=== PATIENT | female | born 1945 | race Caucasian/White ===

== ENCOUNTER → 2016-12-29 | Outpatient (CLI) | payer MEDICARE ==
[~2016-12-29] MED LIST: ATOR-22 PO; ATOR10TA82 PO; CEPH-571 PO; CLB200 PO; CMD4 PO; CNT PO; COEN1CAP PO; CRAN1CAP15; FISHOIL PO; GLC500 PO; GLIM2TAB2 PO; GLUCTAB18 PO; LEVO100T84 PO; LEVO75TA PO; LISI-789 PO; LSN25 PO; LYSI1TAB2 PO; METF-384 PO; METO100T44 PO; MULT-1092 PO; NITR-5 PO; OMEP10CA2 PO; PRLSR20 PO; SENN-65 PO; TRAM-10 PO; ULT/50 PO; WARF2TAB8 PO; WARF4TAB PO
[2016-12-29 18:08] LABS: URINE APPEARANCE CLOUDY (CLEAR); URINE BILIRUBIN NEG (NEG); URINE COLOR DK YELLOW; URINE EPITHELIAL CELL AUTO >30 /lpf (0-5); URINE NITRITE POS (NEG); URINE SPECIFIC GRAVITY 1.036 (1.000-1.030); UROBILINOGEN NEG (NEG); ZZUR CULT IF INDIC CLEAN CATCH YES
[2016-12-29 18:11] LABS: BASO % 0.2 %; BASO ABS # 0.01 K/uL (0-0.2); COMPLETE YES; EOS % 3.6 %; HEMATOCRIT 39.2 % (37-47); IG% 0.2 %; LYMPH % 25.7 %; LYMPH ABS # 1.49 K/uL (1.2-3.4); MEAN CELL VOLUME 89.9 fL (80-100); MEAN CORPUSCULAR HEMOGLOBIN 30.7 pg (25-34); MEAN CORPUSCULAR HGB CONC 34.2 g/dl (32-36); MEAN PLATELET VOLUME 10.4 fL (7.4-10.4); MONO % 6.6 %; NEUT % 63.7 %; PLATELET COUNT 205 K/uL (130-400); RED BLOOD COUNT 4.36 M/uL (4.2-5.4); WHITE BLOOD COUNT 5.79 K/uL (4.8-10.8)
[2016-12-29 18:12] LABS: MANUAL MICROSCOPIC REQUIRED? NO; REVIEW REQ? YES
[2016-12-29 18:31] LABS: BLOOD UREA NITROGEN 15 mg/dl (7-18); BUN/CREATININE RATIO 16.3 (10-20); CALCIUM 9.6 mg/dl (8.5-10.1); CARBON DIOXIDE 25 mmol/L (21-32); CHLORIDE 105 mmol/L (98-107); CREATININE 0.94 mg/dl (0.60-1.20); GLUCOSE 294 mg/dl (70-99); POTASSIUM 4.3 mmol/L (3.5-5.1); SODIUM 140 mmol/L (136-145)
== END | disposition home or self-care (01) ==
LOC: C.LABBFT 14:17
PROVIDERS: ATTEND Nurse Practitioner
DX: Z11.59 Encounter for screening for other viral diseases (principal); R31.0 Gross hematuria

== ENCOUNTER 2017-06-06 10:20 | Inpatient (IN) | payer MEDICARE, OTHER ==
[~2017-06-06] VITALS: Ht 167.6 cm; Wt 128.9 kg
[~2017-06-06 10:20] MED LIST changes: -ATOR-22 PO; -ATOR10TA82 PO; +ATOR10TA88 PO; -CEPH-571 PO; -GLIM2TAB2 PO; -LEVO75TA PO; -LISI-789 PO; -LYSI1TAB2 PO; -METF-384 PO; -METO100T44 PO; +METO1TAB69 PO; -MULT-1092 PO; -PRLSR20 PO; -TRAM-10 PO; -WARF4TAB PO
--- NOTE | 2017-06-06 11:31 | DIAGNOSTIC IMAGING REPORT ---
CHEST ONE VIEW PORTABLE HISTORY: 72 years-old Female FALL, ILLNESS acute fall. COMPARISON: CT abdomen and pelvis 10/14/2014 TECHNIQUE: Semiupright AP view of the chest. FINDINGS: Cardiac silhouette is within normal limits. There is mild pulmonary vascular congestion without pneumothorax, pleural effusion or focal airspace consolidation. No overt pulmonary edema. The bones are grossly intact. IMPRESSION: No acute cardiopulmonary process. The above report was generated using voice recognition software. It may contain grammatical, syntax or spelling errors. Electronically signed by: Tevin Nicolas M.D. 06/06/2017 11:29 AM Dictated Date/Time: 06/06/2017 11:28 AM
[2017-06-06] MEDS ORDERED: SENN-65 PO (11:34)
[2017-06-06] MEDS ORDERED: METO1TAB69 PO (11:34)
[2017-06-06] MEDS ORDERED: WARF4TAB PO (11:34)
[2017-06-06] MEDS ORDERED: GLIM2TAB2 PO (11:34)
[2017-06-06] MEDS ORDERED: LYSI1TAB2 PO (11:34)
[2017-06-06] MEDS ORDERED: LISI-789 PO (11:34)
[2017-06-06] MEDS ORDERED: TRAM-10 PO (11:34)
[2017-06-06] MEDS ORDERED: MULT-1092 PO (11:34)
[2017-06-06] MEDS ORDERED: PRLSR20 PO (11:34)
[2017-06-06] MEDS ORDERED: METF-384 PO (11:34)
[2017-06-06] MEDS ORDERED: ATOR-22 PO (11:34)
[2017-06-06] MEDS ORDERED: LEVO75TA PO (11:34)
[2017-06-06 11:39] LABS: HEMATOCRIT 38.5 % (37-47); MEAN CELL VOLUME 89.5 fL (80-100); MEAN CORPUSCULAR HEMOGLOBIN 29.3 pg (25-34); MEAN CORPUSCULAR HGB CONC 32.7 g/dl (32-36); MEAN PLATELET VOLUME 10.5 fL (7.4-10.4); PLATELET COUNT 161 K/uL (130-400); WHITE BLOOD COUNT 13.88 K/uL (4.8-10.8)
[2017-06-06] MEDS ORDERED: SODIUM CHLORIDE 0.9% 500ML 500 ML IV STA ×2 (11:45→12:34)
[2017-06-06 11:55] LABS: POTASSIUM 3.7 mmol/L (3.5-5.1)
[2017-06-06 11:58] LABS: ALB/GLOB RATIO 0.7 (0.9-2)
[2017-06-06 12:01] LABS: INR 3.5 (0.9-1.1); PARTIAL THROMBOPLASTIN RATIO 1.6; PROTHROMBIN TIME (PATIENT) 39.6 SECONDS (9.0-12.0)
[2017-06-06 12:08] LABS: COMPLETE YES; EOS % 0.1 %; IG% 1.1 %; LYMPH % 3.8 %; LYMPH ABS # 0.53 K/uL (1.2-3.4); VACUOLIZATION OCCASIONAL
--- NOTE | 2017-06-06 12:24 | DIAGNOSTIC IMAGING REPORT ---
HEAD WITHOUT CONTRAST (CT) CLINICAL HISTORY: 72 years-old Female presenting with eval for bleed, fall. TECHNIQUE: Multidetector CT imaging of the head was performed without the use of intravenous contrast. IV contrast: None. A dose lowering technique was used consistent with the principles of ALARA (as low as reasonably achievable). COMPARISON: None. CT DOSE (mGy.cm): The estimated cumulative dose is 3090.[address] lumbar spine. FINDINGS: Jockey Valet topogram: Unremarkable. Ventricles and sulci normal in size. Brain parenchyma normal in appearance with preserved odom-white differentiation. No mass effect or midline shift. No hemorrhage or acute territorial infarct. No extra-axial fluid collection. Paranasal sinuses and mastoid air cells clear. Calvarium intact. IMPRESSION: 1. No acute intracranial pathology. Electronically signed by: Dominguez Senior M.D. 06/06/2017 12:23 PM Dictated Date/Time: 06/06/2017 12:22 PM
--- NOTE | 2017-06-06 12:32 | DIAGNOSTIC IMAGING REPORT ---
LUMBAR SPINE WITHOUT HISTORY: 72 years-old Female eval for fx acute low back pain status post fall. Concern for possible fracture COMPARISON: CT abdomen and pelvis 10/14/2014 TECHNIQUE: Multiple axial CT images of the lumbar spine were obtained without IV contrast. A dose lowering technique was used consistent with the principals of ALARA. FINDINGS: There is convex left curvature of the lumbar spine of 10 degrees. Transitional lumbosacral anatomy is present with 6 lumbar segments. There is partial sacralization of L6 with Gated partially fused left transverse process as seen on the coronal images. Bones are mildly demineralized. No acute compression deformity or retropulsion identified. No malalignment. Multilevel Schmorl's nodes are seen, notably at L1-L2 with there is moderate intervertebral disc space narrowing. Severe intervertebral disc space narrowing is seen at L5-L6. Multilevel severe facet arthropathy is seen, moderate and severe. 1.3 x 0.6 cm calculus of the interpolar right kidney is noted without definite hydronephrosis. There is moderate plaquing of the abdominal aorta. L1-L2: Circumferential annular disc bulge with moderate facet arthropathy. Moderate right foraminal narrowing. Left foramen and central canal are generally patent. L2-L3: Circumferential annular disc bulge with moderate facet arthropathy. Mild central canal and mild bilateral foraminal narrowing. L3-L4: Mild to moderate intervertebral disc space narrowing with circumferential annular disc bulge, posterior spondylitic spurring and moderate facet arthropathy. There is mild to moderate central canal, moderate left and no significant right foraminal stenosis. L4-L5: Moderate posterior vertebral disc space narrowing with posterior disc osteophyte complex and severe facet arthropathy causes moderate central canal, mild to moderate left and mild right foraminal narrowing. L5-L6: Severe intervertebral disc space narrowing with broad-based posterior disc osteophyte complex and severe facet arthropathy. There is partial effacement of the ventral thecal sac without significant central canal narrowing. There is at least moderate left and mild to moderate right foraminal narrowing. L6-S1: Right base posterior disc osteophyte complex with severe facet arthropathy. No central canal narrowing. There is mild right foraminal narrowing. Left foramen is patent. IMPRESSION: 1. No acute fracture or subluxation of the lumbar spine. 2. Transitional lumbosacral anatomy as detailed above. 3. Multilevel discogenic degenerative changes and facet arthropathy as above with mild convex left lumbar spine curvature. 4. 1.3 x 0.6 cm calculus of the interpolar right kidney is noted without hydronephrosis. The above report was generated using voice recognition software. It may contain grammatical, syntax or spelling errors. Electronically signed by: Tevin Nicolas M.D. 06/06/2017 12:31 PM Dictated Date/Time: 06/06/2017 12:22 PM
[2017-06-06 12:36] LABS: CKMB/CK RATIO 0.9 (0-3.0); MAGNESIUM 1.5 mg/dl (1.8-2.4)
[2017-06-06 12:46] LABS: URINE APPEARANCE CLOUDY (CLEAR); URINE COLOR DK YELLOW; URINE EPITHELIAL CELL AUTO 0-5 /lpf (0-5); URINE NITRITE NEG (NEG); UROBILINOGEN NEG (NEG); ZZURINE CULT IF INDIC CATH YES
[2017-06-06 12:48] LABS: MANUAL MICROSCOPIC REQUIRED? NO; REVIEW REQ? NO; URINE BILIRUBIN NEG (NEG)
[2017-06-06 13:40] VITALS: O2SAT 99; BMI 45.4
[2017-06-06] MEDS ORDERED: MoRPHine SULFATE 2 MG/ML CARP IV PRN (14:00)
[2017-06-06] MEDS ORDERED: WARFARIN SOD 4 MG TAB PO SCH (14:00)
[2017-06-06] MEDS ORDERED: ONDANSETRON INJ 2 MG/ML 2 ML VIAL IV PRN (14:00)
[2017-06-06] MEDS ORDERED: MAGNESIUM HYDROXIDE SUSP 30 ML UDC PO PRN (14:00)
[2017-06-06] MEDS ORDERED: POLYETHYLENE (MIRALAX) 17 GM PACK PO PRN (14:00)
[2017-06-06] MEDS ORDERED: ACETAMINOPHEN 325 MG TAB PO PRN (14:00)
[2017-06-06] MEDS ORDERED: ALUMINUM/MAGNESIUM/SIMETH (MAALOX MAX) 30 ML UDC PO PRN (14:00)
[2017-06-06] MEDS ORDERED: IV FLUIDS COMPLETED PRN (14:30)
--- NOTE | 2017-06-06 14:32 | History and Physical ---
History & Physical Date & Time of Service: Jun 06, 2017 at 14:13 Chief Complaint: Back Pain Primary Care Physician: Michael Anderson M.D. History of Present Illness Source: patient 72 y/o F Hx DM, HTN, HPL, hypothyroid, chronic back pain, chronic AF, morbidly obese. Pt states she was having hot and cold flashes with a few episodes of nausea and vomiting the prior evening. She sat in her recliner this AM and apparently reclined into an awkward position where she was unable to get up for 6-7 hours. She was finally found by her son who was unable to help her up due to her weight. EMS were called and arrived at the house to help her out of the chair. She was exhibiting lower extremity weakness however, and was not able to maintain her balance independently once out of her chair. She was transported to the hospital therefore. She complains of "pain all over" in addition to lower back pain. She denies CP, SOB. Her nausea and vomiting have resolved. She was afebrile on admission. Initial labs were notable for ARF and an elevated CK and troponin which may be related to her elevated creatinine. A UA is +. Past Medical/Surgical History Medical Problems: 1) Morbid obesity 2) Ovarian CA 3) DM II 4) HTN 5) HPL 6) Hypothyroidism 7) Chronic AF 8) Chronic lower back pain Family History Noncontributory to present case Social History Smoking Status: Never Smoker Immunizations History of Influenza Vaccine: No History of Tetanus Vaccine?: No History of Pneumococcal: No History of Hepatitis B Vaccine: No Multi-Drug Resistant Organisms History of MDRO: No Allergies Coded Allergies: Erythromycin (Unverified Allergy, Unknown, ?, 06/06/17) Dairy (Unverified Adverse Reaction, Unknown, _, 06/06/17) Levothyroxine (Unverified Adverse Reaction, Unknown, increased hair growth in past, 06/06/17) Simvastatin (Unverified Adverse Reaction, Unknown, myalgias in past, Vytorin [place], 06/06/17) Home Medications Scheduled Atorvastatin (Lipitor), 20 MG PO HS Glimepiride (Glimepiride), 2 MG PO BID Levothyroxine Sodium (Synthroid), 75 MCG PO DAILY Lisinopril (Zestril), 2.5 MG PO QPM Lysine (L-Lysine), 1,000 MG PO DAILY Metformin Hcl (Glucophage), 1,000 MG PO BIDM Metoprolol Succ (Toprol Xl) (Toprol-Xl ), 100 MG PO BID Multiple Vitamins W/ Minerals (Centrum Silver 50+Women), 1 TAB PO DAILY Omeprazole (Prilosec), 20 MG PO DAILY Senna/Docusate Sod (Senokot S), 1 TAB PO BID Warfarin Sodium (Coumadin), 1 DOSE PO UD Scheduled PRN Tramadol (Ultram), 50-100 MG PO Q6H PRN for Pain Review of Systems Constitutional: + chills, + sweats, No fever Eyes: No worsening of vision ENT: No hearing loss, No nasal symptoms Respiratory: No cough, No sputum, No wheezing Cardiovascular: No chest pain, No orthopnea Abdomen: + nausea, + vomiting, No pain Musculoskeletal: + joint pain (chronic back pain) Genitourinary - Female: No dysuria, No urinary frequency, No urinary urgency Neurologic: + weakness, No memory loss, No paralysis Psychiatric: No depression symptoms Endocrine: + fatigue Hematologic / Lymphatic: No abnormal bleeding/bruising Integumentary: No rash Allergic / Immunologic: No environmental allergies Physical Exam Vital Signs Date Time Temp Pulse Resp B/P (MAP) Pulse Ox O2 Delivery O2 Flow Rate FiO2 06/06/17 13:40 99 Room Air 06/06/17 12:38 91 18 103/51 06/06/17 11:41 100 98/55 99 Room Air 06/06/17 10:50 37.2 111 100/86 95 Room Air 06/06/17 10:50 103 General Appearance: WD/WN, no apparent distress, + obese Head: normocephalic, atraumatic Neck: supple, no adenopathy, no JVD Respiratory/Chest: chest non-tender, lungs clear Cardiovascular: regular rate, rhythm, no edema, no gallop, no JVD, no murmur, normal peripheral pulses Abdomen/GI: normal bowel sounds, non tender, soft Back: normal inspection, no CVA tenderness, no muscle spasm, normal range of motion Extremities/Musculoskelatal: no calf tenderness, normal capillary refill, normal range of motion, + pedal edema 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, no motor/sensory deficits, alert, normal mood/affect, normal reflexes, oriented x 3 Skin: normal color, warm/dry, no rash Diagnostics Laboratory Results Results Past 24 Hours Test 06/06/17 11:15 06/06/17 11:32 06/06/17 12:35 06/06/17 13:53 Range/Units White Blood Count 13.88 4.8-10.8 K/uL Red Blood Count 4.30 4.2-5.4 M/uL Hemoglobin 12.6 12.0-16.0 g/dL Hematocrit 38.5 37-47 % Mean Corpuscular Volume 89.5 80-100 fL Mean Corpuscular Hemoglobin 29.3 25-34 pg Mean Corpuscular Hemoglobin Concent 32.7 32-36 g/dl Platelet Count 161 130-400 K/uL Mean Platelet Volume 10.5 7.4-10.4 fL Neutrophils (%) (Auto) 90.0 % Lymphocytes (%) (Auto) 3.8 % Monocytes (%) (Auto) 5.0 % Eosinophils (%) (Auto) 0.1 % Basophils (%) (Auto) 0.0 % Neutrophils # (Auto) 12.50 1.4-6.5 K/uL Lymphocytes # (Auto) 0.53 1.2-3.4 K/uL Monocytes # (Auto) 0.69 0.11-0.59 K/uL Eosinophils # (Auto) 0.01 0-0.5 K/uL Basophils # (Auto) 0.00 0-0.2 K/uL RDW Standard Deviation 45.6 36.4-46.3 fL RDW Coefficient of Variation 13.9 11.5-14.5 % Immature Granulocyte % (Auto) 1.1 % Immature Granulocyte # (Auto) 0.15 0.00-0.02 K/uL Toxic Vacuolation OCCASIONAL Prothrombin Time 39.6 9.0-12.0 SECONDS Prothromb Time International Ratio 3.5 0.9-1.1 Activated Partial Thromboplast Time 41.2 21.0-31.0 SECONDS Partial Thromboplastin Ratio 1.6 Sodium Level 139 136-145 mmol/L Potassium Level 3.7 3.5-5.1 mmol/L Chloride Level 104 98-107 mmol/L Carbon Dioxide Level 21 21-32 mmol/L Anion Gap 14.0 3-11 mmol/L Blood Urea Nitrogen 22 7-18 mg/dl Creatinine 2.00 0.60-1.20 mg/dl Est Creatinine Clear Calc Drug Dose 35.8 ml/min Estimated GFR () 28.6 Estimated GFR (Non- 24.7 BUN/Creatinine Ratio 11.0 10-20 Random Glucose 269 70-99 mg/dl Calcium Level 10.0 8.5-10.1 mg/dl Magnesium Level 1.5 1.8-2.4 mg/dl Total Bilirubin 0.9 0.2-1 mg/dl Aspartate Amino Transf (AST/SGOT) 60 15-37 U/L Alanine Aminotransferase (ALT/SGPT) 40 12-78 U/L Alkaline Phosphatase 180 45-117 U/L Total Creatine Kinase 434 26-192 U/L Creatine Kinase MB 3.9 0.5-3.6 ng/ml Creatine Kinase MB Ratio 0.9 0-3.0 Troponin I 0.800 0-0.045 ng/ml Total Protein 7.4 6.4-8.2 gm/dl Albumin 3.0 3.4-5.0 gm/dl Globulin 4.4 2.5-4.0 gm/dl Albumin/Globulin Ratio 0.7 0.9-2 Urine Color DK YELLOW Urine Appearance CLOUDY CLEAR Urine pH 5.0 4.5-7.5 Urine Specific [place] 1.020 1.000-1.030 Urine Protein 1+ NEG Urine Glucose (UA) TRACE NEG Urine Ketones TRACE NEG Urine Occult Blood 3+ NEG Urine Nitrite NEG NEG Urine Bilirubin NEG NEG Urine Urobilinogen NEG NEG Urine Leukocyte Esterase MODERATE NEG Urine WBC (Auto) >30 0-5 /hpf Urine RBC (Auto) 5-10 0-4 /hpf Urine Hyaline Casts (Auto) 10-30 0-5 /lpf Urine Epithelial Cells (Auto) 0-5 0-5 /lpf Urine Bacteria (Auto) 3+ NEG Microbiology Results 06/06/17 Urine Culture, Received Pending Impression Assessment and Plan 72 y/o F Hx DM, HTN, HPL, hypothyroid, chronic back pain, chronic AF, morbidly obese. Pt states she was having hot and cold flashes with a few episodes of nausea and vomiting the prior evening. She sat in her recliner this AM and apparently reclined into an awkward position where she was unable to get up for 6-7 hours. She was finally found by her son who was unable to help her up due to her weight. EMS were called and arrived at the house to help her out of the chair. She was exhibiting lower extremity weakness however, and was not able to maintain her balance independently once out of her chair. She was transported to the hospital therefore. She complains of "pain all over" in addition to lower back pain. She denies CP, SOB. Her nausea and vomiting have resolved. She was afebrile on admission. Initial labs were notable for ARF and an elevated CK and troponin which may be related to her elevated creatinine. A UA is +. 1) ARF - likely prerenal considering nausea and vomiting followed by several hours of immobility. Pt will be aggressively hydrated - MADYSON held - BMP will be trended. 2) Elevated troponin and CK - likely related to ARF and mild rhabdo - will trend - pt assigned to telemetry - receiving IVF as above and we will trend her CK/trop. 3) UTI - placed on Ceftriaxone pending culture results 4) Immobility - no distinct deficits on exam - likely related to infection, rhabdo, obesity - will consult PT, OT - may need placement in rehab if there is no short-term improvement as she lives alone. 5) AF - will remain on Coumadin and B sebastian - INR is therapeutic 6) HTN - cont B sebastian, MADYSON held due to ARF - will sub if needed 7) Morbidly obese - would likely benefit from nutritional and lifestyle counseling prior to DC. 8) DM - placed on SS Full code - Coumadin prophylaxis Total time for this admit including review pf labs, meds, records, EKG - discussion with pt and ER attending - 37 min Advanced Directives Existing Living Will: Yes Existing Power of Boning Room Worker: Yes (FRED SON ) VTE Prophylaxis VTE Risk Assessment Done? Y/N: Yes Risk Level: Moderate Given or contraindicated: Warfarin (Coumadin)
[2017-06-06] MEDS ORDERED: INFLUENZA ADMINISTRATION CHARGE ONE (15:15)
[2017-06-06] MEDS ORDERED: INFLUENZA VACCINE HIGH DOSE 65+ 0.5 ML SYR IM. ONE (15:15)
[2017-06-06] MEDS: CEFTRIAXONE SOD INJ 1 GM in DEXTROSE 5% ADD-VANTAGE 50ML 50 ML IV SCH (15:42)
[2017-06-06] MEDS: SODIUM CHLORIDE 0.9% 1000ML 1,000 ML IV SCH ×2 (15:42→23:47)
[2017-06-06 16:00] VITALS: O2SAT 99
[2017-06-06] MEDS ORDERED: WARFARIN SOD 2 MG TAB PO SCH (16:45)
[2017-06-06] MEDS: INSULIN ASPART 100 UNITS/ML 3 ML PEN SC SCH ×2 (17:43→21:17)
--- NOTE | 2017-06-06 18:37 | EMERGENCY ROOM VISIT NOTE ---
History Report prepared by Jocelyn: Luh Richardson Under the Supervision of: Dr. Adi Asencio M.D. First contact with patient: 11:31 Chief Complaint: FALL Stated Complaint: BACK PAIN History of Present Illness The patient is a 72 year old female who presents to the Emergency Room with complaints of an episode of a fall occurring around 2am today. The patient has been feeling very weak lately. She reports feeling generally weak all over and denies any localized weakness. Last night she slid down in her leather recliner and was unable to get up. She tried calling her son for help but he did not answer until around 8am today. When EMS arrived they were unable to get the patient up and had to place her on a stretcher. She was brought to the ED for further evaluation. The patient has been feeling nauseated for the past two days. Last night she had two episodes of vomiting. She is currently complaining of a headache. She rates her pain as a 10/10 in severity. The patient has been having diarrhea for months and estimates that she has two episodes daily. She denies any hematochezia and melena. She does report some hematuria. She has been incontinent for years. The patient denies fevers and chest pain. She did state she had chest pain along time ago on the right side but does not remember when. She takes a blood thinner for atrial fibrillation. Source of History: patient Onset: today Position: other (global) Symptom Intensity: 10/10 Timing: other (episode) Modifying Factors (Worsening): other (weakness) Associated Symptoms: + headache, + nausea, + vomiting, + diarrhea, + urinary symptoms (hematuria), + weakness, No fevers, No chest pain, No melena, No hematochezia Review of Systems See HPI for pertinent positives & negatives. A total of 10 systems reviewed and were otherwise negative. Past Medical & Surgical Medical Problems: (1) ARF (acute renal failure) (2) Arthritis (3) CVA (4) Diabetes mellitus (5) Gait abnormality (6) Ovarian Carcinoma (7) Tonsillectomy Family History Non-pertinent due to advanced age. Social History Smoking Status: Never Smoker Housing Status: lives alone Occupation Status: unemployed Current/Historical Medications Scheduled Atorvastatin (Lipitor), 20 MG PO HS Glimepiride (Glimepiride), 2 MG PO BID Levothyroxine Sodium (Synthroid), 75 MCG PO DAILY Lisinopril (Zestril), 2.5 MG PO QPM Lysine (L-Lysine), 1,000 MG PO DAILY Metformin Hcl (Glucophage), 1,000 MG PO BIDM Metoprolol Succ (Toprol Xl) (Toprol-Xl ), 100 MG PO BID Multiple Vitamins W/ Minerals (Centrum Silver 50+Women), 1 TAB PO DAILY Omeprazole (Prilosec), 20 MG PO DAILY Senna/Docusate Sod (Senokot S), 1 TAB PO BID Warfarin Sodium (Coumadin), 1 DOSE PO UD Scheduled PRN Tramadol (Ultram), 50-100 MG PO Q6H PRN for Pain Allergies Coded Allergies: Erythromycin (Unverified Allergy, Unknown, ?, 06/06/17) Dairy (Unverified Adverse Reaction, Unknown, _, 06/06/17) Levothyroxine (Unverified Adverse Reaction, Unknown, increased hair growth in past, 06/06/17) Simvastatin (Unverified Adverse Reaction, Unknown, myalgias in past, Vytorin OK, 06/06/17) Physical Exam Vital Signs Date Time Temp Pulse Resp B/P (MAP) Pulse Ox O2 Delivery O2 Flow Rate FiO2 06/06/17 13:40 99 Room Air 06/06/17 12:38 91 18 103/51 06/06/17 11:41 100 98/55 99 Room Air 06/06/17 10:50 37.2 111 100/86 95 Room Air 06/06/17 10:50 103 Physical Exam Constitutional: Vital signs reviewed. Eyes: Pupils are equal round reactive to light. Conjunctiva are noninjected. ENT: Pharynx is clear without erythema or exudate. Mucous membranes are dry. Neck supple without meningeal signs. Respiratory: Clear to auscultation bilaterally. Breath sounds are equal bilaterally. Cardiovascular: Regular rate and irregularly irregular rhythm. No rubs or gallops. GI: Soft, nondistended and nontender. Bowel sounds are present. Musculoskeletal: No peripheral edema. No lower extremity tenderness. Integumentary: No cyanosis. Neurological: The patient is awake and alert. Cranial nerves II-XII are intact. Motor is 5 out of 5 in the upper extremities. Strength in lower extremities is 3/5 proximally and 5/5 distally. Sensation is intact to light touch all extremities. Normal speech. No pronator drift. Psychiatric: Normal affect. Medical Decision & Procedures ER Provider Diagnostic Interpretation: Radiology results as stated below per my review and the radiologist's interpretation: CHEST ONE VIEW PORTABLE HISTORY: 72 years-old Female FALL, ILLNESS acute fall. COMPARISON: CT abdomen and pelvis 10/14/2014 TECHNIQUE: Semiupright AP view of the chest. FINDINGS: Cardiac silhouette is within normal limits. There is mild pulmonary vascular congestion without pneumothorax, pleural effusion or focal airspace consolidation. No overt pulmonary edema. The bones are grossly intact. IMPRESSION: No acute cardiopulmonary process. The above report was generated using voice recognition software. It may contain grammatical, syntax or spelling errors. Electronically signed by: Tevin Nicolas M.D. 06/06/2017 11:29 AM Dictated Date/Time: 06/06/2017 11:28 AM LUMBAR SPINE WITHOUT HISTORY: 72 years-old Female eval for fx acute low back pain status post fall. Concern for possible fracture COMPARISON: CT abdomen and pelvis 10/14/2014 TECHNIQUE: Multiple axial CT images of the lumbar spine were obtained without IV contrast. A dose lowering technique was used consistent with the principals of ALARA. FINDINGS: There is convex left curvature of the lumbar spine of 10 degrees. Transitional lumbosacral anatomy is present with 6 lumbar segments. There is partial sacralization of L6 with Gated partially fused left transverse process as seen on the coronal images. Bones are mildly demineralized. No acute compression deformity or retropulsion identified. No malalignment. Multilevel Schmorl's nodes are seen, notably at L1-L2 with there is moderate intervertebral disc space narrowing. Severe intervertebral disc space narrowing is seen at L5-L6. Multilevel severe facet arthropathy is seen, moderate and severe. 1.3 x 0.6 cm calculus of the interpolar right kidney is noted without definite hydronephrosis. There is moderate plaquing of the abdominal aorta. L1-L2: Circumferential annular disc bulge with moderate facet arthropathy. Moderate right foraminal narrowing. Left foramen and central canal are generally patent. L2-L3: Circumferential annular disc bulge with moderate facet arthropathy. Mild central canal and mild bilateral foraminal narrowing. L3-L4: Mild to moderate intervertebral disc space narrowing with circumferential annular disc bulge, posterior spondylitic spurring and moderate facet arthropathy. There is mild to moderate central canal, moderate left and no significant right foraminal stenosis. L4-L5: Moderate posterior vertebral disc space narrowing with posterior disc osteophyte complex and severe facet arthropathy causes moderate central canal, mild to moderate left and mild right foraminal narrowing. L5-L6: Severe intervertebral disc space narrowing with broad-based posterior disc osteophyte complex and severe facet arthropathy. There is partial effacement of the ventral thecal sac without significant central canal narrowing. There is at least moderate left and mild to moderate right foraminal narrowing. L6-S1: Right base posterior disc osteophyte complex with severe facet arthropathy. No central canal narrowing. There is mild right foraminal narrowing. Left foramen is patent. IMPRESSION: 1. No acute fracture or subluxation of the lumbar spine. 2. Transitional lumbosacral anatomy as detailed above. 3. Multilevel discogenic degenerative changes and facet arthropathy as above with mild convex left lumbar spine curvature. 4. 1.3 x 0.6 cm calculus of the interpolar right kidney is noted without hydronephrosis. The above report was generated using voice recognition software. It may contain grammatical, syntax or spelling errors. Electronically signed by: Tevin Nicolas M.D. 06/06/2017 12:31 PM Dictated Date/Time: 06/06/2017 12:22 PM HEAD WITHOUT CONTRAST (CT) CLINICAL HISTORY: 72 years-old Female presenting with eval for bleed, fall. TECHNIQUE: Multidetector CT imaging of the head was performed without the use of intravenous contrast. IV contrast: None. A dose lowering technique was used consistent with the principles of ALARA (as low as reasonably achievable). COMPARISON: None. CT DOSE (mGy.cm): The estimated cumulative dose is 3090.[address] lumbar spine. FINDINGS: Disability Coordinator topogram: Unremarkable. Ventricles and sulci normal in size. Brain parenchyma normal in appearance with preserved odom-white differentiation. No mass effect or midline shift. No hemorrhage or acute territorial infarct. No extra-axial fluid collection. Paranasal sinuses and mastoid air cells clear. Calvarium intact. IMPRESSION: 1. No acute intracranial pathology. Electronically signed by: Dominguez Senior M.D. 06/06/2017 12:23 PM Dictated Date/Time: 06/06/2017 12:22 PM Laboratory Results 06/06/17 11:15 Red Blood Count 4.30, Mean Corpuscular Volume 89.5, Mean Corpuscular Hemoglobin 29.3, Mean Corpuscular Hemoglobin Concent 32.7, Mean Platelet Volume 10.5, Neutrophils (%) (Auto) 90.0, Lymphocytes (%) (Auto) 3.8, Monocytes (%) (Auto) 5.0, Eosinophils (%) (Auto) 0.1, Basophils (%) (Auto) 0.0, Neutrophils # (Auto) 12.50, Lymphocytes # (Auto) 0.53, Monocytes # (Auto) 0.69, Eosinophils # (Auto) 0.01, Basophils # (Auto) 0.00 06/06/17 11:15 Test 06/06/17 11:15 06/06/17 11:32 06/06/17 12:35 White Blood Count 13.88 K/uL (4.8-10.8) Red Blood Count 4.30 M/uL (4.2-5.4) Hemoglobin 12.6 g/dL (12.0-16.0) Hematocrit 38.5 % (37-47) Mean Corpuscular Volume 89.5 fL (80-100) Mean Corpuscular Hemoglobin 29.3 pg (25-34) Mean Corpuscular Hemoglobin Concent 32.7 g/dl (32-36) Platelet Count 161 K/uL (130-400) Mean Platelet Volume 10.5 fL (7.4-10.4) Neutrophils (%) (Auto) 90.0 % Lymphocytes (%) (Auto) 3.8 % Monocytes (%) (Auto) 5.0 % Eosinophils (%) (Auto) 0.1 % Basophils (%) (Auto) 0.0 % Neutrophils # (Auto) 12.50 K/uL (1.4-6.5) Lymphocytes # (Auto) 0.53 K/uL (1.2-3.4) Monocytes # (Auto) 0.69 K/uL (0.11-0.59) Eosinophils # (Auto) 0.01 K/uL (0-0.5) Basophils # (Auto) 0.00 K/uL (0-0.2) RDW Standard Deviation 45.6 fL (36.4-46.3) RDW Coefficient of Variation 13.9 % (11.5-14.5) Immature Granulocyte % (Auto) 1.1 % Immature Granulocyte # (Auto) 0.15 K/uL (0.00-0.02) Toxic Vacuolation OCCASIONAL Prothrombin Time 39.6 SECONDS (9.0-12.0) Prothromb Time International Ratio 3.5 (0.9-1.1) Activated Partial Thromboplast Time 41.2 SECONDS (21.0-31.0) Partial Thromboplastin Ratio 1.6 Anion Gap 14.0 mmol/L (3-11) Est Creatinine Clear Calc Drug Dose 35.8 ml/min Estimated GFR () 28.6 Estimated GFR (Non- 24.7 BUN/Creatinine Ratio 11.0 (10-20) Calcium Level 10.0 mg/dl (8.5-10.1) Magnesium Level 1.5 mg/dl (1.8-2.4) Total Bilirubin 0.9 mg/dl (0.2-1) Aspartate Amino Transf (AST/SGOT) 60 U/L (15-37) Alanine Aminotransferase (ALT/SGPT) 40 U/L (12-78) Alkaline Phosphatase 180 U/L (45-117) Creatine Kinase MB 3.9 ng/ml (0.5-3.6) Total Protein 7.4 gm/dl (6.4-8.2) Albumin 3.0 gm/dl (3.4-5.0) Globulin 4.4 gm/dl (2.5-4.0) Albumin/Globulin Ratio 0.7 (0.9-2) Hepatitis C Antibody Screen NEG (NEG) Creatine Kinase MB Ratio (0-3.0) Urine Color DK YELLOW Urine Appearance CLOUDY (CLEAR) Urine pH 5.0 (4.5-7.5) Urine Specific [place] 1.020 (1.000-1.030) Urine Protein 1+ (NEG) Urine Glucose (UA) TRACE (NEG) Urine Ketones TRACE (NEG) Urine Occult Blood 3+ (NEG) Urine Nitrite NEG (NEG) Urine Bilirubin NEG (NEG) Urine Urobilinogen NEG (NEG) Urine Leukocyte Esterase MODERATE (NEG) Urine WBC (Auto) >30 /hpf (0-5) Urine RBC (Auto) 5-10 /hpf (0-4) Urine Hyaline Casts (Auto) 10-30 /lpf (0-5) Urine Epithelial Cells (Auto) 0-5 /lpf (0-5) Urine Bacteria (Auto) 3+ (NEG) Laboratory results as reviewed by me. Medications Administered Medications (Trade) Dose Ordered Sig/Tequila Route Start Time Stop Time Status Last Admin Dose Admin Sodium Chloride 500 ml @ 999 mls/hr Q31M STAT IV 06/06/17 11:45 06/06/17 12:15 DC 06/06/17 11:45 999 MLS/HR Sodium Chloride 500 ml @ 200 mls/hr Q2H30M STAT IV 06/06/17 12:34 06/06/17 15:01 DC 06/06/17 12:34 200 MLS/HR ECG Indication: weakness Rate (beats per minute): 95 Rhythm: atrial fibrillation Findings: no acute ischemic change, other (QRS is 86 MS) ED Course 1131: The patient was evaluated in room B2. A complete history and physical exam was performed. 1145: NSS 500 ml @ 999 mls/hr IV 1234: NSS 500 ml @ 200 mls/hr IV 1236: I reassessed the patient at this time. A Ramos catheter was placed and very little urine was drained. There was no blood. I discussed the results and treatment plan with patient. I answered all pertaining questions that she had. She expressed understanding and verbalized agreement. 1239: I spoke with Dr. Titus. We discussed the patient's case. The patient will be evaluated by the [facility] for further management. Medical Decision this is a 72-year-old female presents with generalized weakness. Differential diagnosis includes dehydration, acute kidney injury, infection, cardiac, neurologic, rhabdomyolysis. I did perform a limited focused review of portions of the patient's old chart on the electronic medical record. The patient has had no recent pertinent visits to this hospital. I did evaluate the patient as noted above. The patient is presenting with generalized weakness. She states she slid off her recliner and was unable to get off the floor for an approximate 7 hours. IV access was established. The patient was placed on a continuous night monitor. I did treat the patient with normal saline IV. I did order and personally review the patient's 12-lead EKG and chest x-ray as described above. She has no acute ischemic changes on her twelve-lead EKG. I did order and review the patient's blood work as noted in the electronic medical record. The patient has a creatinine of 2. Her troponin is slightly elevated but she states she has not had chest pain in a long time. This may be a elevated secondary to her kidney disease. She does have some hyperglycemia as well. Her white count is slightly elevated. Her INR is 3.5. I did order a CT of the head and lumbosacral spine. I did review the images myself as well as the radiology report as described above. There is no acute process. The patient states she's been urinating blood. A Ramos catheter is placed. She had very little urine in it but there was no blood noted. UA showed signs of a UTI. I did discuss the test results with the patient. I did recommend hospitalization for further care and evaluation. I did discuss case with the hospitalist and case management manager. Medication Reconcilliation Current Medication List: was personally reviewed by me Blood Pressure Screening Patient's blood pressure: Normal blood pressure Consults Time Called: 1238 Consulting Physician: Dr. Titus Returned Call: [address] Titus. We discussed the patient's case. The patient will be evaluated by the [facility] for further management. Impression Primary Impression: BONIFACIO (acute kidney injury) Additional Impressions: Dehydration Chronic diarrhea Supratherapeutic INR Generalized weakness Elevated troponin UTI (urinary tract infection) Scribe Attestation The scribe's documentation has been prepared under my direct and personally reviewed by me in its entirety. I confirm that the note above accurately reflects all work, treatment, procedures, and medical decision making performed by me. Departure Information Dispostion Being Evaluated By Hospitalist Referrals Michael Anderson M.D. (PCP) Patient Instructions My [facility] Problem Qualifiers Additional Impressions: UTI (urinary tract infection) Urinary tract infection type: site unspecified Hematuria presence: with hematuria Qualified Codes: N39.0 - Urinary tract infection, site not specified ; R31.9 - Hematuria, unspecified
[2017-06-06 19:50] VITALS: BP 92/55; PULSE 88; TEMP 36.9; O2SAT 96
[2017-06-06 20:00] VITALS: O2SAT 99
[2017-06-06] MEDS: DOCUSATE SODIUM/SENNA 50/8.6MG TAB PO SCH (21:05)
[2017-06-06] MEDS: METOPROLOL SUCC 50MG EXT REL TAB PO SCH (21:05)
[2017-06-06] MEDS: ATORVASTATIN 20 MG TAB PO SCH (21:05)
[2017-06-06 23:15] VITALS: BP 102/65; PULSE 92; TEMP 37; O2SAT 96
[2017-06-06 23:59] VITALS: O2SAT 96
[2017-06-07] VITALS (9 sets, daily range): BP systolic 116–139; BP diastolic 68–75; PULSE 84–95; TEMP 36.6–37.2; O2SAT 93–98; BMI 45.6
[2017-06-07] MEDS: LEVOTHYROXINE 75 MCG TAB PO SCH (07:04)
[2017-06-07 07:46] LABS: PROTHROMBIN TIME (PATIENT) 50.2 SECONDS (9.0-12.0)
[2017-06-07 07:47] LABS: BUN/CREATININE RATIO 20.2 (10-20); CALCIUM 8.7 mg/dl (8.5-10.1); CREATININE 1.5 mg/dl (0.60-1.20); MAGNESIUM 1.6 mg/dl (1.8-2.4); POTASSIUM 3.7 mmol/L (3.5-5.1)
[2017-06-07 07:48] LABS: INR 4.4 (0.9-1.1)
[2017-06-07 07:53] LABS: HEMATOCRIT 34.3 % (37-47); MEAN CELL VOLUME 88.6 fL (80-100); MEAN CORPUSCULAR HEMOGLOBIN 29.5 pg (25-34); MEAN CORPUSCULAR HGB CONC 33.2 g/dl (32-36); MEAN PLATELET VOLUME 10.7 fL (7.4-10.4); PLATELET COUNT 137 K/uL (130-400); RED BLOOD COUNT 3.87 M/uL (4.2-5.4); WHITE BLOOD COUNT 18.93 K/uL (4.8-10.8)
[2017-06-07] MEDS: INSULIN ASPART 100 UNITS/ML 3 ML PEN SC SCH ×4 (07:59→22:08)
[2017-06-07] MEDS: METOPROLOL SUCC 50MG EXT REL TAB PO SCH ×2 (08:02→22:05)
[2017-06-07] MEDS: DOCUSATE SODIUM/SENNA 50/8.6MG TAB PO SCH ×2 (08:03→22:05)
[2017-06-07] MEDS: PANTOprazole SOD 40 MG TAB PO SCH (08:03)
[2017-06-07] MEDS ORDERED: NURSING DECISION MEDICATION ORDER SCH ×2 (08:45→18:00)
[2017-06-07] MEDS: MICONAZOLE NITRATE POWDER 43 GM EXT SCH ×2 (09:58→22:02)
--- NOTE | 2017-06-07 14:07 | Progress Note ---
Subjective Date of Service: Jun 07, 2017. Subjective Pt evaluation today including: conversation w/ patient, conversation w/ family , physical exam, lab review, review of studies, review of inpatient medication list Pt seen and examined Resting comfortably in bed States incontinence and difficulty ambulation No fevers or chills Problem List Medical Problems: (1) BONIFACIO (acute kidney injury) Status: Acute (2) Chronic diarrhea Status: Acute (3) Dehydration Status: Acute (4) Elevated troponin Status: Acute (5) Generalized weakness Status: Acute (6) Supratherapeutic INR Status: Acute (7) UTI (urinary tract infection) Status: Acute Review of Systems Constitutional: + weakness, + fatigue, No fever, No chills, No sweats, No weight loss ENT: No hearing loss, No unusual epistaxis, No nasal symptoms, No sore throat, No tinnitus Respiratory: No cough, No sputum, No wheezing, No shortness of breath, No dyspnea on exertion Cardiac: No chest pain, No orthopnea, No PND, No edema, No claudication Abdomen: No pain, No nausea, No vomiting, No diarrhea, No constipation Musculoskeletal: No joint pain, No muscle pain, No swelling, No calf pain Female : No dysuria, No urinary frequency, No hematuria, No incontinence Neurologic: No memory loss, No paralysis, No weakness, No numbness/tingling Psychiatric: No depression symptoms, No anhedonism, No anxiety, No insomnia Endo: No fatigue, No excessive thirst Skin: No rash, No itch Objective Vital Signs Date Time Temp Pulse Resp B/P (MAP) Pulse Ox O2 Delivery O2 Flow Rate FiO2 06/07/17 12:29 36.8 86 20 133/74 (93) 98 Room Air 06/07/17 12:11 36.9 90 20 96 06/07/17 12:00 Room Air 06/07/17 09:33 90 96 06/07/17 08:00 Room Air 06/07/17 07:46 36.9 89 20 133/75 (94) 98 Room Air 06/07/17 04:00 96 Room Air 06/07/17 03:07 37.2 85 19 124/68 (86) 94 Room Air 06/06/17 23:59 96 Room Air 06/06/17 23:15 37.0 92 20 102/65 (77) 96 Room Air 06/06/17 20:00 99 Room Air 06/06/17 19:50 36.9 88 18 92/55 (67) 96 Room Air 06/06/17 16:00 99 Room Air 06/06/17 14:04 87 16 90/62 Physical Exam General Appearance: WD/WN, no apparent distress Eyes: normal inspection, PERRL, EOMI, sclerae normal Neck: supple, no adenopathy, thyroid normal, no JVD Respiratory/Chest: chest non-tender, lungs clear, normal breath sounds, no respiratory distress Cardiovascular: regular rate, rhythm, no edema, no gallop, no JVD Abdomen: normal bowel sounds, non tender, soft, no organomegaly Neurologic/Psychiatric: no motor/sensory deficits, alert, normal mood/affect, oriented x 3 Laboratory Results Last 24 Hours Test 06/06/17 15:20 06/06/17 16:28 06/06/17 20:09 06/06/17 21:40 Total Creatine Kinase 874 U/L 1621 U/L Troponin I 0.672 ng/ml 0.449 ng/ml Bedside Glucose 283 mg/dl 242 mg/dl Test 06/07/17 06:12 06/07/17 07:11 06/07/17 11:33 Bedside Glucose 133 mg/dl 219 mg/dl White Blood Count 18.93 K/uL Red Blood Count 3.87 M/uL Hemoglobin 11.4 g/dL Hematocrit 34.3 % Mean Corpuscular Volume 88.6 fL Mean Corpuscular Hemoglobin 29.5 pg Mean Corpuscular Hemoglobin Concent 33.2 g/dl RDW Standard Deviation 46.8 fL RDW Coefficient of Variation 14.4 % Platelet Count 137 K/uL Mean Platelet Volume 10.7 fL Prothrombin Time 50.2 SECONDS Prothromb Time International Ratio 4.4 Sodium Level 139 mmol/L Potassium Level 3.7 mmol/L Chloride Level 107 mmol/L Carbon Dioxide Level 23 mmol/L Anion Gap 9.0 mmol/L Blood Urea Nitrogen 30 mg/dl Creatinine 1.50 mg/dl Est Creatinine Clear Calc Drug Dose 47.8 ml/min Estimated GFR () 40.5 Estimated GFR (Non- 34.9 BUN/Creatinine Ratio 20.2 Random Glucose 147 mg/dl Estimated Average Glucose 197 mg/dl Hemoglobin A1c 8.5 % Calcium Level 8.7 mg/dl Magnesium Level 1.6 mg/dl Assessment and Plan 72 y/o F Hx DM, HTN, HPL, hypothyroid, chronic back pain, chronic AF, morbidly obese. Pt states she was having hot and cold flashes with a few episodes of nausea and vomiting the prior evening. She sat in her recliner this AM and apparently reclined into an awkward position where she was unable to get up for 6-7 hours. She was finally found by her son who was unable to help her up due to her weight. EMS were called and arrived at the house to help her out of the chair. She was exhibiting lower extremity weakness however, and was not able to maintain her balance independently once out of her chair. She was transported to the hospital therefore. She complains of "pain all over" in addition to lower back pain. She denies CP, SOB. Her nausea and vomiting have resolved. She was afebrile on admission. Initial labs were notable for ARF and an elevated CK and troponin which may be related to her elevated creatinine. A UA is +. ARF - likely prerenal considering nausea and vomiting followed by several hours of immobility. ACEI held, BONIFACIO improving at this time, Cr 2-->1.5 Elevated troponin and CK - likely related to ARF and mild rhabdo - likely due to BONIFACIO, trending down at this time UTI - Cont on ceftriaxone pending culture results Immobility - no distinct deficits on exam - likely related to infection, rhabdo , obesity - will consult PT, OT - may need placement in rehab if there is no short-term improvement as she lives alone. AF - will remain on Coumadin and B sebastian - INR is therapeutic HTN - cont B sebastian, MADYSON held due to ARF - will sub if needed Morbidly obese - would likely benefit from nutritional and lifestyle counseling prior to DC. DM - placed on SS Full code - Coumadin prophylaxis
[2017-06-07] MEDS: CEFTRIAXONE SOD INJ 1 GM in DEXTROSE 5% ADD-VANTAGE 50ML 50 ML IV SCH (14:17)
[2017-06-07] MEDS ORDERED: WARFARIN SOD 4 MG TAB PO SCH (16:00)
[2017-06-07] MEDS ORDERED: COUGH DROP (SUGAR FREE) LOZ 24 LOZ/1 BOX PO PRN (18:15)
[2017-06-07] MEDS: MAGNESIUM OXIDE 400 MG TAB PO SCH (22:04)
[2017-06-07] MEDS: ATORVASTATIN 20 MG TAB PO SCH (22:04)
[2017-06-08] MEDS: TRAMADOL HCL 50 MG TAB PO PRN (00:52)
[2017-06-08] MEDS: LEVOTHYROXINE 75 MCG TAB PO SCH (06:14)
[2017-06-08 07:04] VITALS: BP 138/73; PULSE 64; TEMP 36.7; O2SAT 92
[2017-06-08] MEDS: PANTOprazole SOD 40 MG TAB PO SCH (08:02)
[2017-06-08] MEDS: METOPROLOL SUCC 50MG EXT REL TAB PO SCH ×2 (08:02→20:58)
[2017-06-08] MEDS: DOCUSATE SODIUM/SENNA 50/8.6MG TAB PO SCH ×2 (08:02→20:58)
[2017-06-08 08:03] LABS: INR 2.9 (0.9-1.1); PROTHROMBIN TIME (PATIENT) 32.9 SECONDS (9.0-12.0)
[2017-06-08] MEDS: MICONAZOLE NITRATE POWDER 43 GM EXT SCH ×2 (08:03→20:58)
[2017-06-08] MEDS: MAGNESIUM OXIDE 400 MG TAB PO SCH ×2 (08:03→20:58)
[2017-06-08] MEDS: INSULIN ASPART 100 UNITS/ML 3 ML PEN SC SCH ×4 (08:09→21:03)
[2017-06-08 08:36] LABS: BASO % 0.2 %; BASO ABS # 0.03 K/uL (0-0.2); COMPLETE YES; EOS % 2.5 %; HEMATOCRIT 33.7 % (37-47); IG% 0.4 %; MEAN CELL VOLUME 89.2 fL (80-100); MEAN CORPUSCULAR HEMOGLOBIN 29.1 pg (25-34); MEAN CORPUSCULAR HGB CONC 32.6 g/dl (32-36); NEUT % 76.9 %; PLATELET COUNT 173 K/uL (130-400); RED BLOOD COUNT 3.78 M/uL (4.2-5.4); WHITE BLOOD COUNT 15.38 K/uL (4.8-10.8)
[2017-06-08 09:01] LABS: POTASSIUM 3.8 mmol/L (3.5-5.1)
[2017-06-08 14:03] VITALS: Ht 167.6 cm; Wt 128.9 kg
--- NOTE | 2017-06-08 14:17 | Progress Note ---
Subjective Date of Service: Jun 08, 2017. Subjective Pt evaluation today including: conversation w/ patient, physical exam, chart review, lab review, review of studies, review of inpatient medication list Pt reports continued weakness No urinary symptoms No further concerns noted Problem List Medical Problems: (1) BONIFACIO (acute kidney injury) Status: Acute (2) Chronic diarrhea Status: Acute (3) Dehydration Status: Acute (4) Elevated troponin Status: Acute (5) Generalized weakness Status: Acute (6) Supratherapeutic INR Status: Acute (7) UTI (urinary tract infection) Status: Acute Review of Systems Constitutional: No fever, No chills, No sweats, No weight loss, No weakness Eyes: No worsening of vision, No eye pain, No redness, No discharge Respiratory: No cough, No sputum, No wheezing, No shortness of breath, No dyspnea on exertion Cardiac: No chest pain, No orthopnea, No PND, No edema Abdomen: No pain, No nausea, No vomiting, No diarrhea Musculoskeletal: No joint pain, No muscle pain, No swelling, No calf pain Female : No dysuria, No urinary frequency, No hematuria, No incontinence Neurologic: No memory loss, No paralysis, No weakness, No numbness/tingling Psychiatric: No depression symptoms, No anhedonism, No anxiety, No insomnia Endo: No fatigue, No excessive thirst Skin: No rash, No itch Objective Vital Signs Date Time Temp Pulse Resp B/P (MAP) Pulse Ox O2 Delivery O2 Flow Rate FiO2 06/08/17 08:00 Room Air 06/08/17 07:04 36.7 64 18 138/73 (94) 92 06/08/17 00:00 Room Air 06/07/17 22:57 36.8 95 20 139/73 (95) 93 Room Air 06/07/17 16:00 97 Room Air 06/07/17 15:14 36.6 84 20 127/74 (91) 97 Room Air Physical Exam General Appearance: WD/WN, no apparent distress Eyes: normal inspection, PERRL, EOMI, sclerae normal Neck: supple, no adenopathy, thyroid normal, no JVD Respiratory/Chest: chest non-tender, lungs clear, normal breath sounds, no respiratory distress Cardiovascular: regular rate, rhythm, no edema, no gallop, no JVD Abdomen: normal bowel sounds, non tender, soft, no organomegaly Extremities: normal range of motion, non-tender, normal inspection, no pedal edema Neurologic/Psychiatric: no motor/sensory deficits, alert, normal mood/affect, oriented x 3 Laboratory Results Last 24 Hours Test 06/07/17 16:31 06/07/17 20:25 06/08/17 07:06 06/08/17 07:27 Bedside Glucose 220 mg/dl 265 mg/dl 199 mg/dl White Blood Count 15.38 K/uL Red Blood Count 3.78 M/uL Hemoglobin 11.0 g/dL Hematocrit 33.7 % Mean Corpuscular Volume 89.2 fL Mean Corpuscular Hemoglobin 29.1 pg Mean Corpuscular Hemoglobin Concent 32.6 g/dl Platelet Count 173 K/uL Mean Platelet Volume 11.0 fL Neutrophils (%) (Auto) 76.9 % Lymphocytes (%) (Auto) 13.0 % Monocytes (%) (Auto) 7.0 % Eosinophils (%) (Auto) 2.5 % Basophils (%) (Auto) 0.2 % Neutrophils # (Auto) 11.84 K/uL Lymphocytes # (Auto) 2.00 K/uL Monocytes # (Auto) 1.07 K/uL Eosinophils # (Auto) 0.38 K/uL Basophils # (Auto) 0.03 K/uL RDW Standard Deviation 46.5 fL RDW Coefficient of Variation 14.2 % Immature Granulocyte % (Auto) 0.4 % Immature Granulocyte # (Auto) 0.06 K/uL Prothrombin Time 32.9 SECONDS Prothromb Time International Ratio 2.9 Sodium Level 136 mmol/L Potassium Level 3.8 mmol/L Chloride Level 104 mmol/L Carbon Dioxide Level 26 mmol/L Anion Gap 6.0 mmol/L Blood Urea Nitrogen 24 mg/dl Creatinine 1.00 mg/dl Est Creatinine Clear Calc Drug Dose 71.7 ml/min Estimated GFR () 66.1 Estimated GFR (Non- 57.0 BUN/Creatinine Ratio 24.0 Random Glucose 210 mg/dl Calcium Level 9.0 mg/dl Test 06/08/17 11:33 Bedside Glucose 290 mg/dl Assessment and Plan 72 y/o F Hx DM, HTN, HPL, hypothyroid, chronic back pain, chronic AF, morbidly obese. Pt states she was having hot and cold flashes with a few episodes of nausea and vomiting the prior evening. She sat in her recliner this AM and apparently reclined into an awkward position where she was unable to get up for 6-7 hours. She was finally found by her son who was unable to help her up due to her weight. EMS were called and arrived at the house to help her out of the chair. She was exhibiting lower extremity weakness however, and was not able to maintain her balance independently once out of her chair. She was transported to the hospital therefore. She complains of "pain all over" in addition to lower back pain. She denies CP, SOB. Her nausea and vomiting have resolved. She was afebrile on admission. Initial labs were notable for ARF and an elevated CK and troponin which may be related to her elevated creatinine. A UA is +. ARF - RESOLVED, likely prerenal considering nausea and vomiting followed by several hours of immobility. ACEI held, BONIFACIO improving at this time, Cr 2-->1.5- ->1.0 Elevated troponin and CK - likely related to ARF and mild rhabdo - likely due to BONIFACIO, trending down at this time UTI - Cont on ceftriaxone, urine cx pos for ecoli Immobility - no distinct deficits on exam - likely related to infection, rhabdo , obesity - will consult PT, OT - may need placement in rehab if there is no short-term improvement as she lives alone. AF - will remain on Coumadin and B sebastian - INR is therapeutic HTN - cont B sebastian, restart ACEI Morbidly obese - would likely benefit from nutritional and lifestyle counseling prior to DC. DM - placed on SS Full code - Coumadin prophylaxis
[2017-06-08 14:40] VITALS: BP 107/83; PULSE 65; TEMP 36.8; O2SAT 94
[2017-06-08] MEDS: CEFTRIAXONE SOD INJ 1 GM in DEXTROSE 5% ADD-VANTAGE 50ML 50 ML IV SCH (14:40)
[2017-06-08] MEDS: WARFARIN SOD 2 MG TAB PO SCH (15:52)
[2017-06-08 20:54] VITALS: BP 122/84; PULSE 83
[2017-06-08] MEDS: ATORVASTATIN 20 MG TAB PO SCH (20:58)
[2017-06-08] MEDS ORDERED: LISINOPRIL 2.5 MG TAB PO SCH (21:00)
[2017-06-09] VITALS: BP 143/74; PULSE 67; TEMP 36.8; O2SAT 98
[2017-06-09] MEDS: LEVOTHYROXINE 75 MCG TAB PO SCH (05:30)
[2017-06-09] MEDS: TRAMADOL HCL 50 MG TAB PO PRN (05:31)
[2017-06-09 06:13] LABS: INR 2.4 (0.9-1.1); PROTHROMBIN TIME (PATIENT) 27.2 SECONDS (9.0-12.0)
[2017-06-09 07:36] VITALS: BP 118/80; PULSE 78; TEMP 36.8; O2SAT 91
[2017-06-09] MEDS: MAGNESIUM OXIDE 400 MG TAB PO SCH (07:55)
[2017-06-09] MEDS: MICONAZOLE NITRATE POWDER 43 GM EXT SCH (07:55)
[2017-06-09] MEDS: DOCUSATE SODIUM/SENNA 50/8.6MG TAB PO SCH (07:55)
[2017-06-09] MEDS: PANTOprazole SOD 40 MG TAB PO SCH (07:55)
[2017-06-09] MEDS: METOPROLOL SUCC 50MG EXT REL TAB PO SCH (07:56)
[2017-06-09] MEDS: INSULIN ASPART 100 UNITS/ML 3 ML PEN SC SCH ×3 (07:57→17:46)
[2017-06-09 08:44] LABS: BASO % 0.3 %; BASO ABS # 0.03 K/uL (0-0.2); COMPLETE YES; EOS % 4.1 %; HEMATOCRIT 34.6 % (37-47); IG% 0.4 %; LYMPH % 20.3 %; LYMPH ABS # 1.95 K/uL (1.2-3.4); MEAN CELL VOLUME 88.3 fL (80-100); MEAN CORPUSCULAR HEMOGLOBIN 30.1 pg (25-34); MEAN CORPUSCULAR HGB CONC 34.1 g/dl (32-36); MEAN PLATELET VOLUME 10.7 fL (7.4-10.4); MONO % 5.7 %; NEUT % 69.2 %; PLATELET COUNT 171 K/uL (130-400); RED BLOOD COUNT 3.92 M/uL (4.2-5.4)
[2017-06-09 09:11] LABS: CALCIUM 9.2 mg/dl (8.5-10.1); CREATININE 0.99 mg/dl (0.60-1.20); POTASSIUM 4.1 mmol/L (3.5-5.1)
[2017-06-09 09:17] VITALS: O2SAT 91
[2017-06-09] MEDS: CEFTRIAXONE SOD INJ 1 GM in DEXTROSE 5% ADD-VANTAGE 50ML 50 ML IV SCH (14:07)
[2017-06-09] MEDS: WARFARIN SOD 2 MG TAB PO SCH (15:11)
[2017-06-09 15:12] VITALS: BP 131/73; PULSE 82; TEMP 36.4; O2SAT 100
[2017-06-09] MEDS ORDERED: GLIM2TAB2 PO (16:10)
[2017-06-09] MEDS ORDERED: CEPH-571 PO (16:10)
--- NOTE | 2017-06-09 16:12 | Discharge Instructions ---
Discharge Instructions Date of Service Jun 09, 2017. Admission Reason for Admission: Arf, Gait Abnormality Discharge Discharge Diagnosis / Problem: Acute renal failure, UTI Discharge Goals Goal(s): Decrease discomfort, Improve function, Increase independence, Improve disease control, Learn about illness, Diagnostic testing, Therapeutic intervention, Prevent Disease Progression Activity Recommendations Activity Limitations: resume your previous activity Exercise/Sports Limitations: as tolerated . Instructions / Follow-Up Instructions / Follow-Up Patient to be discharged home Prescriptions sent to pharmacy electronically for antibiotic keflex 500 mg by mouth three times a day for 5 more days and amaryl to take as directed for the diabetes Please follow up with Dr Flores in 1-2 weeks If worsening pain, fevers, urinary symptoms, chest pain, or shortness of breath please report to ER Current Hospital Diet Patient's current hospital diet: AHA Diet (Heart Healthy), Diabetes Type 2 Diet Discharge Diet Recommended Diet: Diabetes Type 2 Diet Pending Studies Studies pending at discharge: no Laboratory Results Hemoglobin A1c Test 06/07/17 07:11 Range/Units Estimated Average Glucose 197 mg/dl Hemoglobin A1c 8.5 H 4.5-5.6 % Medical Emergencies . Who to Call and When: Medical Emergencies: If at any time you feel your situation is an emergency, please call 911 immediately. . Non-Emergent Contact Non-Emergency issues call your: Primary Care Provider Call Non-Emergent contact if: you have a fever, your pain is worsening, you have any medication questions . . "Provider Documentation" section prepared by Pepe Dong. . VTE Core Measure Inpt VTE Proph given/why not?: Warfarin (Coumadin)
--- NOTE | 2017-06-09 16:14 | Discharge Summary ---
Discharge Summary Date of Service Jun 09, 2017. Discharge Summary Admission Date: Jun 08, 2017 at 10:49 Discharge Date: Jun 09, 2017 Discharge Disposition: Home Principal Diagnosis: UTI, acute kidney injury Immunizations: Have You Had Influenza Vaccine: No History of Tetanus Vaccine?: No History of Pneumococcal: No History of Hepatitis B Vaccine: No Medication Reconciliation New Medications: Cephalexin (Keflex) 500 Mg Cap 1 CAP PO TID for 5 Days, #15 CAP Continued Medications: Atorvastatin (Lipitor) 20 Mg Tab 20 MG PO HS, TAB Glimepiride (Glimepiride) 2 Mg Tab 2 MG PO BID, #60 TABS 3 Refills (This prescription has been renewed) Levothyroxine Sodium (Synthroid) 75 Mcg Tab 75 MCG PO DAILY, TAB Lisinopril (Zestril) 2.5 Mg Tab 2.5 MG PO QPM Lysine (L-Lysine) 1,000 Mg Tab 1000 MG PO DAILY Metformin Hcl (Glucophage) 1,000 Mg Tab 1000 MG PO BIDM, TAB Metoprolol Succ (Toprol Xl) (Toprol-Xl ) 100 Mg Tabcr 100 MG PO BID, TAB Multiple Vitamins W/ Minerals (Centrum Silver 50+Women) 1 Tab Tab 1 TAB PO DAILY Omeprazole (Prilosec) 20 Mg Capcr 20 MG PO DAILY, CAP Senna/Docusate Sod (Senokot S) 1 Tab Tab 1 TAB PO BID, TAB Tramadol (Ultram) 50 Mg Tab 50-100 MG PO Q6H PRN for Pain, TAB Warfarin Sodium (Coumadin) 4 Mg Tab 1 DOSE PO UD ROTATES FROM 2MG TO 4MGEVERY OTHER DAY. DOES NOT TAKE CERTAIN DOSAGES ON CERTAIN DAYS OF THE WEEK. TODAYS DOSE (10-3) WILL BE THE 2MG DOSE THEN TOMORROW 4MG...ETC Discharge Exam Review of Systems: Constitutional: No fever, No chills Eyes: No worsening of vision, No eye pain, No redness, No discharge Respiratory: No cough, No sputum, No wheezing, No shortness of breath, No dyspnea on exertion Cardiovascular: No chest pain, No orthopnea, No PND, No edema, No claudication Abdomen: No pain, No nausea, No vomiting, No diarrhea Musculoskeletal: No joint pain, No muscle pain, No swelling, No calf pain Genitourinary - Female: No dysuria, No urinary frequency, No urinary urgency , No urinary incontinence Neurologic: No memory loss, No paralysis, No numbness/tingling Psychiatric: No depression symptoms, No anhedonism, No anxiety, No insomnia Endocrine: No fatigue, No excessive thirst, No excessive urination Integumentary: No rash, No itch Physical Exam: General Appearance: WD/WN, no apparent distress, + obese Eyes: normal inspection, PERRL, EOMI, sclerae normal Neck: supple, no adenopathy, thyroid normal, no JVD Respiratory/Chest: chest non-tender, lungs clear, normal breath sounds, no respiratory distress Cardiovascular: regular rate, rhythm, no edema, no gallop, no JVD Abdomen / GI: normal bowel sounds, non tender, soft, no organomegaly Extremities: normal inspection, no calf tenderness, normal capillary refill , no pedal edema Neurologic/Psychiatric: no motor/sensory deficits, alert, normal mood/affect , normal reflexes, oriented x 3 Skin: normal color, warm/dry, no rash Lymphatic: no adenopathy Hospital Course 72 y/o F Hx DM, HTN, HPL, hypothyroid, chronic back pain, chronic AF, morbidly obese. Pt states she was having hot and cold flashes with a few episodes of nausea and vomiting the prior evening. She sat in her recliner this AM and apparently reclined into an awkward position where she was unable to get up for 6-7 hours. She was finally found by her son who was unable to help her up due to her weight. EMS were called and arrived at the house to help her out of the chair. She was exhibiting lower extremity weakness however, and was not able to maintain her balance independently once out of her chair. She was transported to the hospital therefore. She complains of "pain all over" in addition to lower back pain. She denies CP, SOB. Her nausea and vomiting have resolved. She was afebrile on admission. Initial labs were notable for ARF and an elevated CK and troponin which may be related to her elevated creatinine. A UA is +. ARF - RESOLVED, likely prerenal considering nausea and vomiting followed by several hours of immobility. ACEI held, BONIFACIO improving at this time, Cr 2-->1.5- ->1.0 Elevated troponin and CK - likely related to ARF and mild rhabdo - likely due to BONIFACIO, trending down at this time UTI - Day 2 of ceftriaxone, urine cx pos for ecoli, discharge on keflex 500 mg PO TID x 5 more days Immobility - no distinct deficits on exam - likely related to infection, rhabdo , obesity - PT/OT consulted, completely independant, recommend discharge home AF - will remain on Coumadin and B sebastian - INR is therapeutic HTN - cont B sebastian, restart ACEI Morbidly obese - would likely benefit from nutritional and lifestyle counseling prior to DC. DM - placed on SS Full code - Coumadin prophylaxis Total Time Spent: Greater than 30 minutes This includes examination of the patient, discharge planning, medication reconciliation, and communication with other providers. Discharge Instructions Please refer to the electronic Patient Visit Report (Discharge Instructions) for additional information. Additional Copies To Michael Anderson M.D.
[2017-06-09 16:42] VITALS: BP 131/73; PULSE 82; TEMP 36.4; O2SAT 100
== END 2017-06-09 20:13 | disposition home or self-care (01) | DRG 683 ==
LOC: EDBD 10:20 → C.EDB 10:22 → C.2T 13:55 → ENRESERV 14:16 → C.MS2W 06-07 13:04 → OBSVTOIN 06-08 10:49
PROVIDERS: ADMIT Internal Medicine; ATTEND Internal Medicine
DX: N17.9 Acute kidney failure, unspecified (principal); N39.0 Urinary tract infection, site not specified; Z68.42 Body mass index [BMI] 45.0-49.9, adult; M62.82 Rhabdomyolysis; E11.9 Type 2 diabetes mellitus without complications; D64.9 Anemia, unspecified; E86.0 Dehydration; E66.01 Morbid (severe) obesity due to excess calories; I10 Essential (primary) hypertension; A49.8 Other bacterial infections of unspecified site; Z86.73 Personal history of transient ischemic attack (TIA), and cerebral infarction without residual deficits

== ENCOUNTER → 2017-08-18 | Outpatient (CLI) | payer MEDICARE, OTHER ==
[~2017-08-18] MED LIST changes: +ATOR-22 PO; -ATOR10TA88 PO; -CLB200 PO; -CMD4 PO; -CNT PO; -COEN1CAP PO; -CRAN1CAP15; -FISHOIL PO; -GLC500 PO; +GLIM2TAB2 PO; -GLUCTAB18 PO; -LEVO100T84 PO; +LEVO75TA PO; +LISI-789 PO; -LSN25 PO; +LYSI1TAB2 PO; +METF-384 PO; +METO100T44 PO; -METO1TAB69 PO; +MULT-1092 PO; -NITR-5 PO; -OMEP10CA2 PO; +PRLSR20 PO; +TRAM-10 PO; -ULT/50 PO; -WARF2TAB8 PO; +WARF4TAB PO
[2017-08-18 16:58] LABS: URINE APPEARANCE TURBID (CLEAR); URINE COLOR DK YELLOW; URINE EPITHELIAL CELL AUTO >30 /lpf (0-5); URINE NITRITE POS (NEG); URINE SPECIFIC GRAVITY 1.028 (1.000-1.030); UROBILINOGEN NEG (NEG); ZZUR CULT IF INDIC CLEAN CATCH YES
[2017-08-18 17:10] LABS: ALT/SGPT 21 U/L (12-78); AST/SGOT 12 U/L (15-37); BLOOD UREA NITROGEN 16 mg/dl (7-18); CALCIUM 9.9 mg/dl (8.5-10.1); CARBON DIOXIDE 28 mmol/L (21-32); CHLORIDE 104 mmol/L (98-107); CHOLESTEROL 165 mg/dl (0-200); CREATININE 0.96 mg/dl (0.60-1.20); GLUCOSE 123 mg/dl (70-99); POTASSIUM 4.1 mmol/L (3.5-5.1); SODIUM 139 mmol/L (136-145)
[2017-08-18 17:14] LABS: BASO % 0.5 %; BASO ABS # 0.04 K/uL (0-0.2); COMPLETE YES; EOS % 8.4 %; HEMATOCRIT 40.3 % (37-47); IG% 0.2 %; LYMPH % 18.7 %; LYMPH ABS # 1.66 K/uL (1.2-3.4); MANUAL MICROSCOPIC REQUIRED? NO; MEAN CELL VOLUME 89.8 fL (80-100); MEAN CORPUSCULAR HEMOGLOBIN 29.6 pg (25-34); MEAN PLATELET VOLUME 10.4 fL (7.4-10.4); NEUT % 66.2 %; PLATELET COUNT 231 K/uL (130-400); RED BLOOD COUNT 4.49 M/uL (4.2-5.4); REVIEW REQ? YES; URINE BILIRUBIN NEG (NEG); WHITE BLOOD COUNT 8.88 K/uL (4.8-10.8)
[2017-08-18 17:19] LABS: ALB/GLOB RATIO 0.8 (0.9-2); ALKALINE PHOSPHATASE 182 U/L (45-117); CHOLESTEROL/HDL RATIO 2.5; HDL CHOLESTEROL 65 mg/dl; LDL CHOLESTEROL CALCULATED 58 mg/dl; TRIGLYCERIDES 211 mg/dl (0-150); VERY LOW DENSITY LIPOPROT CALC 42 mg/dl
[2017-08-19 06:54] LABS: ESTIMATED AVERAGE GLUCOSE 189 mg/dl; HA1C FLAG Normal (Normal)
[2017-08-19 10:51] LABS: RATIO 226.6 mcg/mg (0-30.0)
== END | disposition home or self-care (01) ==
LOC: C.LABBFT 14:43
PROVIDERS: ATTEND Physician Assistant Medical
DX: E11.65 Type 2 diabetes mellitus with hyperglycemia (principal); E03.9 Hypothyroidism, unspecified; R39.9 Unspecified symptoms and signs involving the genitourinary system; R32 Unspecified urinary incontinence

== ENCOUNTER → 2017-09-25 | Outpatient (CLI) | payer MEDICARE | END | disposition home or self-care (01) | LOC: C.LAB 16:05 | PROVIDERS: ATTEND Physician Assistant Medical | DX: E11.65 Type 2 diabetes mellitus with hyperglycemia (principal); R80.9 Proteinuria, unspecified ==

== ENCOUNTER 2018-09-20 15:49 | Inpatient (IN) ==
[2018-09-20] MEDS ORDERED: SODIUM CHLORIDE 0.9% 1000ML 1,000 ML IV SCH (16:30)
[2018-09-20 16:32] LABS: Basophils # (auto) 0.01 K/uL (0-0.2); Basophils % (auto) 0.2 %; Eosinophils # (auto) 0.01 K/uL (0-0.5); Eosinophils % (auto) 0.2 %; Hematocrit (blood only) 37.9 % (37-47); Hemoglobin 12.9 g/dL (12.0-16.0); Immature Granulocytes # (auto) 0.08 K/uL (0.00-0.02); Immature Granulocytes % (auto) 1.5 %; Lymphocytes # (auto) 0.17 K/uL (1.2-3.4); Lymphocytes % (auto) 3.2 %; Mean Corpuscular Volume 87.5 fL (80-100); Mean Platelet Volume 10.5 fL (7.4-10.4); Monocytes # (auto) 0.05 K/uL (0.11-0.59); Monocytes % (auto) 0.9 %; Platelet Count 144 K/uL (130-400); RDW Coefficient of Variation 15.2 % (11.5-14.5); RDW Standard Deviation 49.1 fL (36.4-46.3); Red Blood Count 4.33 M/uL (4.2-5.4); White Blood Count 5.32 K/uL (4.8-10.8)
[2018-09-20 16:48] LABS: Alanine Aminotransferase 32 U/L (12-78); Albumin Level 2.5 gm/dl (3.4-5.0); Alkaline Phosphatase 257 U/L (45-117); Aspartate Aminotransferase 37 U/L (15-37); BUN Creatinine Ratio 11.1 (10-20); Bilirubin,Total 1.9 mg/dl (0.2-1); Blood Urea Nitrogen 17 mg/dl (7-18); Calcium 8.9 mg/dl (8.5-10.1); Carbon Dioxide 24 mmol/L (21-32); Chloride 100 mmol/L (98-107); Creatine Kinase 61 U/L (26-192); Creatinine Clr Calc Pharmacy 45.6 ml/min; Est GFR (African American) 39.6; Est GFR (Non-African American) 34.1; Glucose 234 mg/dl (70-99); Magnesium 1.7 mg/dl (1.8-2.4); Potassium 3.6 mmol/L (3.5-5.1); Sodium 131 mmol/L (136-145); Total Protein 7.8 gm/dl (6.4-8.2); Troponin I < 0.015 ng/ml (0-0.045)
[2018-09-20 17:19] LABS: INR 3.4 (0.9-1.1); Partial Thromboplastin Ratio 1.7; Partial Thromboplastin Time 44.8 Seconds (21.0-31.0); Prothrombin Time 32.3 Seconds (9.0-12.0)
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
--- NOTE | 2018-09-20 17:47 | Ultrasound Report ---
US gallbladder CLINICAL HISTORY: Abdominal pain. COMPARISON STUDY: CT of the abdomen and pelvis October 14, 2014. FINDINGS: Liver is sonographically normal. The pancreas is obscured by overlying bowel gas. The gallb ladder is normal. There are no gallstones. Caliber of the common bile duct is at the upper limits of normal. Note is made of mild to moderate right hydronephrosis of uncertain etiology. IMPRESSION: 1. No gallstones or biliary ductal dilatation. 2. Mild to moderate right hydronephrosis of uncertain etiology. 3. Obscured pancreas due to overlying bowel gas. Electronically signed by: Moisés Mejía M.D. 09/20/2018 5:45 PM
[2018-09-20 17:53] LABS: Influenza A virus by PCR Neg for Influ A (Neg); Influenza B virus by PCR Neg for Influ B (Neg)
[2018-09-20] MEDS ORDERED: OPTIRAY 320 125ml IV PRN (18:14)
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
--- NOTE | 2018-09-20 18:38 | CT Scan Report ---
ABDOMEN AND PELVIS CT WITH IV CONTRAST CT DOSE: 1614.56 mGy.cm HISTORY: Generalized abdominal pain. TECHNIQUE: Multiaxial CT images of the abdomen and pelvis were performed following the use of intrave nous contrast. A dose lowering technique was utilized adhering to the principles of ALARA. COMPARISON STUDY: Abdomen and pelvis CT 10/14/2014. FINDINGS: The lung bases are clear. No pneumoperitoneum. No pneumatosis. No fractures within the visu alized osseous structures. Tiny fat-containing umbilical hernia. There is a 4 mm hypodense lesion wit hin the left hepatic lobe. This is too small to characterize. The gallbladder, pancreas, spleen, and adrenal glands are unremarkable. Bilateral perinephric edema, right greater than left. No left-sided hydronephrosis. A 3 mm right renal angiomyolipoma remains stable. There is a 1.9 cm cyst within the r ight kidney. Moderate right hydronephrosis secondary to an obstructing 1.9 x 0.8 cm stone at the righ t ureteropelvic junction. This results in the delayed right nephrogram. A few subcentimeter retroperi toneal lymph nodes do not meet CT criteria for pathologic involvement. The bladder is unremarkable. P rior hysterectomy. No bowel wall thickening or obstruction. Normal appendix. There is also a punctate nonobstructing stone within the lower pole of the right kidney. IMPRESSION: 1. A 1.9 x 0.8 cm obstructing stone within the right ureteropelvic junction resulting in moderate rig ht hydronephrosis. 2. There is also a punctate nonobstructing stone within the lower pole of the right kidney. 3. No bowel wall thickening or obstruction. 4. Normal appendix. Electronically signed by: Raymon Sin M.D. 09/20/2018 6:36 PM
[2018-09-20 20:01] LABS: Appearance Urine Cloudy (Clear); Bacteria Urine Automated 4+ (Negative); Bilirubin Urine Negative (Negative); Color Urine Dark Yellow; Glucose Urine UA Trace (Negative); Ketones Urine 1+ (Negative); Leukocyte Esterase Urine 2+ (Negative); Nitrite Urine Positive (Negative); Protein Urine 2+ (Negative); Specific Gravity Urine 1.035 (1.000-1.030); Urobilinogen Urine Negative (Negative); WBC Urine Automated >30 /hpf (0-5)
[2018-09-20] MEDS ORDERED: cefTRIAXone SODIUM 1,000 MG/50 ML BAG IV STA (20:42)
[2018-09-20] MEDS ORDERED: KETOROLAC TROMETHAMINE 15 MG/ML VIAL IV STA (21:03)
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
[2018-09-21] MEDS ORDERED: HYDROmorphone INJ 1 MG/ML SYRINGE ONE (00:10)
[2018-09-21] MEDS ORDERED: ONDANSETRON INJ 2 MG/ML 2 ML VIAL IV PRN ×2 (01:41→08:15)
[2018-09-21] MEDS ORDERED: ALUMINUM/MAGNESIUM SUSP 30 ML UDC PO PRN (01:41)
[2018-09-21] MEDS ORDERED: POLYETHYLENE (MIRALAX) 17 GM PACK PO PRN (01:41)
[2018-09-21] MEDS ORDERED: PIPERACILL/TAZOBAC CONSULT ACTIVE PRN (01:41)
[2018-09-21] MEDS ORDERED: MAGNESIUM HYDROXIDE SUSP 30 ML UDC PO PRN (01:41)
[2018-09-21] MEDS: MAGNESIUM SULFATE / D5W 1 GM/100 ML BAG IV SCH ×2 (02:26→03:26)
[2018-09-21] MEDS ORDERED: PIPERACILLIN/TAZOBACTAM 4.5 GM/120 ML BAG IV ONE (02:30)
[2018-09-21] MEDS: ACETAMINOPHEN 325 MG TAB PO PRN (03:09)
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
[2018-09-21] MEDS: POTASSIUM CHLORIDE 10 MEQ in SODIUM CHLORIDE 0.9% 1000ML 1,000 ML IV SCH ×2 (04:01→12:39)
[2018-09-21 06:05] LABS: Hematocrit (blood only) 34.5 % (37-47); Hemoglobin 11.6 g/dL (12.0-16.0); Mean Corpuscular Hgb Conc 33.6 g/dL (32-36); Mean Corpuscular Volume 86.9 fL (80-100); Mean Platelet Volume 10.5 fL (7.4-10.4); Platelet Count 122 K/uL (130-400); RDW Coefficient of Variation 15.5 % (11.5-14.5); RDW Standard Deviation 49.9 fL (36.4-46.3); Red Blood Count 3.97 M/uL (4.2-5.4)
[2018-09-21] MEDS: INSULIN ASPART 100 UNITS/ML 3 ML PEN SC SCH ×4 (06:07→21:25)
[2018-09-21] MEDS: LEVOTHYROXINE SODIUM 75 MCG TABLET PO SCH (06:09)
[2018-09-21 06:19] LABS: Prothrombin Time 38.9 Seconds (9.0-12.0)
[2018-09-21 06:26] LABS: INR 4.2 (0.9-1.1)
[2018-09-21 06:28] LABS: Basophils # (auto) 0.01 K/uL (0-0.2); Basophils % (auto) 0.1 %; Immature Granulocytes # (auto) 0.76 K/uL (0.00-0.02); Immature Granulocytes % (auto) 5.5 %; Lymphocytes # (auto) 0.41 K/uL (1.2-3.4); Lymphocytes % (auto) 2.9 %; Monocytes # (auto) 0.62 K/uL (0.11-0.59); Monocytes % (auto) 4.5 %; Toxic Vacuolation 1+
[2018-09-21 06:35] LABS: BUN Creatinine Ratio 11.3 (10-20); Calcium 8.4 mg/dl (8.5-10.1); Est GFR (African American) 30.4; Est GFR (Non-African American) 26.2; Potassium 3.5 mmol/L (3.5-5.1)
[2018-09-21 06:36] LABS: Phosphorus 2.7 mg/dl (2.5-4.9)
[2018-09-21 06:50] LABS: Estimated Average Glucose 223 mg/dl
[2018-09-21] MEDS ORDERED: IOTHALAMATE MEGLUMINE II 17.2% 250 ML VIAL ONE (07:39)
[2018-09-21] MEDS ORDERED: PROPOFOL IV EMULSION 10 MG/ML 20 ML VIAL IV ONE ×2 (07:50→08:46)
--- NOTE | 2018-09-21 07:55 | Anesthesiology Consultation ---
Date of Service September 21, 2018 Assessment & Plan (1) Encounter for pre-operative examination: Chart Review Chart Review: Acceptable Risk for Surgery (Emergent case, patient is septic from the obstructing stones) and Patient NOT seen in Pre Admission Testing ASA [id number] Proposed Anesthesia Anesthesia Type: MAC Risk / Benefits Reviewed With: PT / POA / Parent / Guardian, Accepts Plan and Informed Consent Obtained NPO Date Last Intake of Fluids: 09/20/18 Time Last Intake of Fluids: 21:00 Date Last Intake of Solids: 09/20/18 Time Last Intake of Solids: 21:00 History Surgery Operation Date: 09/21/18 07:15 Proposed Procedures p Cystoscopy, Right Stent - Adan Davidson II, DO Height/Weight Height: 1.68 m Weight: 125.8 kg Allergies Allergy/AdvReac Type Severity Reaction Status Date / Time erythromycin base Allergy Unknown ? Unverified 09/20/18 23:22 levothyroxine AdvReac Unknown increased Unverified 09/20/18 23:22 hair growth in past milk AdvReac Unknown _ Unverified 09/20/18 23:22 simvastatin AdvReac Unknown myalgias Unverified 09/20/18 23:22 in past, Vytorin [place] Medications Home Medications Medication Instructions Recorded Confirmed Last Taken atorvastatin 20 mg PO HS 09/20/18 09/20/18 Unknown celecoxib 200 mg PO DAILY 09/20/18 09/20/18 Unknown glimepiride 2 mg PO QPM 09/20/18 09/20/18 Unknown glimepiride 4 mg PO QAM 09/20/18 09/20/18 Unknown levothyroxine 75 mcg PO DAILY 09/20/18 09/21/18 Unknown lisinopril 2.5 mg PO DAILY 09/20/18 09/20/18 Unknown metformin 1,000 mg PO BIDM 09/20/18 09/20/18 Unknown metoprolol succinate [Toprol XL] 100 mg PO BID 09/20/18 09/20/18 Unknown sissymow-wbx-XJ-lycopen-lutein 1 tab PO DAILY 09/20/18 09/20/18 Unknown [Centrum Silver] omeprazole 20 mg PO DAILY 09/20/18 09/20/18 Unknown warfarin 2 - 4 mg PO UD 09/20/18 09/20/18 Unknown Active Medications Generic Name Dose Route Start Last Admin Trade Name Freq PRN Reason Stop Dose Admin Acetaminophen 650 mg 09/21/18 01:41 09/21/18 03:09 Tylenol PO 10/21/18 01:40 650 mg Q4H PRN Administration pain/fever Potassium Chloride 10 meq/ 1,005 mls @ 125 mls/hr 09/21/18 04:00 09/21/18 04: 01 Sodium Chloride IV 10/21/18 03:59 125 mls/hr .Q8H3M KEVIN Administration Insulin Aspart 0 units 09/21/18 06:00 09/21/18 06:07 Novolog Flexpen SC 10/21/18 05:59 5 units Q6 KEVIN Administration Levothyroxine Sodium 75 mcg 09/21/18 06:30 09/21/18 06:09 Synthroid PO 10/21/18 06:29 75 mcg DAILYBB KEVIN Administration Beta Sanket Beta Sanket Taken Within 24 Hours: No Past Medical History Medical History A-fib Diabetes mellitus Kidney stones (Acute) ARF (acute renal failure) Gait abnormality Atrial fibrillation Ovarian cancer Sepsis Stroke 12 years ago; no deficits, just affected her memory per patient Past Family History Family History Other No significant family history Past Surgical History Surgical History S/P D&C (status post dilation and curettage) S/P T&A (status post tonsillectomy and adenoidectomy) S/P colonoscopy S/P hysterectomy with oophorectomy Past Anesthesia History No Hx of Anesthesia Complications and No Family Hx of Anesthesia Complications History of PONV Yes Motion Sickness Screening History of Motion Sickness: No Social History Smoking Status: Former smoker Do You Dip or Chew Tobacco: No Hx Alcohol Use: Yes Alcohol type: wine alcohol intake frequency: holidays/special occasions only Hx Substance Use: No Exercise / Class Metabolic Activity III < 4 Walking/Shop/Light housework Physical Exam Vital Signs Last Vital Signs Temp 36.5 C 09/21/18 07:29 Pulse 86 09/21/18 07:29 Resp 16 09/21/18 07:29 BP 123/64 09/21/18 07:29 Pulse Ox 97 09/21/18 07:29 Constitutional + morbidly obese ENMT Mouth: no TMJ abnormality and no TMJ clicking Thyromental Distance: < 3.5 Finger Breadths Mallampati Class: III Neck neck extension not limited Respiratory Auscultation: lungs clear to auscultation bilaterally Cardiovascular Rate/Rhythm: + abnormal rate and + abnormal rhythm (Irregularly irregular) Testing Electrocardiogram Date: 09/20/18 Findings: + AFIB @ (111 with RVR) Chest X-Ray Date: 09/20/18 Findings: + NAD and + cardiomegaly (Stable) Laboratory Results 09/21/18 05:24 09/21/18 05:24 PT 38.9 Seconds (9.0-12.0) H 09/21/18 05:24 INR 4.2 (0.9-1.1) H 09/21/18 05:24 APTT 44.8 Seconds (21.0-31.0) H 09/20/18 16:54 Hemoglobin A1c 9.4 % (4.5-5.6) H 09/21/18 05:24 Urine Color Dark Yellow 09/20/18 19:30 Urine Appearance Cloudy (Clear) H 09/20/18 19:30 Urine pH 5.0 (4.5-7.5) 09/20/18 19:30 Ur Specific [place] 1.035 (1.000-1.030) H 09/20/18 19:30 Urine Protein 2+ (Negative) H 09/20/18 19:30 Urine Glucose (UA) Trace (Negative) H 09/20/18 19:30 Urine Ketones 1+ (Negative) H 09/20/18 19:30 Urine Nitrite Positive (Negative) H 09/20/18 19:30 Ur Leukocyte Esterase 2+ (Negative) H 09/20/18 19:30 Urine WBC (Auto) >30 /hpf (0-5) H 09/20/18 19:30 Urine RBC (Auto) 0-4 /hpf (0-4) 09/20/18 19:30 U Hyaline Cast (Auto) 5-10 /lpf (0-5) H 09/20/18 19:30 U Epithel Cells (Auto) 5-10 /lpf (0-5) H 09/20/18 19:30 Urine Bacteria (Auto) 4+ (Negative) H 09/20/18 19:30 09/21/18 06:00 POC Glucose 284 H
--- NOTE | 2018-09-21 08:04 | History & Physical Bridge Note ---
Date of Service September 21, 2018 History & Physical Bridge Note I have examined the patient, reviewed the History & Physical and in the interval since the performance of the History & Physical I have noted the following changes of clinical significance: 2 cm Right UPJ stone with UTI and sepsis. Risks and benefits discussed at length for urgent cystoscopy with right retrograde pylegram and stent placement.
[2018-09-21] MEDS ORDERED: fentaNYL citrate 100 MCG/2 ML VIAL IV PRN (08:15)
[2018-09-21] MEDS ORDERED: ATROPINE SULFATE 0.1 MG/ML 10ML SYR IV PRN (08:15)
[2018-09-21] MEDS ORDERED: PHENYLEPHRINE 100MCG/ML 5ML SYR IV PRN (08:15)
[2018-09-21] MEDS ORDERED: ePHEDrine sulfate 50 MG/ML AMP IV PRN (08:15)
--- NOTE | 2018-09-21 08:59 | Operative Report ---
Post Operative Report Pre & Post Diagnosis Obst stone on right with sepsis same Operation Date: 09/21/18 07:15 <No data on this case meets the specified criteria> Procedure Cystoscopy with right ureteroscopy, retrograde pyelogram, and stent. Operation Date: 09/21/18 07:15 <No data on this case meets the specified criteria> Surgeon Adan Davidson, II, DO Vessel Builder None Estimated Blood Loss 2 Findings Consistent with Post-Op Diagnosis Patient with 2 cm severely obstructing stone with sepsis. Ureteroscopy was necessary to pass wire. Specimens Urine for culture. Drains 6 Fr Multilength on right 18 Fr Rmaos Anesthesia Type MAC Complications none Disposition Disposition: Recovery Room Indications Sepsis with large right obstructing stone. Risks and benefits discussed at length. Description of Procedure Patient was consented and brought back to the operating room. Patient was placed under anesthesia in the supine position and moved to the dorsal lithotomy position. Patient was prepped and draped in the regular sterile fashion. A time out was completed. A 30degree Cystoscope was placed into the bladder and the entire bladder was examined. The UO's were identified. The right was cannulized with a catheter and a retrograde pyelogram was completed. A wire was then attempted to be placed. The wire would not move past the stone. After multiple manipulations, a short semirigid scope was selected. This was taken to the right UO with the wire partially up the ureter. The scope was advanced to the stone and a second wire was manipulated past the stone. Immediately after wire placement, a large amount of purulent debris drained. The first wire was removed and the scope slowly removed. Due to severe torturosity of the ureter, the stone was never fully visualized. With the wire in place, a 6 Fr Double J stent was placed. It was confirmed with fluoroscopy. With the stent in place, the scope was removed and an 18 Fr Ramos was placed. The patient was cleaned, aroused from anesthesia, and transferred to the pacu in stable condition having tolerated the procedure well with no complications. I was present and participated in all aspects of the procedure. The patient will be monitored in the PACU until transferred. I attest to the content of the Intraoperative Record and any orders documented therein. Any exceptions are noted below.
[2018-09-21] MEDS ORDERED: LISINOPRIL 2.5 MG TAB PO SCH (09:00)
[2018-09-21] MEDS ORDERED: LIDOCAINE HCL 2% 2 ML VIAL/AMP(20MG/ML) INFIL ONE (09:11)
--- NOTE | 2018-09-21 09:36 | Anesthesiology Progress Note ---
Date of Service September 21, 2018 Anesthesia Post Procedure Vital Signs Vital Signs: Temp Pulse Pulse Pulse Resp BP BP 09/21/18 09:25 36.2 C L 80 21 09/21/18 09:15 74 22 09/21/18 09:06 36.0 C L 88 19 09/21/18 07:46 36.6 C 84 20 142/67 H 09/21/18 07:29 36.5 C 86 16 123/64 09/21/18 06:12 36.8 C 09/21/18 03:56 38.4 C H 09/21/18 03:30 39.5 C H 109 H 23 154/80 H 09/21/18 01:58 108 H 09/21/18 01:41 37.2 C 102 H 26 H 115/78 09/21/18 01:06 104 H 18 138/58 L 09/21/18 00:01 105 H 20 124/55 L 09/20/18 23:01 100 H 34 H 09/20/18 23:00 102 H 25 H 141/69 H 09/20/18 22:01 115 H 34 H 140/107 H 09/20/18 22:00 116 H 21 09/20/18 21:01 93 H 30 H 09/20/18 21:00 93 H 85 32 H 125/75 125/75 09/20/18 20:00 101 H 21 09/20/18 19:30 99 H 18 125/66 09/20/18 19:01 102 H 30 H 09/20/18 19:00 111 H 33 H 125/66 09/20/18 18:36 106 H 16 137/62 09/20/18 18:33 99 H 32 H 09/20/18 18:26 100 H 18 09/20/18 18:25 105 H 25 H 181/122 H 09/20/18 18:24 106 H 16 137/62 09/20/18 17:10 102 H 21 122/70 09/20/18 17:00 102 H 26 H 09/20/18 16:07 36.9 C 109 H 20 186/80 H 09/20/18 16:03 114 H 26 H 09/20/18 15:57 110 H 28 H 186/80 H BP Pulse Ox 09/21/18 09:25 130/60 97 09/21/18 09:15 130/65 96 09/21/18 09:06 118/65 99 09/21/18 07:46 97 09/21/18 07:29 97 09/21/18 06:12 09/21/18 03:56 09/21/18 03:30 97 09/21/18 01:58 09/21/18 01:41 94 09/21/18 01:06 96 09/21/18 00:01 97 09/20/18 23:01 98 09/20/18 23:00 98 09/20/18 22:01 88 L 09/20/18 22:00 93 09/20/18 21:01 96 09/20/18 21:00 97 09/20/18 20:00 95 09/20/18 19:30 95 09/20/18 19:01 92 09/20/18 19:00 92 09/20/18 18:36 97 09/20/18 18:33 96 09/20/18 18:26 09/20/18 18:25 09/20/18 18:24 09/20/18 17:10 09/20/18 17:00 98 09/20/18 16:07 93 09/20/18 16:03 92 09/20/18 15:57 93 Pain Intensity Generalized: Pain Intensity: 10 Notes Mental Status: alert / awake / arousable Patient Amnestic to Procedure: Yes Nausea / Vomiting: adequately controlled Pain: adequately controlled Airway Patency, RR, SpO2: stable & adequate BP & HR: stable & adequate Hydration State: stable & adequate Anesthetic Complications: no major complications apparent
[2018-09-21] MEDS: HYDROmorphone INJ 1 MG/ML SYRINGE IV PRN ×3 (10:17→19:23)
[2018-09-21] MEDS: PIPERACILLIN/TAZOBACTAM 4.5 GM in DEXTROSE 5% 100 ML IV SCH ×2 (10:48→15:44)
[2018-09-21] MEDS: TAMSULOSIN HCL 0.4 MG CAP PO SCH (12:32)
[2018-09-21] MEDS: METOPROLOL SUCC 50MG EXT REL TAB PO SCH ×2 (12:32→21:23)
[2018-09-21] MEDS: PANTOprazole 40 MG TAB PO SCH (13:44)
--- NOTE | 2018-09-21 14:29 | Fluoroscopy Report ---
FL retrograde includes kub HISTORY: RT CYSTO/STENT FLUOROSCOPY TIME: 3 minutes and 9 seconds. FINDINGS: 6 fluoroscopic spot images were submitted for review. Retrograde opacification of the right ureter followed by placement of a right ureteral stent. The ureteral stent appears in good position. IMPRESSION: Fluoroscopy provided for right ureteral stent placement.. Electronically signed by: Raymon Sin M.D. 09/21/2018 2:28 PM
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
[2018-09-21] MEDS ORDERED: INSULIN GLARGINE SOLOSTAR 100 UNITS/ML 3 ML PEN SC SCH (21:00)
[2018-09-21] MEDS: ATORVASTATIN 20 MG TAB PO SCH (21:23)
[2018-09-22] MEDS: POTASSIUM CHLORIDE 10 MEQ in SODIUM CHLORIDE 0.9% 1000ML 1,000 ML IV SCH ×3 (00:11→18:49)
[2018-09-22] MEDS: HYDROmorphone INJ 1 MG/ML SYRINGE IV PRN (00:14)
[2018-09-22] MEDS: PIPERACILLIN/TAZOBACTAM 4.5 GM in DEXTROSE 5% 100 ML IV SCH ×2 (00:17→10:27)
[2018-09-22] MEDS: LEVOTHYROXINE SODIUM 75 MCG TABLET PO SCH (05:23)
[2018-09-22 05:51] LABS: Basophils # (auto) 0.02 K/uL (0-0.2); Basophils % (auto) 0.1 %; Eosinophils # (auto) 0.18 K/uL (0-0.5); Eosinophils % (auto) 1.3 %; Hematocrit (blood only) 33.9 % (37-47); Hemoglobin 11.3 g/dL (12.0-16.0); Immature Granulocytes # (auto) 0.45 K/uL (0.00-0.02); Immature Granulocytes % (auto) 3.3 %; Lymphocytes # (auto) 1.06 K/uL (1.2-3.4); Lymphocytes % (auto) 7.7 %; Mean Corpuscular Hgb Conc 33.3 g/dL (32-36); Mean Corpuscular Volume 86.7 fL (80-100); Mean Platelet Volume 11.3 fL (7.4-10.4); Monocytes # (auto) 1.09 K/uL (0.11-0.59); Monocytes % (auto) 7.9 %; Neutrophils # (auto) 10.99 K/uL (1.4-6.5); Neutrophils % (auto) 79.7 %; Platelet Count 117 K/uL (130-400); RDW Coefficient of Variation 16.1 % (11.5-14.5); RDW Standard Deviation 51.6 fL (36.4-46.3); Red Blood Count 3.91 M/uL (4.2-5.4); White Blood Count 13.79 K/uL (4.8-10.8)
[2018-09-22 06:21] LABS: BUN Creatinine Ratio 14.4 (10-20); Calcium 8.4 mg/dl (8.5-10.1); Creatinine Clr Calc Pharmacy 31.1 ml/min; Est GFR (African American) 24.6; Est GFR (Non-African American) 21.2; Magnesium 2.4 mg/dl (1.8-2.4); Potassium 3.4 mmol/L (3.5-5.1)
[2018-09-22] MEDS: KETOROLAC TROMETHAMINE 15 MG/ML VIAL IV PRN ×2 (08:17→17:52)
[2018-09-22] MEDS: METOPROLOL SUCC 50MG EXT REL TAB PO SCH ×2 (08:31→20:47)
[2018-09-22] MEDS: TAMSULOSIN HCL 0.4 MG CAP PO SCH (08:32)
[2018-09-22] MEDS: PANTOprazole 40 MG TAB PO SCH (08:32)
[2018-09-22] MEDS: INSULIN ASPART 100 UNITS/ML 3 ML PEN SC SCH ×4 (08:37→20:42)
[2018-09-22 08:38] LABS: INR 2.8 (0.9-1.1)
[2018-09-22] MEDS: INSULIN GLARGINE SOLOSTAR 100 UNITS/ML 3 ML PEN SC SCH ×2 (08:38→20:41)
[2018-09-22] MEDS: cefTRIAXone SODIUM 1,000 MG in DEXTROSE 5% 50 ML IV SCH (08:44)
--- NOTE | 2018-09-22 09:21 | Urology Progress Note ---
Date of Service September 22, 2018 Assessment & Plan (1) Obstructive uropathy: A/P 73 yo female POD#1 s/p R acute stent placement, urosepsis and ARF. Findings reviewed with patient. Her worsening renal function is somewhat concerning. As noted by nephrology there may be an element of ATN due to contrast and hemodynamic instability. Obstructive component should be improving with stent in place. Continue to monitor, supportive care per hospitalist / nephrology services. Continue culture appropriate antibiotic course x 1-2 weeks. Will plan on outpatient definitive stone management. Consider renal US / noncontrast CT scan if renal function continues to worsen tomorrow. Will follow. Subjective 73 yo female POD#1 s/p acute R stent placement for stone, ARF and sepsis. Intraop events noted. Patient conversant, feels somewhat improved this AM. Nephrology and hospitalist notes reviewed. She is now afebrile but WBC remain elevated, Hb stable. Unfortunately her Cr this AM is worse than prior. She denies significant flank pain at this time, + fatigue and weakness. Constitutional: + fatigue Ear, Nose, Mouth, Throat: no ear pain Respiratory: no hemoptysis Cardiovascular: no chest pain Gastrointestinal: no vomiting Integumentary: no acne and no boil Neurologic: no paralysis Physical Exam 2 Vital Signs (Past 24 Hours): Last Vital Signs Temp 36.8 C 09/22/18 03:55 Pulse 93 H 09/22/18 07:17 Resp 18 09/22/18 07:17 BP 118/73 09/22/18 07:17 Pulse Ox 96 09/22/18 07:17 Constitutional: + morbidly obese Neck: trachea midline; no anterior neck swelling Respiratory: no respiratory distress and does not use accessory muscles Cardiovascular: Vessels: radial pulses present Gastrointestinal (Abdomen): Percussion/Palpation: abdomen soft Skin: normal turgor Neurologic: CN's II-XI intact bilaterally Psychiatric: Orientation: oriented x 3 Results & Data Laboratory Results Laboratory Results - last 48 hr 09/20/18 09/20/18 09/20/18 15:15 15:15 15:15 WBC 5.32 RBC 4.33 Hgb 12.9 Hct 37.9 MCV 87.5 MCH 29.8 MCHC 34.0 RDW Std Deviation 49.1 H RDW Coeff of Maria C 15.2 H Plt Count 144 MPV 10.5 H Immature Gran % (Auto) 1.5 Neut % (Auto) 94.0 Lymph % (Auto) 3.2 Teller % (Auto) 0.9 Eos % (Auto) 0.2 Baso % (Auto) 0.2 Immature Gran # (Auto) 0.08 H Neut # (Auto) 5.00 Lymph # (Auto) 0.17 L Teller # (Auto) 0.05 L Eos # (Auto) 0.01 Baso # (Auto) 0.01 Toxic Vacuolation PT Cancelled INR Cancelled APTT Cancelled PTT Ratio Cancelled Sodium 131 L Potassium 3.6 Chloride 100 Carbon Dioxide 24 Anion Gap 7.0 BUN 17 Creatinine 1.52 H Est Cr Clr Drug Dosing 45.6 Est GFR ( Amer) 39.6 Est GFR (Non-Af Amer) 34.1 BUN/Creatinine Ratio 11.1 Glucose 234 H POC Glucose Estimat Average Glucose Hemoglobin A1c Lactate Calcium 8.9 Phosphorus Magnesium 1.7 L Total Bilirubin 1.9 H Direct Bilirubin AST 37 ALT 32 Alkaline Phosphatase 257 H Total Creatine Kinase 61 Troponin I < 0.015 Total Protein 7.8 Albumin 2.5 L Lipase 187 Specimen Hemolysis Urine Color Urine Appearance Urine pH Ur Specific [place] Urine Protein Urine Glucose (UA) Urine Ketones Urine Blood Urine Nitrite Urine Bilirubin Urine Urobilinogen Ur Leukocyte Esterase Urine WBC (Auto) Urine RBC (Auto) U Hyaline Cast (Auto) U Epithel Cells (Auto) Urine Bacteria (Auto) Granular Casts Urine Yeast Influenza Type A (PCR) Influenza Type B (PCR) 09/20/18 09/20/18 09/20/18 16:54 17:02 17:05 WBC RBC Hgb Hct MCV MCH MCHC RDW Std Deviation RDW Coeff of Maria C Plt Count MPV Immature Gran % (Auto) Neut % (Auto) Lymph % (Auto) Teller % (Auto) Eos % (Auto) Baso % (Auto) Immature Gran # (Auto) Neut # (Auto) Lymph # (Auto) Teller # (Auto) Eos # (Auto) Baso # (Auto) Toxic Vacuolation PT 32.3 H INR 3.4 H APTT 44.8 H PTT Ratio 1.7 Sodium Potassium Chloride Carbon Dioxide Anion Gap BUN Creatinine Est Cr Clr Drug Dosing Est GFR ( Amer) Est GFR (Non-Af Amer) BUN/Creatinine Ratio Glucose POC Glucose Estimat Average Glucose Hemoglobin A1c Lactate 2.8 H* Calcium Phosphorus Magnesium Total Bilirubin Direct Bilirubin AST ALT Alkaline Phosphatase Total Creatine Kinase Troponin I Total Protein Albumin Lipase Specimen Hemolysis Urine Color Urine Appearance Urine pH Ur Specific [place] Urine Protein Urine Glucose (UA) Urine Ketones Urine Blood Urine Nitrite Urine Bilirubin Urine Urobilinogen Ur Leukocyte Esterase Urine WBC (Auto) Urine RBC (Auto) U Hyaline Cast (Auto) U Epithel Cells (Auto) Urine Bacteria (Auto) Granular Casts Urine Yeast Influenza Type A (PCR) Neg for Influ A Influenza Type B (PCR) Neg for Influ B 09/20/18 09/21/18 09/21/18 19:30 05:24 05:24 WBC 13.90 H RBC 3.97 L Hgb 11.6 L Hct 34.5 L MCV 86.9 MCH 29.2 MCHC 33.6 RDW Std Deviation 49.9 H RDW Coeff of Maria C 15.5 H Plt Count 122 L MPV 10.5 H Immature Gran % (Auto) 5.5 Neut % (Auto) 87.0 Lymph % (Auto) 2.9 Teller % (Auto) 4.5 Eos % (Auto) 0.0 Baso % (Auto) 0.1 Immature Gran # (Auto) 0.76 H Neut # (Auto) 12.10 H Lymph # (Auto) 0.41 L Teller # (Auto) 0.62 H Eos # (Auto) 0.00 Baso # (Auto) 0.01 Toxic Vacuolation 1+ PT 38.9 H INR 4.2 H APTT PTT Ratio Sodium Potassium Chloride Carbon Dioxide Anion Gap BUN Creatinine Est Cr Clr Drug Dosing Est GFR ( Amer) Est GFR (Non-Af Amer) BUN/Creatinine Ratio Glucose POC Glucose Estimat Average Glucose Hemoglobin A1c Lactate Calcium Phosphorus Magnesium Total Bilirubin Direct Bilirubin AST ALT Alkaline Phosphatase Total Creatine Kinase Troponin I Total Protein Albumin Lipase Specimen Hemolysis Urine Color Dark Yellow Urine Appearance Cloudy H Urine pH 5.0 Ur Specific [place] 1.035 H Urine Protein 2+ H Urine Glucose (UA) Trace H Urine Ketones 1+ H Urine Blood 2+ H Urine Nitrite Positive H Urine Bilirubin Negative Urine Urobilinogen Negative Ur Leukocyte Esterase 2+ H Urine WBC (Auto) >30 H Urine RBC (Auto) 0-4 U Hyaline Cast (Auto) 5-10 H U Epithel Cells (Auto) 5-10 H Urine Bacteria (Auto) 4+ H Granular Casts 5-10 H Urine Yeast Not Reportable Influenza Type A (PCR) Influenza Type B (PCR) 09/21/18 09/21/18 09/21/18 05:24 05:24 06:00 WBC RBC Hgb Hct MCV MCH MCHC RDW Std Deviation RDW Coeff of Maria C Plt Count MPV Immature Gran % (Auto) Neut % (Auto) Lymph % (Auto) Teller % (Auto) Eos % (Auto) Baso % (Auto) Immature Gran # (Auto) Neut # (Auto) Lymph # (Auto) Teller # (Auto) Eos # (Auto) Baso # (Auto) Toxic Vacuolation PT INR APTT PTT Ratio Sodium 131 L Potassium 3.5 Chloride 101 Carbon Dioxide 21 Anion Gap 9.0 BUN 21 H Creatinine 1.89 H D Est Cr Clr Drug Dosing 37.0 Est GFR ( Amer) 30.4 Est GFR (Non-Af Amer) 26.2 BUN/Creatinine Ratio 11.3 Glucose 296 H POC Glucose 284 H Estimat Average Glucose 223 Hemoglobin A1c 9.4 H Lactate Calcium 8.4 L Phosphorus 2.7 Magnesium Total Bilirubin Direct Bilirubin AST ALT Alkaline Phosphatase Total Creatine Kinase Troponin I Total Protein Albumin Lipase Specimen Hemolysis Urine Color Urine Appearance Urine pH Ur Specific [place] Urine Protein Urine Glucose (UA) Urine Ketones Urine Blood Urine Nitrite Urine Bilirubin Urine Urobilinogen Ur Leukocyte Esterase Urine WBC (Auto) Urine RBC (Auto) U Hyaline Cast (Auto) U Epithel Cells (Auto) Urine Bacteria (Auto) Granular Casts Urine Yeast Influenza Type A (PCR) Influenza Type B (PCR) 09/21/18 09/21/18 09/21/18 07:51 09:28 11:39 WBC RBC Hgb Hct MCV MCH MCHC RDW Std Deviation RDW Coeff of Maria C Plt Count MPV Immature Gran % (Auto) Neut % (Auto) Lymph % (Auto) Teller % (Auto) Eos % (Auto) Baso % (Auto) Immature Gran # (Auto) Neut # (Auto) Lymph # (Auto) Teller # (Auto) Eos # (Auto) Baso # (Auto) Toxic Vacuolation PT INR APTT PTT Ratio Sodium Potassium Chloride Carbon Dioxide Anion Gap BUN Creatinine Est Cr Clr Drug Dosing Est GFR ( Amer) Est GFR (Non-Af Amer) BUN/Creatinine Ratio Glucose POC Glucose 298 H 251 H 202 H Estimat Average Glucose Hemoglobin A1c Lactate Calcium Phosphorus Magnesium Total Bilirubin Direct Bilirubin AST ALT Alkaline Phosphatase Total Creatine Kinase Troponin I Total Protein Albumin Lipase Specimen Hemolysis Urine Color Urine Appearance Urine pH Ur Specific [place] Urine Protein Urine Glucose (UA) Urine Ketones Urine Blood Urine Nitrite Urine Bilirubin Urine Urobilinogen Ur Leukocyte Esterase Urine WBC (Auto) Urine RBC (Auto) U Hyaline Cast (Auto) U Epithel Cells (Auto) Urine Bacteria (Auto) Granular Casts Urine Yeast Influenza Type A (PCR) Influenza Type B (PCR) 09/21/18 09/21/18 09/21/18 12:04 16:23 21:14 WBC RBC Hgb Hct MCV MCH MCHC RDW Std Deviation RDW Coeff of Maria C Plt Count MPV Immature Gran % (Auto) Neut % (Auto) Lymph % (Auto) Teller % (Auto) Eos % (Auto) Baso % (Auto) Immature Gran # (Auto) Neut # (Auto) Lymph # (Auto) Teller # (Auto) Eos # (Auto) Baso # (Auto) Toxic Vacuolation PT INR APTT PTT Ratio Sodium Potassium Chloride Carbon Dioxide Anion Gap BUN Creatinine Est Cr Clr Drug Dosing Est GFR ( Amer) Est GFR (Non-Af Amer) BUN/Creatinine Ratio Glucose POC Glucose 200 H 221 H Estimat Average Glucose Hemoglobin A1c Lactate Calcium Phosphorus Magnesium 2.4 Total Bilirubin Direct Bilirubin AST ALT Alkaline Phosphatase Total Creatine Kinase Troponin I Total Protein Albumin Lipase Specimen Hemolysis Urine Color Urine Appearance Urine pH Ur Specific [place] Urine Protein Urine Glucose (UA) Urine Ketones Urine Blood Urine Nitrite Urine Bilirubin Urine Urobilinogen Ur Leukocyte Esterase Urine WBC (Auto) Urine RBC (Auto) U Hyaline Cast (Auto) U Epithel Cells (Auto) Urine Bacteria (Auto) Granular Casts Urine Yeast Influenza Type A (PCR) Influenza Type B (PCR) 09/22/18 09/22/18 09/22/18 05:19 05:19 07:34 WBC 13.79 H RBC 3.91 L Hgb 11.3 L Hct 33.9 L MCV 86.7 MCH 28.9 MCHC 33.3 RDW Std Deviation 51.6 H RDW Coeff of Maria C 16.1 H Plt Count 117 L MPV 11.3 H Immature Gran % (Auto) 3.3 Neut % (Auto) 79.7 Lymph % (Auto) 7.7 Teller % (Auto) 7.9 Eos % (Auto) 1.3 Baso % (Auto) 0.1 Immature Gran # (Auto) 0.45 H Neut # (Auto) 10.99 H Lymph # (Auto) 1.06 L Teller # (Auto) 1.09 H Eos # (Auto) 0.18 Baso # (Auto) 0.02 Toxic Vacuolation PT INR APTT PTT Ratio Sodium 129 L Potassium 3.4 L Chloride 99 Carbon Dioxide 23 Anion Gap 7.0 BUN 32 H D Creatinine 2.25 H D Est Cr Clr Drug Dosing 31.1 Est GFR ( Amer) 24.6 Est GFR (Non-Af Amer) 21.2 BUN/Creatinine Ratio 14.4 Glucose 215 H POC Glucose 244 H Estimat Average Glucose Hemoglobin A1c Lactate Calcium 8.4 L Phosphorus Magnesium 2.4 Total Bilirubin Direct Bilirubin AST ALT Alkaline Phosphatase Total Creatine Kinase Troponin I Total Protein Albumin Lipase Specimen Hemolysis Urine Color Urine Appearance Urine pH Ur Specific [place] Urine Protein Urine Glucose (UA) Urine Ketones Urine Blood Urine Nitrite Urine Bilirubin Urine Urobilinogen Ur Leukocyte Esterase Urine WBC (Auto) Urine RBC (Auto) U Hyaline Cast (Auto) U Epithel Cells (Auto) Urine Bacteria (Auto) Granular Casts Urine Yeast Influenza Type A (PCR) Influenza Type B (PCR) 09/22/18 08:15 WBC RBC Hgb Hct MCV MCH MCHC RDW Std Deviation RDW Coeff of Maria C Plt Count MPV Immature Gran % (Auto) Neut % (Auto) Lymph % (Auto) Teller % (Auto) Eos % (Auto) Baso % (Auto) Immature Gran # (Auto) Neut # (Auto) Lymph # (Auto) Teller # (Auto) Eos # (Auto) Baso # (Auto) Toxic Vacuolation PT 27.0 H INR 2.8 H APTT PTT Ratio Sodium Potassium Chloride Carbon Dioxide Anion Gap BUN Creatinine Est Cr Clr Drug Dosing Est GFR ( Amer) Est GFR (Non-Af Amer) BUN/Creatinine Ratio Glucose POC Glucose Estimat Average Glucose Hemoglobin A1c Lactate Calcium Phosphorus Magnesium Total Bilirubin Direct Bilirubin AST ALT Alkaline Phosphatase Total Creatine Kinase Troponin I Total Protein Albumin Lipase Specimen Hemolysis Urine Color Urine Appearance Urine pH Ur Specific [place] Urine Protein Urine Glucose (UA) Urine Ketones Urine Blood Urine Nitrite Urine Bilirubin Urine Urobilinogen Ur Leukocyte Esterase Urine WBC (Auto) Urine RBC (Auto) U Hyaline Cast (Auto) U Epithel Cells (Auto) Urine Bacteria (Auto) Granular Casts Urine Yeast Influenza Type A (PCR) Influenza Type B (PCR)
--- NOTE | 2018-09-22 10:37 | Nephrology Progress Note ---
Date of Service September 22, 2018 Assessment & Plan (1) ARF (acute renal failure): Mrs. Hernandez was admitted to the hospital with obstructive uropathy and acute kidney injury. Baseline creatinine around 1.0. On admission creatinine worsened to 1.9. She was found to have right-sided hydronephrosis with 2 cm UPJ stone, had cystoscopy and stent placement this morning. Patient as UTI with E coli, on ceftriaxone. Blood pressure has been relatively stable. Lisinopril, metformin has been on hold. Acute kidney injury secondary to obstructive uropathy as well as hemodynamic effect with IV contrast exposure and sepsis. -- Creatinine continues to trend up but patient is nonoliguric and electrolyte balance is acceptable -- Continue to hold Metformin and Lisinopril -- Encourage oral hydration -- Will recheck PRP in am. If renal function continues to decline will order renal US (2) Obstructive uropathy: (3) UTI (urinary tract infection): (4) Diabetes mellitus: Subjective Mrs. Hernandez was seen & examined in her hospital room this morning. She currently denies fever, flank pain or uremic symptoms. Ramos catheter remains in place draining blood tinged urine. Constitutional: no fever Respiratory: no dyspnea Cardiovascular: no chest pain Gastrointestinal: no abdominal pain Physical Exam 2 Vital Signs (Past 24 Hours): Last Vital Signs Temp 36.8 C 09/22/18 03:55 Pulse 93 H 09/22/18 07:17 Resp 18 09/22/18 07:17 BP 118/73 09/22/18 07:17 Pulse Ox 96 09/22/18 07:17 Constitutional: + obese Eyes: PERRL, conjunctivae normal, anicteric sclerae Neck: trachea midline, no thyromegaly Respiratory: normal respiratory effort, lungs clear to auscultation Cardiovascular: RRR, no murmur, no edema Gastrointestinal (Abdomen): normal bowel sounds, soft, nontender, no hepatosplenomegaly Results & Data Laboratory Results Laboratory Tests 09/22/18 09/22/18 05:19 05:19 WBC 13.79 H Hgb 11.3 L Hct 33.9 L Plt Count 117 L Sodium 129 L Potassium 3.4 L Chloride 99 Carbon Dioxide 23 BUN 32 H D Creatinine 2.25 H D Glucose 215 H _ (1) UTI (urinary tract infection) Encounter type: Hematuria presence: with hematuria Indwelling urinary catheter type: Urinary tract infection type: site unspecified Qualified Code( s): N39.0 - Urinary tract infection, site not specified; R31.9 - Hematuria, unspecified
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
[2018-09-22] MEDS ORDERED: WARFARIN SOD 4 MG TAB PO SCH (18:35)
[2018-09-22] MEDS: DICLOFENAC SOD 1% GEL 100 GM TUBE EXT SCH ×2 (19:59→20:45)
[2018-09-22] MEDS: ATORVASTATIN 20 MG TAB PO SCH (20:44)
[2018-09-22] MEDS ORDERED: COUGH DROP (SUGAR FREE) LOZ 24 LOZ/1 BOX BUCCAL PRN (21:55)
[2018-09-23] MEDS: POTASSIUM CHLORIDE 10 MEQ in SODIUM CHLORIDE 0.9% 1000ML 1,000 ML IV SCH ×3 (02:54→19:58)
[2018-09-23] MEDS: LEVOTHYROXINE SODIUM 75 MCG TABLET PO SCH (05:58)
[2018-09-23 06:20] LABS: Hematocrit (blood only) 31.7 % (37-47); Hemoglobin 10.9 g/dL (12.0-16.0); Mean Corpuscular Hgb Conc 34.4 g/dL (32-36); Mean Corpuscular Volume 85.7 fL (80-100); Mean Platelet Volume 11.2 fL (7.4-10.4); Platelet Count 136 K/uL (130-400); RDW Standard Deviation 50.4 fL (36.4-46.3)
[2018-09-23 06:51] LABS: BUN Creatinine Ratio 15.1 (10-20); Calcium 8.3 mg/dl (8.5-10.1); Creatinine Clr Calc Pharmacy 31.6 ml/min; Est GFR (African American) 24.9; Est GFR (Non-African American) 21.5; Potassium 3.3 mmol/L (3.5-5.1)
[2018-09-23] MEDS: cefTRIAXone SODIUM 1,000 MG in DEXTROSE 5% 50 ML IV SCH (08:56)
[2018-09-23] MEDS: METOPROLOL SUCC 50MG EXT REL TAB PO SCH ×2 (08:57→21:38)
[2018-09-23] MEDS: TAMSULOSIN HCL 0.4 MG CAP PO SCH (08:57)
[2018-09-23] MEDS: PANTOprazole 40 MG TAB PO SCH (08:57)
[2018-09-23] MEDS: INSULIN ASPART 100 UNITS/ML 3 ML PEN SC SCH ×4 (08:58→21:40)
[2018-09-23] MEDS: INSULIN GLARGINE SOLOSTAR 100 UNITS/ML 3 ML PEN SC SCH ×2 (08:59→21:40)
[2018-09-23] MEDS: DICLOFENAC SOD 1% GEL 100 GM TUBE EXT SCH ×4 (09:00→21:39)
[2018-09-23 09:02] LABS: INR 2.1 (0.9-1.1); Prothrombin Time 20.7 Seconds (9.0-12.0)
--- NOTE | 2018-09-23 09:14 | Family Medicine Progress Note ---
Date of Service September 23, 2018 Assessment & Plan (1) Obstructive uropathy: Violeta is a 73yo F with a PMHx of Afib, HTN, T2DM, GERD who presented to the ED with severe back pain x2 days. She is being treated for sepsis secondary to an infected kidney stone, ARF and a UTI. Sepsis -Secondary to obstructed renal stone causing UTI -Urine Culture positive for gram negative bacteria E. coli -Zosyn switched back to Rocephin based on sensitivities. Consider switch to po Cefdinir for discharge once renal function improving. -Blood cultures ordered-pending but no growth to date. Renal Stone -CT-A: 1.9x0.8cm obstructing stone within the right uretereopelvic junction with right hydronephrosis - s/p retrograde urethrogram with placement of du catheter. - on Tamsulosin, Toradol, Dilaudid (for severe pain) - PRN Ketorolac 15mg IV Q6H and hydromorphone 1mg IV Q2H PRN for pain - Zofran for nausea Acute Renal Failure - Cr seems to have stabilised. Dilation of afferents as a result of septic picture likely contributory. UA and urine Na and creatinine ordered for further renal picture. - Continue IVFM NSS+10KCl 125cc/hr - Renal panel qAM - Hold metformin, lisinopril. - Avoid NSAIDS. A-fib - Metoprolol Succinate 100mg BID -resume coumadin, INR therapeutic. -Pt states she alternates between 2 and 4 mg every other day. Diabetes Mellitus - Hold [employer]PER[employer] metformin, glimepiride - A1C 9.4 - SSI - Glucose checks AC/HS HTN -Continue Lisinopril and monitor pressure GERD - Pantoprazole 40mg PO qAM HLD -Continue atorvastatin 20mg pO HS Hypothyroid -Continue levothyroxine 75mcg daily Hypomagnesmia--RESOLVED -Mg normal Hyponatremia - Na of 129 - Dilutional effect of fluids contributory - BMP qAM Electrolytes: monitor and replace Nutrition: NPO GI PPX: Protonix DVT PPX: Warfarin restart as above. Code: Full Supervising Physician Co-Signing Physician Notes I personally examined the patient and verified all [place]kee[place] points of history and exam, discussed case, and agree with decision making with Dr Amaro. Stent pain, no fevers chills or sweats. Otherwise feels about the same. She is still constipated feeling. She notes that she was feeling a bit short of breath, her oxygen numbers were fine, but she requested oxygen be put back on Vitals noted, in general she is awake alert oriented x3 pleasant fatigued appearing but no acute distress. HEENT normal cephalic atraumatic mucous membranes are moist. Skin shows no rashes, no pallor, no icterus. Lungs are clear, difficult exam but no rales rhonchi or wheezes and no accessory muscles Complicated urinary tract infection/pyelonephritis related to obstructing ureteral stoneshe is now post stenting, continue ceftriaxone as her culture shows sensitivity to this. Await blood cultures, but if they continue to be negative, we can likely discharge with 2 weeks of total antibiotic treatment finishing it out with Ceftin ear Acute renal failurethis probably either severely prerenal or mild ATN related to her septic physiology and dehydration. It appears to have plateaued, anticipate improvement in the next day or 2. Otherwise as above, in discussion with the patient the discharge plan would be home as her kidney function starts to improve. She relates that she does okay at home taking care of herself other than needing to take steps to generally take care of herself better. Subjective Sleeping and resting comfortably. Physical Exam 2 Vital Signs (Past 24 Hours): Last Vital Signs Temp 36.4 C L 09/23/18 07:42 Pulse 78 09/23/18 07:42 Resp 20 09/23/18 07:42 BP 150/73 H 09/23/18 07:42 Pulse Ox 96 09/23/18 07:42 General: Alert, oriented. HEENT: NC/AT, PERRLA, EOMI, oropharynx moist. CV: RRR, Normal s1, s2. No murmurs appreciated Resp: Breath sounds clear bilaterally, some increased effort of breathing while sleeping. Abdomen: Firm, distended, tender in RUQ. Extremities: No edema. Results & Data Laboratory Results Laboratory Results - last 24 hr 09/22/18 09/22/18 09/23/18 16:52 20:02 05:47 WBC 12.70 H RBC 3.70 L Hgb 10.9 L Hct 31.7 L MCV 85.7 MCH 29.5 MCHC 34.4 RDW Std Deviation 50.4 H RDW Coeff of Maria C 16.0 H Plt Count 136 MPV 11.2 H PT INR Sodium Potassium Chloride Carbon Dioxide Anion Gap BUN Creatinine Est Cr Clr Drug Dosing Est GFR ( Amer) Est GFR (Non-Af Amer) BUN/Creatinine Ratio Glucose POC Glucose 203 H 211 H Calcium 09/23/18 09/23/18 09/23/18 05:47 07:56 08:40 WBC RBC Hgb Hct MCV MCH MCHC RDW Std Deviation RDW Coeff of Maria C Plt Count MPV PT 20.7 H INR 2.1 H Sodium 132 L Potassium 3.3 L Chloride 104 Carbon Dioxide 21 Anion Gap 7.0 BUN 34 H Creatinine 2.23 H Est Cr Clr Drug Dosing 31.6 Est GFR ( Amer) 24.9 Est GFR (Non-Af Amer) 21.5 BUN/Creatinine Ratio 15.1 Glucose 178 H POC Glucose 183 H Calcium 8.3 L 09/23/18 11:30 WBC RBC Hgb Hct MCV MCH MCHC RDW Std Deviation RDW Coeff of Maria C Plt Count MPV PT INR Sodium Potassium Chloride Carbon Dioxide Anion Gap BUN Creatinine Est Cr Clr Drug Dosing Est GFR ( Amer) Est GFR (Non-Af Amer) BUN/Creatinine Ratio Glucose POC Glucose 224 H Calcium Medications Administered Home Medications atorvastatin 20 mg PO HS 09/20/18 [History Confirmed 09/20/18] celecoxib 200 mg PO DAILY 09/20/18 [History Confirmed 09/20/18] glimepiride 2 mg PO QPM 09/20/18 [History Confirmed 09/20/18] glimepiride 4 mg PO QAM 09/20/18 [History Confirmed 09/20/18] levothyroxine 75 mcg PO DAILY 09/20/18 [History Confirmed 09/21/18] lisinopril 2.5 mg PO DAILY 09/20/18 [History Confirmed 09/20/18] metformin 1,000 mg PO BIDM 09/20/18 [History Confirmed 09/20/18] metoprolol succinate [Toprol XL] 100 mg PO BID 09/20/18 [History Confirmed 09/20] [id number]-[id number]-lutein [Centrum Silver] 1 tab PO DAILY 09/20/18 [ History Confirmed 09/20/18] omeprazole 20 mg PO DAILY 09/20/18 [History Confirmed 09/20/18] warfarin 2 - 4 mg PO UD 09/20/18 [History Confirmed 09/20/18] Active Medications Acetaminophen (Tylenol) 650 mg PO Q4H PRN PRN Reason: pain/fever Stop: 10/21/18 01:40 Last Admin: 09/21/18 03:09 Dose: 650 mg Al Hydrox/Mg Hydrox/Simethicone (Maalox) 30 ml PO Q6H PRN PRN Reason: Dyspepsia Stop: 10/21/18 01:40 Atorvastatin Calcium (Lipitor) 20 mg PO HS [facility] Stop: 10/21/18 20:59 Last Admin: 09/22/18 20:44 Dose: 20 mg Diclofenac Sodium (Voltaren 1% Top) 1 appln EXT QID [facility] Stop: 10/22/18 17:59 Last Admin: 09/23/18 09:00 Dose: 1 appln Hydromorphone HCl (Dilaudid) 1 mg IV Q2H PRN PRN Reason: Severe Pain Stop: 10/05/18 01:40 Last Admin: 09/22/18 00:14 Dose: 1 mg Potassium Chloride 10 meq/ (Sodium Chloride) 1,005 mls @ 125 mls/hr IV .Q8H3M [facility] Stop: 10/21/18 03:59 Last Admin: 09/23/18 11:39 Dose: 125 mls/hr Ceftriaxone Sodium 1,000 mg/ (Dextrose) 50 mls @ 100 mls/hr IV Q24H [facility]; Protocol Stop: 10/02/18 08:59 Last Infusion: 09/23/18 09:41 Dose: Infused Insulin Aspart (Novolog Flexpen) 0 units SC ACHS [facility] Stop: 10/21/18 16:29 Last Admin: 09/23/18 08:58 Dose: 4 units Insulin Glargine (Lantus Solostar Pen) 10 units SC BID [facility] Stop: 10/23/18 08:59 Last Admin: 09/23/18 08:59 Dose: 10 units Ketorolac Tromethamine (Toradol) 15 mg IV Q6H PRN PRN Reason: Pain Stop: 09/26/18 01:40 Last Admin: 09/22/18 17:52 Dose: 15 mg Levothyroxine Sodium (Synthroid) 75 mcg PO DAILYBB [facility] Stop: 10/21/18 06:29 Last Admin: 09/23/18 05:58 Dose: 75 mcg Lisinopril (Zestril) 2.5 mg PO DAILY [facility] Stop: 10/21/18 08:59 Last Admin: 09/21/18 12:33 Dose: 2.5 mg Magnesium Hydroxide (Milk Of Magnesia) 30 ml PO Q6H PRN PRN Reason: Constipation Stop: 10/21/18 01:40 Menthol (Nice) 1 adilia BUCCAL PRN PRN PRN Reason: Sore Throat Stop: 10/22/18 21:54 Metoprolol Succinate (Toprol Xl) 100 mg PO BID [facility] Stop: 10/21/18 08:59 Last Admin: 09/23/18 08:57 Dose: 100 mg Ondansetron HCl (Zofran) 4 mg IV Q6H PRN PRN Reason: Nausea Stop: 10/21/18 01:40 Pantoprazole Sodium (Protonix) 40 mg PO QAM [facility] Stop: 10/21/18 08:59 Last Admin: 09/23/18 08:57 Dose: 40 mg Polyethylene Glycol (Miralax Powder Packet) 17 gm PO DAILY PRN PRN Reason: Constipation Stop: 10/21/18 01:40 Tamsulosin HCl (Flomax) 0.4 mg PO QAM [facility] Stop: 10/21/18 08:59 Last Admin: 09/23/18 08:57 Dose: 0.4 mg Warfarin Sodium (Coumadin) 4 mg PO TuThSa@1600 [facility] Stop: 10/22/18 15:59 Last Admin: 09/22/18 19:42 Dose: 4 mg Warfarin Sodium (Coumadin) 2 mg PO SuMoWeFr@1600 [facility] Stop: 10/23/18 15:59 Resident Activity Tracking Resident Involvement: Resident Care Provided Care Provided: Adult Hospital Medicine
--- NOTE | 2018-09-23 10:10 | Nephrology Progress Note ---
Date of Service September 23, 2018 Assessment & Plan (1) ARF (acute renal failure): Mrs. Hernandez was admitted to the hospital with obstructive uropathy and acute kidney injury. Baseline creatinine around 1.0. On admission creatinine worsened to 2.2. She was found to have right-sided hydronephrosis with 2 cm UPJ stone, had cystoscopy and stent placement this morning. Patient as UTI with E coli, on ceftriaxone. Blood pressure has been relatively stable. Lisinopril, metformin has been on hold. Acute kidney injury secondary to obstructive uropathy as well as hemodynamic effect with IV contrast exposure and sepsis. -- Creatinine is stable at 2.2. Patient is nonoliguric and electrolyte balance is acceptable -- Continue to hold Metformin and Lisinopril -- Encourage oral hydration -- 09/21/18 retrograde pyelogram demonstrated that ureteral stent was in proper position. Will recheck PRP in am. If renal function worsens will consider renal US (2) Obstructive uropathy: (3) UTI (urinary tract infection): (4) Diabetes mellitus: Subjective Mrs. Hernandez was seen & examined in her hospital room this morning. She currently denies fever, flank pain or uremic symptoms. Ramos catheter remains in place draining clear yellow urine. Physical Exam 2 Vital Signs (Past 24 Hours): Last Vital Signs Temp 36.4 C L 09/23/18 07:42 Pulse 78 09/23/18 07:42 Resp 20 09/23/18 07:42 BP 150/73 H 09/23/18 07:42 Pulse Ox 96 09/23/18 07:42 Constitutional: + obese Eyes: PERRL, conjunctivae normal, anicteric sclerae Neck: trachea midline, no thyromegaly Respiratory: normal respiratory effort, lungs clear to auscultation Cardiovascular: RRR, no murmur, no edema Gastrointestinal (Abdomen): normal bowel sounds, soft, nontender, no hepatosplenomegaly Results & Data Laboratory Results Laboratory Tests 09/23/18 09/23/18 05:47 05:47 WBC 12.70 H Hgb 10.9 L Hct 31.7 L Plt Count 136 Sodium 132 L Potassium 3.3 L Chloride 104 Carbon Dioxide 21 BUN 34 H Creatinine 2.23 H Glucose 178 H _ (1) UTI (urinary tract infection) Encounter type: Hematuria presence: with hematuria Indwelling urinary catheter type: Urinary tract infection type: site unspecified Qualified Code( s): N39.0 - Urinary tract infection, site not specified; R31.9 - Hematuria, unspecified
[2018-09-23 12:32] LABS: Appearance Urine Cloudy (Clear); Bilirubin Urine Negative (Negative); Color Urine Orange; Glucose Urine UA Negative (Negative); Ketones Urine Negative (Negative); Leukocyte Esterase Urine 2+ (Negative); Nitrite Urine Negative (Negative); Protein Urine 1+ (Negative); Specific Gravity Urine 1.009 (1.000-1.030); Urobilinogen Urine Negative (Negative); pH Urine 5.5 (4.5-7.5)
--- NOTE | 2018-09-23 12:46 | Urology Progress Note ---
Date of Service September 23, 2018 Assessment & Plan (1) Obstructive uropathy: A/P 73 yo female POD#2 s/p R acute stent placement, urosepsis and ARF. Stabilizing Cr and symptoms. Afebrile x >2 days. Cultures so far show pansensitive E. Coli - should be able to narrow antibiotic therapy, Rx x 1-2 weeks. Will plan on outpatient f/u for definitive stone management once patient has improved further. Further care per medical services. Will follow. Subjective 73 yo female POD#2 s/p acute R stent placement for stone, ARF and sepsis. Notes since seen yesterday reviewed. Patient's Cr has stabilized. She notes improving hematuria, + bowel frequency with multiple BMs. Mild stent irritation, no other c/o. Constitutional: + fatigue Physical Exam 2 Vital Signs (Past 24 Hours): Last Vital Signs Temp 36.3 C L 09/23/18 11:50 Pulse 82 09/23/18 11:50 Resp 18 09/23/18 11:50 BP 120/76 09/23/18 11:50 Pulse Ox 97 09/23/18 11:50 Constitutional: + morbidly obese Neck: trachea midline; no anterior neck swelling Respiratory: no respiratory distress and does not use accessory muscles Cardiovascular: Vessels: radial pulses present Gastrointestinal (Abdomen): Percussion/Palpation: abdomen soft Skin: normal turgor Neurologic: CN's II-XI intact bilaterally Psychiatric: Orientation: oriented x 3 Results & Data Laboratory Results Laboratory Results - last 48 hr 09/21/18 09/21/18 09/22/18 16:23 21:14 05:19 WBC RBC Hgb Hct MCV MCH MCHC RDW Std Deviation RDW Coeff of Maria C Plt Count MPV Immature Gran % (Auto) Neut % (Auto) Lymph % (Auto) [place] % (Auto) Eos % (Auto) Baso % (Auto) Immature Gran # (Auto) Neut # (Auto) Lymph # (Auto) [place] # (Auto) Eos # (Auto) Baso # (Auto) PT INR Sodium 129 L Potassium 3.4 L Chloride 99 Carbon Dioxide 23 Anion Gap 7.0 BUN 32 H D Creatinine 2.25 H D Est Cr Clr Drug Dosing 31.1 Est GFR ( Amer) 24.6 Est GFR (Non-Af Amer) 21.2 BUN/Creatinine Ratio 14.4 Glucose 215 H POC Glucose 200 H 221 H Calcium 8.4 L Magnesium 2.4 09/22/18 09/22/18 09/22/18 05:19 07:34 08:15 WBC 13.79 H RBC 3.91 L Hgb 11.3 L Hct 33.9 L MCV 86.7 MCH 28.9 MCHC 33.3 RDW Std Deviation 51.6 H RDW Coeff of Maria C 16.1 H Plt Count 117 L MPV 11.3 H Immature Gran % (Auto) 3.3 Neut % (Auto) 79.7 Lymph % (Auto) 7.7 [place] % (Auto) 7.9 Eos % (Auto) 1.3 Baso % (Auto) 0.1 Immature Gran # (Auto) 0.45 H Neut # (Auto) 10.99 H Lymph # (Auto) 1.06 L [place] # (Auto) 1.09 H Eos # (Auto) 0.18 Baso # (Auto) 0.02 PT 27.0 H INR 2.8 H Sodium Potassium Chloride Carbon Dioxide Anion Gap BUN Creatinine Est Cr Clr Drug Dosing Est GFR ( Amer) Est GFR (Non-Af Amer) BUN/Creatinine Ratio Glucose POC Glucose 244 H Calcium Magnesium 09/22/18 09/22/18 09/22/18 11:28 16:52 20:02 WBC RBC Hgb Hct MCV MCH MCHC RDW Std Deviation RDW Coeff of Maria C Plt Count MPV Immature Gran % (Auto) Neut % (Auto) Lymph % (Auto) [place] % (Auto) Eos % (Auto) Baso % (Auto) Immature Gran # (Auto) Neut # (Auto) Lymph # (Auto) [place] # (Auto) Eos # (Auto) Baso # (Auto) PT INR Sodium Potassium Chloride Carbon Dioxide Anion Gap BUN Creatinine Est Cr Clr Drug Dosing Est GFR ( Amer) Est GFR (Non-Af Amer) BUN/Creatinine Ratio Glucose POC Glucose 191 H 203 H 211 H Calcium Magnesium 09/23/18 09/23/18 09/23/18 05:47 05:47 07:56 WBC 12.70 H RBC 3.70 L Hgb 10.9 L Hct 31.7 L MCV 85.7 MCH 29.5 MCHC 34.4 RDW Std Deviation 50.4 H RDW Coeff of Maria C 16.0 H Plt Count 136 MPV 11.2 H Immature Gran % (Auto) Neut % (Auto) Lymph % (Auto) [place] % (Auto) Eos % (Auto) Baso % (Auto) Immature Gran # (Auto) Neut # (Auto) Lymph # (Auto) [place] # (Auto) Eos # (Auto) Baso # (Auto) PT INR Sodium 132 L Potassium 3.3 L Chloride 104 Carbon Dioxide 21 Anion Gap 7.0 BUN 34 H Creatinine 2.23 H Est Cr Clr Drug Dosing 31.6 Est GFR ( Amer) 24.9 Est GFR (Non-Af Amer) 21.5 BUN/Creatinine Ratio 15.1 Glucose 178 H POC Glucose 183 H Calcium 8.3 L Magnesium 09/23/18 09/23/18 08:40 11:30 WBC RBC Hgb Hct MCV MCH MCHC RDW Std Deviation RDW Coeff of Maria C Plt Count MPV Immature Gran % (Auto) Neut % (Auto) Lymph % (Auto) [place] % (Auto) Eos % (Auto) Baso % (Auto) Immature Gran # (Auto) Neut # (Auto) Lymph # (Auto) [place] # (Auto) Eos # (Auto) Baso # (Auto) PT 20.7 H INR 2.1 H Sodium Potassium Chloride Carbon Dioxide Anion Gap BUN Creatinine Est Cr Clr Drug Dosing Est GFR ( Amer) Est GFR (Non-Af Amer) BUN/Creatinine Ratio Glucose POC Glucose 224 H Calcium Magnesium
[2018-09-23 13:02] LABS: RBC Urine >30 /hpf (0-4)
[2018-09-23 13:11] LABS: Bacteria Urine 1+ (Negative)
[2018-09-23 13:37] LABS: Creatinine Urine Random 34.5 mg/dl
[2018-09-23] MEDS: WARFARIN SOD 2 MG TAB PO SCH (15:42)
[2018-09-23] MEDS: KETOROLAC TROMETHAMINE 15 MG/ML VIAL IV PRN (15:43)
[2018-09-23] MEDS: ACETAMINOPHEN 325 MG TAB PO PRN (17:50)
[2018-09-23] MEDS ORDERED: MICONAZOLE NITRATE POWDER 43 GM EXT PRN (18:36)
[2018-09-23] MEDS: ATORVASTATIN 20 MG TAB PO SCH (21:38)
[2018-09-24] MEDS: POTASSIUM CHLORIDE 10 MEQ in SODIUM CHLORIDE 0.9% 1000ML 1,000 ML IV SCH ×2 (03:55→12:15)
[2018-09-24] MEDS: LEVOTHYROXINE SODIUM 75 MCG TABLET PO SCH (06:07)
[2018-09-24 07:25] LABS: BUN Creatinine Ratio 15.6 (10-20); Calcium 8.3 mg/dl (8.5-10.1); Creatinine Clr Calc Pharmacy 46.3 ml/min; Est GFR (African American) 38.6; Est GFR (Non-African American) 33.3; Potassium 3.6 mmol/L (3.5-5.1)
[2018-09-24 07:43] LABS: Hematocrit (blood only) 31.6 % (37-47); Hemoglobin 10.4 g/dL (12.0-16.0); Mean Corpuscular Hgb Conc 32.9 g/dL (32-36); Mean Corpuscular Volume 87.1 fL (80-100); Mean Platelet Volume 10.5 fL (7.4-10.4); Platelet Count 182 K/uL (130-400); RDW Coefficient of Variation 16.6 % (11.5-14.5); RDW Standard Deviation 53.2 fL (36.4-46.3); Red Blood Count 3.63 M/uL (4.2-5.4); White Blood Count 8.34 K/uL (4.8-10.8)
--- NOTE | 2018-09-24 08:22 | Urology Progress Note ---
Date of Service September 24, 2018 Assessment & Plan (1) UTI (urinary tract infection): (2) Kidney stones: (3) ARF (acute renal failure): Afebrile x >3 days. UC&S from 09/21: pansensitive E. Coli - should be able to narrow antibiotic therapy, Recommend Rx x 1-2 weeks. Denies stent irritation today, urine not visualized. Cr improving today (Cr 1.55 today, improved from 2.23 yesterday) Appreciate nephrology's input. Will arrange outpatient f/u to discuss stent and definitive stone management. No further intervention required at this time. Thank you for allowing us to participate in the care of this patient. Please contact us with any additional concerns, questions or changes in patient status. Subjective 73 yo female POD#3 s/p R acute stent placement, urosepsis and ARF. Pt resting in bed, easily aroused when entered room. +Fatigue. VS stable. Cr improved today. Tolerating PO diet. Denies R flank pain or suprapubic pain. Denies n/v/f/c. Review of Systems All systems reviewed & are unremarkable except as noted in HPI & below Physical Exam 2 Vital Signs (Past 24 Hours): Last Vital Signs Temp 36.6 C 09/24/18 07:29 Pulse 72 09/24/18 07:29 Resp 18 09/24/18 07:29 BP 146/80 H 09/24/18 07:29 Pulse Ox 98 09/24/18 07:29 Physical Exam: A&Ox3 Fatigued RRR Abd soft, nontender psych: in good spirits _ (1) UTI (urinary tract infection) Encounter type: Hematuria presence: with hematuria Indwelling urinary catheter type: Urinary tract infection type: site unspecified Qualified Code( s): N39.0 - Urinary tract infection, site not specified; R31.9 - Hematuria, unspecified
--- NOTE | 2018-09-24 08:26 | Anesthesiology Progress Note ---
Date of Service September 24, 2018 Anesthesia Post Procedure Vital Signs Vital Signs: Temp Pulse Pulse Resp BP BP Pulse Ox 09/24/18 07:29 36.6 C 72 18 146/80 H 98 09/24/18 04:00 36.3 C L 66 20 145/79 H 99 09/23/18 23:42 36.8 C 83 18 118/61 93 09/23/18 23:12 74 09/23/18 21:37 74 144/74 H 96 09/23/18 20:00 36.4 C L 81 23 126/66 98 09/23/18 15:39 36.9 C 87 20 151/72 H 93 09/23/18 11:50 36.3 C L 82 18 120/76 97 Notes Mental Status: alert / awake / arousable and participated in evaluation Patient Amnestic to Procedure: Yes Nausea / Vomiting: adequately controlled Pain: adequately controlled Airway Patency, RR, SpO2: stable & adequate BP & HR: stable & adequate Hydration State: stable & adequate Anesthetic Complications: no major complications apparent and Pt Satisfied with anesthetic care
[2018-09-24] MEDS ORDERED: OXYCODONE HCL IR 5 MG TAB (IMMEDIATE RELEASE) PO PRN (08:33)
[2018-09-24] MEDS ORDERED: CEFDINIR 300 MG CAP PO SCH (09:00)
[2018-09-24] MEDS: METOPROLOL SUCC 50MG EXT REL TAB PO SCH (09:06)
[2018-09-24] MEDS: TAMSULOSIN HCL 0.4 MG CAP PO SCH (09:09)
[2018-09-24] MEDS: PANTOprazole 40 MG TAB PO SCH (09:10)
[2018-09-24] MEDS: DICLOFENAC SOD 1% GEL 100 GM TUBE EXT SCH ×3 (09:10→18:00)
[2018-09-24] MEDS: INSULIN ASPART 100 UNITS/ML 3 ML PEN SC SCH ×3 (09:11→18:05)
[2018-09-24] MEDS: INSULIN GLARGINE SOLOSTAR 100 UNITS/ML 3 ML PEN SC SCH (09:12)
--- NOTE | 2018-09-24 09:37 | Nephrology Progress Note ---
Date of Service September 24, 2018 Assessment & Plan (1) ARF (acute renal failure): Mrs. Hernandez was admitted to the hospital with obstructive uropathy and acute kidney injury. Baseline creatinine around 1.0. On admission creatinine worsened to 2.2. She was found to have right-sided hydronephrosis with 2 cm UPJ stone, had cystoscopy and stent placement this morning. Patient as UTI with E coli, on ceftriaxone. Blood pressure has been relatively stable. Lisinopril, metformin has been on hold. Acute kidney injury secondary to obstructive uropathy as well as hemodynamic effect with IV contrast exposure and sepsis. -- Creatinine has improved to 1.5 mg/dL . Patient is nonoliguric and electrolyte balance is acceptable -- Continue to hold Lisinopril -- Metformin may be restarted at the time of discharge -- Encourage oral hydration -- 09/21/18 retrograde pyelogram demonstrated that ureteral stent was in proper position. Will recheck PRP in am. -- Outpatient follow up to be arranged with Dr. Mckenna within 2 weeks of hospital discharge (2) Obstructive uropathy: -- Urology follow up reviewed today -- Close outpatient follow up will be necessary; patient is aware (3) UTI (urinary tract infection): -- Pansensitive E coli -- Clinically improving (4) Diabetes mellitus: Subjective Mrs. Hernandez was seen & examined in her hospital room this morning. She denies fever, flank pain or uremic symptoms. Appetite is good. She hopes to be discharged home. Review of Systems All systems reviewed & are unremarkable except as noted in HPI & below Physical Exam 2 Vital Signs (Past 24 Hours): Last Vital Signs Temp 36.6 C 09/24/18 07:29 Pulse 72 09/24/18 07:29 Resp 18 09/24/18 07:29 BP 146/80 H 09/24/18 07:29 Pulse Ox 97 09/24/18 09:16 Constitutional: well developed and + obese; no acute distress Eyes: PERRL, conjunctivae normal, anicteric sclerae ENMT: external ear and nose normal, oropharynx normal Neck: neck nontender Thyroid: + abnormal thyroid Respiratory: normal respiratory effort, lungs clear to auscultation Cardiovascular: Heart Sounds: normal S1 and normal S2; no gallop and no cardiac rub Extremities: no edema Gastrointestinal (Abdomen): Percussion/Palpation: abdomen soft; abdomen nontender and no guarding Musculoskeletal: Extremities: no cyanosis and no clubbing Skin: no rashes, warm and dry Neurologic: Motor/Sensory: no tremor and no asterixis Psychiatric: A+Ox3, euthymic affect Results & Data Laboratory Results Laboratory Results - last 24 hr 09/23/18 09/23/18 09/23/18 11:30 16:21 20:34 WBC RBC Hgb Hct MCV MCH MCHC RDW Std Deviation RDW Coeff of Maria C Plt Count MPV Sodium Potassium Chloride Carbon Dioxide Anion Gap BUN Creatinine Est Cr Clr Drug Dosing Est GFR ( Amer) Est GFR (Non-Af Amer) BUN/Creatinine Ratio Glucose POC Glucose 224 H 190 H 168 H Calcium Urine Color Urine Appearance Urine pH Ur Specific [place] Urine Protein Urine Glucose (UA) Urine Ketones Urine Blood Urine Nitrite Urine Bilirubin Urine Urobilinogen Ur Leukocyte Esterase Urine RBC Urine WBC Ur Epithelial Cells Urine Bacteria Ur Random Creatinine Ur Random Sodium 09/23/18 09/23/18 09/24/18 Unknown Unknown 06:36 WBC RBC Hgb Hct MCV MCH MCHC RDW Std Deviation RDW Coeff of Maria C Plt Count MPV Sodium 138 Potassium 3.6 Chloride 111 H Carbon Dioxide 20 L Anion Gap 7.0 BUN 24 H Creatinine 1.55 H D Est Cr Clr Drug Dosing 46.3 Est GFR ( Amer) 38.6 Est GFR (Non-Af Amer) 33.3 BUN/Creatinine Ratio 15.6 Glucose 148 H POC Glucose Calcium 8.3 L Urine Color [place] Urine Appearance Cloudy H Urine pH 5.5 Ur Specific [place] 1.009 Urine Protein 1+ H Urine Glucose (UA) Negative Urine Ketones Negative Urine Blood 3+ H Urine Nitrite Negative Urine Bilirubin Negative Urine Urobilinogen Negative Ur Leukocyte Esterase 2+ H Urine RBC >30 H Urine WBC 10-30 H Ur Epithelial Cells 0-5 Urine Bacteria 1+ H Ur Random Creatinine 34.5 Ur Random Sodium 13 09/24/18 09/24/18 06:37 07:44 WBC 8.34 RBC 3.63 L Hgb 10.4 L Hct 31.6 L MCV 87.1 MCH 28.7 MCHC 32.9 RDW Std Deviation 53.2 H RDW Coeff of Maria C 16.6 H Plt Count 182 MPV 10.5 H Sodium Potassium Chloride Carbon Dioxide Anion Gap BUN Creatinine Est Cr Clr Drug Dosing Est GFR ( Amer) Est GFR (Non-Af Amer) BUN/Creatinine Ratio Glucose POC Glucose 144 H Calcium Urine Color Urine Appearance Urine pH Ur Specific [place] Urine Protein Urine Glucose (UA) Urine Ketones Urine Blood Urine Nitrite Urine Bilirubin Urine Urobilinogen Ur Leukocyte Esterase Urine RBC Urine WBC Ur Epithelial Cells Urine Bacteria Ur Random Creatinine Ur Random Sodium _ (1) UTI (urinary tract infection) Encounter type: Hematuria presence: with hematuria Indwelling urinary catheter type: Urinary tract infection type: site unspecified Qualified Code( s): N39.0 - Urinary tract infection, site not specified; R31.9 - Hematuria, unspecified
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
[2018-09-24] MEDS: WARFARIN SOD 2 MG TAB PO SCH (18:02)
--- NOTE | 2018-09-24 18:18 | Family Medicine Progress Note ---
Date of Service September 24, 2018 Assessment & Plan (1) Obstructive uropathy: Violeta is a 73yo F with a PMHx of Afib, HTN, T2DM, GERD who presented to the ED with severe back pain x2 days. She is being treated for sepsis secondary to an infected kidney stone, ARF and a UTI. Sepsis -Secondary to obstructed renal stone causing UTI -Urine Culture positive for gram negative bacteria E. coli - PO Cefdinir 300mg BID x11 days - BC ng Renal Stone -CT-A: 1.9x0.8cm obstructing stone within the right uretereopelvic junction with right hydronephrosis - s/p retrograde urethrogram with placement of du catheter. - pain well controlled, no PRN pain medications needed x24 hours - Zofran for nausea Acute Renal Failure - Cr seems to have stabilized. - IVFM d/c, tolerating good PO intake - Renal panel qAM - Hold metformin, lisinopril. - Avoid NSAIDS. Deconditioning - PT/OT saw and recommended [facility], likely for 3-5 day duration. Requires a 1 assist to stand. - Has 10+ stairs in her home, - Prolonged discussion today regarding the risks of returning home, acknowledges weakness and risks of returning home but declines [facility] - Family meeting this evening to discuss dispo. A-fib - Metoprolol Succinate 100mg BID -resume coumadin, INR therapeutic. -Pt states she alternates between 2 and 4 mg every other day. Diabetes Mellitus - Hold [employer] metformin, glimepiride - A1C 9.4 - SSI - Glucose checks AC/HS HTN -Continue Lisinopril and monitor pressure GERD - Pantoprazole 40mg PO qAM HLD -Continue atorvastatin 20mg pO HS Hypothyroid -Continue levothyroxine 75mcg daily Hypomagnesmia--RESOLVED -Mg normal Hyponatremia - Na of 138 - Dilutional effect of fluids contributory - BMP qAM Electrolytes: monitor and replace Nutrition: NPO GI PPX: Protonix DVT PPX: Warfarin as above. Code: Full (2) Sepsis: (3) ARF (acute renal failure): (4) A-fib: (5) Diabetes mellitus: (6) HTN (hypertension): (7) GERD (gastroesophageal reflux disease): (8) HLD (hyperlipidemia): (9) Hypothyroid: (10) DVT prophylaxis: Subjective Violeta reports she feels well today. She is peeing well since her du was taken out, although she notes it is hard to make it to the bathroom in time due to a sense of urgency and weakness ambulating. Denies chest pain, chest pressure , shortness of breath, fever, chills, lightheadedness, dizziness, rash, difficulty breathing, abdominal pain, nausea/vomiting/diarrhea/constipation today. Discussed strength and potential [facility] discharge at [facility], see assessment and plan. Review of Systems See HPI Physical Exam 2 Vital Signs (Past 24 Hours): Last Vital Signs Temp 36.6 C 09/24/18 15:41 Pulse 69 09/24/18 15:41 Resp 18 09/24/18 15:41 BP 114/78 09/24/18 15:41 Pulse Ox 98 09/24/18 15:41 Physical Exam: General: A&Ox3. NAD. Cooperative. HEENT: Atraumatic, normocephalic. Pulm: CTAB A&P. -wheezes, -rales, -rhonchi. Symmetrical chest rise. No increase work of breathing. No respiratory distress. Cardiac: RRR, -mrg. Radial pulses intact and symmetrical. Abdominal: Nontender, nondistended, soft. BS present. Extremity: Trace pretibial edema present bilaterally
== END 2018-09-24 20:33 | disposition home or self-care (01) | DRG 854 ==
LOC: ED 15:49 → 2N 09-21 00:45 → SUATTDRO 09-21 00:45 → 2N 09-21 01:06

== ENCOUNTER 2020-01-10 20:33 | Inpatient (IN) ==
[2020-01-10] MEDS ORDERED: SODIUM CHLORIDE 0.9% 500 ML IV ONE (20:47)
--- NOTE | 2020-01-10 20:52 | Emergency Department Note ---
History of Present Illness General Chief complaint: Weakness Stated complaint: weakness Time Seen by Provider: 01/10/20 20:38 Source: patient, EMS and RN notes reviewed Mode of arrival: ambulatory Limitations: no limitations History of Present Illness This patient is brought in by EMS after being weak for several weeks. She tells me she had an allergic reaction but she does about 2 weeks ago where she got red and took a Benadryl. She is had no symptoms like that since then. She said at one point she may have been coughing up some blood. She has had no definite fever. No fall or trauma. She describes her weakness is diffuse. The son told EMS she has a left home EMS thought she was a little confused. No definite COVID risk factors. Denies abdominal pain. She has some chronic lower extremity pain but no acute swelling. No chest pain. Denies dysuria. Home Medications Home Medications Medication Instructions Recorded Confirmed Type Centrum Silver 1 tab PO QAM 09/20/18 01/10/20 History lysine 500 mg tablet 500 mg PO QAM PRN 04/03/19 01/10/20 History clobetasol 0.05 % topical cream 1 appln TOPICAL BID PRN #1 gm 04/05/19 01/10/20 History nystatin 100,000 unit/gram topical 1 appln TOPICAL Q8H PRN #1 gm 04/05/19 01/10/20 History powder metformin 1,000 mg tablet 1,000 mg PO BID #180 tab 05/08/19 01/10/20 Rx aspirin 81 mg PO QAM 07/02/19 01/10/20 History lutein-zeaxanthin 1 cap PO QAM 07/02/19 01/10/20 History cholecalciferol (vitamin D3) 1,000 units PO QAM 07/09/19 01/10/20 History sennosides 8.6 mg-docusate sodium 1 tab PO BID #60 tab 08/22/19 01/10/20 Rx 50 mg tablet atorvastatin 20 mg tablet 20 mg PO HS #90 tab 09/20/19 01/10/20 Rx tramadol 50 mg tablet 50 mg PO QAM #90 tab 10/03/19 01/10/20 Rx glimepiride 2 mg tablet See Rx Instructions PO BID #270 tab 10/09/19 01/10/20 Rx celecoxib 200 mg capsule 200 mg PO QAM #30 cap 10/22/19 01/10/20 Rx lisinopril 2.5 mg tablet 2.5 mg PO HS #30 tab 10/22/19 01/10/20 Rx metoprolol succinate 100 mg 100 mg PO BID #180 tab 10/22/19 01/10/20 Rx tablet,extended release 24 hr levothyroxine 75 mcg tablet 75 mcg PO QAM #30 tab 01/09/20 01/10/20 Rx omeprazole 20 mg PO QPM 01/10/20 01/10/20 History warfarin 2 mg PO 2XWK 01/10/20 01/10/20 History warfarin 4 mg PO 5XWK 01/10/20 01/10/20 History Allergies Allergy/AdvReac Type Severity Reaction Status Date / Time milk AdvReac Mild Diarrhea Verified 01/10/20 22:20 Past Med/Surg History Medical History Anxiety with depression (Acute) ARF (acute renal failure) 2/2 obstructing stone. Cr as high as 2.25 in 09/2018. Since ESWL x 2 and cysto/stent insertion, Cr has normalized to 0.89 (11/21/18) Asthma (Acute) Atrial fibrillation 12 YEARS AGO - ON WARFARIN - FOLLOWS W/ [place] CARDIO Cerebral artery occlusion (Acute) Cyst of kidney, acquired (Acute) Depression Diabetes mellitus type 2, uncontrolled (Acute) Dizziness (Acute) Gait abnormality Hearing deficit History of gastric ulcer History of ovarian cancer s/p TIFFANIE BSO, omentectomy + chemo History of sepsis Admitted [facility] 09/2018 with sepsis 2/2 obstructive uropathy/UTI Hypercholesterolemia (Acute) Hyperlipidemia Hypertension Hypothyroidism IBS (irritable bowel syndrome) Kidney stones (Acute) Migraine Morbid obesity Nausea and vomiting after administration of anesthetic agent On anticoagulant therapy PAST 12+ YRS FOR AFIB Osteoarthritis Ovarian cancer (Acute) Proteinuria (Acute) Renal neoplasm (Acute) Seasonal asthma DOES NOT USE INH Stroke X2. Most recent 12 years ago (dx new onset a-fib at time of stroke) - memory issues, word finding issues, urinary incontinence -age 47 - cause? no residual deficits Stroke-like symptoms Upon performing PAT assessment (07/02/19): pt informed nurse that she was having symptoms of a DVT in her left leg a "few months ago" and just "doubled upon on my warfarin for a couple days" without consulting or calling PCP....p t then stated she noticed a "drooping to the right side of her face a few days ago"---?? stroke symptoms Temporomandibular joint disorder Never locked open, just clicked UPJ (ureteropelvic junction) obstruction Urinary incontinence (Acute) Visual disturbances (Acute) Vitamin D deficiency (Acute) Surgical History History of colonoscopy History of esophagogastroduodenoscopy (EGD) History of surgery omentectomy r/t ovarian cancer History of total abdominal hysterectomy and bilateral salpingo-oophorectomy S/P cystoscopy with ureteral stent placement S/P D&C (status post dilation and curettage) S/P T&A (status post tonsillectomy and adenoidectomy) Family History Grandmother (Paternal) Family history of diabetes mellitus Social History Preferred Language: Serbian Communication Ability: Effective Visual Impairment: No Limitations Vice Chairman Required: No Beliefs That Will Affect Care: None marital status: Current Living Situation: Alone Feels Safe at Home: Yes Smoking Status: Never smoker Second Hand Exposure: No ; Hx Alcohol Use: No Hx Substance Use: No Review of Systems A total of 10 systems reviewed and were otherwise negative Physical Exam Vital Signs Vital Signs - 24 hr 01/10/20 21:01 01/10/20 22:00 Temperature 36.9 C Temperature Source Oral Pulse Rate 79 77 Pulse Rhythm Regular Pulse Strength Normal Respiratory Rate 17 20 Respiratory Effort / Characteristics Non-Labored Spontaneous Respiratory Depth Normal Respiratory Pattern Regular Blood Pressure 148/68 H 153/71 H Blood Pressure Mean 94 99 Blood Pressure Position Lying Pulse Oximetry 95 96 Oxygen Delivery Method Room Air Room Air Sepsis Recent Fever Within 48 Hours No Sepsis Action Taken by Nursing No Action Required General: Well developed well nourished older female who appears in no acute dist ress, breathing comfortably on room air. Normal speech. She answers most questions appropriately but somewhat vaguely HEENT: Normal cephalic atraumatic. Pupils are equal round and reactive to light. Extraocular movements are intact. Oropharynx is pink with moist mucous membranes. No swelling of the mouth lips or tongue. Neck: Supple with a midline trachea. No meningeal signs or stiffness, no JVD or bruits. No Stridor. Chest: Clear to auscultation bilaterally. No wheezes or rhonchi. No increased work of breathing. Heart: Regular rate and rhythm without murmurs or gallops. Abdomen: Soft nontender, nondistended without rebound guarding or rigidity. Extremities: Does have bilateral 1+ lower extremity edema.. No calf tenderness or assymetry Spine/Back. Non tender to palpation. No CVA tenderness Skin: Good turgor without rashes. No redness. Neurologic exam: Cranial nerves two through 12 are intact. Motor and sensation are intact and symmetrical throughout. Course Administered Medications Discontinued Medications Sodium Chloride (Nss) 500 mls @ 999 mls/hr IV .Q31M ONE Stop: 01/10/20 21:17 Last Infusion: 01/10/20 22:02 Dose: 0 mls/hr Documented by: [id number] Admin: 01/10/20 21:31 Dose: 999 mls/hr Documented by: [id number] Sodium Chloride (Nss 1000ml) 1,000 mls @ 999 mls/hr IV .Q1H1M ONE Stop: 01/10/20 23:02 Last Admin: 01/10/20 22:31 Dose: 999 mls/hr Documented by: [id number] Cefepime HCl (Maxipime) 2,000 mg in 20 mls @ 5 mls/min IV NOW STA; Protocol Stop: 01/10/20 22:28 Last Admin: 01/10/20 22:31 Dose: 5 mls/min Documented by: [id number] Critical Care Time Critical Care Time: Yes Total Critical Care Time: 30 I have personally spent greater than 30 minutes of critical care time in the direct management of this patient. This includes bedside care, interpretation of diagnostic studies, and testing, discussion with consultants, patient, and fa romulo members, and other required patient management activities. This 30 minutes is in excess of all separately billable procedures. Medical Decision Making Differential Diagnosis Differential diagnosis includes: Sepsis, dehydration, electrolyte or metabolic abnormality, cardiac disease, anemia, neurologic disease, COVID. Medical Records Attestation: I reviewed the patient's medical records. Home Medications Current Medication List: was personally reviewed by me Laboratory Data Attestation: I reviewed the patient's lab results. Result diagrams: 01/10/20 21:22 01/10/20 21:22 Lab Results 01/10/20 01/10/20 01/10/20 Range/Units 20:55 21:22 21:22 WBC 4.87 (4.8-10.8) K/uL RBC 5.13 (4.2-5.4) M/uL Hgb 13.8 (12.0-16.0) g/dL Hct 42.2 (37-47) % MCV 82.3 (80-100) fL MCH 26.9 (25-34) pg MCHC 32.7 (32-36) g/dL RDW Std Deviation 46.2 (36.4-46.3) fL RDW Coeff of Maria C 15.3 H (11.5-14.5) % Plt Count 198 (130-400) K/uL MPV 10.1 (7.4-10.4) fL Immature Gran % (Auto) 0.2 % Neut % (Auto) 71.0 % Lymph % (Auto) 18.1 % [place] % (Auto) 9.9 % Eos % (Auto) 0.0 % Baso % (Auto) 0.8 % Immature Gran # (Auto) 0.01 (0.00-0.02) K/uL Neut # (Auto) 3.46 (1.4-6.5) K/uL Lymph # (Auto) 0.88 L (1.2-3.4) K/uL [place] # (Auto) 0.48 (0.11-0.59) K/uL Eos # (Auto) 0.00 (0-0.5) K/uL Baso # (Auto) 0.04 (0-0.2) K/uL PT 46.1 H (9.0-12.0) Seconds INR 4.8 H (0.9-1.1) APTT 67.2 H* (21.0-31.0) Seconds PTT Ratio 2.4 Sodium (136-145) mmol/L Potassium (3.5-5.1) mmol/L Chloride (98-107) mmol/L Carbon Dioxide (21-32) mmol/L Anion Gap (3-11) BUN (7-18) mg/dl Creatinine (0.6-1.2) mg/dl Est Cr Clr Drug Dosing ml/min Est GFR ( Amer) Est GFR (Non-Af Amer) BUN/Creatinine Ratio (10-20) Glucose (70-99) mg/dl Lactate (0.4-2.0) mmol/L Calcium (8.5-10.1) mg/dl Magnesium (1.8-2.4) mg/dl Total Bilirubin (0.2-1) mg/dl AST (15-37) U/L ALT (12-78) U/L Alkaline Phosphatase (45-117) U/L Total Creatine Kinase (26-192) U/L CK-MB (CK-2) (0.5-3.6) ng/ml CK/CKMB % Calc (0-3.0) Troponin I (0-0.045) ng/ml Total Protein (6.4-8.2) gm/dl Albumin (3.4-5.0) gm/dl Globulin (2.5-4.0) gm/dl Albumin/Globulin Ratio (0.9-2) Procalcitonin (0-0.5) ng/ml TSH (0.300-4.500) uIu/ml Urine Color Dark Yellow Urine Appearance Cloudy A (Clear) Urine pH 5.0 (4.5-7.5) Ur Specific [place] 1.021 (1.000-1.030) Urine Protein 1+ H (Negative) Urine Glucose (UA) Trace H (Negative) Urine Ketones Trace H (Negative) Urine Blood Trace H (Negative) Urine Nitrite Negative (Negative) Urine Bilirubin Negative (Negative) Urine Urobilinogen Negative (Negative) Ur Leukocyte Esterase Trace H (Negative) Urine WBC (Auto) 1-5 (0-5) /hpf Urine RBC (Auto) 0-4 (0-4) /hpf U Hyaline Cast (Auto) 5-10 H (0-5) /lpf U Epithel Cells (Auto) 20-30 H (0-5) /lpf Urine Bacteria (Auto) 4+ H (Negative) 01/10/20 01/10/20 01/10/20 Range/Units 21:22 21:22 21:22 WBC (4.8-10.8) K/uL RBC (4.2-5.4) M/uL Hgb (12.0-16.0) g/dL Hct (37-47) % MCV (80-100) fL MCH (25-34) pg MCHC (32-36) g/dL RDW Std Deviation (36.4-46.3) fL RDW Coeff of Maria C (11.5-14.5) % Plt Count (130-400) K/uL MPV (7.4-10.4) fL Immature Gran % (Auto) % Neut % (Auto) % Lymph % (Auto) % [place] % (Auto) % Eos % (Auto) % Baso % (Auto) % Immature Gran # (Auto) (0.00-0.02) K/uL Neut # (Auto) (1.4-6.5) K/uL Lymph # (Auto) (1.2-3.4) K/uL [place] # (Auto) (0.11-0.59) K/uL Eos # (Auto) (0-0.5) K/uL Baso # (Auto) (0-0.2) K/uL PT (9.0-12.0) Seconds INR (0.9-1.1) APTT (21.0-31.0) Seconds PTT Ratio Sodium 132 L (136-145) mmol/L Potassium 3.7 (3.5-5.1) mmol/L Chloride 100 (98-107) mmol/L Carbon Dioxide 21 (21-32) mmol/L Anion Gap 11.0 (3-11) BUN 20 H (7-18) mg/dl Creatinine 1.77 H (0.6-1.2) mg/dl Est Cr Clr Drug Dosing 37.6 ml/min Est GFR ( Amer) 32.7 Est GFR (Non-Af Amer) 28.2 BUN/Creatinine Ratio 11.5 (10-20) Glucose 239 H (70-99) mg/dl Lactate 5.1 H* (0.4-2.0) mmol/L Calcium 8.8 (8.5-10.1) mg/dl Magnesium 1.9 (1.8-2.4) mg/dl Total Bilirubin 1.0 (0.2-1) mg/dl AST 35 (15-37) U/L ALT 27 (12-78) U/L Alkaline Phosphatase 111 (45-117) U/L Total Creatine Kinase 89 (26-192) U/L CK-MB (CK-2) 1.1 (0.5-3.6) ng/ml CK/CKMB % Calc 1.2 (0-3.0) Troponin I 0.021 (0-0.045) ng/ml Total Protein 8.1 (6.4-8.2) gm/dl Albumin 3.1 L (3.4-5.0) gm/dl Globulin 5.0 H (2.5-4.0) gm/dl Albumin/Globulin Ratio 0.6 L (0.9-2) Procalcitonin 0.06 (0-0.5) ng/ml TSH 2.880 (0.300-4.500) uIu/ml Urine Color Urine Appearance (Clear) Urine pH (4.5-7.5) Ur Specific [place] (1.000-1.030) Urine Protein (Negative) Urine Glucose (UA) (Negative) Urine Ketones (Negative) Urine Blood (Negative) Urine Nitrite (Negative) Urine Bilirubin (Negative) Urine Urobilinogen (Negative) Ur Leukocyte Esterase (Negative) Urine WBC (Auto) (0-5) /hpf Urine RBC (Auto) (0-4) /hpf U Hyaline Cast (Auto) (0-5) /lpf U Epithel Cells (Auto) (0-5) /lpf Urine Bacteria (Auto) (Negative) ECG Data Attestation: I personally reviewed and interpreted this ECG as follows: Indication: + weakness Rate (beats per minute): 76 Rhythm: + atrial fibrillation and + other (Poor baseline which makes interpretation somewhat difficult) ECG Intervals/blocks: + Normal QRS ECG Pitcher: + Normal ECG ST segments: + Nonspecific ST abnormalities ECG Findings: no PACs and no PVCs Comparison ECG Date: from (07/09/19) Change: the following changes noted (Poor baseline and nonspecific ST abnormalities seen) Blood Pressure Blood Pressure Findings: Normal blood pressure Blood Pressure Disposition: did not require urgent referral MDM Narrative This patient comes in as described above. She is been having weakness and multiple other symptoms. IV asked established a full sepsis type work-up including cardiac biomarkers as well as EKG. She was placed on a manager cardiac. I also ordered a urinalysis and culture and a IV fluid bolus. She was reassessed frequently. She was normotensive she had a normal white count how ever lactic acid was elevated at 5. Her BUN and creatinine are also elevated clinically I think she is dry. Her urinalysis does suggest a UTI. I talked her at length and she has no known antibiotic allergies she was given cefepime 2 g IV she is given additional fluid bolus given her elevated lactate. I do think she needs to be admitted/observed and have consulted Dr. Florez to see her in the ER for these measures. Continuous cardiac monitoring: An order was placed for a continuous cardiac mo nitor due to the patient's weakness and she needed to be monitored. She was noted to be in a normal sinus rhythm with a rate of 70 initially. Impression & Plan Sepsis, A-fib, Weakness, Acidosis, lactic Discharge Plan Visit Data Chief Complaint: Weakness Stated Complaint: weakness ED Provider: Lane Christianson Discharge Problem: Sepsis, A-fib, Weakness, Acidosis, lactic Forms Stand Alone Forms: My [facility] Prescriptions Prescriptions: No Action metformin 1,000 mg tablet 1,000 mg PO BID Qty: 180 RF: 3 sennosides-docusate sodium 8.6-50 mg tablet 1 tab PO BID Qty: 60 RF: 5 atorvastatin 20 mg tablet 20 mg PO HS Qty: 90 RF: 1 tramadol 50 mg tablet 50 mg PO QAM Qty: 90 RF: 1 glimepiride 2 mg tablet See Rx Instructions PO BID Qty: 270 RF: 3 celecoxib [Celebrex] 200 mg capsule 200 mg PO QAM Qty: 30 RF: 5 lisinopril 2.5 mg tablet 2.5 mg PO HS Qty: 30 RF: 5 metoprolol succinate 100 mg tablet extended release 24 hr 100 mg PO BID Qty: 180 RF: 3 levothyroxine 75 mcg tablet 75 mcg PO QAM Qty: 30 RF: 5 lysine 500 mg tablet 500 mg PO QAM PRN (Reason: Cold Sore(s)) RF: 0 nystatin 100,000 unit/gram powder 1 appln topical Q8H PRN (Reason: Skin Irritation) Qty: 1 RF: 0 clobetasol 0.05 % cream 1 appln topical BID PRN (Reason: Rash) Qty: 1 RF: 0 Centrum Silver 0.4-300-250 mg-mcg-mcg Tablet 1 tab PO QAM RF: 0 aspirin 81 mg Tablet,Delayed Release (Dr/Ec) 81 mg PO QAM RF: 0 lutein-zeaxanthin 20 mg- 1,000 mcg Capsule 1 cap PO QAM RF: 0 cholecalciferol (vitamin D3) 1,000 unit capsule 1,000 units PO QAM RF: 0 warfarin 4 mg tablet 4 mg PO 5XWK RF: 0 warfarin 2 mg tablet 2 mg PO 2XWK RF: 0 omeprazole 20 mg capsule,delayed release(DR/EC) 20 mg PO QPM RF: 0 Discharge Problem: Sepsis Qualifiers: Sepsis type: sepsis due to unspecified organism Sepsis acute organ dysfunction status: with acute organ dysfunction Severe sepsis acute organ dysfunction type: acute renal failure Acute renal failure type: unspecified Severe sepsis shock status: unspecified Qualified Code(s): A41.9 - Sepsis, unspecified organism A-fib Qualifiers: Atrial fibrillation type: paroxysmal Qualified Code(s): I48.0 - Paroxysmal atr ial fibrillation
--- NOTE | 2020-01-10 21:08 | XRay Report ---
XR chest 1V portable CLINICAL HISTORY: SEPSIS dyspnea COMPARISON STUDY: 07/09/2019 FINDINGS: The bones soft tissues and hemidiaphragms are normal. The cardiomediastinal silhouette is n ormal. The lungs are clear. The pulmonary vasculature is normal. IMPRESSION: No acute process. Mild stable cardiomegaly. ACT 112: Negative or not required by law. The above report was generated using voice recognition software. It may contain grammatical, syntax or spelling errors. Electronically signed by: Ja Jay M.D. 01/10/2020 9:07 PM
[2020-01-10 21:31] LABS: Appearance Urine Cloudy (Clear); Bacteria Urine Automated 4+ (Negative); Blood Urine Trace (Negative); Color Urine Dark Yellow; Epithelial Cell Urine Auto 20-30 /lpf (0-5); Glucose Urine UA Trace (Negative); Ketones Urine Trace (Negative); Leukocyte Esterase Urine Trace (Negative); Nitrite Urine Negative (Negative); Protein Urine 1+ (Negative); RBC Urine Automated 0-4 /hpf (0-4); Specific Gravity Urine 1.021 (1.000-1.030); Urobilinogen Urine Negative (Negative)
[2020-01-10 21:35] LABS: Basophils # (auto) 0.04 K/uL (0-0.2); Basophils % (auto) 0.8 %; Hematocrit (blood only) 42.2 % (37-47); Hemoglobin 13.8 g/dL (12.0-16.0); Immature Granulocytes # (auto) 0.01 K/uL (0.00-0.02); Immature Granulocytes % (auto) 0.2 %; Lymphocytes # (auto) 0.88 K/uL (1.2-3.4); Lymphocytes % (auto) 18.1 %; Mean Corpuscular Hemoglobin 26.9 pg (25-34); Mean Corpuscular Hgb Conc 32.7 g/dL (32-36); Mean Corpuscular Volume 82.3 fL (80-100); Mean Platelet Volume 10.1 fL (7.4-10.4); Monocytes # (auto) 0.48 K/uL (0.11-0.59); Monocytes % (auto) 9.9 %; Neutrophils # (auto) 3.46 K/uL (1.4-6.5); Platelet Count 198 K/uL (130-400); RDW Coefficient of Variation 15.3 % (11.5-14.5); RDW Standard Deviation 46.2 fL (36.4-46.3); Red Blood Count 5.13 M/uL (4.2-5.4); White Blood Count 4.87 K/uL (4.8-10.8)
[2020-01-10 21:39] LABS: Bilirubin Urine Negative (Negative); Ictotest Urine Negative (Negative)
[2020-01-10 21:52] LABS: Albumin Level 3.1 gm/dl (3.4-5.0); BUN Creatinine Ratio 11.5 (10-20); Calcium 8.8 mg/dl (8.5-10.1); Creatinine Clr Calc Pharmacy 37.6 ml/min; Est GFR (African American) 32.7; Est GFR (Non-African American) 28.2; Magnesium 1.9 mg/dl (1.8-2.4); Potassium 3.7 mmol/L (3.5-5.1)
[2020-01-10 21:57] LABS: INR 4.8 (0.9-1.1); Partial Thromboplastin Ratio 2.4; Prothrombin Time 46.1 Seconds (9.0-12.0)
[2020-01-10] MEDS ORDERED: SODIUM CHLORIDE 0.9% 1000ML 1,000 ML IV ONE (22:02)
[2020-01-10] MEDS ORDERED: CEFEPIME 2,000 MG in SYRINGE 7.5 ML IV STA (22:02)
[2020-01-10 22:03] LABS: Albumin Globulin Ratio 0.6 (0.9-2); Creatine Kinase MB 1.1 ng/ml (0.5-3.6); Thyroid Stimulating Hormone 2.88 uIu/ml (0.300-4.500); Total Protein 8.1 gm/dl (6.4-8.2); Troponin I 0.021 ng/ml (0-0.045)
[2020-01-10 22:18] LABS: Partial Thromboplastin Time 67.2 Seconds (21.0-31.0)
[2020-01-10] MEDS ORDERED: CEFEPIME 2,000 MG/20 ML VIAL IV STA (22:25)
--- NOTE | 2020-01-10 23:13 | History & Physical Report ---
Date of Service January 10, 2020 Assessment & Plan (1) UTI (urinary tract infection): UA poor quality but suggestive of UTI. She has had dumont-sensitive Klebsiella and E. coli on prior UAs, also history of renal stones. She is afebrile, hemodynamically stable and non-toxic in appearance at present -Follow cultures -Ceftriaxone 1gm IV daily -Check CT abdomen without contrast - patient with history of renal stones, renal cancer, has elevated lactate Present on Admission?: Yes (2) Weakness: Patient reports diffuse weakness. No objective weakness noted on exam. Mild hyponatremia, BONIFACIO, UTI and physical deconditioning possibly all contributing. CK normal -Treatment of UTI as above -Check PO4 -Treatment of BONIFACIO as below -PT/OT evaluation Present on Admission?: Yes (3) Acidosis, lactic: Elevated lactic acid of 5.1. Patient afebrile, HD stable, non-toxic in appearance, abdomen is soft, NT/ND. Source uncertain. Patient administered 1.5L IVF in the ER -Repeat lactate on arrival to floor -IVF - NSS at 125mL/hr Present on Admission?: Yes (4) BONIFACIO (acute kidney injury): Elevated BUN and Cr in setting of diffuse weakness, poor po intake, MADYSON/NSAID use. CK within normal range -IVF -Repeat chemistry in AM -Avoid nephrotoxic agents - will hold Lisinopril and Celebrex for now -Renal dosing where needed Present on Admission?: Yes (5) Hypercholesterolemia: Chronic -Continue Atorvastatin Present on Admission?: Yes (6) Diabetes mellitus type 2, uncontrolled: DM on oral agents. DyaY0m=0.2 in June 2019 -Lantus 7u BID -ISS -Hold oral agents -Continue to monitor Present on Admission?: Yes (7) Hypothyroid: Chronic. TSH within normal range -Continue Synthroid Present on Admission?: Yes (8) GERD (gastroesophageal reflux disease): Chronic. Stable -Continue Omeprazole Present on Admission?: Yes (9) HTN (hypertension): Blood pressure 153/77. -Hold Lisinopril -Continue Metoprolol -Continue to monitor Present on Admission?: Yes (10) A-fib: Rate controlled, anticoagulated with Coumadin, INR supratherapeutic. No evidence of bleeding, H/H stable -Continue Metoprolol -Hold Coumadin -Monitor INR daily F/E/N - NSS, monitor electrolytes, CC diet Ppx - Supratherapeutic INR, holding Coumadin and continue to monitor Code - FUll Dispo - Obs to Med/Tele Attempted to contact son to discuss patients recent travel to [place]. ?AMS in patient as she does not seem to be in any condition to drive to and from [place] four times. She also reports that she has been too weak to get out of bed? Left message. Present on Admission?: Yes History of Present Illness Chief Complaint: weakness Primary Care Provider: Michael Anderson MD Violeta Hernnadez is a 74yo C female presenting with 2-3 weeks of feeling ill. She states that for the last 2-3 weeks she has been extremely weak and nearly bed ridden. She has had poor appetite with decreased PO intake, occasional nausea, dizziness and blurry vision with positional changes. She reports occasional chills but no true fever. She had a cough productive for yellow phlegm, possibly some blood which has since resolved. She denies chest pain, shortness of breath. No cough at present. No fever. No sick contacts or contact with known covid-19 + persons. She reports staying mostly at home, however, states that she has been driving to [place] recently to try to bring clothes to her daughter who is in rehab. She reports driving to [place] on 4 separate occasions and the rehab not willing to take her clothes. She became quite frustrated during this experience and ultimately told them that she was going to drive her car through the lobby and dump the clothes out. I was unable to speak directly to the son to corroborate this story (Gilberto Hernandez at [phone], left message on 01/10/20) however, ER staff spoke with him and he stated that the patient has not travelled anywhere. No concern for SARS-CoV-2 at this time. ER Course: Cefepime x 2gm, NSS x 1500mL Allergies Allergy/AdvReac Type Severity Reaction Status Date / Time milk AdvReac Mild Diarrhea Verified 01/10/20 22:20 Home Medications Home Medications Medication Instructions Recorded Confirmed Type Centrum Silver 1 tab PO QAM 09/20/18 01/10/20 History lysine 500 mg tablet 500 mg PO QAM PRN 04/03/19 01/10/20 History clobetasol 0.05 % topical cream 1 appln TOPICAL BID PRN #1 gm 04/05/19 01/10/20 History nystatin 100,000 unit/gram topical 1 appln TOPICAL Q8H PRN #1 gm 04/05/19 01/10/20 History powder metformin 1,000 mg tablet 1,000 mg PO BID #180 tab 05/08/19 01/10/20 Rx aspirin 81 mg PO QAM 07/02/19 01/10/20 History lutein-zeaxanthin 1 cap PO QAM 07/02/19 01/10/20 History cholecalciferol (vitamin D3) 1,000 units PO QAM 07/09/19 01/10/20 History sennosides 8.6 mg-docusate sodium 1 tab PO BID #60 tab 08/22/19 01/10/20 Rx 50 mg tablet atorvastatin 20 mg tablet 20 mg PO HS #90 tab 09/20/19 01/10/20 Rx tramadol 50 mg tablet 50 mg PO QAM #90 tab 10/03/19 01/10/20 Rx glimepiride 2 mg tablet See Rx Instructions PO BID #270 tab 10/09/19 01/10/20 Rx celecoxib 200 mg capsule 200 mg PO QAM #30 cap 10/22/19 01/10/20 Rx lisinopril 2.5 mg tablet 2.5 mg PO HS #30 tab 10/22/19 01/10/20 Rx metoprolol succinate 100 mg 100 mg PO BID #180 tab 10/22/19 01/10/20 Rx tablet,extended release 24 hr levothyroxine 75 mcg tablet 75 mcg PO QAM #30 tab 01/09/20 01/10/20 Rx omeprazole 20 mg PO QPM 01/10/20 01/10/20 History warfarin 2 mg PO 2XWK 01/10/20 01/10/20 History warfarin 4 mg PO 5XWK 01/10/20 01/10/20 History Past Med/Surg History Medical History Anxiety with depression (Acute) ARF (acute renal failure) 2/2 obstructing stone. Cr as high as 2.25 in 09/2018. Since ESWL x 2 and cysto/stent insertion, Cr has normalized to 0.89 (11/21/18) Asthma (Acute) Atrial fibrillation 12 YEARS AGO - ON WARFARIN - FOLLOWS W/ [place] CARDIO Cerebral artery occlusion (Acute) Cyst of kidney, acquired (Acute) Depression Diabetes mellitus type 2, uncontrolled (Acute) Dizziness (Acute) Gait abnormality Hearing deficit History of gastric ulcer History of ovarian cancer s/p TIFFANIE BSO, omentectomy + chemo History of sepsis Admitted [facility] 09/2018 with sepsis 2/2 obstructive uropathy/UTI Hypercholesterolemia (Acute) Hyperlipidemia Hypertension Hypothyroidism IBS (irritable bowel syndrome) Kidney stones (Acute) Migraine Morbid obesity Nausea and vomiting after administration of anesthetic agent On anticoagulant therapy PAST 12+ YRS FOR AFIB Osteoarthritis Ovarian cancer (Acute) Proteinuria (Acute) Renal neoplasm (Acute) Seasonal asthma DOES NOT USE INH Stroke X2. Most recent 12 years ago (dx new onset a-fib at time of stroke) - memory issues, word finding issues, urinary incontinence -age 47 - cause? no residual deficits Stroke-like symptoms Upon performing PAT assessment (07/02/19): pt informed nurse that she was having symptoms of a DVT in her left leg a "few months ago" and just "doubled upon on my warfarin for a couple days" without consulting or calling PCP....pt then stated she noticed a "drooping to the right side of her face a few days ago"---?? stroke symptoms Temporomandibular joint disorder Never locked open, just clicked UPJ (ureteropelvic junction) obstruction Urinary incontinence (Acute) Visual disturbances (Acute) Vitamin D deficiency (Acute) Surgical History History of colonoscopy History of esophagogastroduodenoscopy (EGD) History of surgery omentectomy r/t ovarian cancer History of total abdominal hysterectomy and bilateral salpingo-oophorectomy S/P cystoscopy with ureteral stent placement S/P D&C (status post dilation and curettage) S/P T&A (status post tonsillectomy and adenoidectomy) Family History Grandmother (Paternal) Family history of diabetes mellitus Social History Preferred Language: Persian Communication Ability: Effective Visual Impairment: No Limitations Director Orange Required: No Beliefs That Will Affect Care: None marital status: Current Living Situation: Alone Feels Safe at Home: Yes Smoking Status: Never smoker Second Hand Exposure: No ; Hx Alcohol Use: No Hx Substance Use: No Review of Systems Review of Systems: All systems reviewed & are unremarkable except as noted in HPI & below Physical Exam Physical Exam: General: obese, elderly patient resting comfortably, NAD, non- toxic in appearance, AA&O x 4, talkative Skin: warm, dry, intact, no rashes or lesions HEENT: NC/AT, PERRL, EOMI, anicteric sclera, conjunctiva without injection, external ear normal to inspection and nontender, nares patent, dry mucus membranes, dentition intact, no oropharyngeal lesions, neck supple, trachea midline, no LAD, no thyromegaly, no JVD Heart: +S1/S2, irregularly irregular, no m/r/g Lungs: equal air entry bilaterally, no rales/rhonchi/wheezes Abd: +BS, soft, NT/ND, no masses/organomegaly/ascites Ext: warm, 2+ pulses in UE/LE bilaterally, no clubbing/cyanosis or edema Neuro: nonfocal, patient AA&O x 4, speech intact, no facial droop, moving all extremities on command with equal strength 5/5 Results & Data Results & Data ([facility]) Vital Signs (Past 12 Hours) Vital Signs Temp Pulse Resp BP Pulse Ox 01/10/20 22:00 77 20 153/71 H 96 01/10/20 21:01 36.9 C 79 17 148/68 H 95 Laboratory Results Lab Results 01/10/20 01/10/20 01/10/20 Range/Units 20:55 21:22 21:22 WBC 4.87 (4.8-10.8) K/uL RBC 5.13 (4.2-5.4) M/uL Hgb 13.8 (12.0-16.0) g/dL Hct 42.2 (37-47) % MCV 82.3 (80-100) fL MCH 26.9 (25-34) pg MCHC 32.7 (32-36) g/dL RDW Std Deviation 46.2 (36.4-46.3) fL RDW Coeff of Maria C 15.3 H (11.5-14.5) % Plt Count 198 (130-400) K/uL MPV 10.1 (7.4-10.4) fL Immature Gran % (Auto) 0.2 % Neut % (Auto) 71.0 % Lymph % (Auto) 18.1 % [place] % (Auto) 9.9 % Eos % (Auto) 0.0 % Baso % (Auto) 0.8 % Immature Gran # (Auto) 0.01 (0.00-0.02) K/uL Neut # (Auto) 3.46 (1.4-6.5) K/uL Lymph # (Auto) 0.88 L (1.2-3.4) K/uL [place] # (Auto) 0.48 (0.11-0.59) K/uL Eos # (Auto) 0.00 (0-0.5) K/uL Baso # (Auto) 0.04 (0-0.2) K/uL PT 46.1 H (9.0-12.0) Seconds INR 4.8 H (0.9-1.1) APTT 67.2 H* (21.0-31.0) Seconds PTT Ratio 2.4 Sodium (136-145) mmol/L Potassium (3.5-5.1) mmol/L Chloride (98-107) mmol/L Carbon Dioxide (21-32) mmol/L Anion Gap (3-11) BUN (7-18) mg/dl Creatinine (0.6-1.2) mg/dl Est Cr Clr Drug Dosing ml/min Est GFR ( Amer) Est GFR (Non-Af Amer) BUN/Creatinine Ratio (10-20) Glucose (70-99) mg/dl Lactate (0.4-2.0) mmol/L Calcium (8.5-10.1) mg/dl Magnesium (1.8-2.4) mg/dl Total Bilirubin (0.2-1) mg/dl AST (15-37) U/L ALT (12-78) U/L Alkaline Phosphatase (45-117) U/L Total Creatine Kinase (26-192) U/L CK-MB (CK-2) (0.5-3.6) ng/ml CK/CKMB % Calc (0-3.0) Troponin I (0-0.045) ng/ml Total Protein (6.4-8.2) gm/dl Albumin (3.4-5.0) gm/dl Globulin (2.5-4.0) gm/dl Albumin/Globulin Ratio (0.9-2) Procalcitonin (0-0.5) ng/ml TSH (0.300-4.500) uIu/ml Urine Color Dark Yellow Urine Appearance Cloudy A (Clear) Urine pH 5.0 (4.5-7.5) Ur Specific [place] 1.021 (1.000-1.030) Urine Protein 1+ H (Negative) Urine Glucose (UA) Trace H (Negative) Urine Ketones Trace H (Negative) Urine Blood Trace H (Negative) Urine Nitrite Negative (Negative) Urine Bilirubin Negative (Negative) Urine Urobilinogen Negative (Negative) Ur Leukocyte Esterase Trace H (Negative) Urine WBC (Auto) 1-5 (0-5) /hpf Urine RBC (Auto) 0-4 (0-4) /hpf U Hyaline Cast (Auto) 5-10 H (0-5) /lpf U Epithel Cells (Auto) 20-30 H (0-5) /lpf Urine Bacteria (Auto) 4+ H (Negative) 01/10/20 01/10/20 01/10/20 Range/Units 21:22 21:22 21:22 WBC (4.8-10.8) K/uL RBC (4.2-5.4) M/uL Hgb (12.0-16.0) g/dL Hct (37-47) % MCV (80-100) fL MCH (25-34) pg MCHC (32-36) g/dL RDW Std Deviation (36.4-46.3) fL RDW Coeff of Maria C (11.5-14.5) % Plt Count (130-400) K/uL MPV (7.4-10.4) fL Immature Gran % (Auto) % Neut % (Auto) % Lymph % (Auto) % [place] % (Auto) % Eos % (Auto) % Baso % (Auto) % Immature Gran # (Auto) (0.00-0.02) K/uL Neut # (Auto) (1.4-6.5) K/uL Lymph # (Auto) (1.2-3.4) K/uL [place] # (Auto) (0.11-0.59) K/uL Eos # (Auto) (0-0.5) K/uL Baso # (Auto) (0-0.2) K/uL PT (9.0-12.0) Seconds INR (0.9-1.1) APTT (21.0-31.0) Seconds PTT Ratio Sodium 132 L (136-145) mmol/L Potassium 3.7 (3.5-5.1) mmol/L Chloride 100 (98-107) mmol/L Carbon Dioxide 21 (21-32) mmol/L Anion Gap 11.0 (3-11) BUN 20 H (7-18) mg/dl Creatinine 1.77 H (0.6-1.2) mg/dl Est Cr Clr Drug Dosing 37.6 ml/min Est GFR ( Amer) 32.7 Est GFR (Non-Af Amer) 28.2 BUN/Creatinine Ratio 11.5 (10-20) Glucose 239 H (70-99) mg/dl Lactate 5.1 H* (0.4-2.0) mmol/L Calcium 8.8 (8.5-10.1) mg/dl Magnesium 1.9 (1.8-2.4) mg/dl Total Bilirubin 1.0 (0.2-1) mg/dl AST 35 (15-37) U/L ALT 27 (12-78) U/L Alkaline Phosphatase 111 (45-117) U/L Total Creatine Kinase 89 (26-192) U/L CK-MB (CK-2) 1.1 (0.5-3.6) ng/ml CK/CKMB % Calc 1.2 (0-3.0) Troponin I 0.021 (0-0.045) ng/ml Total Protein 8.1 (6.4-8.2) gm/dl Albumin 3.1 L (3.4-5.0) gm/dl Globulin 5.0 H (2.5-4.0) gm/dl Albumin/Globulin Ratio 0.6 L (0.9-2) Procalcitonin 0.06 (0-0.5) ng/ml TSH 2.880 (0.300-4.500) uIu/ml Urine Color Urine Appearance (Clear) Urine pH (4.5-7.5) Ur Specific [place] (1.000-1.030) Urine Protein (Negative) Urine Glucose (UA) (Negative) Urine Ketones (Negative) Urine Blood (Negative) Urine Nitrite (Negative) Urine Bilirubin (Negative) Urine Urobilinogen (Negative) Ur Leukocyte Esterase (Negative) Urine WBC (Auto) (0-5) /hpf Urine RBC (Auto) (0-4) /hpf U Hyaline Cast (Auto) (0-5) /lpf U Epithel Cells (Auto) (0-5) /lpf Urine Bacteria (Auto) (Negative) Diagnostic Findings XR chest 1V portable CLINICAL HISTORY: SEPSIS dyspnea COMPARISON STUDY: 07/09/2019 FINDINGS: The bones soft tissues and hemidiaphragms are normal. The cardiomediastinal silhouette is normal. The lungs are clear. The pulmonary vasculature is normal. IMPRESSION: No acute process. Mild stable cardiomegaly. ACT 112: Negative or not required by law. The above report was generated using voice recognition software. It may contain grammatical, syntax or spelling errors. Electronically signed by: Ja Jay M.D. 01/10/2020 9:07 PM ECG Additional Comments: EKG shows rate controlled AF at 76bpm, QRS=72, ZTt=901, poor quality - no significant changes from study in Jul 2019 Code Status & VTE Plan Code Status FULL VTE Prophylaxis Plan VTE Prophylaxis will be ordered: No PG Care Time/CCT Total # of Minutes Spent Total Time Spent with Patient: Total time spent is greater than 50% in coordination of care (as documented) at patient's floor/unit and/or counseling patient: Coding Level of Care Code 87874 OBS Care - Level 3 Diagnoses UTI (urinary tract infection) N39.0; R31.9 Hematuria presence: with hematuria Urinary tract infection type: site unspecified Weakness R53.1 Acidosis, lactic E87.2 BONIFACIO (acute kidney injury) N17.9 Hypercholesterolemia E78.00 Diabetes mellitus type 2, uncontrolled E11.65 Glycemic state: with hyperglycemia Hypothyroid E03.9 Hypothyroidism type: unspecified GERD (gastroesophageal reflux disease) K21.9 Esophagitis presence: esophagitis presence not specified HTN (hypertension) I10 Hypertension type: essential hypertension A-fib I48.91 Atrial fibrillation type: unspecified (1) UTI (urinary tract infection) Hematuria presence: with hematuria Urinary tract infection type: site unspecified Qualified Code(s): N39.0 - Urinary tract infection, site not specified; R31.9 - Hematuria, unspecified (2) Diabetes mellitus type 2, uncontrolled Glycemic state: with hyperglycemia Qualified Code(s): E11.65 - Type 2 diabetes mellitus with hyperglycemia (3) Hypothyroid Hypothyroidism type: unspecified Qualified Code(s): E03.9 - Hypothyroidism, unspecified (4) GERD (gastroesophageal reflux disease) Esophagitis presence: esophagitis presence not specified Qualified Code(s): K21.9 - Gastro-esophageal reflux disease without esophagitis (5) HTN (hypertension) Hypertension type: essential hypertension Qualified Code(s): I10 - Essential (primary) hypertension (6) A-fib Atrial fibrillation type: unspecified Qualified Code(s): I48.91 - Unspecified atrial fibrillation
[2020-01-10] MEDS ORDERED: GLUCAGON FOR INJ 1 MG VIAL SQ PRN (23:47)
[2020-01-10] MEDS ORDERED: DEXTROSE 50% 50 ML SYRINGE IV PRN (23:47)
[2020-01-10] MEDS ORDERED: CARBOHYDRATES FOR HYPOGLYCEMIA PO PRN (23:47)
[2020-01-10] MEDS ORDERED: GLUCOSE 40% GEL 15 GM TUBE PO PRN (23:47)
[2020-01-10] MEDS ORDERED: GLUCOSE 10 TABS/TUBE PO PRN (23:47)
[2020-01-10] MEDS ORDERED: DOCUSATE SODIUM/SENNA 50/8.6MG TAB PO PRN (23:47)
[2020-01-10] MEDS ORDERED: ONDANSETRON INJ 2 MG/ML 2 ML VIAL IV PRN (23:47)
[2020-01-11 00:41] LABS: Phosphorus 2.3 mg/dl (2.5-4.9)
[2020-01-11] MEDS: SODIUM CHLORIDE 0.9% 1000ML 1,000 ML IV SCH ×2 (00:50→10:10)
[2020-01-11] MEDS: cefTRIAXone SODIUM 2,000 MG in DEXTROSE 5% 50 ML IV SCH ×2 (00:50→23:29)
[2020-01-11] MEDS: INSULIN ASPART 100 UNITS/ML 3 ML PEN SC SCH ×5 (00:55→20:15)
[2020-01-11] MEDS: INSULIN GLARGINE SOLOSTAR 100 UNITS/ML 3 ML PEN SC SCH ×3 (00:55→20:15)
[2020-01-11] MEDS: LEVOTHYROXINE SODIUM 75 MCG TABLET PO SCH (06:24)
[2020-01-11 06:27] LABS: Basophils # (auto) 0.02 K/uL (0-0.2); Basophils % (auto) 0.6 %; Eosinophils # (auto) 0.01 K/uL (0-0.5); Eosinophils % (auto) 0.3 %; Hematocrit (blood only) 36.4 % (37-47); Hemoglobin 11.9 g/dL (12.0-16.0); Immature Granulocytes # (auto) 0.01 K/uL (0.00-0.02); Immature Granulocytes % (auto) 0.3 %; Lymphocytes # (auto) 1.25 K/uL (1.2-3.4); Lymphocytes % (auto) 35.9 %; Mean Corpuscular Hemoglobin 26.9 pg (25-34); Mean Corpuscular Hgb Conc 32.7 g/dL (32-36); Mean Corpuscular Volume 82.2 fL (80-100); Mean Platelet Volume 10.3 fL (7.4-10.4); Monocytes # (auto) 0.41 K/uL (0.11-0.59); Monocytes % (auto) 11.8 %; Neutrophils # (auto) 1.78 K/uL (1.4-6.5); Neutrophils % (auto) 51.1 %; Platelet Count 185 K/uL (130-400); RDW Coefficient of Variation 15.6 % (11.5-14.5); RDW Standard Deviation 46.7 fL (36.4-46.3); Red Blood Count 4.43 M/uL (4.2-5.4); White Blood Count 3.48 K/uL (4.8-10.8)
[2020-01-11 06:45] LABS: INR 5.3 (0.9-1.1); Prothrombin Time 51.3 Seconds (9.0-12.0)
[2020-01-11 06:53] LABS: Calcium 8.3 mg/dl (8.5-10.1); Creatinine Clr Calc Pharmacy 54.9 ml/min; Est GFR (African American) 51.8; Est GFR (Non-African American) 44.7; Potassium 3.4 mmol/L (3.5-5.1)
[2020-01-11 06:57] LABS: Troponin I 0.015 ng/ml (0-0.045)
--- NOTE | 2020-01-11 07:09 | CT Scan Report ---
CT abd pelvis wo con CLINICAL HISTORY: 74 years-old Female presenting with UTI, h/o renal stones, back pain. TECHNIQUE: Multidetector CT of the abdomen and pelvis was performed without the use of intravenous co ntrast. IV contrast: None. One or more dose lowering techniques were used consistent with the princip les of ALARA (as low as reasonably achievable), including automatic exposure control, mA or kV adjust ment to individual patient size, and/or use of iterative reconstruction. COMPARISON: 07/09/2019. CT DOSE (mGy.cm): The estimated cumulative dose is 1779.32 mGy.cm. FINDINGS: Image Assembler topogram: Unremarkable. Lung bases: Normal heart size. Trace mitral annular calcification. No pericardial or pleural effusion . Extensive patchy central and peripheral groundglass infiltrates with minimal scattered consolidatio n. Mild bronchial wall thickening may be present. Liver: Normal morphology. Density consistent with hepatic steatosis. Biliary: No gross biliary ductal dilatation allowing for noncontrast technique. Normal gallbladder. Pancreas: Mild parenchymal atrophy. Spleen: Normal noncontrast appearance. Adrenal glands: Normal noncontrast appearance. Kidneys and ureters: Normal noncontrast appearance. No nephrolithiasis. No hydronephrosis. Normal ure ters. Bladder: Incompletely evaluated secondary to underdistention. No bladder calculi. Pelvic organs: Uterus surgically absent. Bowel: Normal appendix. No bowel obstruction. Peritoneal cavity: No free fluid or intraperitoneal gas. Lymph nodes: No gross lymphadenopathy allowing for noncontrast technique. Vasculature: Atherosclerosis of the normal caliber abdominal aorta. Abdominal wall: Small fat-containing umbilical hernia. Musculoskeletal: Degenerative changes of the spine. IMPRESSION: 1. Extensive patchy central and peripheral groundglass infiltrates with scattered solid consolidatio n at the lung bases. This would be an atypical appearance for pulmonary edema and is most suspicious for multifocal pneumonia from an atypical infectious etiology or, less likely, an inflammatory etiolo gy. 2. No nephrolithiasis or hydronephrosis. Allowing for noncontrast technique, no convincing evidence of acute intra-abdominal pathology. The report will be called/faxed according to standard departmental protocol. ACT 112: Negative or not required by law. Electronically signed by: Dominguez Senior M.D. 01/11/2020 7:08 AM
[2020-01-11] MEDS ORDERED: INFLUENZA ADMINISTRATION CHARGE ONE (08:00)
[2020-01-11] MEDS ORDERED: INFLUENZA VACCINE HIGH DOSE 65+ 0.5 ML SYR IM ONE (08:00)
[2020-01-11] MEDS ORDERED: TRAMADOL HCL 50 MG TABLET PO SCH (09:00)
[2020-01-11] MEDS ORDERED: ASPIRIN 81 MG ECTAB PO SCH (09:00)
[2020-01-11] MEDS ORDERED: METOPROLOL SUCC 50MG EXT REL TAB PO SCH (09:00)
[2020-01-11] MEDS: DOXYCYCLINE HYCLATE 100 MG in DEXTROSE 5% 100 ML IV SCH ×2 (10:09→19:46)
--- NOTE | 2020-01-11 11:25 | Hospitalist Progress Note ---
Date of Service January 11, 2020 Assessment & Plan (1) COVID-19: * COVID-19 PCR POSITIVE --> likely that patient is ~2 weeks into process * Supplemental O2 as needed. Currently 95% on RA (2) Pneumonia: * Imaging with extensive patchy central and peripheral ground-glass infiltrates with scattered solid consolidation at the bases. Multifocal pneumonia * Already on Rocephin IV ---> added Doxy IV for atypical coverage * COVID-19 ordered, positive * Supplemental O2 to maintain sat >92% (3) UTI (urinary tract infection): * UA poor quality but suggestive of UTI. She has had dumont-sensitive Klebsiella and E. coli on prior UAs, also history of renal stones. She is afebrile, hemodynamically stable and non-toxic in appearance at present * UA with >100,000 gram neg bacilli --> await c/s * Ceftriaxone 1gm IV daily --> continued for coverage of atypical pneumonia * Check CT abdomen without contrast - patient with history of renal stones, renal cancer, has elevated lactate (4) Weakness: * Patient reports diffuse weakness. No objective weakness noted on exam. * Mild hyponatremia, BONIFACIO, UTI and physical deconditioning due to COVID-19 * PT/OT (5) Acidosis, lactic: * Elevated lactic acid of 5.1. Patient afebrile, HD stable, non-toxic in appearance, abdomen is soft, NT/ND. * Patient administered 1.5L IVF in the ER * Repeat lactate 2.7 * IVF - NSS at 125mL/hr (6) BONIFACIO (acute kidney injury): * Elevated BUN and Cr in setting of diffuse weakness, poor po intake, MADYSON/NSAID use. CK within normal range * IVF -- NS @ 125ml/hr * Repeat chemistry in AM * Avoid nephrotoxic agents - will hold Lisinopril and Celebrex for now * Renal dosing where needed (7) Hypercholesterolemia: * Chronic. Stable * Continue Atorvastatin (8) Diabetes mellitus type 2, uncontrolled: * DM on oral agents. DtdQ1f=8.2 in June 2019 * Lantus 7u BID * ISS * Hold oral agents * Continue to monitor (9) Hypothyroid: * Chronic. TSH within normal range, 2.8 * Continue Synthroid 75mcg daily (10) GERD (gastroesophageal reflux disease): * Chronic. Stable. On omeprazole as outpatient --> continue protonix while inpatient (11) HTN (hypertension): * CHronic. Stable, BP 134/93 * Continue to hold lisinopril * Continue Toprol XL 100mg BID * Continue to monitor (12) A-fib: * Rate controlled, anticoagulated with Coumadin, INR supratherapeutic at 5.3 (4.8 on admission, coumadin held --> expect decrease in AM. If any evidence of bleeding or INR does not normalize, could give Vit K ant) * No evidence of bleeding on exam * H/H stable * INR in AM * Hold Coumadin --> on 2mg twice a week, 5mg 5x/week Dispo: moved to second floor COVID unit. Continue to monitor. WIll likely need PT/OT and possible rehab for deconditioning Admission and Anticipated Discharge Date Admission Date: January 10, 2020 Supervising Physician Co-Signing Physician Notes Attending Attestation Note: Chart reviewed in detail, care plan d/w TIMOTHY Bullock. I agree w/ the [place]keefe components of her documentation. Patient with 2+ weeks of extreme fatigue, cough, dizziness, anorexia, and chills. CT abd/pelvis yesterday with b/l ground glass peripheral opacities of lungs. WBC with leukopenia. COVID-19 PCR test sent and returned positive. Will place in COVID unit on . Supportive care for COVID. Suspect she is in late phase or recovery phase of illness. Reasonable to Rx with IV abx for bacterial pneumonia and UTI. Needs PT, OT evals. Change from observation to full admission. Jeferson Chen MD Subjective Patient evaluated at bedside this morning and assisted to toilet. Patient deconditioned and states she has to transfer slowly without getting winded. She states she has been feeling quite ill for approximately 2-3 weeks with asasociated anorexia, nausea, dizziness and chills but no reported fever. She denies a current cough, and did not cough during our encounter, but states she has had darkened sputum described as "chocolate" at times and "bloody" on other occassion. She states she hasn't had this for a couple days but did have them for the past week and a half off and on. She denies any fever or sore throat, abdominal pain, chest pain or dysuria at this time. The patient states she lives alone and had been able to make it out to get all of her neccessities which have been primarily through drive thrus. She had also been on several trips to [place] to drop off things to a daughter in rehab. Symptoms of a urinary tract infection are difficult to obtain because she states she is frequently incontinent and has been battling that for some time and utilizes pads which she on occassion saturates and then changes. Denies any known contacts positive for COVID-19. All questions/concerns addressed. Patient agreeable to COVID-19 testing after imaging was reviewed and her course of symptoms. Review of Systems Review of Systems: All systems reviewed & are unremarkable except as noted in HPI & below Physical Exam Constitutional: well developed, well nourished and + obese; no acute distress Eyes: + anicteric sclerae and PERRL Neck: trachea midline, no thyromegaly Respiratory: normal respiratory effort, lungs clear to auscultation Auscultation: + diminished lung sounds Cardiovascular: Rate/Rhythm: + irregularly irregular Extremities: + edema (trace b/l) Gastrointestinal (Abdomen): normal bowel sounds, soft, nontender, no hepatosplenomegaly Inspection/Auscultation: + significant pannus Musculoskeletal: no cyanosis or clubbing, extremities motor strength 5/5 Skin: no rashes, warm and dry Neurologic: PERRL, EOMI, accommodation nl, no face palsy, no dysarthria Psychiatric: A+Ox3, euthymic affect Lymphatic: no cervical or axillary lymphadenopathy Results & Data Results & Data ([facility]) Vital Signs (Past 12 Hours) Vital Signs Temp Pulse Pulse Pulse Resp BP BP 01/11/20 07:35 37.1 C 66 16 116/74 01/10/20 23:45 36.3 C L 67 12 01/10/20 23:30 68 21 164/79 H BP Pulse Ox 01/11/20 07:35 95 01/10/20 23:45 146/113 H 95 01/10/20 23:30 95 Laboratory Results 01/11/20 01/11/20 01/11/20 Range/Units 11:12 10:20 10:20 WBC (4.8-10.8) K/uL RBC (4.2-5.4) M/uL Hgb (12.0-16.0) g/dL Hct (37-47) % MCV (80-100) fL MCH (25-34) pg MCHC (32-36) g/dL RDW Std Deviation (36.4-46.3) fL RDW Coeff of Maria C (11.5-14.5) % Plt Count (130-400) K/uL MPV (7.4-10.4) fL Immature Gran % (Auto) % Neut % (Auto) % Lymph % (Auto) % [place] % (Auto) % Eos % (Auto) % Baso % (Auto) % Immature Gran # (Auto) (0.00-0.02) K/uL Neut # (Auto) (1.4-6.5) K/uL Lymph # (Auto) (1.2-3.4) K/uL [place] # (Auto) (0.11-0.59) K/uL Eos # (Auto) (0-0.5) K/uL Baso # (Auto) (0-0.2) K/uL PT (9.0-12.0) Seconds INR (0.9-1.1) APTT (21.0-31.0) Seconds PTT Ratio Sodium (136-145) mmol/L Potassium (3.5-5.1) mmol/L Chloride (98-107) mmol/L Carbon Dioxide (21-32) mmol/L Anion Gap (3-11) BUN (7-18) mg/dl Creatinine (0.6-1.2) mg/dl Est Cr Clr Drug Dosing ml/min Est GFR ( Amer) Est GFR (Non-Af Amer) BUN/Creatinine Ratio (10-20) Glucose (70-99) mg/dl POC Glucose 174 H (70-99) mg/dl Lactate (0.4-2.0) mmol/L Calcium (8.5-10.1) mg/dl Phosphorus (2.5-4.9) mg/dl Magnesium (1.8-2.4) mg/dl Total Bilirubin (0.2-1) mg/dl AST (15-37) U/L ALT (12-78) U/L Alkaline Phosphatase (45-117) U/L Total Creatine Kinase (26-192) U/L CK-MB (CK-2) (0.5-3.6) ng/ml CK/CKMB % Calc (0-3.0) Troponin I (0-0.045) ng/ml Total Protein (6.4-8.2) gm/dl Albumin (3.4-5.0) gm/dl Globulin (2.5-4.0) gm/dl Albumin/Globulin Ratio (0.9-2) Procalcitonin (0-0.5) ng/ml TSH (0.300-4.500) uIu/ml Urine Color Urine Appearance (Clear) Urine pH (4.5-7.5) Ur Specific [place] (1.000-1.030) Urine Protein (Negative) Urine Glucose (UA) (Negative) Urine Ketones (Negative) Urine Blood (Negative) Urine Nitrite (Negative) Urine Bilirubin (Negative) Urine Urobilinogen (Negative) Ur Leukocyte Esterase (Negative) Urine WBC (Auto) (0-5) /hpf Urine RBC (Auto) (0-4) /hpf U Hyaline Cast (Auto) (0-5) /lpf U Epithel Cells (Auto) (0-5) /lpf Urine Bacteria (Auto) (Negative) Adenovirus (PCR) Not Detected (NotDetected) B. pertussis DNA (PCR) Not Detected (NotDetected) B.parapertussis DNA PCR Not Detected (NotDetected) C. pneumoniae DNA (PCR) Not Detected (NotDetected) Coronavirus OC43 (PCR) Not Detected (NotDetected) Coronavirus HKU1 (PCR) Not Detected (NotDetected) Coronavirus 229E (PCR) Not Detected (NotDetected) COVID-19 PCR POSITIVE A* (Negative) Coronavirus NL63 (PCR) Not Detected (NotDetected) Hepatitis C Ab Screen (Neg) Human Metapneumovir PCR Not Detected (NotDetected) Influenza Type A (PCR) Not Detected (NotDetected) Influenza Type B (PCR) Not Detected (NotDetected) M. pneumoniae (PCR) Not Detected (NotDetected) Parainfluenza 1 (PCR) Not Detected (NotDetected) Parainfluenza 2 (PCR) Not Detected (NotDetected) Parainfluenza 3 (PCR) Not Detected (NotDetected) Parainfluenza 4 (PCR) Not Detected (NotDetected) RSV (PCR) Not Detected (NotDetected) Entero/Rhino (PCR) Not Detected (NotDetected) SARS-CoV-2 RNA (RT-PCR) 01/11/20 01/11/20 01/11/20 Range/Units 10:20 08:03 05:53 WBC (4.8-10.8) K/uL RBC (4.2-5.4) M/uL Hgb (12.0-16.0) g/dL Hct (37-47) % MCV (80-100) fL MCH (25-34) pg MCHC (32-36) g/dL RDW Std Deviation (36.4-46.3) fL RDW Coeff of Maria C (11.5-14.5) % Plt Count (130-400) K/uL MPV (7.4-10.4) fL Immature Gran % (Auto) % Neut % (Auto) % Lymph % (Auto) % [place] % (Auto) % Eos % (Auto) % Baso % (Auto) % Immature Gran # (Auto) (0.00-0.02) K/uL Neut # (Auto) (1.4-6.5) K/uL Lymph # (Auto) (1.2-3.4) K/uL [place] # (Auto) (0.11-0.59) K/uL Eos # (Auto) (0-0.5) K/uL Baso # (Auto) (0-0.2) K/uL PT (9.0-12.0) Seconds INR (0.9-1.1) APTT (21.0-31.0) Seconds PTT Ratio Sodium (136-145) mmol/L Potassium (3.5-5.1) mmol/L Chloride (98-107) mmol/L Carbon Dioxide (21-32) mmol/L Anion Gap (3-11) BUN (7-18) mg/dl Creatinine (0.6-1.2) mg/dl Est Cr Clr Drug Dosing ml/min Est GFR ( Amer) Est GFR (Non-Af Amer) BUN/Creatinine Ratio (10-20) Glucose (70-99) mg/dl POC Glucose 114 H (70-99) mg/dl Lactate (0.4-2.0) mmol/L Calcium (8.5-10.1) mg/dl Phosphorus (2.5-4.9) mg/dl Magnesium (1.8-2.4) mg/dl Total Bilirubin (0.2-1) mg/dl AST (15-37) U/L ALT (12-78) U/L Alkaline Phosphatase (45-117) U/L Total Creatine Kinase (26-192) U/L CK-MB (CK-2) (0.5-3.6) ng/ml CK/CKMB % Calc (0-3.0) Troponin I (0-0.045) ng/ml Total Protein (6.4-8.2) gm/dl Albumin (3.4-5.0) gm/dl Globulin (2.5-4.0) gm/dl Albumin/Globulin Ratio (0.9-2) Procalcitonin (0-0.5) ng/ml TSH (0.300-4.500) uIu/ml Urine Color Urine Appearance (Clear) Urine pH (4.5-7.5) Ur Specific [place] (1.000-1.030) Urine Protein (Negative) Urine Glucose (UA) (Negative) Urine Ketones (Negative) Urine Blood (Negative) Urine Nitrite (Negative) Urine Bilirubin (Negative) Urine Urobilinogen (Negative) Ur Leukocyte Esterase (Negative) Urine WBC (Auto) (0-5) /hpf Urine RBC (Auto) (0-4) /hpf U Hyaline Cast (Auto) (0-5) /lpf U Epithel Cells (Auto) (0-5) /lpf Urine Bacteria (Auto) (Negative) Adenovirus (PCR) (NotDetected) B. pertussis DNA (PCR) (NotDetected) B.parapertussis DNA PCR (NotDetected) C. pneumoniae DNA (PCR) (NotDetected) Coronavirus OC43 (PCR) (NotDetected) Coronavirus HKU1 (PCR) (NotDetected) Coronavirus 229E (PCR) (NotDetected) COVID-19 PCR (Negative) Coronavirus NL63 (PCR) (NotDetected) Hepatitis C Ab Screen Neg (Neg) Human Metapneumovir PCR (NotDetected) Influenza Type A (PCR) (NotDetected) Influenza Type B (PCR) (NotDetected) M. pneumoniae (PCR) (NotDetected) Parainfluenza 1 (PCR) (NotDetected) Parainfluenza 2 (PCR) (NotDetected) Parainfluenza 3 (PCR) (NotDetected) Parainfluenza 4 (PCR) (NotDetected) RSV (PCR) (NotDetected) Entero/Rhino (PCR) (NotDetected) SARS-CoV-2 RNA (RT-PCR) Cancelled 01/11/20 01/11/20 01/11/20 Range/Units 05:53 05:53 05:53 WBC 3.48 L (4.8-10.8) K/uL RBC 4.43 (4.2-5.4) M/uL Hgb 11.9 L (12.0-16.0) g/dL Hct 36.4 L (37-47) % MCV 82.2 (80-100) fL MCH 26.9 (25-34) pg MCHC 32.7 (32-36) g/dL RDW Std Deviation 46.7 H (36.4-46.3) fL RDW Coeff of Maria C 15.6 H (11.5-14.5) % Plt Count 185 (130-400) K/uL MPV 10.3 (7.4-10.4) fL Immature Gran % (Auto) 0.3 % Neut % (Auto) 51.1 % Lymph % (Auto) 35.9 % [place] % (Auto) 11.8 % Eos % (Auto) 0.3 % Baso % (Auto) 0.6 % Immature Gran # (Auto) 0.01 (0.00-0.02) K/uL Neut # (Auto) 1.78 (1.4-6.5) K/uL Lymph # (Auto) 1.25 (1.2-3.4) K/uL [place] # (Auto) 0.41 (0.11-0.59) K/uL Eos # (Auto) 0.01 (0-0.5) K/uL Baso # (Auto) 0.02 (0-0.2) K/uL PT 51.3 H (9.0-12.0) Seconds INR 5.3 H (0.9-1.1) APTT (21.0-31.0) Seconds PTT Ratio Sodium 138 (136-145) mmol/L Potassium 3.4 L (3.5-5.1) mmol/L Chloride 107 (98-107) mmol/L Carbon Dioxide 25 (21-32) mmol/L Anion Gap 6.0 (3-11) BUN 22 H (7-18) mg/dl Creatinine 1.21 H D (0.6-1.2) mg/dl Est Cr Clr Drug Dosing 54.9 ml/min Est GFR ( Amer) 51.8 Est GFR (Non-Af Amer) 44.7 BUN/Creatinine Ratio 18.0 (10-20) Glucose 118 H (70-99) mg/dl POC Glucose (70-99) mg/dl Lactate (0.4-2.0) mmol/L Calcium 8.3 L (8.5-10.1) mg/dl Phosphorus (2.5-4.9) mg/dl Magnesium (1.8-2.4) mg/dl Total Bilirubin (0.2-1) mg/dl AST (15-37) U/L ALT (12-78) U/L Alkaline Phosphatase (45-117) U/L Total Creatine Kinase (26-192) U/L CK-MB (CK-2) (0.5-3.6) ng/ml CK/CKMB % Calc (0-3.0) Troponin I 0.015 (0-0.045) ng/ml Total Protein (6.4-8.2) gm/dl Albumin (3.4-5.0) gm/dl Globulin (2.5-4.0) gm/dl Albumin/Globulin Ratio (0.9-2) Procalcitonin (0-0.5) ng/ml TSH (0.300-4.500) uIu/ml Urine Color Urine Appearance (Clear) Urine pH (4.5-7.5) Ur Specific [place] (1.000-1.030) Urine Protein (Negative) Urine Glucose (UA) (Negative) Urine Ketones (Negative) Urine Blood (Negative) Urine Nitrite (Negative) Urine Bilirubin (Negative) Urine Urobilinogen (Negative) Ur Leukocyte Esterase (Negative) Urine WBC (Auto) (0-5) /hpf Urine RBC (Auto) (0-4) /hpf U Hyaline Cast (Auto) (0-5) /lpf U Epithel Cells (Auto) (0-5) /lpf Urine Bacteria (Auto) (Negative) Adenovirus (PCR) (NotDetected) B. pertussis DNA (PCR) (NotDetected) B.parapertussis DNA PCR (NotDetected) C. pneumoniae DNA (PCR) (NotDetected) Coronavirus OC43 (PCR) (NotDetected) Coronavirus HKU1 (PCR) (NotDetected) Coronavirus 229E (PCR) (NotDetected) COVID-19 PCR (Negative) Coronavirus NL63 (PCR) (NotDetected) Hepatitis C Ab Screen (Neg) Human Metapneumovir PCR (NotDetected) Influenza Type A (PCR) (NotDetected) Influenza Type B (PCR) (NotDetected) M. pneumoniae (PCR) (NotDetected) Parainfluenza 1 (PCR) (NotDetected) Parainfluenza 2 (PCR) (NotDetected) Parainfluenza 3 (PCR) (NotDetected) Parainfluenza 4 (PCR) (NotDetected) RSV (PCR) (NotDetected) Entero/Rhino (PCR) (NotDetected) SARS-CoV-2 RNA (RT-PCR) 01/11/20 01/11/20 01/10/20 Range/Units 00:59 00:22 21:22 WBC (4.8-10.8) K/uL RBC (4.2-5.4) M/uL Hgb (12.0-16.0) g/dL Hct (37-47) % MCV (80-100) fL MCH (25-34) pg MCHC (32-36) g/dL RDW Std Deviation (36.4-46.3) fL RDW Coeff of Maria C (11.5-14.5) % Plt Count (130-400) K/uL MPV (7.4-10.4) fL Immature Gran % (Auto) % Neut % (Auto) % Lymph % (Auto) % [place] % (Auto) % Eos % (Auto) % Baso % (Auto) % Immature Gran # (Auto) (0.00-0.02) K/uL Neut # (Auto) (1.4-6.5) K/uL Lymph # (Auto) (1.2-3.4) K/uL [place] # (Auto) (0.11-0.59) K/uL Eos # (Auto) (0-0.5) K/uL Baso # (Auto) (0-0.2) K/uL PT (9.0-12.0) Seconds INR (0.9-1.1) APTT (21.0-31.0) Seconds PTT Ratio Sodium (136-145) mmol/L Potassium (3.5-5.1) mmol/L Chloride (98-107) mmol/L Carbon Dioxide (21-32) mmol/L Anion Gap (3-11) BUN (7-18) mg/dl Creatinine (0.6-1.2) mg/dl Est Cr Clr Drug Dosing ml/min Est GFR ( Amer) Est GFR (Non-Af Amer) BUN/Creatinine Ratio (10-20) Glucose (70-99) mg/dl POC Glucose 226 H (70-99) mg/dl Lactate 2.7 H* (0.4-2.0) mmol/L Calcium (8.5-10.1) mg/dl Phosphorus (2.5-4.9) mg/dl Magnesium (1.8-2.4) mg/dl Total Bilirubin (0.2-1) mg/dl AST (15-37) U/L ALT (12-78) U/L Alkaline Phosphatase (45-117) U/L Total Creatine Kinase (26-192) U/L CK-MB (CK-2) (0.5-3.6) ng/ml CK/CKMB % Calc (0-3.0) Troponin I (0-0.045) ng/ml Total Protein (6.4-8.2) gm/dl Albumin (3.4-5.0) gm/dl Globulin (2.5-4.0) gm/dl Albumin/Globulin Ratio (0.9-2) Procalcitonin 0.06 (0-0.5) ng/ml TSH (0.300-4.500) uIu/ml Urine Color Urine Appearance (Clear) Urine pH (4.5-7.5) Ur Specific [place] (1.000-1.030) Urine Protein (Negative) Urine Glucose (UA) (Negative) Urine Ketones (Negative) Urine Blood (Negative) Urine Nitrite (Negative) Urine Bilirubin (Negative) Urine Urobilinogen (Negative) Ur Leukocyte Esterase (Negative) Urine WBC (Auto) (0-5) /hpf Urine RBC (Auto) (0-4) /hpf U Hyaline Cast (Auto) (0-5) /lpf U Epithel Cells (Auto) (0-5) /lpf Urine Bacteria (Auto) (Negative) Adenovirus (PCR) (NotDetected) B. pertussis DNA (PCR) (NotDetected) B.parapertussis DNA PCR (NotDetected) C. pneumoniae DNA (PCR) (NotDetected) Coronavirus OC43 (PCR) (NotDetected) Coronavirus HKU1 (PCR) (NotDetected) Coronavirus 229E (PCR) (NotDetected) COVID-19 PCR (Negative) Coronavirus NL63 (PCR) (NotDetected) Hepatitis C Ab Screen (Neg) Human Metapneumovir PCR (NotDetected) Influenza Type A (PCR) (NotDetected) Influenza Type B (PCR) (NotDetected) M. pneumoniae (PCR) (NotDetected) Parainfluenza 1 (PCR) (NotDetected) Parainfluenza 2 (PCR) (NotDetected) Parainfluenza 3 (PCR) (NotDetected) Parainfluenza 4 (PCR) (NotDetected) RSV (PCR) (NotDetected) Entero/Rhino (PCR) (NotDetected) SARS-CoV-2 RNA (RT-PCR) 01/10/20 01/10/20 01/10/20 Range/Units 21:22 21:22 21:22 WBC (4.8-10.8) K/uL RBC (4.2-5.4) M/uL Hgb (12.0-16.0) g/dL Hct (37-47) % MCV (80-100) fL MCH (25-34) pg MCHC (32-36) g/dL RDW Std Deviation (36.4-46.3) fL RDW Coeff of Maria C (11.5-14.5) % Plt Count (130-400) K/uL MPV (7.4-10.4) fL Immature Gran % (Auto) % Neut % (Auto) % Lymph % (Auto) % [place] % (Auto) % Eos % (Auto) % Baso % (Auto) % Immature Gran # (Auto) (0.00-0.02) K/uL Neut # (Auto) (1.4-6.5) K/uL Lymph # (Auto) (1.2-3.4) K/uL [place] # (Auto) (0.11-0.59) K/uL Eos # (Auto) (0-0.5) K/uL Baso # (Auto) (0-0.2) K/uL PT 46.1 H (9.0-12.0) Seconds INR 4.8 H (0.9-1.1) APTT 67.2 H* (21.0-31.0) Seconds PTT Ratio 2.4 Sodium 132 L (136-145) mmol/L Potassium 3.7 (3.5-5.1) mmol/L Chloride 100 (98-107) mmol/L Carbon Dioxide 21 (21-32) mmol/L Anion Gap 11.0 (3-11) BUN 20 H (7-18) mg/dl Creatinine 1.77 H (0.6-1.2) mg/dl Est Cr Clr Drug Dosing 37.6 ml/min Est GFR ( Amer) 32.7 Est GFR (Non-Af Amer) 28.2 BUN/Creatinine Ratio 11.5 (10-20) Glucose 239 H (70-99) mg/dl POC Glucose (70-99) mg/dl Lactate 5.1 H* (0.4-2.0) mmol/L Calcium 8.8 (8.5-10.1) mg/dl Phosphorus 2.3 L (2.5-4.9) mg/dl Magnesium 1.9 (1.8-2.4) mg/dl Total Bilirubin 1.0 (0.2-1) mg/dl AST 35 (15-37) U/L ALT 27 (12-78) U/L Alkaline Phosphatase 111 (45-117) U/L Total Creatine Kinase 89 (26-192) U/L CK-MB (CK-2) 1.1 (0.5-3.6) ng/ml CK/CKMB % Calc 1.2 (0-3.0) Troponin I 0.021 (0-0.045) ng/ml Total Protein 8.1 (6.4-8.2) gm/dl Albumin 3.1 L (3.4-5.0) gm/dl Globulin 5.0 H (2.5-4.0) gm/dl Albumin/Globulin Ratio 0.6 L (0.9-2) Procalcitonin (0-0.5) ng/ml TSH 2.880 (0.300-4.500) uIu/ml Urine Color Urine Appearance (Clear) Urine pH (4.5-7.5) Ur Specific [place] (1.000-1.030) Urine Protein (Negative) Urine Glucose (UA) (Negative) Urine Ketones (Negative) Urine Blood (Negative) Urine Nitrite (Negative) Urine Bilirubin (Negative) Urine Urobilinogen (Negative) Ur Leukocyte Esterase (Negative) Urine WBC (Auto) (0-5) /hpf Urine RBC (Auto) (0-4) /hpf U Hyaline Cast (Auto) (0-5) /lpf U Epithel Cells (Auto) (0-5) /lpf Urine Bacteria (Auto) (Negative) Adenovirus (PCR) (NotDetected) B. pertussis DNA (PCR) (NotDetected) B.parapertussis DNA PCR (NotDetected) C. pneumoniae DNA (PCR) (NotDetected) Coronavirus OC43 (PCR) (NotDetected) Coronavirus HKU1 (PCR) (NotDetected) Coronavirus 229E (PCR) (NotDetected) COVID-19 PCR (Negative) Coronavirus NL63 (PCR) (NotDetected) Hepatitis C Ab Screen (Neg) Human Metapneumovir PCR (NotDetected) Influenza Type A (PCR) (NotDetected) Influenza Type B (PCR) (NotDetected) M. pneumoniae (PCR) (NotDetected) Parainfluenza 1 (PCR) (NotDetected) Parainfluenza 2 (PCR) (NotDetected) Parainfluenza 3 (PCR) (NotDetected) Parainfluenza 4 (PCR) (NotDetected) RSV (PCR) (NotDetected) Entero/Rhino (PCR) (NotDetected) SARS-CoV-2 RNA (RT-PCR) 01/10/20 01/10/20 Range/Units 21:22 20:55 WBC 4.87 (4.8-10.8) K/uL RBC 5.13 (4.2-5.4) M/uL Hgb 13.8 (12.0-16.0) g/dL Hct 42.2 (37-47) % MCV 82.3 (80-100) fL MCH 26.9 (25-34) pg MCHC 32.7 (32-36) g/dL RDW Std Deviation 46.2 (36.4-46.3) fL RDW Coeff of Maria C 15.3 H (11.5-14.5) % Plt Count 198 (130-400) K/uL MPV 10.1 (7.4-10.4) fL Immature Gran % (Auto) 0.2 % Neut % (Auto) 71.0 % Lymph % (Auto) 18.1 % [place] % (Auto) 9.9 % Eos % (Auto) 0.0 % Baso % (Auto) 0.8 % Immature Gran # (Auto) 0.01 (0.00-0.02) K/uL Neut # (Auto) 3.46 (1.4-6.5) K/uL Lymph # (Auto) 0.88 L (1.2-3.4) K/uL [place] # (Auto) 0.48 (0.11-0.59) K/uL Eos # (Auto) 0.00 (0-0.5) K/uL Baso # (Auto) 0.04 (0-0.2) K/uL PT (9.0-12.0) Seconds INR (0.9-1.1) APTT (21.0-31.0) Seconds PTT Ratio Sodium (136-145) mmol/L Potassium (3.5-5.1) mmol/L Chloride (98-107) mmol/L Carbon Dioxide (21-32) mmol/L Anion Gap (3-11) BUN (7-18) mg/dl Creatinine (0.6-1.2) mg/dl Est Cr Clr Drug Dosing ml/min Est GFR ( Amer) Est GFR (Non-Af Amer) BUN/Creatinine Ratio (10-20) Glucose (70-99) mg/dl POC Glucose (70-99) mg/dl Lactate (0.4-2.0) mmol/L Calcium (8.5-10.1) mg/dl Phosphorus (2.5-4.9) mg/dl Magnesium (1.8-2.4) mg/dl Total Bilirubin (0.2-1) mg/dl AST (15-37) U/L ALT (12-78) U/L Alkaline Phosphatase (45-117) U/L Total Creatine Kinase (26-192) U/L CK-MB (CK-2) (0.5-3.6) ng/ml CK/CKMB % Calc (0-3.0) Troponin I (0-0.045) ng/ml Total Protein (6.4-8.2) gm/dl Albumin (3.4-5.0) gm/dl Globulin (2.5-4.0) gm/dl Albumin/Globulin Ratio (0.9-2) Procalcitonin (0-0.5) ng/ml TSH (0.300-4.500) uIu/ml Urine Color Dark Yellow Urine Appearance Cloudy A (Clear) Urine pH 5.0 (4.5-7.5) Ur Specific [place] 1.021 (1.000-1.030) Urine Protein 1+ H (Negative) Urine Glucose (UA) Trace H (Negative) Urine Ketones Trace H (Negative) Urine Blood Trace H (Negative) Urine Nitrite Negative (Negative) Urine Bilirubin Negative (Negative) Urine Urobilinogen Negative (Negative) Ur Leukocyte Esterase Trace H (Negative) Urine WBC (Auto) 1-5 (0-5) /hpf Urine RBC (Auto) 0-4 (0-4) /hpf U Hyaline Cast (Auto) 5-10 H (0-5) /lpf U Epithel Cells (Auto) 20-30 H (0-5) /lpf Urine Bacteria (Auto) 4+ H (Negative) Adenovirus (PCR) (NotDetected) B. pertussis DNA (PCR) (NotDetected) B.parapertussis DNA PCR (NotDetected) C. pneumoniae DNA (PCR) (NotDetected) Coronavirus OC43 (PCR) (NotDetected) Coronavirus HKU1 (PCR) (NotDetected) Coronavirus 229E (PCR) (NotDetected) COVID-19 PCR (Negative) Coronavirus NL63 (PCR) (NotDetected) Hepatitis C Ab Screen (Neg) Human Metapneumovir PCR (NotDetected) Influenza Type A (PCR) (NotDetected) Influenza Type B (PCR) (NotDetected) M. pneumoniae (PCR) (NotDetected) Parainfluenza 1 (PCR) (NotDetected) Parainfluenza 2 (PCR) (NotDetected) Parainfluenza 3 (PCR) (NotDetected) Parainfluenza 4 (PCR) (NotDetected) RSV (PCR) (NotDetected) Entero/Rhino (PCR) (NotDetected) SARS-CoV-2 RNA (RT-PCR) PG Care Time/CCT Total # of Minutes Spent Total Time Spent with Patient: Total time spent is greater than 50% in coordination of care (as documented) at patient's floor/unit and/or counseling patient: Coding Level of Care Code 94701 Subseq Hosp Care Lvl 3 Diagnoses COVID-19 U07.1 Pneumonia J18.9 UTI (urinary tract infection) N39.0; R31.9 Hematuria presence: with hematuria Urinary tract infection type: site unspecified Weakness R53.1 Acidosis, lactic E87.2 BON[place]IO (acute kidney injury) N17.9 Hypercholesterolemia E78.00 Diabetes mellitus type 2, uncontrolled E11.65 Glycemic state: with hyperglycemia Hypothyroid E03.9 Hypothyroidism type: unspecified GERD (gastroesophageal reflux disease) K21.9 Esophagitis presence: esophagitis presence not specified HTN (hypertension) I10 Hypertension type: essential hypertension A-fib I48.91 Atrial fibrillation type: unspecified (1) UTI (urinary tract infection) Hematuria presence: with hematuria Urinary tract infection type: site unspecified Qualified Code(s): N39.0 - Urinary tract infection, site not specified; R31.9 - Hematuria, unspecified (2) A-fib Atrial fibrillation type: unspecified Qualified Code(s): I48.91 - Unspecified atrial fibrillation (3) Hypothyroid Hypothyroidism type: unspecified Qualified Code(s): E03.9 - Hypothyroidism, unspecified (4) Diabetes mellitus type 2, uncontrolled Glycemic state: with hyperglycemia Qualified Code(s): E11.65 - Type 2 diabetes mellitus with hyperglycemia (5) GERD (gastroesophageal reflux disease) Esophagitis presence: esophagitis presence not specified Qualified Code(s): K21.9 - Gastro-esophageal reflux disease without esophagitis (6) HTN (hypertension) Hypertension type: essential hypertension Qualified Code(s): I10 - Essential (primary) hypertension
[2020-01-11 11:49] LABS: Adenovirus PCR Not Detected (NotDetected); Bordetella parapertussis PCR Not Detected (NotDetected); Bordetella pertussis PCR Not Detected (NotDetected); Chlamydia pneumoniae PCR Not Detected (NotDetected); Coronavirus 229E PCR Not Detected (NotDetected); Coronavirus HKU1 PCR Not Detected (NotDetected); Coronavirus NL63 PCR Not Detected (NotDetected); Coronavirus OC43PCR Not Detected (NotDetected); Human Metapneumovirus PCR Not Detected (NotDetected); Influenza A PCR Not Detected (NotDetected); Influenza B PCR Not Detected (NotDetected); Mycoplasma pneumoniae PCR Not Detected (NotDetected); Parainfluenza Virus 1 PCR Not Detected (NotDetected); Parainfluenza Virus 2 PCR Not Detected (NotDetected); Parainfluenza Virus 3 PCR Not Detected (NotDetected); Parainfluenza Virus 4 PCR Not Detected (NotDetected); Respiratory Syncytial VirusPCR Not Detected (NotDetected); Rhinovirus/Enterovirus PCR Not Detected (NotDetected)
[2020-01-11] MEDS ORDERED: COUGH DROP (SUGAR FREE) LOZ 24 LOZ/1 BOX BUCCAL ONE (15:03)
[2020-01-11] MEDS ORDERED: POTASSIUM CHLORIDE 20 MEQ TABCR PO SCH (15:34)
[2020-01-11] MEDS: ATORVASTATIN 20 MG TAB PO SCH (19:46)
[2020-01-11] MEDS: PANTOprazole 40 MG TAB PO SCH (19:46)
[2020-01-11] MEDS: METOPROLOL SUCC 50MG EXT REL TAB PO SCH (19:46)
[2020-01-11] MEDS ORDERED: ATORVASTATIN 20 MG TAB PO SCH (21:00)
[2020-01-11] MEDS ORDERED: PANTOprazole 40 MG TAB PO SCH (21:00)
--- NOTE | 2020-01-11 21:55 | Electrocardiogram Report ---
Test Reason : Blood Pressure : / mmHG Vent. Rate : 076 BPM Atrial Rate : 141 BPM P-R Int : 000 ms QRS Dur : 072 ms QT Int : 336 ms P-R-T Axes : 000 -28 270 degrees QTc Int : 378 ms Poor data quality, interpretation may be adversely affected Atrial fibrillation Abnormal ECG When compared with ECG of 09-JUL-2019 14:43, T wave inversion now evident in Anterolateral leads QT has shortened Confirmed by Alfonzo Weiss ([id number]) on 01/11/2020 9:54:54 PM Referred By: REFERRED SELF Confirmed By:Alfonzo Weiss
[2020-01-11] MEDS: ACETAMINOPHEN 325 MG TAB PO PRN (23:41)
[2020-01-12 05:20] LABS: Basophils # (auto) 0.02 K/uL (0-0.2); Basophils % (auto) 0.6 %; Eosinophils # (auto) 0.02 K/uL (0-0.5); Eosinophils % (auto) 0.6 %; Hematocrit (blood only) 34.7 % (37-47); Hemoglobin 12.1 g/dL (12.0-16.0); Lymphocytes % (auto) 29.2 %; Mean Corpuscular Hemoglobin 28.8 pg (25-34); Mean Corpuscular Hgb Conc 34.9 g/dL (32-36); Mean Corpuscular Volume 82.6 fL (80-100); Mean Platelet Volume 9.8 fL (7.4-10.4); Monocytes # (auto) 0.32 K/uL (0.11-0.59); Monocytes % (auto) 9.4 %; Neutrophils # (auto) 2.06 K/uL (1.4-6.5); Neutrophils % (auto) 60.2 %; Platelet Count 189 K/uL (130-400); RDW Coefficient of Variation 15.8 % (11.5-14.5); RDW Standard Deviation 47.9 fL (36.4-46.3); White Blood Count 3.42 K/uL (4.8-10.8)
[2020-01-12 05:37] LABS: INR 4.1 (0.9-1.1); Prothrombin Time 40.3 Seconds (9.0-12.0)
[2020-01-12 05:39] LABS: BUN Creatinine Ratio 13.6 (10-20); Calcium 8.2 mg/dl (8.5-10.1); Creatinine Clr Calc Pharmacy 60.9 ml/min; Est GFR (African American) 58.7; Est GFR (Non-African American) 50.7; Potassium 3.8 mmol/L (3.5-5.1)
[2020-01-12] MEDS: LEVOTHYROXINE SODIUM 75 MCG TABLET PO SCH (06:25)
[2020-01-12] MEDS: TRAMADOL HCL 50 MG TABLET PO SCH (07:43)
[2020-01-12] MEDS: ACETAMINOPHEN 325 MG TAB PO PRN ×2 (07:43→20:44)
[2020-01-12] MEDS: METOPROLOL SUCC 50MG EXT REL TAB PO SCH ×2 (07:43→20:47)
[2020-01-12] MEDS: ASPIRIN 81 MG ECTAB PO SCH (07:45)
[2020-01-12] MEDS: DOXYCYCLINE HYCLATE 100 MG in DEXTROSE 5% 100 ML IV SCH ×2 (07:48→20:50)
[2020-01-12] MEDS: INSULIN ASPART 100 UNITS/ML 3 ML PEN SC SCH ×4 (08:05→21:21)
[2020-01-12] MEDS: INSULIN GLARGINE SOLOSTAR 100 UNITS/ML 3 ML PEN SC SCH ×2 (08:06→21:21)
--- NOTE | 2020-01-12 12:14 | Hospitalist Progress Note ---
Date of Service January 12, 2020 Assessment & Plan (1) COVID-19: Likely in latter half or third of illness (according to patient & son she has been ill at least 2 weeks, perhaps longer). Ongoing fever could be COVID-19 itself, bacterial superinfection (bacterial pneumonia process), or the UTI - or combination of factors. Either way she is hemodynamically stable with acceptable labs and normal O2 sats in RA. Suspect that patient may have gotten this from her daughter who just exited rehab. Daughter also had been in correction prior to the rehab stay. Needs PT/OT due to severe deconditioning. May need inpatient rehab. Son updated by phone. He is in isolation at home with his daughter as the son was exposed multiple times to his mother. (2) Pneumonia: Extensive patchy central and peripheral ground-glass infiltrates with scattered solid consolidation at the bases as seen on CT. May all be 2nd to COVID-19. Cannot exclude bacterial superinfection. Reasonable to cont rocephin/doxy for now. Send sputum cx. Add mucinex 1200mg BID for cough. Incentive spirometry. Add ventolin HFA - 2 puffs qid. (3) UTI (urinary tract infection): 2nd klebsiella. Rocephin will cover. Blood cx's remain negative. (4) Weakness: 2nd to COVID-19 +/- UTI. PT/OT. Supportive care. May need rehab. CPK noted to be normal this admission. (5) Acidosis, lactic: resolved (6) BONIFACIO (acute kidney injury): 2nd to COVID-19 infection and dehydration - resolved. BMP today acceptable. Can resume MADYSON. (7) Hypercholesterolemia: Continue Atorvastatin CPK and AST/ALT noted to be normal (8) Diabetes mellitus type 2, uncontrolled: uncontrolled - increase lantus to 10 units BID and tighten novolog correction. in midst of COVID-19 tight control is needed to optimize her recovery and outcome. (9) Hypothyroid: TSH 2.8 this admission Continue Synthroid 75mcg daily (10) GERD (gastroesophageal reflux disease): continue protonix (11) HTN (hypertension): cont BB resume MADYSON (12) A-fib: INR still >4 hold coumadin again today repeat INR am a.fib rates controlled with beta sebastian (13) Morbid obesity: BMI ~40 (14) DVT prophylaxis: coumadin (INR supratherapeutic today) son extensively updated by phone 01/12/2020; questions answered needs PT, OT progressing Admission and Anticipated Discharge Date Admission Date: January 11, 2020 Subjective Patient and her son report that 2-3 weeks ago she picked her daughter up from a Rehab facility in [place]. They rode in the car together and Ms Hernandez dropped her daughter off at her apartment. Daughter had been in rehab for 23 days and just got out of rehab that day. Patient not only met the daughter that day but also the daughter's landlord. Patient was masked during that visit, but daughter did not use a mask the entire time. Landlord had his mask off as well. Apparently she shared a drink with her daughter that day by accident as well. Daughter may have been ill during her rehab stay. Prior to that she had attempted to drop clothes to her daughter in rehab at least 3 times. Daughter was in rehab in [place] ([facility]). Several days after seeing her daughter the patient became ill with severe fatigue, cough, anorexia, etc. Patient continues with cough. Productive of milky sputum and on occasion maroon-colored blood. No chest pain or tightness. Continues with extreme fatigue. No loss of taste or smell. No myalgias or arthralgias now, but did have them at home. Appetite was mildly better today for lunch. Denies abdominal pain and diarrhea now; but did have diarrhea at home. Son had been coming into her home to care for her while she was ill at home. Son was trying to wear a mask during those visits. Last visit by her son to her home was on Monday (day of admission). Review of Systems Constitutional: + fever, + fatigue and + anorexia Ear, Nose, Mouth, Throat: no sore throat Respiratory: + cough, + hemoptysis and + sputum production Cardiovascular: no chest pain Gastrointestinal: no abdominal pain, no nausea, no vomiting and no diarrhea/loose stools Genitourinary: no dysuria Integumentary: no rash Physical Exam Constitutional: + morbidly obese; no acute distress and no altered mental status ENMT: Mouth: + dry oral mucous membranes; no oropharynx abnormality Respiratory: Auscultation: + diminished lung sounds (bases) and + crackles (fine, bases ) Cardiovascular: Rate/Rhythm: regular rate and + irregularly irregular Heart Sounds: normal S1 and normal S2; no murmur Vessels: posterior tibial pulses present and dorsalis pedis pulses present; no JVD Extremities: no edema Gastrointestinal (Abdomen): normal bowel sounds, soft, nontender, no hepatosplenomegaly Skin: no rashes, warm and dry Neurologic: moves all extremities; no focal motor deficits Psychiatric: A+Ox3, euthymic affect Results & Data Results & Data ([facility]) Vital Signs (Past 12 Hours) Vital Signs Temp Pulse Resp BP Pulse Ox 01/12/20 07:37 37.8 C H 82 18 130/72 96 01/12/20 04:13 36.8 C 77 18 109/74 93 Laboratory Results Laboratory Results - last 24 hr 01/11/20 01/11/20 01/11/20 10:20 16:57 20:11 WBC RBC Hgb Hct MCV MCH MCHC RDW Std Deviation RDW Coeff of Maria C Plt Count MPV Immature Gran % (Auto) Neut % (Auto) Lymph % (Auto) Spencer % (Auto) Eos % (Auto) Baso % (Auto) Immature Gran # (Auto) Neut # (Auto) Lymph # (Auto) Spencer # (Auto) Eos # (Auto) Baso # (Auto) PT INR Sodium Potassium Chloride Carbon Dioxide Anion Gap BUN Creatinine Est Cr Clr Drug Dosing Est GFR ( Amer) Est GFR (Non-Af Amer) BUN/Creatinine Ratio Glucose POC Glucose 153 H 142 H Calcium COVID-19 PCR POSITIVE A* 01/12/20 01/12/20 01/12/20 05:00 05:00 05:00 WBC 3.42 L RBC 4.20 Hgb 12.1 Hct 34.7 L MCV 82.6 MCH 28.8 MCHC 34.9 RDW Std Deviation 47.9 H RDW Coeff of Maria C 15.8 H Plt Count 189 MPV 9.8 Immature Gran % (Auto) 0.0 Neut % (Auto) 60.2 Lymph % (Auto) 29.2 Spencer % (Auto) 9.4 Eos % (Auto) 0.6 Baso % (Auto) 0.6 Immature Gran # (Auto) 0.00 Neut # (Auto) 2.06 Lymph # (Auto) 1.00 L Spencer # (Auto) 0.32 Eos # (Auto) 0.02 Baso # (Auto) 0.02 PT 40.3 H INR 4.1 H Sodium 137 Potassium 3.8 Chloride 106 Carbon Dioxide 25 Anion Gap 6.0 BUN 15 Creatinine 1.09 Est Cr Clr Drug Dosing 60.9 Est GFR ( Amer) 58.7 Est GFR (Non-Af Amer) 50.7 BUN/Creatinine Ratio 13.6 Glucose 171 H POC Glucose Calcium 8.2 L COVID-19 PCR 01/12/20 01/12/20 08:00 11:15 WBC RBC Hgb Hct MCV MCH MCHC RDW Std Deviation RDW Coeff of Maria C Plt Count MPV Immature Gran % (Auto) Neut % (Auto) Lymph % (Auto) Spencer % (Auto) Eos % (Auto) Baso % (Auto) Immature Gran # (Auto) Neut # (Auto) Lymph # (Auto) Spencer # (Auto) Eos # (Auto) Baso # (Auto) PT INR Sodium Potassium Chloride Carbon Dioxide Anion Gap BUN Creatinine Est Cr Clr Drug Dosing Est GFR ( Amer) Est GFR (Non-Af Amer) BUN/Creatinine Ratio Glucose POC Glucose 169 H 220 H Calcium COVID-19 PCR Diagnostic Findings blood cx's negative to date urine cx - klebsiella PG Care Time/CCT Total # of Minutes Spent Total Time Spent with Patient: Total time spent is greater than 50% in coordination of care (as documented) at patient's floor/unit and/or counseling patient: Coding Level of Care Code 37336 Subseq Hosp Care Lvl 3 Diagnoses COVID-19 U07.1 Pneumonia J18.9 Pneumonia type: due to unspecified organism Laterality: bilateral Lung location: unspecified part of lung UTI (urinary tract infection) N39.0; R31.9 Hematuria presence: with hematuria Urinary tract infection type: site unspecified Weakness R53.1 Acidosis, lactic E87.2 BONIFACIO (acute kidney injury) N17.9 Hypercholesterolemia E78.00 Diabetes mellitus type 2, uncontrolled E11.65 Glycemic state: with hyperglycemia Hypothyroid E03.9 Hypothyroidism type: unspecified GERD (gastroesophageal reflux disease) K21.9 Esophagitis presence: esophagitis presence not specified HTN (hypertension) I10 Hypertension type: essential hypertension A-fib I48.91 Atrial fibrillation type: unspecified Morbid obesity E66.01 DVT prophylaxis Z29.9 (1) UTI (urinary tract infection) Hematuria presence: with hematuria Urinary tract infection type: site unspecified Qualified Code(s): N39.0 - Urinary tract infection, site not specified; R31.9 - Hematuria, unspecified (2) A-fib Atrial fibrillation type: unspecified Qualified Code(s): I48.91 - Unspecified atrial fibrillation (3) Hypothyroid Hypothyroidism type: unspecified Qualified Code(s): E03.9 - Hypothyroidism, unspecified (4) Diabetes mellitus type 2, uncontrolled Glycemic state: with hyperglycemia Qualified Code(s): E11.65 - Type 2 diabetes mellitus with hyperglycemia (5) GERD (gastroesophageal reflux disease) Esophagitis presence: esophagitis presence not specified Qualified Code(s): K21.9 - Gastro-esophageal reflux disease without esophagitis (6) HTN (hypertension) Hypertension type: essential hypertension Qualified Code(s): I10 - Essential (primary) hypertension (7) Pneumonia Pneumonia type: due to unspecified organism Laterality: bilateral Lung location: unspecified part of lung Qualified Code(s): J18.9 - Pneumonia, unspecified organism
[2020-01-12] MEDS ORDERED: guaiFENesin 600 MG TABCR PO SCH (13:05)
[2020-01-12] MEDS ORDERED: SODIUM CHLORIDE 0.9% 500 ML IV SCH (14:00)
[2020-01-12] MEDS: guaiFENesin 600 MG TABCR PO SCH ×2 (15:04→20:47)
[2020-01-12] MEDS: ALBUTEROL HFA 8 GM INHALER INH SCH ×4 (15:05→19:20)
[2020-01-12] MEDS: ATORVASTATIN 20 MG TAB PO SCH (20:48)
[2020-01-12] MEDS: PANTOprazole 40 MG TAB PO SCH (20:49)
[2020-01-13] MEDS: cefTRIAXone SODIUM 2,000 MG in DEXTROSE 5% 50 ML IV SCH (00:59)
[2020-01-13] MEDS: ALBUTEROL HFA 8 GM INHALER INH SCH ×3 (01:00→07:13)
[2020-01-13] MEDS ORDERED: TRAMADOL HCL 50 MG TABLET PO STA (01:24)
[2020-01-13] MEDS: ACETAMINOPHEN 325 MG TAB PO PRN (04:35)
[2020-01-13] MEDS: LEVOTHYROXINE SODIUM 75 MCG TABLET PO SCH (05:00)
[2020-01-13 05:19] LABS: Basophils # (auto) 0.02 K/uL (0-0.2); Basophils % (auto) 0.5 %; Eosinophils # (auto) 0.03 K/uL (0-0.5); Eosinophils % (auto) 0.8 %; Hematocrit (blood only) 34.7 % (37-47); Hemoglobin 11.1 g/dL (12.0-16.0); Immature Granulocytes # (auto) 0.01 K/uL (0.00-0.02); Immature Granulocytes % (auto) 0.3 %; Lymphocytes # (auto) 0.98 K/uL (1.2-3.4); Lymphocytes % (auto) 25.3 %; Mean Corpuscular Hemoglobin 26.6 pg (25-34); Mean Platelet Volume 10.2 fL (7.4-10.4); Monocytes % (auto) 7.8 %; Neutrophils # (auto) 2.53 K/uL (1.4-6.5); Neutrophils % (auto) 65.3 %; Platelet Count 227 K/uL (130-400); RDW Coefficient of Variation 15.9 % (11.5-14.5); RDW Standard Deviation 48.1 fL (36.4-46.3); Red Blood Count 4.18 M/uL (4.2-5.4); White Blood Count 3.87 K/uL (4.8-10.8)
[2020-01-13 05:35] LABS: INR 4.3 (0.9-1.1); Prothrombin Time 41.6 Seconds (9.0-12.0)
[2020-01-13 05:42] LABS: BUN Creatinine Ratio 14.5 (10-20); Creatinine Clr Calc Pharmacy 64.4 ml/min; Est GFR (African American) 62.9; Est GFR (Non-African American) 54.3
[2020-01-13] MEDS: INSULIN GLARGINE SOLOSTAR 100 UNITS/ML 3 ML PEN SC SCH ×2 (09:42→22:33)
[2020-01-13] MEDS: INSULIN ASPART 100 UNITS/ML 3 ML PEN SC SCH ×4 (09:42→22:33)
[2020-01-13] MEDS: METOPROLOL SUCC 50MG EXT REL TAB PO SCH ×2 (09:47→22:31)
[2020-01-13] MEDS: ASPIRIN 81 MG ECTAB PO SCH (09:47)
[2020-01-13] MEDS: guaiFENesin 600 MG TABCR PO SCH ×2 (09:47→22:32)
[2020-01-13] MEDS: TRAMADOL HCL 50 MG TABLET PO SCH (09:57)
[2020-01-13] MEDS: DOXYCYCLINE HYCLATE 100 MG in DEXTROSE 5% 100 ML IV SCH ×2 (09:57→22:30)
[2020-01-13] MEDS ORDERED: ALBUTEROL HFA 8 GM INHALER INH PRN (12:35)
--- NOTE | 2020-01-13 14:35 | Hospitalist Progress Note ---
Date of Service January 13, 2020 Assessment & Plan (1) COVID-19: Likely in latter half or third of illness (according to patient & son she has been ill at least 2 weeks, perhaps longer). Ongoing fever could be COVID-19 itself, bacterial superinfection (bacterial pneumonia process), or the UTI - or combination of factors. fever this morning of 39, vitals stable, no respiratory distress, on room air Suspect that patient may have gotten this from her daughter who just exited rehab. Daughter also had been in [facility] prior to the rehab stay. Needs PT/OT due to severe deconditioning click scores are 19 for OT and 20 for PT keep working with therapy, would prefer to go home Son updated by phone. (2) Pneumonia: Extensive patchy central and peripheral ground-glass infiltrates with scattered solid consolidation at the bases as seen on CT. May all be 2nd to COVID-19. Cannot exclude bacterial superinfection. Reasonable to cont rocephin/doxy for now. complete 5-7 days fever this morning, WBC is 3k, no cough Albuterol PRN (3) UTI (urinary tract infection): 2nd klebsiella. Rocephin will cover. Blood cx's remain negative. treat for 7 days (4) Weakness: 2nd to COVID-19 +/- UTI. PT/OT. Supportive care. May need rehab - hoping to get stronger, would be a long process to get her to rehab, would need two negative COVID tests CPK noted to be normal this admission. (5) Acidosis, lactic: resolved (6) BONIFACIO (acute kidney injury): 2nd to COVID-19 infection and dehydration - resolved. BMP today acceptable. back on MADYSON inhibitor (7) Hypercholesterolemia: Continue Atorvastatin CPK and AST/ALT noted to be normal (8) Diabetes mellitus type 2, uncontrolled: better today with lantus 10 units BID and tighten novolog correction. sugars < 200 in midst of COVID-19 tight control is needed to optimize her recovery and outcome. (9) Hypothyroid: TSH 2.8 this admission Continue Synthroid 75mcg daily (10) GERD (gastroesophageal reflux disease): continue protonix (11) HTN (hypertension): cont BB resume MADYSON (12) A-fib: INR still >4 hold coumadin again today repeat INR am a.fib rates controlled with beta sebastian (13) Morbid obesity: BMI ~40 (14) DVT prophylaxis: coumadin (INR supratherapeutic today) son updated by phone 01/12/2020; questions answered needs PT, OT progressing Admission and Anticipated Discharge Date Admission Date: January 11, 2020 Anticipated date of discharge: 01/15/20 Subjective patient doing well, just complains of feeling weak she did modestly well with PT and OT today, not quite strong enough to return home safely she lives with her son, prior to being ill she was fully independent reviewed labs, WBC 3, Hb 11, INR 4.3, BMP stable her appetite could be better, encouraged her to eat more at lunch encouraged her to walk to the toiled, walk around the room with assistance discussed that discharge would be a day to day decision, once she is strong enough Review of Systems Review of Systems: All systems reviewed & are unremarkable except as noted in HPI & below Constitutional: + fever, + chills and + weakness; no sweats and no fatigue Respiratory: no cough, no dyspnea and no dyspnea on exertion Cardiovascular: no chest pain, no palpitations and no edema Gastrointestinal: no abdominal pain, no nausea, no vomiting, no constipation and no diarrhea/loose stools Genitourinary: no dysuria Physical Exam Constitutional: well developed, comfortable and + overweight; no acute distress Eyes: PERRL, conjunctivae normal, anicteric sclerae ENMT: external ear and nose normal, oropharynx normal Neck: trachea midline, no thyromegaly Respiratory: normal respiratory effort, lungs clear to auscultation Auscultation: + diminished lung sounds (bases) Cardiovascular: RRR, no murmur, no edema Gastrointestinal (Abdomen): normal bowel sounds, soft, nontender, no hepatosplenomegaly Musculoskeletal: no cyanosis or clubbing, extremities motor strength 5/5 Skin: no rashes, warm and dry Neurologic: patellar DTR's 2+ bilat, sensation intact and PERRL, EOMI, accommodation nl, no face palsy, no dysarthria Psychiatric: A+Ox3, euthymic affect Lymphatic: no cervical or axillary lymphadenopathy Results & Data Results & Data ([facility]) Vital Signs (Past 12 Hours) Vital Signs Temp Pulse Pulse Resp BP BP Pulse Ox 01/13/20 13:00 64 29 H 01/13/20 12:30 69 34 H 01/13/20 12:00 37.2 C 97 H 20 01/13/20 11:30 84 23 01/13/20 11:00 87 18 01/13/20 10:30 70 31 H 01/13/20 10:03 86 19 178/83 H 01/13/20 10:01 90 23 01/13/20 10:00 86 31 H 204/124 H 01/13/20 09:47 93 H 17 188/116 H 97 01/13/20 09:46 93 H 20 95 01/13/20 09:00 81 29 H 01/13/20 08:30 78 24 01/13/20 08:00 37 C 76 29 H 01/13/20 07:33 86 16 92 01/13/20 04:26 39 C H 91 H 24 131/74 94 Laboratory Results Laboratory Results - last 24 hr 01/12/20 01/12/20 01/13/20 16:30 21:18 04:40 WBC 3.87 L RBC 4.18 L Hgb 11.1 L Hct 34.7 L MCV 83.0 MCH 26.6 MCHC 32.0 RDW Std Deviation 48.1 H RDW Coeff of Maria C 15.9 H Plt Count 227 MPV 10.2 Immature Gran % (Auto) 0.3 Neut % (Auto) 65.3 Lymph % (Auto) 25.3 [place] % (Auto) 7.8 Eos % (Auto) 0.8 Baso % (Auto) 0.5 Immature Gran # (Auto) 0.01 Neut # (Auto) 2.53 Lymph # (Auto) 0.[address] [place] # (Auto) 0.30 Eos # (Auto) 0.03 Baso # (Auto) 0.02 PT INR Sodium Potassium Chloride Carbon Dioxide Anion Gap BUN Creatinine Est Cr Clr Drug Dosing Est GFR ( Amer) Est GFR (Non-Af Amer) BUN/Creatinine Ratio Glucose POC Glucose 188 H 179 H Calcium 01/13/20 01/13/20 01/13/20 04:40 04:40 08:54 WBC RBC Hgb Hct MCV MCH MCHC RDW Std Deviation RDW Coeff of Maria C Plt Count MPV Immature Gran % (Auto) Neut % (Auto) Lymph % (Auto) [place] % (Auto) Eos % (Auto) Baso % (Auto) Immature Gran # (Auto) Neut # (Auto) Lymph # (Auto) [place] # (Auto) Eos # (Auto) Baso # (Auto) PT 41.6 H INR 4.3 H Sodium 136 Potassium 4.0 Chloride 103 Carbon Dioxide 24 Anion Gap 9.0 BUN 15 Creatinine 1.03 Est Cr Clr Drug Dosing 64.4 Est GFR ( Amer) 62.9 Est GFR (Non-Af Amer) 54.3 BUN/Creatinine Ratio 14.5 Glucose 159 H POC Glucose 181 H Calcium 8.0 L Medications Administered Current Inpatient Medications Acetaminophen (Tylenol) 650 mg PO Q4H PRN PRN Reason: pain/fever Stop: 02/09/20 23:46 Last Admin: 01/13/20 04:35 Dose: 650 mg Documented by: Albuterol (Ventolin Hfa) 2 puffs INH Q6R PRN PRN Reason: Dyspnea Stop: 02/11/20 13:14 Aspirin (Ecotrin Ectab) 81 mg PO QAM@0800 [facility] Stop: 02/11/20 07:59 Last Admin: 01/13/20 09:47 Dose: 81 mg Documented by: Atorvastatin Calcium (Lipitor) 20 mg PO HS@1999 [facility] Stop: 02/10/20 19:59 Last Admin: 01/12/20 20:48 Dose: 20 mg Documented by: Dextrose (Dextrose 50%) 25 - 50 ml IV UD PRN; Protocol PRN Reason: Hypoglycemia Protocol Stop: 02/09/20 23:46 Glucagon (Glucagen) 1 mg SQ UD PRN; Protocol PRN Reason: Hypoglycemia Protocol Stop: 02/09/20 23:46 Glucose (Dex4 Glucose) 4 - 8 tabs PO UD PRN; Protocol PRN Reason: Hypoglycemia Protocol Stop: 02/09/20 23:46 Glucose (Glucose 40%) 15 - 30 gm PO UD PRN; Protocol PRN Reason: Hypoglycemia Protocol Stop: 02/09/20 23:46 Guaifenesin (Mucinex) 1,200 mg PO Q12@799,1999 [facility] Stop: 02/11/20 13:44 Last Admin: 01/13/20 09:47 Dose: 1,200 mg Documented by: Ceftriaxone Sodium 2,000 mg/ (Dextrose) 70 mls @ 100 mls/hr IV Q24H [facility]; Protocol Stop: 01/16/20 00:00 Last Infusion: 01/13/20 01:59 Dose: Infused Documented by: Doxycycline Hyclate 100 mg/ (Dextrose) 110 mls @ 50 mls/hr IV Q12H [facility] Stop: 01/18/20 08:59 Last Infusion: 01/13/20 13:11 Dose: Infused Documented by: Insulin Aspart (Novolog Flexpen) 0 units SC ACHS [facility] Stop: 02/10/20 00:00 Last Admin: 01/13/20 11:54 Dose: 2 units Documented by: Insulin Glargine (Lantus Solostar Pen) 10 units SC BID@ [facility] Stop: 02/11/20 19:59 Last Admin: 01/13/20 09:42 Dose: 10 units Documented by: Levothyroxine Sodium (Synthroid) 75 mcg PO DAILYBB [facility] Stop: 02/10/20 06:29 Last Admin: 01/13/20 05:00 Dose: 75 mcg Documented by: Lisinopril (Zestril) 2.5 mg PO QAM@0800 [facility] Stop: 02/12/20 07:59 Last Admin: 01/13/20 09:47 Dose: 2.5 mg Documented by: Metoprolol Succinate (Toprol Xl) 100 mg PO BID@ [facility] Stop: 02/10/20 19:59 Last Admin: 01/13/20 09:47 Dose: 100 mg Documented by: Miscellaneous (Carbohydrates For Hypoglycemia) 15 - 30 gm PO UD PRN PRN Reason: Hypoglycemia Protocol Stop: 02/09/20 23:46 Ondansetron HCl (Zofran) 4 mg IV Q6H PRN PRN Reason: Nausea Stop: 02/09/20 23:46 Pantoprazole Sodium (Protonix) 40 mg PO QPM@1999 [facility] Stop: 02/10/20 19:59 Last Admin: 01/12/20 20:49 Dose: 40 mg Documented by: Senna/Docusate Sodium (Senokot S) 1 tab PO BID PRN PRN Reason: constipation Stop: 02/09/20 23:46 Tramadol HCl (Ultram) 50 mg PO QAM@0800 [facility] Stop: 02/11/20 07:59 Last Admin: 01/13/20 09:57 Dose: 50 mg Documented by: PG Care Time/CCT Total # of Minutes Spent Total Time Spent with Patient: Total time spent is greater than 50% in c oordination of care (as documented) at patient's floor/unit and/or counseling patient: Coding Level of Care Code 86469 Subseq Hosp Care Lvl 3 Diagnoses COVID-19 U07.1 Pneumonia J18.9 Pneumonia type: due to unspecified organism Laterality: bilateral Lung location: unspecified part of lung UTI (urinary tract infection) N39.0; R31.9 Hematuria presence: with hematuria Urinary tract infection type: site unspecified Weakness R53.1 Acidosis, lactic E87.2 BONIFACIO (acute kidney injury) N17.9 Hypercholesterolemia E78.00 Diabetes mellitus type 2, uncontrolled E11.65 Glycemic state: with hyperglycemia Hypothyroid E03.9 Hypothyroidism type: unspecified GERD (gastroesophageal reflux disease) K21.9 Esophagitis presence: esophagitis presence not specified HTN (hypertension) I10 Hypertension type: essential hypertension A-fib I48.91 Atrial fibrillation type: unspecified Morbid obesity E66.01 DVT prophylaxis Z29.9 (1) Pneumonia Pneumonia type: due to unspecified organism Laterality: bilateral Lung location: unspecified part of lung Qualified Code(s): J18.9 - Pneumonia, unspecified organism (2) UTI (urinary tract infection) Hematuria presence: with hematuria Urinary tract infection type: site unspecified Qualified Code(s): N39.0 - Urinary tract infection, site not specified; R31.9 - Hematuria, unspecified (3) Diabetes mellitus type 2, uncontrolled Glycemic state: with hyperglycemia Qualified Code(s): E11.65 - Type 2 diabetes mellitus with hyperglycemia (4) Hypothyroid Hypothyroidism type: unspecified Qualified Code(s): E03.9 - Hypothyroidism, unspecified (5) GERD (gastroesophageal reflux disease) Esophagitis presence: esophagitis presence not specified Qualified Code(s): K21.9 - Gastro-esophageal reflux disease without esophagitis (6) HTN (hypertension) Hypertension type: essential hypertension Qualified Code(s): I10 - Essential (primary) hypertension (7) A-fib Atrial fibrillation type: unspecified Qualified Code(s): I48.91 - Unspecified atrial fibrillation
[2020-01-13] MEDS: ATORVASTATIN 20 MG TAB PO SCH (22:31)
[2020-01-13] MEDS: PANTOprazole 40 MG TAB PO SCH (22:31)
[2020-01-14] MEDS: cefTRIAXone SODIUM 2,000 MG in DEXTROSE 5% 50 ML IV SCH
[2020-01-14] MEDS: ACETAMINOPHEN 325 MG TAB PO PRN (01:47)
[2020-01-14] MEDS: LEVOTHYROXINE SODIUM 75 MCG TABLET PO SCH (05:30)
[2020-01-14 06:13] LABS: INR 3.7 (0.9-1.1); Prothrombin Time 36.1 Seconds (9.0-12.0)
[2020-01-14] MEDS: guaiFENesin 600 MG TABCR PO SCH ×2 (08:18→20:34)
[2020-01-14] MEDS: INSULIN GLARGINE SOLOSTAR 100 UNITS/ML 3 ML PEN SC SCH ×2 (08:18→20:33)
[2020-01-14] MEDS: METOPROLOL SUCC 50MG EXT REL TAB PO SCH ×2 (08:19→20:34)
[2020-01-14] MEDS: ASPIRIN 81 MG ECTAB PO SCH (08:19)
[2020-01-14] MEDS: TRAMADOL HCL 50 MG TABLET PO SCH (08:25)
[2020-01-14] MEDS: DOXYCYCLINE HYCLATE 100 MG in DEXTROSE 5% 100 ML IV SCH ×2 (08:25→20:29)
[2020-01-14] MEDS: INSULIN ASPART 100 UNITS/ML 3 ML PEN SC SCH ×5 (08:26→20:33)
--- NOTE | 2020-01-14 10:38 | Hospitalist Progress Note ---
Date of Service January 14, 2020 Assessment & Plan (1) COVID-19: Likely in latter half or third of illness (according to patient & son she has been ill at least 2 weeks, perhaps longer). Ongoing fever could be COVID-19 itself, bacterial superinfection (bacterial pneumonia process), or the UTI - or combination of factors. fever last night of 38.5, no fevers today Suspect that patient may have gotten this from her daughter who just exited rehab. Daughter also had been in shelter prior to the rehab stay. Needs PT/OT due to severe deconditioning click scores are 19 for OT and 20 for PT keep working with therapy, would prefer to go home son is hesitant to take her home at this time, he is being tested for COVID 19 and his daughter is keep working with therapy, keep getting stronger SNF rehab option would take a long time as she would need two negative COVID tests, she is still having fevers downgrade to medical status today (2) Pneumonia: Extensive patchy central and peripheral ground-glass infiltrates with scattered solid consolidation at the bases as seen on CT. bacterial and/or viral, present on arrival Reasonable to cont rocephin/doxy for now. complete 5-7 days today is day 4 fever last night Albuterol PRN (3) UTI (urinary tract infection): 2nd klebsiella. Rocephin will cover. Blood cx's remain negative. treat for 7 days, today is day 4 (4) Weakness: 2nd to COVID-19 +/- UTI. PT/OT. Supportive care. May need rehab - hoping to get stronger, would be a long process to get her to rehab, would need two negative COVID tests CPK noted to be normal this admission. (5) Acidosis, lactic: resolved (6) BONIFACIO (acute kidney injury): 2nd to COVID-19 infection and dehydration - resolved. BMP today acceptable. back on MADYSON inhibitor (7) Hypercholesterolemia: Continue Atorvastatin CPK and AST/ALT noted to be normal (8) Diabetes mellitus type 2, uncontrolled: continue lantus 10 units BID and tighten novolog correction. sugars < 200 in midst of COVID-19 tight control is needed to optimize her recovery and outcome. (9) Hypothyroid: TSH 2.8 this admission Continue Synthroid 75mcg daily (10) GERD (gastroesophageal reflux disease): continue protonix (11) HTN (hypertension): cont BB resume MADYSON (12) A-fib: INR 3.7 hold coumadin again today repeat INR am a.fib rates controlled with beta sebastian (13) Morbid obesity: BMI ~40 (14) DVT prophylaxis: coumadin (INR supratherapeutic today) needs PT, OT progressing slowly Admission and Anticipated Discharge Date Admission Date: January 11, 2020 Subjective patient still feels very lethargic and weak RN says that she does not seem motivated, says she wants to go home but then won't try to walk encouraged her to be more active, sit up in chair if possible she is eating better with lunch and dinner, breakfast still not agreeing with her discussed discharge plans, her son uncomfortable taking her home right now INR still high at 3.7 had a fever last night of 38.5, nothing since that time Review of Systems Review of Systems: All systems reviewed & are unremarkable except as noted in HPI & below Constitutional: + fever, + chills, + sweats, + fatigue, + malaise and + weakness Respiratory: + cough and + dyspnea on exertion; no dyspnea and no sputum production Cardiovascular: no chest pain Physical Exam Constitutional: well developed, comfortable and + overweight; no acute distress Eyes: PERRL, conjunctivae normal, anicteric sclerae ENMT: external ear and nose normal, oropharynx normal Neck: trachea midline, no thyromegaly Respiratory: normal respiratory effort, lungs clear to auscultation Auscultation: + diminished lung sounds (bases) Cardiovascular: RRR, no murmur, no edema Gastrointestinal (Abdomen): normal bowel sounds, soft, nontender, no hepatosplenomegaly Musculoskeletal: no cyanosis or clubbing, extremities motor strength 5/5 Skin: no rashes, warm and dry Neurologic: patellar DTR's 2+ bilat, sensation intact and PERRL, EOMI, accommodation nl, no face palsy, no dysarthria Psychiatric: A+Ox3, euthymic affect Lymphatic: no cervical or axillary lymphadenopathy Results & Data Results & Data ([facility]) Vital Signs (Past 12 Hours) Vital Signs Temp Pulse Resp BP Pulse Ox 01/14/20 07:57 36.6 C 68 20 130/62 95 01/14/20 04:00 37.2 C 62 14 138/70 98 01/14/20 00:00 37.4 C 71 16 112/70 98 Laboratory Results Laboratory Results - last 24 hr 01/13/20 01/14/20 01/14/20 17:59 05:09 07:56 PT 36.1 H INR 3.7 H POC Glucose 155 H 129 H 01/14/20 11:37 PT INR POC Glucose 189 H Medications Administered Current Inpatient Medications Acetaminophen (Tylenol) 650 mg PO Q4H PRN PRN Reason: pain/fever Stop: 02/09/20 23:46 Last Admin: 01/14/20 01:47 Dose: 650 mg Documented by: Albuterol (Ventolin Hfa) 2 puffs INH Q6R PRN PRN Reason: Dyspnea Stop: 02/11/20 13:14 Aspirin (Ecotrin Ectab) 81 mg PO QAM@08 [facility] Stop: 02/11/20 07:59 Last Admin: 01/14/20 08:19 Dose: 81 mg Documented by: Atorvastatin Calcium (Lipitor) 20 mg PO HS@1999 [facility] Stop: 02/10/20 19:59 Last Admin: 01/13/20 22:31 Dose: 20 mg Documented by: Dextrose (Dextrose 50%) 25 - 50 ml IV UD PRN; Protocol PRN Reason: Hypoglycemia Protocol Stop: 02/09/20 23:46 Glucagon (Glucagen) 1 mg SQ UD PRN; Protocol PRN Reason: Hypoglycemia Protocol Stop: 02/09/20 23:46 Glucose (Dex4 Glucose) 4 - 8 tabs PO UD PRN; Protocol PRN Reason: Hypoglycemia Protocol Stop: 02/09/20 23:46 Glucose (Glucose 40%) 15 - 30 gm PO UD PRN; Protocol PRN Reason: Hypoglycemia Protocol Stop: 02/09/20 23:46 Guaifenesin (Mucinex) 1,200 mg PO Q12@ [facility] Stop: 02/11/20 13:44 Last Admin: 01/14/20 08:18 Dose: 1,200 mg Documented by: Ceftriaxone Sodium 2,000 mg/ (Dextrose) 70 mls @ 100 mls/hr IV Q24H [facility]; Protocol Stop: 01/16/20 00:00 Last Infusion: 01/14/20 01:34 Dose: Infused Documented by: Doxycycline Hyclate 100 mg/ (Dextrose) 110 mls @ 50 mls/hr IV Q12H [facility] Stop: 01/18/20 08:59 Last Infusion: 01/14/20 11:11 Dose: Infused Documented by: Insulin Aspart (Novolog Flexpen) 0 units SC ACHS [facility] Stop: 02/10/20 00:00 Last Admin: 01/14/20 12:50 Dose: 5 units Documented by: Insulin Glargine (Lantus Solostar Pen) 10 units SC BID@ [facility] Stop: 02/11/20 19:59 Last Admin: 01/14/20 08:18 Dose: 10 units Documented by: Levothyroxine Sodium (Synthroid) 75 mcg PO DAILYBB [facility] Stop: 02/10/20 06:29 Last Admin: 01/14/20 05:30 Dose: 75 mcg Documented by: Lisinopril (Zestril) 2.5 mg PO QAM@08 [facility] Stop: 02/12/20 07:59 Last Admin: 01/14/20 08:19 Dose: 2.5 mg Documented by: Metoprolol Succinate (Toprol Xl) 100 mg PO BID@ [facility] Stop: 02/10/20 19:59 Last Admin: 01/14/20 08:19 Dose: 100 mg Documented by: Miscellaneous (Carbohydrates For Hypoglycemia) 15 - 30 gm PO UD PRN PRN Reason: Hypoglycemia Protocol Stop: 02/09/20 23:46 Ondansetron HCl (Zofran) 4 mg IV Q6H PRN PRN Reason: Nausea Stop: 02/09/20 23:46 Pantoprazole Sodium (Protonix) 40 mg PO QPM@1999 [facility] Stop: 02/10/20 19:59 Last Admin: 01/13/20 22:31 Dose: 40 mg Documented by: Senna/Docusate Sodium (Senokot S) 1 tab PO BID PRN PRN Reason: constipation Stop: 02/09/20 23:46 Tramadol HCl (Ultram) 50 mg PO QAM@08 [facility] Stop: 02/11/20 07:59 Last Admin: 01/14/20 08:25 Dose: 50 mg Documented by: PG Care Time/CCT Total # of Minutes Spent Total Time Spent with Patient: Total time spent is greater than 50% in coordination of care (as documented) at patient's floor/unit and/or counseling patient: Coding Level of Care Code 56929 Subseq Hosp Care Lvl 2 Diagnoses COVID-19 U07.1 Pneumonia J18.9 Laterality: bilateral Lung location: unspecified part of lung Pneumonia type: due to unspecified organism UTI (urinary tract infection) N39.0; R31.9 Hematuria presence: with hematuria Urinary tract infection type: site unspecified Weakness R53.1 Acidosis, lactic E87.2 BONIFACIO (acute kidney injury) N17.9 Hypercholesterolemia E78.00 Diabetes mellitus type 2, uncontrolled E11.65 Glycemic state: with hyperglycemia Hypothyroid E03.9 Hypothyroidism type: unspecified GERD (gastroesophageal reflux disease) K21.9 Esophagitis presence: esophagitis presence not specified HTN (hypertension) I10 Hypertension type: essential hypertension A-fib I48.91 Atrial fibrillation type: unspecified Morbid obesity E66.01 DVT prophylaxis Z29.9 (1) UTI (urinary tract infection) Hematuria presence: with hematuria Urinary tract infection type: site unspecified Qualified Code(s): N39.0 - Urinary tract infection, site not specified; R31.9 - Hematuria, unspecified (2) A-fib Atrial fibrillation type: unspecified Qualified Code(s): I48.91 - Unspecified atrial fibrillation (3) Hypothyroid Hypothyroidism type: unspecified Qualified Code(s): E03.9 - Hypothyroidism, unspecified (4) Diabetes mellitus type 2, uncontrolled Glycemic state: with hyperglycemia Qualified Code(s): E11.65 - Type 2 diabetes mellitus with hyperglycemia (5) GERD (gastroesophageal reflux disease) Esophagitis presence: esophagitis presence not specified Qualified Code(s): K21.9 - Gastro-esophageal reflux disease without esophagitis (6) HTN (hypertension) Hypertension type: essential hypertension Qualified Code(s): I10 - Essential (primary) hypertension (7) Pneumonia Laterality: bilateral Lung location: unspecified part of lung Pneumonia type: due to unspecified organism Qualified Code(s): J18.9 - Pneumonia, unspecified organism
[2020-01-14] MEDS: PANTOprazole 40 MG TAB PO SCH (20:34)
[2020-01-14] MEDS: ATORVASTATIN 20 MG TAB PO SCH (20:35)
[2020-01-15] MEDS: cefTRIAXone SODIUM 2,000 MG in DEXTROSE 5% 50 ML IV SCH (02:12)
[2020-01-15] MEDS: LEVOTHYROXINE SODIUM 75 MCG TABLET PO SCH (06:06)
[2020-01-15] MEDS: ASPIRIN 81 MG ECTAB PO SCH (08:13)
[2020-01-15] MEDS: METOPROLOL SUCC 50MG EXT REL TAB PO SCH ×2 (08:14→21:00)
[2020-01-15] MEDS: guaiFENesin 600 MG TABCR PO SCH ×4 (08:14→21:15)
[2020-01-15] MEDS: INSULIN ASPART 100 UNITS/ML 3 ML PEN SC SCH ×4 (08:16→21:25)
[2020-01-15] MEDS: INSULIN GLARGINE SOLOSTAR 100 UNITS/ML 3 ML PEN SC SCH ×2 (08:16→21:27)
[2020-01-15] MEDS: DOXYCYCLINE HYCLATE 100 MG in DEXTROSE 5% 100 ML IV SCH ×2 (08:20→20:59)
[2020-01-15] MEDS: TRAMADOL HCL 50 MG TABLET PO SCH (08:20)
--- NOTE | 2020-01-15 12:38 | Hospitalist Progress Note ---
Date of Service January 15, 2020 Assessment & Plan (1) COVID-19: Likely in latter half or third of illness (according to patient & son she has been ill at least 2 weeks, perhaps longer). no fever now for 36 hours Suspect that patient may have gotten this from her daughter who just exited rehab. Daughter also had been in alf prior to the rehab stay. Needs PT/OT due to severe deconditioning patient is improving every day she lives alone in trailer, little ability for family to help feel like she will be safe by Tuesday 01/16 too good for rehab patient refuses to consider home health, home PT, very private son is hesitant to take her home at this time, he is being tested for COVID 19 and his daughter is plan for wheelchair van transport on 01/16, son said they can pay for it (2) Pneumonia: Extensive patchy central and peripheral ground-glass infiltrates with scattered solid consolidation at the bases as seen on CT. bacterial and/or viral, present on arrival Reasonable to cont rocephin/doxy for now. complete 5-7 days today is day 5, so last day would be 01/16 when she gets discharged no fever for 36 hours Albuterol PRN (3) UTI (urinary tract infection): 2nd klebsiella. Rocephin will cover. Blood cx's remain negative. treat for 7 days, today is day 5 (4) Weakness: 2nd to COVID-19 +/- UTI. PT/OT. Supportive care. should be strong enough to go home on Tuesday 01/16, patient is now more motivated (5) Acidosis, lactic: resolved (6) BONIFACIO (acute kidney injury): 2nd to COVID-19 infection and dehydration - resolved. BMP today acceptable. back on MADYSON inhibitor (7) Hypercholesterolemia: Continue Atorvastatin CPK and AST/ALT noted to be normal (8) Diabetes mellitus type 2, uncontrolled: continue lantus 10 units BID and tighten novolog correction. sugars < 200 in midst of COVID-19 tight control is needed to optimize her recovery and outcome. (9) Hypothyroid: TSH 2.8 this admission Continue Synthroid 75mcg daily (10) GERD (gastroesophageal reflux disease): continue protonix (11) HTN (hypertension): cont BB resume MADYSON (12) A-fib: holding coumadin, check INR tomorrow a.fib rates controlled with beta sebastian (13) Morbid obesity: BMI ~40 (14) DVT prophylaxis: coumadin needs PT, OT progressing more each day Admission and Anticipated Discharge Date Admission Date: January 11, 2020 Anticipated date of discharge: 01/17/20 Subjective patient doing better, more motivated, participating in therapy eating better, drinking well no fever in over 24 hours which is first time since she was admitted discussed d/c plans with therapy, she is close to being safe, certainly she is too good for rehab the issue is that once she goes home, she will need to be safe by herself, lives alone in her trailer her son lives on the same property but in a separate trailer talked with the son, Judah, for 10 minutes today about d/c plans he is being tested for COVID 19 but his test won't be back for a few days he is apprehensive about driving the patient home, his main concern is that he has a daughter who is who lives with him they are under quarantine for 14 days, they have an older relative who is willing to bring them groceries he is willing to pay for transportation for patient to go home talked with CM today, she will work on setting up a wheelchair van for Tuesday 01/16 Review of Systems Review of Systems: All systems reviewed & are unremarkable except as noted in HPI & below Constitutional: + weakness; no fever, no chills, no sweats and no fatigue Respiratory: + cough and + dyspnea on exertion; no dyspnea and no sputum production Cardiovascular: no chest pain and no edema Gastrointestinal: no abdominal pain, no nausea, no vomiting, no constipation and no diarrhea/loose stools Musculoskeletal: + muscle weakness (generalized, but better) Physical Exam Constitutional: well developed, comfortable and + overweight; no acute distress Eyes: PERRL, conjunctivae normal, anicteric sclerae ENMT: external ear and nose normal, oropharynx normal Neck: trachea midline, no thyromegaly Respiratory: normal respiratory effort, lungs clear to auscultation Cardiovascular: RRR, no murmur, no edema Gastrointestinal (Abdomen): normal bowel sounds, soft, nontender, no hepatosplenomegaly Musculoskeletal: no cyanosis or clubbing, extremities motor strength 5/5 Skin: no rashes, warm and dry Neurologic: patellar DTR's 2+ bilat, sensation intact and PERRL, EOMI, accommodation nl, no face palsy, no dysarthria Psychiatric: A+Ox3, euthymic affect Lymphatic: no cervical or axillary lymphadenopathy Results & Data Results & Data ([facility]) Vital Signs (Past 12 Hours) Vital Signs Temp Pulse Resp BP BP Pulse Ox 01/15/20 07:34 36.8 C 84 18 138/64 93 01/15/20 02:28 37.1 C 73 18 145/59 H 91 Laboratory Results Laboratory Results - last 24 hr 01/13/20 01/14/20 01/14/20 21:52 16:48 20:23 POC Glucose 146 H 154 H 167 H 01/15/20 01/15/20 07:28 11:40 POC Glucose 131 H 181 H Medications Administered Current Inpatient Medications Acetaminophen (Tylenol) 650 mg PO Q4H PRN PRN Reason: pain/fever Stop: 02/09/20 23:46 Last Admin: 01/14/20 01:47 Dose: 650 mg Documented by: Albuterol (Ventolin Hfa) 2 puffs INH Q6R PRN PRN Reason: Dyspnea Stop: 02/11/20 13:14 Aspirin (Ecotrin Ectab) 81 mg PO QAM@0800 [facility] Stop: 02/11/20 07:59 Last Admin: 01/15/20 08:13 Dose: 81 mg Documented by: Atorvastatin Calcium (Lipitor) 20 mg PO HS@1999 [facility] Stop: 02/10/20 19:59 Last Admin: 01/14/20 20:35 Dose: 20 mg Documented by: Dextrose (Dextrose 50%) 25 - 50 ml IV UD PRN; Protocol PRN Reason: Hypoglycemia Protocol Stop: 02/09/20 23:46 Glucagon (Glucagen) 1 mg SQ UD PRN; Protocol PRN Reason: Hypoglycemia Protocol Stop: 02/09/20 23:46 Glucose (Dex4 Glucose) 4 - 8 tabs PO UD PRN; Protocol PRN Reason: Hypoglycemia Protocol Stop: 02/09/20 23:46 Glucose (Glucose 40%) 15 - 30 gm PO UD PRN; Protocol PRN Reason: Hypoglycemia Protocol Stop: 02/09/20 23:46 Guaifenesin (Mucinex) 1,200 mg PO Q12@799,1999 [facility] Stop: 02/11/20 13:44 Last Admin: 01/15/20 08:21 Dose: Not Given Documented by: Ceftriaxone Sodium 2,000 mg/ (Dextrose) 70 mls @ 100 mls/hr IV Q24H [facility]; Protocol Stop: 01/16/20 00:00 Last Infusion: 01/15/20 03:04 Dose: Infused Documented by: Doxycycline Hyclate 100 mg/ (Dextrose) 110 mls @ 50 mls/hr IV Q12H [facility] Stop: 01/18/20 08:59 Last Infusion: 01/15/20 09:30 Dose: Infused Documented by: Insulin Aspart (Novolog Flexpen) 0 units SC ACHS [facility] Stop: 02/10/20 00:00 Last Admin: 01/15/20 11:45 Dose: 5 units Documented by: Insulin Glargine (Lantus Solostar Pen) 10 units SC BID@ [facility] Stop: 02/11/20 19:59 Last Admin: 01/15/20 08:16 Dose: 10 units Documented by: Levothyroxine Sodium (Synthroid) 75 mcg PO DAILYBB [facility] Stop: 02/10/20 06:29 Last Admin: 01/15/20 06:06 Dose: 75 mcg Documented by: Lisinopril (Zestril) 2.5 mg PO QAM@08 [facility] Stop: 02/12/20 07:59 Last Admin: 01/15/20 08:14 Dose: 2.5 mg Documented by: Metoprolol Succinate (Toprol Xl) 100 mg PO BID@799,1999 [facility] Stop: 02/10/20 19:59 Last Admin: 01/15/20 08:14 Dose: 100 mg Documented by: Miscellaneous (Carbohydrates For Hypoglycemia) 15 - 30 gm PO UD PRN PRN Reason: Hypoglycemia Protocol Stop: 02/09/20 23:46 Ondansetron HCl (Zofran) 4 mg IV Q6H PRN PRN Reason: Nausea Stop: 02/09/20 23:46 Pantoprazole Sodium (Protonix) 40 mg PO QPM@1999 [facility] Stop: 02/10/20 19:59 Last Admin: 01/14/20 20:34 Dose: 40 mg Documented by: Senna/Docusate Sodium (Senokot S) 1 tab PO BID PRN PRN Reason: constipation Stop: 02/09/20 23:46 Tramadol HCl (Ultram) 50 mg PO QAM@0800 [facility] Stop: 02/11/20 07:59 Last Admin: 01/15/20 08:20 Dose: 50 mg Documented by: PG Care Time/CCT Total # of Minutes Spent Total Time Spent with Patient: Total time spent is greater than 50% in coordination of care (as documented) at patient's floor/unit and/or counseling patient: Coding Level of Care Code 07155 Subseq Hosp Care Lvl 3 Diagnoses COVID-19 U07.1 Pneumonia J18.9 Pneumonia type: due to unspecified organism Laterality: bilateral Lung location: unspecified part of lung UTI (urinary tract infection) N39.0; R31.9 Hematuria presence: with hematuria Urinary tract infection type: site unspecified Weakness R53.1 Acidosis, lactic E87.2 BONIFACIO (acute kidney injury) N17.9 Hypercholesterolemia E78.00 Diabetes mellitus type 2, uncontrolled E11.65 Glycemic state: with hyperglycemia Hypothyroid E03.9 Hypothyroidism type: unspecified GERD (gastroesophageal reflux disease) K21.9 Esophagitis presence: esophagitis presence not specified HTN (hypertension) I10 Hypertension type: essential hypertension A-fib I48.91 Atrial fibrillation type: unspecified Morbid obesity E66.01 DVT prophylaxis Z29.9 (1) Pneumonia Pneumonia type: due to unspecified organism Laterality: bilateral Lung location: unspecified part of lung Qualified Code(s): J18.9 - Pneumonia, uns pecified organism (2) UTI (urinary tract infection) Hematuria presence: with hematuria Urinary tract infection type: site unspecified Qualified Code(s): N39.0 - Urinary tract infection, site not specified; R31.9 - Hematuria, unspecified (3) Diabetes mellitus type 2, uncontrolled Glycemic state: with hyperglycemia Qualified Code(s): E11.65 - Type 2 diabetes mellitus with hyperglycemia (4) Hypothyroid Hypothyroidism type: unspecified Qualified Code(s): E03.9 - Hypothyroidism, unspecified (5) GERD (gastroesophageal reflux disease) Esophagitis presence: esophagitis presence not specified Qualified Code(s): K21.9 - Gastro-esophageal reflux disease without esophagitis (6) HTN (hypertension) Hypertension type: essential hypertension Qualified Code(s): I10 - Essential (primary) hypertension (7) A-fib Atrial fibrillation type: unspecified Qualified Code(s): I48.91 - Unspecified atrial fibrillation
[2020-01-15] MEDS: ATORVASTATIN 20 MG TAB PO SCH (20:59)
[2020-01-15] MEDS: PANTOprazole 40 MG TAB PO SCH (21:00)
[2020-01-16] MEDS: cefTRIAXone SODIUM 2,000 MG in DEXTROSE 5% 50 ML IV SCH (00:43)
[2020-01-16 05:55] LABS: Hematocrit (blood only) 33.8 % (37-47); Hemoglobin 10.9 g/dL (12.0-16.0); Mean Corpuscular Hemoglobin 26.8 pg (25-34); Mean Corpuscular Hgb Conc 32.2 g/dL (32-36); Mean Platelet Volume 9.9 fL (7.4-10.4); Platelet Count 274 K/uL (130-400); RDW Coefficient of Variation 16.1 % (11.5-14.5); RDW Standard Deviation 48.9 fL (36.4-46.3); Red Blood Count 4.07 M/uL (4.2-5.4); White Blood Count 4.45 K/uL (4.8-10.8)
[2020-01-16 06:09] LABS: INR 1.8 (0.9-1.1); Prothrombin Time 18.3 Seconds (9.0-12.0)
[2020-01-16 06:19] LABS: BUN Creatinine Ratio 14.4 (10-20); Calcium 8.7 mg/dl (8.5-10.1); Creatinine Clr Calc Pharmacy 78.1 ml/min; Est GFR (African American) 77.1; Est GFR (Non-African American) 66.6; Potassium 3.3 mmol/L (3.5-5.1)
[2020-01-16 06:23] LABS: Basophils # (auto) 0.06 K/uL (0-0.2); Basophils % (auto) 1.3 %; Echinocytes 1+; Eosinophils # (auto) 0.26 K/uL (0-0.5); Eosinophils % (auto) 5.8 %; Immature Granulocytes # (auto) 0.03 K/uL (0.00-0.02); Immature Granulocytes % (auto) 0.7 %; Lymphocytes # (auto) 1.61 K/uL (1.2-3.4); Lymphocytes % (auto) 36.2 %; Monocytes # (auto) 0.63 K/uL (0.11-0.59); Monocytes % (auto) 14.2 %; Neutrophils # (auto) 1.86 K/uL (1.4-6.5); Neutrophils % (auto) 41.8 %
[2020-01-16] MEDS: LEVOTHYROXINE SODIUM 75 MCG TABLET PO SCH (06:45)
[2020-01-16] MEDS: ASPIRIN 81 MG ECTAB PO SCH (08:23)
[2020-01-16] MEDS: TRAMADOL HCL 50 MG TABLET PO SCH (08:23)
[2020-01-16] MEDS: METOPROLOL SUCC 50MG EXT REL TAB PO SCH ×2 (08:24→20:48)
[2020-01-16] MEDS: guaiFENesin 600 MG TABCR PO SCH (08:24)
[2020-01-16] MEDS: INSULIN ASPART 100 UNITS/ML 3 ML PEN SC SCH ×4 (08:26→20:48)
[2020-01-16] MEDS: INSULIN GLARGINE SOLOSTAR 100 UNITS/ML 3 ML PEN SC SCH ×2 (08:26→20:47)
[2020-01-16] MEDS: DOXYCYCLINE HYCLATE 100 MG in DEXTROSE 5% 100 ML IV SCH ×2 (08:29→20:43)
--- NOTE | 2020-01-16 11:19 | Hospitalist Progress Note ---
Date of Service January 16, 2020 Assessment & Plan (1) COVID-19: Likely in latter half or third of illness (according to patient & son she has been ill at least 2 weeks, perhaps longer). no fever now for >36 hours Suspect that patient may have gotten this from her daughter who just exited [facility]. Daughter also had been in care home prior to the rehab stay. Needs PT/OT due to severe deconditioning patient is improving every day she lives alone in trailer, little ability for family to help feel like she will be safe by Tuesday 01/16 too good for rehab patient refuses to consider home health, home PT, very private son is hesitant to take her home at this time, he is being tested for COVID 19 and his daughter is plan for wheelchair van transport on 01/16, son said they can pay for it - Stable today. Still plans to go home tomorrow. Coughing with thick sputum, but no shortness of breath. (2) Pneumonia: Extensive patchy central and peripheral ground-glass infiltrates with scattered solid consolidation at the bases as seen on CT. bacterial and/or viral, present on arrival Reasonable to cont rocephin/doxy for now. complete 5-7 days today is day 6, so last day would be 01/16 when she gets discharged no fever for 36 hours Albuterol PRN (3) UTI (urinary tract infection): 2nd klebsiella. Rocephin will cover. Blood cx's remain negative. treat for 7 days, today is day 6 (4) Weakness: 2nd to COVID-19 +/- UTI. PT/OT. Supportive care. should be strong enough to go home on Tuesday 01/16, patient is now more motivated. Still denying any interest in home PT/OT. (5) Acidosis, lactic: resolved (6) BONIFACIO (acute kidney injury): 2nd to COVID-19 infection and dehydration - resolved. BMP today acceptable with Cr at 0.87. Back on MADYSON inhibitor -> BP better controlled at 125/65. (7) Hypercholesterolemia: Continue Atorvastatin CPK and AST/ALT noted to be normal (8) Diabetes mellitus type 2, uncontrolled: continue lantus 10 units BID and tighten novolog correction. sugars < 200 in midst of COVID-19 tight control is needed to optimize her recovery and outcome. - Sugars have been 130-190 in the last 24 hours. (9) Hypothyroid: TSH 2.8 this admission Continue Synthroid 75mcg daily (10) GERD (gastroesophageal reflux disease): continue protonix (11) HTN (hypertension): BP in much better control in the last 24 hours. - Cont BB & ACEi (12) A-fib: INR is 1.8 today. Will restart warfarin. a.fib rates controlled with beta sebastian (13) Morbid obesity: BMI ~40 (14) DVT prophylaxis: coumadin needs PT, OT progressing more each day Admission and Anticipated Discharge Date Admission Date: January 11, 2020 Subjective Thick sputum production today. Refusing her Mucinex. Reports no fevers/chills, chest pain, shortness of breath, abdominal pain, nausea, or vomiting. Physical Exam Constitutional: WD/WN, vitals as above Eyes: EOM intact bilaterally; no conjunctival abnormality ENMT: external ear and nose normal, oropharynx normal Neck: trachea midline, no thyromegaly normal visual inspection Respiratory: normal respiratory effort, lungs clear to auscultation no respiratory distress Cardiovascular: RRR, no murmur, no edema Gastrointestinal (Abdomen): Inspection/Auscultation: abdomen normal to inspection; abdomen not distended Musculoskeletal: no cyanosis or clubbing, extremities motor strength 5/5 Skin: no rashes, warm and dry Neurologic: moves all extremities and awake Psychiatric: Orientation: alert, oriented to person and cooperative Results & Data Results & Data ([facility]) Vital Signs (Past 12 Hours) Vital Signs Temp Pulse Pulse Resp BP BP Pulse Ox 01/16/20 08:14 36.9 C 68 16 126/64 126/64 91 01/16/20 00:44 37.0 C 63 18 131/54 L 93 PG Care Time/CCT Total # of Minutes Spent Total Time Spent with Patient: Total time spent is greater than 50% in coordination of care (as documented) at patient's floor/unit and/or counseling patient: Coding Level of Care Code 48815 Subseq Hosp Care Lvl 3 Diagnoses COVID-19 U07.1 Pneumonia J18.9 Pneumonia type: due to unspecified organism Laterality: bilateral Lung location: unspecified part of lung UTI (urinary tract infection) N39.0; R31.9 Hematuria presence: with hematuria Urinary tract infection type: site unspecified Weakness R53.1 Acidosis, lactic E87.2 BONIFACIO (acute kidney injury) N17.9 Hypercholesterolemia E78.00 Diabetes mellitus type 2, uncontrolled E11.65 Glycemic state: with hyperglycemia Hypothyroid E03.9 Hypothyroidism type: unspecified GERD (gastroesophageal reflux disease) K21.9 Esophagitis presence: esophagitis presence not specified HTN (hypertension) I10 Hypertension type: essential hypertension A-fib I48.91 Atrial fibrillation type: unspecified Morbid obesity E66.01 DVT prophylaxis Z29.9 (1) Pneumonia Pneumonia type: due to unspecified organism Laterality: bilateral Lung location: unspecified part of lung Qualified Code(s): J18.9 - Pneumonia, unspecified organism (2) UTI (urinary tract infection) Hematuria presence: with hematuria Urinary tract infection type: site unspecified Qualified Code(s): N39.0 - Urinary tract infection, site not specified; R31.9 - Hematuria, unspecified (3) Diabetes mellitus type 2, uncontrolled Glycemic state: with hyperglycemia Qualified Code(s): E11.65 - Type 2 diabetes mellitus with hyperglycemia (4) Hypothyroid Hypothyroidism type: unspecified Qualified Code(s): E03.9 - Hypothyroidism, unspecified (5) GERD (gastroesophageal reflux disease) Esophagitis presence: esophagitis presence not specified Qualified Code(s): K21.9 - Gastro-esophageal reflux disease without esophagitis (6) HTN (hypertension) Hypertension type: essential hypertension Qualified Code(s): I10 - Essential (primary) hypertension (7) A-fib Atrial fibrillation type: unspecified Qualified Code(s): I48.91 - Unspecified atrial fibrillation
[2020-01-16] MEDS: WARFARIN SOD 2 MG TAB PO SCH (16:32)
[2020-01-16] MEDS: POTASSIUM CHLORIDE 20 MEQ TABCR PO SCH ×2 (16:33→20:48)
[2020-01-16] MEDS: PANTOprazole 40 MG TAB PO SCH (20:48)
[2020-01-16] MEDS: ATORVASTATIN 20 MG TAB PO SCH (20:49)
[2020-01-17] MEDS ORDERED: cefTRIAXone SODIUM 2,000 MG in DEXTROSE 5% 50 ML IV SCH (03:00)
[2020-01-17] MEDS: LEVOTHYROXINE SODIUM 75 MCG TABLET PO SCH (06:03)
[2020-01-17 07:20] LABS: INR 1.6 (0.9-1.1); Prothrombin Time 16.5 Seconds (9.0-12.0)
[2020-01-17 07:50] LABS: BUN Creatinine Ratio 11.6 (10-20); Calcium 9.1 mg/dl (8.5-10.1); Creatinine Clr Calc Pharmacy 70.8 ml/min; Est GFR (African American) 68.5; Est GFR (Non-African American) 59.1; Potassium 3.7 mmol/L (3.5-5.1)
[2020-01-17] MEDS: TRAMADOL HCL 50 MG TABLET PO SCH (08:31)
[2020-01-17] MEDS: DOXYCYCLINE HYCLATE 100 MG in DEXTROSE 5% 100 ML IV SCH (08:32)
[2020-01-17] MEDS: METOPROLOL SUCC 50MG EXT REL TAB PO SCH (08:34)
[2020-01-17] MEDS: ASPIRIN 81 MG ECTAB PO SCH (08:34)
[2020-01-17] MEDS: INSULIN ASPART 100 UNITS/ML 3 ML PEN SC SCH ×2 (08:34→12:02)
[2020-01-17] MEDS: INSULIN GLARGINE SOLOSTAR 100 UNITS/ML 3 ML PEN SC SCH (08:34)
--- NOTE | 2020-01-17 14:29 | Discharge Summary ---
Date of Service January 17, 2020 Admission HPI Per Admitting Provider Violeta Hernandez is a 74yo C female presenting with 2-3 weeks of feeling ill. She states that for the last 2-3 weeks she has been extremely weak and nearly bed ridden. She has had poor appetite with decreased PO intake, occasional nausea, dizziness and blurry vision with positional changes. She reports occasional chills but no true fever. She had a cough productive for yellow phlegm, possibly some blood which has since resolved. She denies chest pain, shortness of breath. No cough at present. No fever. No sick contacts or contact with known covid-19 + persons. She reports staying mostly at home, however, states that she has been driving to [place] recently to try to bring clothes to her daughter who is in rehab. She reports driving to [place] on 4 separate occasions and the rehab not willing to take her clothes. She became quite frustrated during this experience and ultimately told them that she was going to drive her car through the lobby and dump the clothes out. I was unable to speak directly to the son to corroborate this story (Gilberto Hernandez at [phone], left message on 01/10/20) however, ER staff spoke with him and he stated that the patient has not travelled anywhere. No concern for SARS-CoV-2 at this time. ER Course: Cefepime x 2gm, NSS x 1500mL Principal Diagnosis COVID 19 infection Discharge Exam Constitutional well developed, comfortable and + overweight; no acute distress Eyes PERRL, conjunctivae normal, anicteric sclerae ENMT external ear and nose normal, oropharynx normal Neck trachea midline, no thyromegaly Respiratory normal respiratory effort, lungs clear to auscultation Auscultation: + diminished lung sounds (bases) Cardiovascular RRR, no murmur, no edema Gastrointestinal (Abdomen) normal bowel sounds, soft, nontender, no hepatosplenomegaly Musculoskeletal no cyanosis or clubbing, extremities motor strength 5/5 Skin no rashes, warm and dry Neurologic patellar DTR's 2+ bilat, sensation intact and PERRL, EOMI, accommodation nl, no face palsy, no dysarthria Psychiatric A+Ox3, euthymic affect Lymphatic no cervical or axillary lymphadenopathy Discharge Data Allergies Allergy/AdvReac Type Severity Reaction Status Date / Time milk AdvReac Mild Diarrhea Verified 01/10/20 22:20 Consultations 01/10/20 22:09 ED Decision to Admit Stat 01/11/20 15:16 Consult Case Management - Discharge Planning Routine Ordered Studies 01/10/20 23:47 CT abd pelvis wo con Routine Hospital Course (1) COVID-19: Likely in latter half or third of illness (according to patient & son she has been ill at least 2 weeks, perhaps longer). no fever now for 4 days Suspect that patient may have gotten this from her daughter who just exited rehab. Daughter also had been in [facility] prior to the rehab stay. Needs PT/OT due to severe deconditioning patient is improving every day she lives alone in trailer, little ability for family to help feel like she will be safe by Tuesday 01/16 too good for rehab patient refuses to consider home health, home PT, very private she was able to walk 60 feet with her cane prior to discharge, she feels safe to go home and is excited to leave the hospital son is hesitant to take her home at this time, he is being tested for COVID 19 and his daughter is plan for wheelchair van transport on 01/16, son said they can pay for it CM will arrange for transport (2) Pneumonia: Extensive patchy central and peripheral ground-glass infiltrates with scattered solid consolidation at the bases as seen on CT. bacterial and/or viral, present on arrival Reasonable to cont rocephin/doxy for now. today is day 7, no further treatment needed no fever for 4 days Albuterol PRN (3) UTI (urinary tract infection): 2nd klebsiella. Rocephin will cover. Blood cx's remain negative. treat for 7 days (4) Weakness: 2nd to COVID-19 +/- UTI. PT/OT. Supportive care. got a lot stronger over the past few days, able to walk 60 feet with a cane prior to discharge lives on one story in her home, just has steps to go up to enter the home but wheelchair van transport should be able to get her up into the house (5) Acidosis, lactic: resolved (6) BONIFACIO (acute kidney injury): 2nd to COVID-19 infection and dehydration - resolved. BMP today acceptable with Cr at 0.87. Back on MADYSON inhibitor -> BP better controlled (7) Hypercholesterolemia: Continue Atorvastatin CPK and AST/ALT noted to be normal (8) Diabetes mellitus type 2, uncontrolled: continue lantus 10 units BID and tighten novolog correction. sugars < 200 in midst of COVID-19 tight control is needed to optimize her recovery and outcome. - Sugars have been well controlled resume Glimepiride and Metformin on discharge (9) Hypothyroid: TSH 2.8 this admission Continue Synthroid 75mcg daily (10) GERD (gastroesophageal reflux disease): continue protonix (11) HTN (hypertension): BP in much better control in the last 24 hours. - Cont BB & ACEi (12) A-fib: INR is 1.6 today, was supratherapeutic earlier in stay resume home regimen of Coumadin 4mg and 2mg a.fib rates controlled with beta sebastian (13) Morbid obesity: BMI ~40 (14) DVT prophylaxis: coumadin needs PT, OT progressing more each day d/c home Total Time Total Time Spent Total Time Spent (In Minutes): 35 minutes Total Time Includes: Examination of the Patient, Discharge Planning, Medication Reconciliation and Communication With Other Providers Discharge Plan Discharge Items Patient Disposition: Home - Self-Care Reason For Visit: WEAKNESS Discharge Diagnosis: COVID 19 infection Pneumonia UTI Deconditioning and weakness Acute kidney injury / dehydration Condition on Discharge: Good Goals: improve strength and mobility improve hydration and nutrition Activity: Resume your previous activity Weightbearing: Full weightbearing Non-emergency contact: Primary Care Provider Call non-emergency contact if: you have any medication questions, your symptoms worsen and you have a fever Follow-up/Referrals: Oni Anderson MD [Primary Care Provider] - Diet: Carb Consistent or DM2 and Heart Healthy Addtl Attending Provider Instructions: Medications: no changes, resume all of your prior medications COVID 19, possible secondary bacterial pneumonia, UTI recovering well from COVID 19 infection, it likely has run it's course as you have not had a fever for 4 days you should gradually regain your strength and mobility continue to get rest, stay well hydrated, well nourished but make sure you are walking several times a day around your house to keep your legs strong you completed a full course of antibiotics to treat bacterial pneumonia and UTI, no further treatment needed you should continue to self isolate for another week it is safe for family to assist you briefly at times as long as you wear a mask and they wear a mask and be sure that they wash their hands no need for in-person follow up with Dr. Anderson, recommend that you call his office to arrange for a phone call follow up Pending Studies at Discharge: No Stand-Alone Forms: My [facility], Smoking Cessation Medications and DC Order Prescriptions: Continued metformin 1,000 mg tablet 1,000 mg PO BID Qty: 180 RF: 3 sennosides-docusate sodium 8.6-50 mg tablet 1 tab PO BID Qty: 60 RF: 5 atorvastatin 20 mg tablet 20 mg PO HS Qty: 90 RF: 1 tramadol 50 mg tablet 50 mg PO QAM Qty: 90 RF: 1 glimepiride 2 mg tablet See Rx Instructions PO BID Qty: 270 RF: 3 celecoxib [Celebrex] 200 mg capsule 200 mg PO QAM Qty: 30 RF: 5 lisinopril 2.5 mg tablet 2.5 mg PO HS Qty: 30 RF: 5 metoprolol succinate 100 mg tablet extended release 24 hr 100 mg PO BID Qty: 180 RF: 3 levothyroxine 75 mcg tablet 75 mcg PO QAM Qty: 30 RF: 5 lysine 500 mg tablet 500 mg PO QAM PRN (Reason: Cold Sore(s)) RF: 0 nystatin 100,000 unit/gram powder 1 appln topical Q8H PRN (Reason: Skin Irritation) Qty: 1 RF: 0 clobetasol 0.05 % cream 1 appln topical BID PRN (Reason: Rash) Qty: 1 RF: 0 Centrum Silver 0.4-300-250 mg-mcg-mcg Tablet 1 tab PO QAM RF: 0 aspirin 81 mg Tablet,Delayed Release (Dr/Ec) 81 mg PO QAM RF: 0 lutein-zeaxanthin 20 mg- 1,000 mcg Capsule 1 cap PO QAM RF: 0 cholecalciferol (vitamin D3) 1,000 unit capsule 1,000 units PO QAM RF: 0 warfarin 4 mg tablet 4 mg PO 5XWK RF: 0 warfarin 2 mg tablet 2 mg PO 2XWK RF: 0 omeprazole 20 mg capsule,delayed release(DR/EC) 20 mg PO QPM RF: 0 Discharge Orders: Discharge Order (Routine); Ordered 01/17/20 Ordered By: Rafal Ocampo/Other Patient Handouts: Diabetes Type 2 Managing, Blood Sugar Check, Diabetes Body Care, Fatigue Manage, Cane Use, Falls Prevent Exercise, Diabetes Carbs Fats Protein, Nutrition Facts Labels and Diabetes Admission Data Admit Date/Time: 01/11/20 17:11 Attending Provider: Rafal Joshi Admit Provider: Honey Florez Primary Care Provider: Oni Anderson Other Providers: Isrrael Devlin Coding Level of Care Code D/C Day Management >30 mins Diagnoses COVID-19 U07.1 Pneumonia J18.9 Pneumonia type: due to unspecified organism Laterality: bilateral Lung location: unspecified part of lung UTI (urinary tract infection) N39.0; R31.9 Hematuria presence: with hematuria Urinary tract infection type: site unspecified Weakness R53.1 Acidosis, lactic E87.2 BONIFACIO (acute kidney injury) N17.9 Hypercholesterolemia E78.00 Diabetes mellitus type 2, uncontrolled E11.65 Glycemic state: with hyperglycemia Hypothyroid E03.9 Hypothyroidism type: unspecified GERD (gastroesophageal reflux disease) K21.9 Esophagitis presence: esophagitis presence not specified HTN (hypertension) I10 Hypertension type: essential hypertension A-fib I48.91 Atrial fibrillation type: unspecified Morbid obesity E66.01 DVT prophylaxis Z29.9
[2020-01-17] MEDS: WARFARIN SOD 2 MG TAB PO SCH (16:53)
== END 2020-01-17 17:01 | disposition home or self-care (01) | DRG 193 ==
LOC: ED 20:33 → 3E 20:33 → SUATTDRO 22:51 → 3E 23:32 → 2S 01-11 10:51 → 2E 01-11 14:16 → SUATTDRO 01-11 17:11

== ENCOUNTER 2020-11-01 16:41 | Observation (INO) ==
[2020-11-01] MEDS ORDERED: HYDROmorphone INJ 0.5 MG/0.5 ML SYR IV STA (17:22)
[2020-11-01] MEDS ORDERED: ONDANSETRON INJ 2 MG/ML 2 ML VIAL IV STA (17:22)
[2020-11-01] MEDS ORDERED: SODIUM CHLORIDE 0.9% 1000ML 1,000 ML IV SCH (17:30)
--- NOTE | 2020-11-01 18:24 | XRay Report ---
XR shoulder LT min 2V routine CLINICAL HISTORY: trauma COMPARISON: None FINDINGS: Note is made of an acute displaced comminuted left humeral neck fracture which extends int o the humeral head. Fracture is displaced 1.1 cm. Alignment of the left glenohumeral and acromioclavi cular joints is anatomic. IMPRESSION: Acute displaced comminuted left humeral neck fracture which extends into the humeral head . ACT 112: Negative or not required by law. Electronically signed by: Moisés Mejía M.D. 11/01/2020 6:23 PM
--- NOTE | 2020-11-01 18:25 | XRay Report ---
XR chest 1V portable CLINICAL HISTORY: trauma COMPARISON STUDY: Chest radiograph January 10, 2020. FINDINGS: An acute left humeral neck fracture is better depicted on the left shoulder radiographs. Ca rdiomegaly is unchanged. There is no pneumothorax or pleural effusion. There is no evidence for pulmo nary edema. IMPRESSION: 1. Acute left humeral neck fracture better depicted on the left shoulder radiographs. 2. Cardiomegaly. No acute cardiopulmonary findings. ACT 112: Negative or not required by law. Electronically signed by: Moisés Mejía M.D. 11/01/2020 6:24 PM
--- NOTE | 2020-11-01 18:51 | CT Scan Report ---
CT OF THE HEAD WITHOUT CONTRAST CLINICAL HISTORY: trauma, warfarin COMPARISON STUDY: Head CT September 20, 2018. TECHNIQUE: Helical axial images of the head were obtained without IV contrast. Automated exposure con trol was utilized for the study. A dose lowering technique was utilized adhering to the principles o f ALARA. FINDINGS: No acute intracranial hemorrhage, midline shift or mass effect is present. The ventricular system is unremarkable. The basal cisterns are patent. No extra-axial collections are present. There are no findings to suggest acute dural sinus thrombosis or acute territorial infarct. No significant calvarial abnormalities are present. Visualized portions of the sinuses and mastoid air cells are chin ar. IMPRESSION: 1. No acute intracranial findings. No change in appearance of the brain. 2. No calvarial fracture. ACT 112: Negative or not required by law. Electronically signed by: Moisés Mejía M.D. 11/01/2020 6:50 PM
--- NOTE | 2020-11-01 19:00 | CT Scan Report ---
CT OF THE CERVICAL SPINE WITHOUT CONTRAST CLINICAL HISTORY: trauma COMPARISON STUDY: No previous studies for comparison. TECHNIQUE: Helical axial images of the cervical spine were obtained without IV contrast. Sagittal a nd coronal reconstructions were viewed. Automated exposure control was utilized for the study. A do se lowering technique was utilized adhering to the principles of ALARA. FINDINGS: Alignment of the cervical spine is anatomic. Vertebral body heights are maintained. No acut e cervical spine fracture or subluxation is present. There is no prevertebral edema. Facet joints are intact. There is moderate to severe disc space narrowing at C5-C6. Moderate multilevel facet arthros is is present. An acute displaced left humeral neck fracture is shown on the folder operator tomogram. This is better depicted on the left shoulder radiographs. IMPRESSION: No acute cervical spine fracture or subluxation. ACT 112: Negative or not required by law. Electronically signed by: Moisés Mejía M.D. 11/01/2020 6:59 PM
[2020-11-01 20:04] LABS: Appearance Urine Clear (Clear); Bilirubin Urine Negative (Negative); Blood Urine Negative (Negative); Color Urine Yellow; Glucose Urine UA Negative (Negative); Ketones Urine Trace (Negative); Leukocyte Esterase Urine Negative (Negative); Nitrite Urine Negative (Negative); Protein Urine Negative (Negative); Urobilinogen Urine Negative (Negative); pH Urine 6.5 (4.5-7.5)
[2020-11-01 20:38] LABS: Basophils # (auto) 0.02 K/uL (0-0.2); Basophils % (auto) 0.2 %; Eosinophils # (auto) 0.06 K/uL (0-0.5); Eosinophils % (auto) 0.6 %; Hemoglobin 10.3 g/dL (12.0-16.0); Immature Granulocytes # (auto) 0.02 K/uL (0.00-0.02); Immature Granulocytes % (auto) 0.2 %; Lymphocytes % (auto) 12.7 %; Mean Corpuscular Hemoglobin 28.9 pg (25-34); Mean Corpuscular Hgb Conc 33.2 g/dL (32-36); Mean Corpuscular Volume 86.8 fL (80-100); Mean Platelet Volume 9.5 fL (7.4-10.4); Monocytes # (auto) 0.63 K/uL (0.11-0.59); Monocytes % (auto) 6.7 %; Neutrophils # (auto) 7.52 K/uL (1.4-6.5); Neutrophils % (auto) 79.6 %; Platelet Count 216 K/uL (130-400); RDW Coefficient of Variation 14.5 % (11.5-14.5); RDW Standard Deviation 46.7 fL (36.4-46.3); Red Blood Count 3.57 M/uL (4.2-5.4); White Blood Count 9.45 K/uL (4.8-10.8)
[2020-11-01 20:48] LABS: INR 2.3 (0.9-1.1); Partial Thromboplastin Ratio 1.4; Partial Thromboplastin Time 36.6 Seconds (21.0-31.0); Prothrombin Time 22.2 Seconds (9.0-12.0)
[2020-11-01 20:59] LABS: Albumin Globulin Ratio 0.8 (0.9-2); Albumin Level 3.1 gm/dl (3.4-5.0); BUN Creatinine Ratio 17.1 (10-20); Bilirubin,Total 0.6 mg/dl (0.2-1); Calcium 9.5 mg/dl (8.5-10.1); Creatinine Clr Calc Pharmacy 62.6 ml/min; Est GFR (African American) 59.6; Est GFR (Non-African American) 51.5; Globulin 3.8 gm/dl (2.5-4.0); Total Protein 6.9 gm/dl (6.4-8.2)
[2020-11-01 21:41] LABS: Potassium 4.4 mmol/L (3.5-5.1)
--- NOTE | 2020-11-01 21:45 | History & Physical Report ---
Date of Service November 01, 2020 Assessment & Plan (1) Fracture, humerus, neck: Displaced comminuted left humeral neck fracture - Currently splinted with ICE and comfortable - No NV or CV compromise, no hematoma- - Ortho consult for evaluation - INR 2.3- bridge therapy if needed for OR. Restart Warfarin or change agents after evaluation. - PT/OT consult Osteopenia (2) A-fib: CHADVASC2 4 - Rate controlled on Metoprolol - Patient voices difficulty getting to Coumadin clinic and lab following - Discuss if appropriate changing to DOAC (3) Anticoagulated on warfarin: As above- social and physical challenges may be inhibiting accurate and frequent monitoring. - Assess and adjust therapy after discussion with patient - Coumadin on hold until morning after evaluation by ortho- will restart or bridge therapy as soon as possible. (4) HTN (hypertension): Well controlled - No acute needs ASA for primary prevention- restart in morning if no hematoma and no surgical intervention (5) HLD (hyperlipidemia): Atorvastatin 20 Lipid panel pending- adjust dose if needed to high dose therapy (6) Physical deconditioning: PT/OT consult- Patient feels she is doing better but still weak and tired. - Has refused Home health PT in the past (7) Urinary incontinence: Chronic incontinence - Nystatin powder as needed continued - Keep skin dry, optimize nutrition, offload patient from bony prominences q2 hours to protect skin (8) Diabetes mellitus: Insulin sliding scale while in house - Pharmacy consult for management for 24-48 hours History of Present Illness Primary Care Provider: Michael Anderson MD 75 YOF with past medical history of: obesity, DM II, AFIB, HTN, HLD, warfarin anticoagulation, weakness, urinary incontinence, GERD, COVID 19. Patient came to the emergency room today via EMS after falling at home. Patient was at home, when the power went out. She was attempting to go downstairs in the dark and felt she would have enough light to see. She miscounted the steps, missing the last step and fell to the ground striking her shoulder on the concrete and bumping the left side of her head on a table that was on the ground. She was able to call her son to come help her. The patient denies any other pain out of the ordinary to her at this time. In the ER the patient had CT scan of head and neck performed, Shoulder Xray, received 1 liter of 0.9% saline, 0.5 mg hydromorphone and 4 mg zofran and her shoulder/arm are splinted. Patient will be admitted for pain control, PT/OT evaluation, Ortho consult, and monitoring of her INR. Allergies Allergy/AdvReac Type Severity Reaction Status Date / Time milk AdvReac Mild Diarrhea Verified 11/01/20 17:47 bagel Allergy red, itchy Uncoded 11/01/20 17:48 skin Home Medications Medication Instructions Recorded Confirmed Type Centrum Silver 1 tab PO QAM 09/20/18 11/01/20 History lysine 500 mg tablet 500 mg PO QAM PRN 04/03/19 11/01/20 History clobetasol 0.05 % topical cream 1 appln TOPICAL BID PRN #1 gm 04/05/19 11/01/20 History nystatin 100,000 unit/gram topical 1 appln TOPICAL Q8H PRN #1 gm 04/05/19 11/01/20 History powder aspirin 81 mg PO QAM 07/02/19 11/01/20 History lutein-zeaxanthin 1 cap PO QAM 07/02/19 11/01/20 History glimepiride 2 mg tablet See Rx Instructions PO BID #270 tab 10/09/19 11/01/20 Rx levothyroxine 75 mcg tablet 75 mcg PO QAM #30 tab 03/16/20 11/01/20 Rx metoprolol succinate 100 mg 100 mg PO BID #180 tab 03/16/20 11/01/20 Rx tablet,extended release 24 hr warfarin 4 mg tablet 4 mg PO 5XWK #240 tab 04/08/20 11/01/20 Rx atorvastatin 20 mg tablet 20 mg PO HS #90 tab 07/02/20 11/01/20 Rx sennosides 8.6 mg-docusate sodium 1 tab PO BID #60 tab 08/03/20 11/01/20 Rx 50 mg tablet metformin 1,000 mg tablet 1,000 mg PO BID #180 tab 08/18/20 11/01/20 Rx lisinopril 2.5 mg tablet 2.5 mg PO HS #30 tab 09/21/20 11/01/20 Rx omeprazole 20 mg capsule,delayed 20 mg PO QPM #30 cap 09/24/20 11/01/20 Rx release tramadol 50 mg tablet 50 mg PO QAM #90 tab 09/24/20 11/01/20 Rx warfarin 2 mg tablet 2 mg PO 2XWK #100 tab 10/20/20 11/01/20 Rx celecoxib 200 mg capsule 200 mg PO QAM #30 cap 10/28/20 11/01/20 Rx cholecalciferol (vitamin D3) 50 mcg PO DAILY 11/01/20 11/01/20 History [Vitamin D3] cranberry extract 0 mg PO DAILY 11/01/20 11/01/20 History Past Med/Surg History Medical History (Updated 11/02/20 @ 00:19 by Barbara Moscoso MD) Anxiety with depression ARF (acute renal failure) 2/2 obstructing stone. Cr as high as 2.25 in 09/2018. Since ESWL x 2 and cysto/stent insertion, Cr has normalized to 0.89 (11/21/18) Asthma Atrial fibrillation 12 YEARS AGO - ON WARFARIN - FOLLOWS W/ [place] CARDIO Cerebral artery occlusion Cyst of kidney, acquired Depression Diabetes mellitus type 2, uncontrolled Dizziness Gait abnormality Healthcare maintenance Hearing deficit History of gastric ulcer History of ovarian cancer s/p TIFFANIE BSO, omentectomy + chemo History of sepsis Admitted [facility] 09/2018 with sepsis 2/2 obstructive uropathy/UTI Hypercholesterolemia Hyperlipidemia Hypertension Hypothyroidism IBS (irritable bowel syndrome) Kidney stones Migraine Morbid obesity Nausea and vomiting after administration of anesthetic agent On anticoagulant therapy PAST 12+ YRS FOR AFIB Osteoarthritis Ovarian cancer Proteinuria Renal neoplasm Seasonal asthma DOES NOT USE INH Stroke X2. Most recent 12 years ago (dx new onset a-fib at time of stroke) - memory issues, word finding issues, urinary incontinence -age 47 - cause? no residual deficits Stroke-like symptoms Upon performing PAT assessment (07/02/19): pt informed nurse that she was having symptoms of a DVT in her left leg a "few months ago" and just "doubled upon on my warfarin for a couple days" without consulting or calling PCP....pt then stated she noticed a "drooping to the right side of her face a few days ago"---?? stroke symptoms Temporomandibular joint disorder Never locked open, just clicked UPJ (ureteropelvic junction) obstruction Urinary incontinence Visual disturbances Vitamin D deficiency Surgical History History of colonoscopy History of esophagogastroduodenoscopy (EGD) History of surgery omentectomy r/t ovarian cancer History of total abdominal hysterectomy and bilateral salpingo-oophorectomy S/P cystoscopy with ureteral stent placement S/P D&C (status post dilation and curettage) S/P T&A (status post tonsillectomy and adenoidectomy) Family History Grandmother (Paternal) Family history of diabetes mellitus Social History Smoking Status: Never smoker Second Hand Exposure: No; Do You Dip or Chew Tobacco: No; Tobacco Cessation Education Requested by Patient: No Hx Alcohol Use: No Hx Substance Use: No Preferred Language: Serbian Communication Ability: Effective Visual Impairment: No Limitations Healthcare Associate Required: No Beliefs That Will Affect Care: Jain marital status: Current Living Situation: Alone Other Information That Helps Us Care for You: No Feels Safe at Home: Yes Safety Concerns: Feels Safe At This Time Assistive Devices: None Review of Systems Review of Systems: REVIEW OF SYSTEMS: Constitutional: No fever, sweats or chills Eyes: No diplopia, no worsening or blurred vision ENT: normal hearing, no trouble swallowing Respiratory: No cough, sputum, dyspnea at rest or on exertion Cardiovascular: No chest pain, tightness or palpitations Abdomen: No pain, nausea, vomiting, diarrhea or constipation Musculoskeletal: Per HPI, (+) neruopathic pain, (-) calf pain, swelling Neurologic: No weakness, numbness/tingling, or balance problems Psychiatric: No anxiety or depression Skin: No rash or itch Physical Exam Physical Exam: PHYSICAL EXAM: General: awake, alert, no apparent distress Head: Normocephalic, atraumatic ENT: PERRL, EOMI, no pharyngeal exudate, mucous membranes moist Neuro: AAO x 3, speech clear and appropriate, strength intact bilaterally 5/5, sensation intact and equal all extremities no pronator drift Chest: equal rise and fall of the chest, no accessory muscle use, no heaves or thirlls, Clear to auscultation, on room air, Cardiac: Regular rate and rhythm, telelmetry reviewed, skin warm dry, cap refill <3 seconds, peripheral pusles +2 no JVD, no murmur, no JVD, no edema GI: NABS x 4 quadrants, soft, nontender to palpation, no rebound, guarding or tenderness : Spontaneously voiding, no pain, no CVA tenderness, Extremities: Normal inspection, no peripheral edema or erythema, calfs nontender to palpation MSK: Left arm in splint, no cervical tenderness with full range of motion, no pain to right shoulder with full range of motion, no pain to bilateral hips and pelvis stable without pain. Legs wtih no pain, deformities, or brusing, able to lift legs off bed, no ankle pain. Psych: Normal mood and affect Results & Data Results & Data ([facility]) Vital Signs (Past 12 Hours) Vital Signs Temp Pulse Pulse Resp BP BP Pulse Ox 11/01/20 20:31 67 18 105/67 97 11/01/20 20:01 71 18 112/65 97 11/01/20 19:27 70 20 158/102 H 98 11/01/20 18:48 72 19 157/96 H 95 11/01/20 17:44 99 11/01/20 16:51 36.6 C 87 18 151/100 H 100 Laboratory Results Abnormal lab results 11/01/20 11/01/20 11/01/20 Range/Units 19:42 20:30 20:30 RBC 3.57 L (4.2-5.4) M/uL Hgb 10.3 L (12.0-16.0) g/dL Hct 31.0 L (37-47) % RDW Std Deviation 46.7 H (36.4-46.3) fL Neut # (Auto) 7.52 H (1.4-6.5) K/uL [place] # (Auto) 0.63 H (0.11-0.59) K/uL Glucose 190 H (70-99) mg/dl Albumin 3.1 L (3.4-5.0) gm/dl Albumin/Globulin Ratio 0.8 L (0.9-2) Urine Ketones Trace H (Negative) 11/01/20 Range/Units 20:30 RBC (4.2-5.4) M/uL Hgb (12.0-16.0) g/dL Hct (37-47) % RDW Std Deviation (36.4-46.3) fL Neut # (Auto) (1.4-6.5) K/uL [place] # (Auto) (0.11-0.59) K/uL PT 22.2 H (9.0-12.0) Seconds INR 2.3 H (0.9-1.1) APTT 36.6 H (21.0-31.0) Seconds Glucose (70-99) mg/dl Albumin (3.4-5.0) gm/dl Albumin/Globulin Ratio (0.9-2) Urine Ketones (Negative) Diagnostic Findings XR shoulder LT min 2V routine CLINICAL HISTORY: trauma COMPARISON: None FINDINGS: Note is made of an acute displaced comminuted left humeral neck fracture which extends into the humeral head. Fracture is displaced 1.1 cm. Alignment of the left glenohumeral and acromioclavicular joints is anatomic. IMPRESSION: Acute displaced comminuted left humeral neck fracture which extends into the humeral head. CT OF THE HEAD WITHOUT CONTRAST CLINICAL HISTORY: trauma, warfarin COMPARISON STUDY: Head CT September 20, 2018. TECHNIQUE: Helical axial images of the head were obtained without IV contrast. Automated exposure control was utilized for the study. A dose lowering technique was utilized adhering to the principles of ALARA. FINDINGS: No acute intracranial hemorrhage, midline shift or mass effect is present. The ventricular system is unremarkable. The basal cisterns are patent. No extra-axial collections are present. There are no findings to suggest acute dural sinus thrombosis or acute territorial infarct. No significant calvarial abnormalities are present. Visualized portions of the sinuses and mastoid air cells are clear. IMPRESSION: 1. No acute intracranial findings. No change in appearance of the brain. 2. No calvarial fracture. XR chest 1V portable CLINICAL HISTORY: trauma COMPARISON STUDY: Chest radiograph January 10, 2020. FINDINGS: An acute left humeral neck fracture is better depicted on the left shoulder radiographs. Cardiomegaly is unchanged. There is no pneumothorax or pleural effusion. There is no evidence for pulmonary edema. IMPRESSION: 1. Acute left humeral neck fracture better depicted on the left shoulder radiographs. 2. Cardiomegaly. No acute cardiopulmonary findings. CT OF THE CERVICAL SPINE WITHOUT CONTRAST CLINICAL HISTORY: trauma COMPARISON STUDY: No previous studies for comparison. TECHNIQUE: Helical axial images of the cervical spine were obtained without IV contrast. Sagittal and coronal reconstructions were viewed. Automated exposure control was utilized for the study. A dose lowering technique was utilized adhering to the principles of ALARA. FINDINGS: Alignment of the cervical spine is anatomic. Vertebral body heights are maintained. No acute cervical spine fracture or subluxation is present. There is no prevertebral edema. Facet joints are intact. There is moderate to severe disc space narrowing at C5-C6. Moderate multilevel facet arthrosis is present. An acute displaced left humeral neck fracture is shown on the insulator apprentice tomogram. This is better depicted on the left shoulder radiographs. IMPRESSION: No acute cervical spine fracture or subluxation. Medications Administered Home Medications Centrum Silver 1 tab PO QAM 09/20/18 [History Confirmed 11/01/20] lysine 500 mg tablet 500 mg PO QAM PRN 04/03/19 [History Confirmed 11/01/20] clobetasol 0.05 % topical cream 1 appln TOPICAL BID PRN #1 gm 04/05/19 [History Confirmed 11/01/20] nystatin 100,000 unit/gram topical powder 1 appln TOPICAL Q8H PRN #1 gm 04/05/19 [History Confirmed 11/01/20] aspirin 81 mg PO QAM 07/02/19 [History Confirmed 11/01/20] lutein-zeaxanthin 1 cap PO QAM 07/02/19 [History Confirmed 11/01/20] glimepiride 2 mg tablet See Rx Instructions PO BID #270 tab 10/09/19 [Rx Confirmed 11/01/20] levothyroxine 75 mcg tablet 75 mcg PO QAM #30 tab 03/16/20 [Rx Confirmed 11/01/20] metoprolol succinate 100 mg tablet,extended release 24 hr 100 mg PO BID #180 tab 03/16/20 [Rx Confirmed 11/01/20] warfarin 4 mg tablet 4 mg PO 5XWK #240 tab 04/08/20 [Rx Confirmed 11/01/20] atorvastatin 20 mg tablet 20 mg PO HS #90 tab 07/02/20 [Rx Confirmed 11/01/20] sennosides 8.6 mg-docusate sodium 50 mg tablet 1 tab PO BID #60 tab 08/03/20 [Rx Confirmed 11/01/20] metformin 1,000 mg tablet 1,000 mg PO BID #180 tab 08/18/20 [Rx Confirmed 11/01/20] lisinopril 2.5 mg tablet 2.5 mg PO HS #30 tab 09/21/20 [Rx Confirmed 11/01/20] omeprazole 20 mg capsule,delayed release 20 mg PO QPM #30 cap 09/24/20 [Rx Confirmed 11/01/20] tramadol 50 mg tablet 50 mg PO QAM #90 tab 09/24/20 [Rx Confirmed 11/01/20] warfarin 2 mg tablet 2 mg PO 2XWK #100 tab 10/20/20 [Rx Confirmed 11/01/20] celecoxib 200 mg capsule 200 mg PO QAM #30 cap 10/28/20 [Rx Confirmed 11/01/20] cholecalciferol (vitamin D3) [Vitamin D3] 50 mcg PO DAILY 11/01/20 [History C onfirmed 11/01/20] cranberry extract 0 mg PO DAILY 11/01/20 [History Confirmed 11/01/20] Active Medications Sodium Chloride (Nss 1000ml) 1,000 mls @ 125 mls/hr IV .Q8H KEVIN Stop: 11/02/20 01:29 Last Admin: 11/01/20 17:42 Dose: 125 mls/hr Documented by: Sodium Chloride (Nss 1000ml) 1,000 mls @ 125 mls/hr IV .Q8H KEVIN Stop: 11/02/20 01:29 Last Admin: 11/01/20 17:42 Dose: 125 mls/hr Documented by: [id number] Discontinued Medications Hydromorphone HCl (Hydromorphone Inj 0.5 Mg/0.5 Ml Syr) 0.5 mg IV NOW STA Stop: 11/01/20 17:23 Last Admin: 11/01/20 17:42 Dose: 0.5 mg Documented by: [id number] Ondansetron HCl (Ondansetron Inj 2 Mg/Ml 2 Ml Vial) 4 mg IV NOW STA Stop: 11/01/20 17:23 Last Admin: 11/01/20 17:42 Dose: 4 mg Documented by: [id number] Code Status & VTE Plan Code Status CODE: FULL VTE: SCD's, Coumadin VTE Prophylaxis Plan VTE Prophylaxis will be ordered: Yes Supervising Physician Co-Signing Physician Notes Attending addendum: I have physically seen this patient, have supervised the IVAN's activities, and agree with the H&P unless as otherwise noted. Assessment and Plan: Displaced comminuted closed left humeral neck fracture- Geriatric hip fracture protocol Consult orthopedic surgery Atrial fibrillation/hypertension- Hold warfarin Continue metoprolol Diabetes mellitus- Hold Metformin and glimepiride. Placed on Accu-Cheks before meals and at bedtime with NovoLog coverage per scale Remaining orders and notations as noted PG Care Time/CCT Total # of Minutes Spent Total Time Spent with Patient: Total time spent is greater than 50% in coordination of care (as documented) at patient's floor/unit and/or counseling patient: Coding Level of Care Code 36349 Initial Inpt Care Lvl 3 Diagnoses Fracture, humerus, neck S42.212A Encounter type: initial encounter Fracture type: closed Laterality: left A-fib I48.91 Atrial fibrillation type: unspecified Anticoagulated on warfarin Z79.01 HTN (hypertension) I10 Hypertension type: essential hypertension HLD (hyperlipidemia) E78.5 Hyperlipidemia type: unspecified Physical deconditioning R53.81 Urinary incontinence N39.498 Urinary Incontinence type: other incontinence Diabetes mellitus E11.9 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: without snf use Diabetes mellitus type: type 2 (1) Urinary incontinence Urinary Incontinence type: other incontinence Qualified Code(s): N39.498 - Other specified urinary incontinence (2) Diabetes mellitus 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: without snf use Diabetes mellitus type: type 2 (3) A-fib Atrial fibrillation type: unspecified Qualified Code(s): I48.91 - Unspecified atrial fibrillation (4) HLD (hyperlipidemia) Hyperlipidemia type: unspecified Qualified Code(s): E78.5 - Hyperlipidemia, unspecified (5) Fracture, humerus, neck Encounter type: initial encounter Fracture type: closed Laterality: left Qualified Code(s): S42.212A - Unspecified displaced fracture of surgical neck of left humerus, initial encounter for closed fracture (6) HTN (hypertension) Hypertension type: essential hypertension Qualified Code(s): I10 - Essential (primary) hypertension
[2020-11-01] MEDS ORDERED: POLYETHYLENE (MIRALAX) 17 GM PACK PO PRN (22:48)
[2020-11-01] MEDS ORDERED: GLUCOSE 10 TABS/TUBE PO PRN (22:48)
[2020-11-01] MEDS ORDERED: ACETAMINOPHEN 325 MG TAB PO PRN (22:48)
[2020-11-01] MEDS ORDERED: CLOBETASOL PROPIONATE 0.05% OINT 15 GM TUBE EXT PRN (22:48)
[2020-11-01] MEDS ORDERED: NYSTATIN POWDER 15GM BTL EXT PRN (22:48)
[2020-11-01] MEDS ORDERED: GLUCAGON FOR INJ 1 MG VIAL SQ PRN (22:48)
[2020-11-01] MEDS ORDERED: GLUCOSE 40% GEL 15 GM TUBE PO PRN (22:48)
[2020-11-01] MEDS ORDERED: ONDANSETRON INJ 2 MG/ML 2 ML VIAL IV PRN (22:48)
[2020-11-01] MEDS ORDERED: CARBOHYDRATES FOR HYPOGLYCEMIA PO PRN (22:48)
[2020-11-01] MEDS ORDERED: DEXTROSE 50% 50 ML SYRINGE IV PRN (22:48)
[2020-11-01] MEDS ORDERED: PHARMACY GLYCEMIC MGMT CONSULT PRN (23:06)
[2020-11-01] MEDS: MoRPHine SULFATE 2 MG/ML CARP IV PRN (23:28)
[2020-11-01] MEDS: METOPROLOL SUCC 50MG EXT REL TAB PO SCH (23:30)
[2020-11-02] MEDS ORDERED: INSULIN GLARGINE SOLOSTAR 100 UNITS/ML 3 ML PEN SC SCH (00:30)
--- NOTE | 2020-11-02 00:34 | Emergency Department Note ---
Impression & Plan Closed left humeral fracture, Chronic anticoagulation, Fall (on) (from) other stairs and steps, initial encounter ED Provider Note NAME: VALERIE BERUMEN AGE: 75 SEX: F ARRIVES VIA: Ambulance INFORMANT: Patient ED PROVIDER(S): Barbara Moscoso MD CHIEF COMPLAINT: Left arm pain, fall from the stairs PLAN: Disposition: Inpatient Condition: Good Referral: Hospitalist MEDICAL DECISION MAKING: This patient was evaluated and appeared to be in no significant distress. IV access was obtained and laboratory work was drawn. The patient was medicated with fentanyl prehospital and given IV Dilaudid 0.5 mg and IV Zofran here in the emergency department. She was gently hydrated with normal saline solution. CT imaging of the head and C-spine was performed and is negative for acute traumatic findings. Chest x-ray was performed and is clear. X-ray of the left shoulder reveals a humeral neck fracture. Patient was placed in a sling. Nursing staff was unable to ambulate the patient, she is significantly anxious and unable to cooperate fully. She did require a straight cath for urine spec imen. She lives at home alone and I feel will be unsuccessful in an attempt to be discharged home. The hospitalist was consulted for further management. Patient is aware of the plan and although anxious and tearful, agrees. Triage Nursing notes reviewed. Prior medical records reviewed Vital Signs: reviewed and remarkable for no significant abnormalities Differential diagnosis: Fracture, dislocation, contusion, intra-abdominal, pneumothorax, intrathoracic, intracranial, neurologic, compartment syndrome, rhabdomyolysis, as well as other pathologies. ER treatment provided: IV Dilaudid IV Zofran Diagnostics interpreted by me: ECG: Atrial fibrillation at 73 bpm. Low voltage QRS. ST and T wave abnormality. Poor quality baseline for interpretation. Mildly prolonged QTC at 462. No ectopy/PVC/PAC Cardiac Monitoring: An order for cardiac monitoring was placed and the patient is noted to be in a rate controlled atrial fibrillation at 72 bpm. Laboratory studies: See below Imaging studies: CT OF THE HEAD WITHOUT CONTRAST CLINICAL HISTORY: trauma, warfarin COMPARISON STUDY: Head CT September 20, 2018. TECHNIQUE: Helical axial images of the head were obtained without IV contrast. Automated exposure control was utilized for the study. A dose lowering technique was utilized adhering to the principles of ALARA. FINDINGS: No acute intracranial hemorrhage, midline shift or mass effect is present. The ventricular system is unremarkable. The basal cisterns are patent. No extra-axial collections are present. There are no findings to suggest acute dural sinus thrombosis or acute territorial infarct. No significant calvarial abnormalities are present. Visualized portions of the sinuses and mastoid air cells are clear. IMPRESSION: 1. No acute intracranial findings. No change in appearance of the brain. 2. No calvarial fracture. ACT 112: Negative or not required by law. Electronically signed by: Moisés Mejía M.D. 11/01/2020 6:50 PM Dictated: 11/01/201847Transcribed: 11/01/201847 CT OF THE CERVICAL SPINE WITHOUT CONTRAST CLINICAL HISTORY: trauma COMPARISON STUDY: No previous studies for comparison. TECHNIQUE: Helical axial images of the cervical spine were obtained without IV contrast. Sagittal and coronal reconstructions were viewed. Automated exposure control was utilized for the study. A dose lowering technique was utilized adhering to the principles of ALARA. FINDINGS: Alignment of the cervical spine is anatomic. Vertebral body heights are maintained. No acute cervical spine fracture or subluxation is present. There is no prevertebral edema. Facet joints are intact. There is moderate to severe disc space narrowing at C5-C6. Moderate multilevel facet arthrosis is present. An acute displaced left humeral neck fracture is shown on the machine skiver tomogram. This is better depicted on the left shoulder radiographs. IMPRESSION: No acute cervical spine fracture or subluxation. ACT 112: Negative or not required by law. Electronically signed by: Moisés Mejía M.D. 11/01/2020 6:59 PM Dictated: 11/01/201855Transcribed: 11/01/201855 XR chest 1V portable CLINICAL HISTORY: trauma COMPARISON STUDY: Chest radiograph January 10, 2020. FINDINGS: An acute left humeral neck fracture is better depicted on the left shoulder radiographs. Cardiomegaly is unchanged. There is no pneumothorax or pleural effusion. There is no evidence for pulmonary edema. IMPRESSION: 1. Acute left humeral neck fracture better depicted on the left shoulder radiographs. 2. Cardiomegaly. No acute cardiopulmonary findings. ACT 112: Negative or not required by law. Electronically signed by: Moisés Mejía M.D. 11/01/2020 6:24 PM Dictated: 11/01/201822Transcribed: 11/01/201822 XR shoulder LT min 2V routine CLINICAL HISTORY: trauma COMPARISON: None FINDINGS: Note is made of an acute displaced comminuted left humeral neck fracture which extends into the humeral head. Fracture is displaced 1.1 cm. A lignment of the left glenohumeral and acromioclavicular joints is anatomic. IMPRESSION: Acute displaced comminuted left humeral neck fracture which extends into the humeral head. ACT 112: Negative or not required by law. Electronically signed by: Moisés Mejía M.D. 11/01/2020 6:23 PM Dictated: 11/01/201820Transcribed: 11/01/201820 Consultation(s): Hospitalist HPI: 75/F arrives for evaluation of left shoulder pain after a fall. Patient states she was walking down her basement stairs after her power went out. She thought she would be able to navigate with the window lights but she missed the last step. She fell onto her left side and immediately felt shoulder pain. Patient states she was not able to get up but was able to "walk with her bottom" and call EMS. Patient was medicated with IV fentanyl, a total of 150 mcg prehospital. Patient states that she takes Coumadin secondary to atrial fibrillation. She did hit her head but denies any LOC or vomiting. She denies any significant pain in her hips and legs. ROS: See above HPI for pertinent positives & negatives. A total of 10 systems reviewed and were otherwise negative. PAST MEDICAL HISTORY:See Below PAST SURGICAL HISTORY:See Below FAMILY HISTORY:See Below SOCIAL HISTORY:See Below HOME MEDICATIONS:See Below ALLERGIES:See Below VITALS:See Below PHYSICAL EXAMINATION: Vital signs reviewed. General: Elderly, anxious-appearing 75-year-old female, in significant discomfort HEENT: No scleral icterus, PERRLA, neck supple. Atraumatic Cardiovascular: Irregular but rate controlled, no extra sounds Pulmonary: Clear to auscultation bilaterally, normal work of breathing. Abdomen: Soft, obese, nontender, nondistended, positive bowel sounds. Musculoskeletal: Ecchymosis noted to the right mid bicep/deltoid region. Significant tenderness noted to the left humeral head, no significant deformity appreciated but there is pain with any movement. No pain to palpation of the pelvis or movement of the bilateral lower extremities. Nontender to palpation over the cervical, thoracic and lumbar spines. Neurologic: Patient awake alert and oriented x 3 Skin: Warm, dry, chronic venous stasis changes of the bilateral lower extremit ies. Barbara Moscoso MD Past Med/Surg History Medical History (Updated 11/02/20 @ 00:19 by Barbara Moscoso MD) Anxiety with depression ARF (acute renal failure) 2/2 obstructing stone. Cr as high as 2.25 in 09/2018. Since ESWL x 2 and cysto/stent insertion, Cr has normalized to 0.89 (11/21/18) Asthma Atrial fibrillation 12 YEARS AGO - ON WARFARIN - FOLLOWS W/ [place] CARDIO Cerebral artery occlusion Cyst of kidney, acquired Depression Diabetes mellitus type 2, uncontrolled Dizziness Gait abnormality Healthcare maintenance Hearing deficit History of gastric ulcer History of ovarian cancer s/p TIFFANIE BSO, omentectomy + chemo History of sepsis Admitted [facility] 09/2018 with sepsis 2/2 obstructive uropathy/UTI Hypercholesterolemia Hyperlipidemia Hypertension Hypothyroidism IBS (irritable bowel syndrome) Kidney stones Migraine Morbid obesity Nausea and vomiting after administration of anesthetic agent On anticoagulant therapy PAST 12+ YRS FOR AFIB Osteoarthritis Ovarian cancer Proteinuria Renal neoplasm Seasonal asthma DOES NOT USE INH Stroke X2. Most recent 12 years ago (dx new onset a-fib at time of stroke) - memory issues, word finding issues, urinary incontinence -age 47 - cause? no residual deficits Stroke-like symptoms Upon performing PAT assessment (07/02/19): pt informed nurse that she was having symptoms of a DVT in her left leg a "few months ago" and just "doubled upon on my warfarin for a couple days" without consulting or calling PCP....pt then stated she noticed a "drooping to the right side of her face a few days ago"---?? stroke symptoms Temporomandibular joint disorder Never locked open, just clicked UPJ (ureteropelvic junction) obstruction Urinary incontinence Visual disturbances Vitamin D deficiency Surgical History History of colonoscopy History of esophagogastroduodenoscopy (EGD) History of surgery omentectomy r/t ovarian cancer History of total abdominal hysterectomy and bilateral salpingo-oophorectomy S/P cystoscopy with ureteral stent placement S/P D&C (status post dilation and curettage) S/P T&A (status post tonsillectomy and adenoidectomy) Family History Grandmother (Paternal) Family history of diabetes mellitus Social History Smoking Status: Never smoker Second Hand Exposure: No; Do You Dip or Chew Tobacco: No; Tobacco Cessation Education Requested by Patient: No Hx Alcohol Use: No Hx Substance Use: No Preferred Language: [place] Islander Communication Ability: Effective Visual Impairment: No Limitations Space Planner Required: No Beliefs That Will Affect Care: Temple marital status: Current Living Situation: Alone Other Information That Helps Us Care for You: No Feels Safe at Home: Yes Safety Concerns: Feels Safe At This Time Assistive Devices: None Allergies Allergies Allergy/AdvReac Type Severity Reaction Status Date / Time milk AdvReac Mild Diarrhea Verified 11/01/20 17:47 bagel Allergy red, itchy Uncoded 11/01/20 17:48 skin Home Meds Home Medications Medication Instructions Recorded Confirmed Centrum Silver 1 tab PO QAM 09/20/18 11/01/20 lysine 500 mg tablet 500 mg PO QAM PRN 04/03/19 11/01/20 clobetasol 0.05 % topical cream 1 appln TOPICAL BID PRN #1 gm 04/05/19 11/01/20 nystatin 100,000 unit/gram topical 1 appln TOPICAL Q8H PRN #1 gm 04/05/19 11/01/20 powder aspirin 81 mg PO QAM 07/02/19 11/01/20 lutein-zeaxanthin 1 cap PO QAM 07/02/19 11/01/20 cholecalciferol (vitamin D3) 50 mcg PO DAILY 11/01/20 11/01/20 [Vitamin D3] cranberry extract 0 mg PO DAILY 11/01/20 11/01/20 Previous Rx's Medication Instructions Recorded glimepiride 2 mg tablet See Rx Instructions PO BID #270 tab 10/09/19 levothyroxine 75 mcg tablet 75 mcg PO QAM #30 tab 03/16/20 metoprolol succinate 100 mg 100 mg PO BID #180 tab 03/16/20 tablet,extended release 24 hr warfarin 4 mg tablet 4 mg PO 5XWK #240 tab 04/08/20 atorvastatin 20 mg tablet 20 mg PO HS #90 tab 07/02/20 sennosides 8.6 mg-docusate sodium 1 tab PO BID #60 tab 11/30/20 50 mg tablet metformin 1,000 mg tablet 1,000 mg PO BID #180 tab 08/18/20 lisinopril 2.5 mg tablet 2.5 mg PO HS #30 tab 09/21/20 omeprazole 20 mg capsule,delayed 20 mg PO QPM #30 cap 09/24/20 release tramadol 50 mg tablet 50 mg PO QAM #90 tab 09/24/20 warfarin 2 mg tablet 2 mg PO 2XWK #100 tab 10/20/20 celecoxib 200 mg capsule 200 mg PO QAM #30 cap 10/28/20 Results & Data (ED) Vital Signs Vital Signs - 24 hr 11/01/20 16:51 11/01/20 17:44 11/01/20 18:48 Temperature 36.6 C Temperature Source Oral Pulse Rate 87 Pulse Rate [Right Finger] 72 Respiratory Rate 18 19 Respiratory Effort / Characteristics Non-Labored Spontaneous Non-Labored Respiratory Depth Normal Normal Blood Pressure 151/100 H Blood Pressure [Right Arm] 157/96 H Blood Pressure Mean 117 Blood Pressure Mean [Right Arm] 116 Blood Pressure Position Sitting Blood Pressure Position [Right Arm] Sitting Pulse Oximetry 100 99 95 Oxygen Delivery Method Room Air Room Air Room Air Sepsis Recent Fever Within 48 Hours No Sepsis New/Unexplained Change in Mental Status N/A Sepsis Action Taken by Nursing No Action Required 11/01/20 19:27 11/01/20 20:01 11/01/20 20:31 Temperature Temperature Source Pulse Rate 71 67 Pulse Rate [Right Finger] 70 Respiratory Rate 20 18 18 Respiratory Effort / Characteristics Non-Labored Spontaneous Respiratory Depth Normal Blood Pressure 112/65 105/67 Blood Pressure [Right Arm] 158/102 H Blood Pressure Mean 80 79 Blood Pressure Mean [Right Arm] 120 Blood Pressure Position Blood Pressure Position [Right Arm] Pulse Oximetry 98 97 97 Oxygen Delivery Method Room Air Sepsis Recent Fever Within 48 Hours Sepsis New/Unexplained Change in Mental Status Sepsis Action Taken by [facility] Medications Current Medication List: was personally reviewed by me Laboratory Data Attestation: I reviewed the patient's lab results. Result diagrams: 11/01/20 20:30 11/01/20 21:24 Lab Results 11/01/20 11/01/20 11/01/20 Range/Units 18:05 19:42 20:15 WBC (4.8-10.8) K/uL RBC (4.2-5.4) M/uL Hgb (12.0-16.0) g/dL Hct (37-47) % MCV (80-100) fL MCH (25-34) pg MCHC (32-36) g/dL RDW Std Deviation (36.4-46.3) fL RDW Coeff of Maria C (11.5-14.5) % Plt Count (130-400) K/uL MPV (7.4-10.4) fL Immature Gran % (Auto) % Neut % (Auto) % Lymph % (Auto) % [place] % (Auto) % Eos % (Auto) % Baso % (Auto) % Neut # (Auto) (1.4-6.5) K/uL Lymph # (Auto) (1.2-3.4) K/uL [place] # (Auto) (0.11-0.59) K/uL Eos # (Auto) (0-0.5) K/uL Baso # (Auto) (0-0.2) K/uL Immature Gran # (Auto) (0.00-0.02) K/uL PT (9.0-12.0) Seconds INR (0.9-1.1) APTT (21.0-31.0) Seconds PTT Ratio Sodium (136-145) mmol/L Potassium (3.5-5.1) mmol/L Chloride (98-107) mmol/L Carbon Dioxide (21-32) mmol/L Anion Gap (3-11) BUN (7-18) mg/dl Creatinine (0.6-1.2) mg/dl Est Cr Clr Drug Dosing ml/min Est GFR ( Amer) Est GFR (Non-Af Amer) BUN/Creatinine Ratio (10-20) Glucose (70-99) mg/dl Calcium (8.5-10.1) mg/dl Total Bilirubin (0.2-1) mg/dl AST (15-37) U/L ALT (12-78) U/L Alkaline Phosphatase (45-117) U/L Total Protein (6.4-8.2) gm/dl Albumin (3.4-5.0) gm/dl Globulin (2.5-4.0) gm/dl Albumin/Globulin Ratio (0.9-2) Urine Color Yellow Urine Appearance Clear (Clear) Urine pH 6.5 (4.5-7.5) Ur Specific [place] 1.020 (1.000-1.030) Urine Protein Negative (Negative) Urine Glucose (UA) Negative (Negative) Urine Ketones Trace H (Negative) Urine Blood Negative (Negative) Urine Nitrite Negative (Negative) Urine Bilirubin Negative (Negative) Urine Urobilinogen Negative (Negative) Ur Leukocyte Esterase Negative (Negative) COVID-19 Eval Order Covid19 IDNow [facility], 1928–1983 SARS-CoV-2, RNA, NAAT (NEGATIVE) Blood Type A Negative Antibody Screen NEGATIVE 11/01/20 11/01/20 11/01/20 Range/Units 20:15 20:30 20:30 WBC 9.45 (4.8-10.8) K/uL RBC 3.57 L (4.2-5.4) M/uL Hgb 10.3 L (12.0-16.0) g/dL Hct 31.0 L (37-47) % MCV 86.8 (80-100) fL MCH 28.9 (25-34) pg MCHC 33.2 (32-36) g/dL RDW Std Deviation 46.7 H (36.4-46.3) fL RDW Coeff of Maria C 14.5 (11.5-14.5) % Plt Count 216 (130-400) K/uL MPV 9.5 (7.4-10.4) fL Immature Gran % (Auto) 0.2 % Neut % (Auto) 79.6 % Lymph % (Auto) 12.7 % [place] % (Auto) 6.7 % Eos % (Auto) 0.6 % Baso % (Auto) 0.2 % Neut # (Auto) 7.52 H (1.4-6.5) K/uL Lymph # (Auto) 1.20 (1.2-3.4) K/uL [place] # (Auto) 0.63 H (0.11-0.59) K/uL Eos # (Auto) 0.06 (0-0.5) K/uL Baso # (Auto) 0.02 (0-0.2) K/uL Immature Gran # (Auto) 0.02 (0.00-0.02) K/uL PT (9.0-12.0) Seconds INR (0.9-1.1) APTT (21.0-31.0) Seconds PTT Ratio Sodium 140 (136-145) mmol/L Potassium (3.5-5.1) mmol/L Chloride 105 (98-107) mmol/L Carbon Dioxide 24 (21-32) mmol/L Anion Gap 11.0 (3-11) BUN 18 (7-18) mg/dl Creatinine 1.07 (0.6-1.2) mg/dl Est Cr Clr Drug Dosing 62.6 ml/min Est GFR ( Amer) 59.6 Est GFR (Non-Af Amer) 51.5 BUN/Creatinine Ratio 17.1 (10-20) Glucose 190 H (70-99) mg/dl Calcium 9.5 (8.5-10.1) mg/dl Total Bilirubin 0.6 (0.2-1) mg/dl AST (15-37) U/L ALT 25 (12-78) U/L Alkaline Phosphatase 76 (45-117) U/L Total Protein 6.9 (6.4-8.2) gm/dl Albumin 3.1 L (3.4-5.0) gm/dl Globulin 3.8 (2.5-4.0) gm/dl Albumin/Globulin Ratio 0.8 L (0.9-2) Urine Color Urine Appearance (Clear) Urine pH (4.5-7.5) Ur Specific [place] (1.000-1.030) Urine Protein (Negative) Urine Glucose (UA) (Negative) Urine Ketones (Negative) Urine Blood (Negative) Urine Nitrite (Negative) Urine Bilirubin (Negative) Urine Urobilinogen (Negative) Ur Leukocyte Esterase (Negative) COVID-19 Eval Order SARS-CoV-2, RNA, NAAT NEGATIVE (NEGATIVE) Blood Type Antibody Screen 11/01/20 Range/Units 20:30 WBC (4.8-10.8) K/uL RBC (4.2-5.4) M/uL Hgb (12.0-16.0) g/dL Hct (37-47) % MCV (80-100) fL MCH (25-34) pg MCHC (32-36) g/dL RDW Std Deviation (36.4-46.3) fL RDW Coeff of Maria C (11.5-14.5) % Plt Count (130-400) K/uL MPV (7.4-10.4) fL Immature Gran % (Auto) % Neut % (Auto) % Lymph % (Auto) % [place] % (Auto) % Eos % (Auto) % Baso % (Auto) % Neut # (Auto) (1.4-6.5) K/uL Lymph # (Auto) (1.2-3.4) K/uL [place] # (Auto) (0.11-0.59) K/uL Eos # (Auto) (0-0.5) K/uL Baso # (Auto) (0-0.2) K/uL Immature Gran # (Auto) (0.00-0.02) K/uL PT 22.2 H (9.0-12.0) Seconds INR 2.3 H (0.9-1.1) APTT 36.6 H (21.0-31.0) Seconds PTT Ratio 1.4 Sodium (136-145) mmol/L Potassium (3.5-5.1) mmol/L Chloride (98-107) mmol/L Carbon Dioxide (21-32) mmol/L Anion Gap (3-11) BUN (7-18) mg/dl Creatinine (0.6-1.2) mg/dl Est Cr Clr Drug Dosing ml/min Est GFR ( Amer) Est GFR (Non-Af Amer) BUN/Creatinine Ratio (10-20) Glucose (70-99) mg/dl Calcium (8.5-10.1) mg/dl Total Bilirubin (0.2-1) mg/dl AST (15-37) U/L ALT (12-78) U/L Alkaline Phosphatase (45-117) U/L Total Protein (6.4-8.2) gm/dl Albumin (3.4-5.0) gm/dl Globulin (2.5-4.0) gm/dl Albumin/Globulin Ratio (0.9-2) Urine Color Urine Appearance (Clear) Urine pH (4.5-7.5) Ur Specific [place] (1.000-1.030) Urine Protein (Negative) Urine Glucose (UA) (Negative) Urine Ketones (Negative) Urine Blood (Negative) Urine Nitrite (Negative) Urine Bilirubin (Negative) Urine Urobilinogen (Negative) Ur Leukocyte Esterase (Negative) COVID-19 Eval Order SARS-CoV-2, RNA, NAAT (NEGATIVE) Blood Type Antibody Screen Administered Medications Metoprolol Succinate (Metoprolol Succ 50mg Ext Rel Tab) 100 mg PO BID KEVIN Stop: 12/01/20 22:47 Last Admin: 11/01/20 23:30 Dose: 100 mg Documented by: [id number] Morphine Sulfate (Morphine Sulfate 2 Mg/Ml Carp) 2 mg IV Q4H PRN PRN Reason: Pain severe pain Stop: 11/15/20 22:47 Last Admin: 11/01/20 23:28 Dose: 2 mg Documented by: [id number] Ondansetron HCl (Ondansetron Inj 2 Mg/Ml 2 Ml Vial) 4 mg IV Q6H PRN PRN Reason: Nausea Stop: 12/01/20 22:47 Last Admin: 11/01/20 23:28 Dose: 4 mg Documented by: [id number] Discontinued Medications Hydromorphone HCl (Hydromorphone Inj 0.5 Mg/0.5 Ml Syr) 0.5 mg IV NOW STA Stop: 11/01/20 17:23 Last Admin: 11/01/20 17:42 Dose: 0.5 mg Documented by: [id number] Sodium Chloride (Nss 1000ml) 1,000 mls @ 125 mls/hr IV .Q8H KEVIN Stop: 11/02/20 01:29 Last Admin: 11/01/20 17:42 Dose: 125 mls/hr Documented by: [id number] Ondansetron HCl (Ondansetron Inj 2 Mg/Ml 2 Ml Vial) 4 mg IV NOW STA Stop: 11/01/20 17:23 Last Admin: 11/01/20 17:42 Dose: 4 mg Documented by: [id number] Discharge Plan Visit Data Chief Complaint: Shoulder Pain Stated Complaint: Fall ED Provider: Barbara Moscoso Discharge Problem: Closed left humeral fracture, Chronic anticoagulation, Fall (on) (from) other stairs and steps, initial encounter Patient Disposition: Admitted As Inpatient Discharge Instructions Interventions: ED Discharge Assessment Last Done: 11/01/20 22:09 Discharge Problem: Closed left humeral fracture Qualifiers: Encounter type: initial encounter Humerus Location: surgical neck Fracture morphology: unspecified fracture morphology Fracture alignment: displaced Qualified Code(s): S42.212A - Unspecified displaced fracture of surgical neck of left humerus, initial encounter for closed fracture
[2020-11-02] MEDS: INSULIN ASPART 100 UNITS/ML 3 ML PEN SC SCH ×5 (00:46→20:24)
[2020-11-02] MEDS: oxyCODONE HCL IR 5 MG TAB (IMMEDIATE RELEASE) PO PRN ×3 (00:51→20:21)
[2020-11-02] MEDS: ACETAMINOPHEN 325 MG TAB PO SCH ×4 (02:14→20:23)
[2020-11-02] MEDS: MoRPHine SULFATE 2 MG/ML CARP IV PRN (03:35)
[2020-11-02] MEDS: LEVOTHYROXINE SODIUM 75 MCG TABLET PO SCH (06:20)
--- NOTE | 2020-11-02 07:31 | Hospitalist Progress Note ---
Date of Service November 02, 2020 Assessment & Plan (1) Fracture, humerus, neck: Displaced comminuted left humeral neck fracture - Currently splinted with ICE and comfortable - No NV or CV compromise, no hematoma- - Ortho consult for evaluation sling and swathe for 4-6 weeks, upright position should see ortho in 2 weeks - PT/OT consult Osteopenia (2) A-fib: CHADVASC2 4 - Rate controlled on Metoprolol - Patient voices difficulty getting to Coumadin clinic and lab following - Discuss if appropriate changing to DOAC (3) Anticoagulated on warfarin: As above- social and physical challenges may be inhibiting accurate and frequent monitoring. - Assess and adjust therapy after discussion with patient - Coumadin on hold until morning after evaluation by ortho- will restart or bridge therapy as soon as possible. 3-1 resume coumadin (4) HTN (hypertension): Well controlled - No acute needs ASA for primary prevention- restart in morning if no hematoma and no surgical intervention (5) HLD (hyperlipidemia): Atorvastatin 20 Lipid panel pending- adjust dose if needed to high dose therapy (6) Physical deconditioning: PT/OT consult- Patient feels she is doing better but still weak and tired. - Has refused Home health PT in the past (7) Urinary incontinence: Chronic incontinence - Nystatin powder as needed continued - Keep skin dry, optimize nutrition, offload patient from bony prominences q2 hours to protect skin (8) Diabetes mellitus: A1c 7.9% Insulin sliding scale while in house - Pharmacy consult for management for 24-48 hours Admission and Anticipated Discharge Date Admission Date: November 01, 2020 Subjective Patient reports pain in left arm 7/10 in severity. BM yesterday Tolerating her breakfast and lunch without nausea or vomiting She is deciding between going to rehab and having home health. Review of Systems Constitutional: no fever, no chills, no fatigue, no weakness, no anorexia, no weight loss and no weight gain Ear, Nose, Mouth, Throat: no nasal congestion, no sore throat and no dysphagia Respiratory: no cough and no dyspnea Cardiovascular: no chest pain, no dyspnea on exertion, no orthopnea and no palpitations Gastrointestinal: no abdominal pain, no nausea, no vomiting, no hematemesis, no dysphagia, no constipation, no diarrhea/loose stools, no blood in stools and no melena Genitourinary: no dysuria, no urinary frequency, no hematuria and no flank pain Musculoskeletal: + problem reported (left arm pain); no back pain, no joint pain, no myalgia and no muscle weakness Integumentary: no rash, no lesions, no skin ulcer, no erythema, no dry skin and no pruritus Neurologic: no falls, no localized weakness, no generalized weakness, no nu mbness, no paresthesia, no tremor(s) and no headache(s) Psychiatric: no depression, no suicidal ideation, no homicidal ideation and no anxiety Endocrine: no cold intolerance and no heat intolerance Hematologic / Lymphatic: no easy bleeding and no easy bruising Physical Exam Constitutional: well developed and well nourished; no acute distress Eyes: PERRL, conjunctivae normal, anicteric sclerae ENMT: Mouth: oral mucous membranes not dry Respiratory: normal respiratory effort; no respiratory distress and no labored breathing Auscultation: lungs clear to auscultation bilaterally; no crackles, no rales, no rhonchi and no wheezes Cardiovascular: Rate/Rhythm: regular rate and regular rhythm Heart Sounds: no murmur and no cardiac rub Vessels: normal peripheral pulses and radial pulses present; no JVD Extremities: no edema Gastrointestinal (Abdomen): Inspection/Auscultation: abdomen normal to inspection and normal bowel sounds; abdomen not distended Percussion/Palpation: abdomen soft; abdomen nontender, no guarding, abdomen not rigid and no hepatosplenomegaly Musculoskeletal: Head/Neck/Chest: normocephalic and head atraumatic Spine: no cervical spinal tenderness, no cervical muscular tenderness, no thoracic spinal tenderness and no lumbar spinal tenderness Extremities: + upper extremity abnormal to inspection (left arm in sling) Skin: no rashes, warm and dry Neurologic: CN's II-XI intact bilaterally and moves all extremities Motor/Sensory: no tremor and no sensory deficit Psychiatric: Orientation: alert, oriented to person, oriented to place and oriented to time Apperance: appropriately groomed; not disheveled Affect: euthymic affect; no anxious affect and no tearful affect Genitourinary: no CVA tenderness no Ramos catheter Results & Data Results & Data ([facility]) Vital Signs (Past 12 Hours) Vital Signs Temp Pulse Pulse Resp BP BP Pulse Ox 11/02/20 04:10 36.8 C 73 20 119/68 95 11/02/20 00:55 81 20 130/77 11/01/20 22:55 36.6 C 88 22 187/75 H 98 11/01/20 22:39 80 11/01/20 21:32 36.9 C 72 65 18 144/55 H 144/55 H 96 11/01/20 20:31 67 18 105/67 97 11/01/20 20:01 71 18 112/65 97 Laboratory Results Abnormal lab results 11/01/20 11/01/20 11/01/20 Range/Units 19:42 20:30 20:30 RBC 3.57 L (4.2-5.4) M/uL Hgb 10.3 L (12.0-16.0) g/dL Hct 31.0 L (37-47) % RDW Std Deviation 46.7 H (36.4-46.3) fL RDW Coeff of Maria C (11.5-14.5) % Neut # (Auto) 7.52 H (1.4-6.5) K/uL Moffat # (Auto) 0.63 H (0.11-0.59) K/uL PT (9.0-12.0) Seconds INR (0.9-1.1) APTT (21.0-31.0) Seconds Anion Gap (3-11) Glucose 190 H (70-99) mg/dl POC Glucose (70-99) mg/dl Hemoglobin A1c (4.5-5.6) % Albumin 3.1 L (3.4-5.0) gm/dl Albumin/Globulin Ratio 0.8 L (0.9-2) Urine Ketones Trace H (Negative) 11/01/20 11/01/20 11/02/20 Range/Units 20:30 21:58 00:32 RBC (4.2-5.4) M/uL Hgb (12.0-16.0) g/dL Hct (37-47) % RDW Std Deviation (36.4-46.3) fL RDW Coeff of Maria C (11.5-14.5) % Neut # (Auto) (1.4-6.5) K/uL Moffat # (Auto) (0.11-0.59) K/uL PT 22.2 H (9.0-12.0) Seconds INR 2.3 H (0.9-1.1) APTT 36.6 H (21.0-31.0) Seconds Anion Gap (3-11) Glucose (70-99) mg/dl POC Glucose 163 H 262 H (70-99) mg/dl Hemoglobin A1c (4.5-5.6) % Albumin (3.4-5.0) gm/dl Albumin/Globulin Ratio (0.9-2) Urine Ketones (Negative) 11/02/20 11/02/20 11/02/20 Range/Units 07:27 08:12 08:12 RBC 3.29 L (4.2-5.4) M/uL Hgb 9.4 L (12.0-16.0) g/dL Hct 28.5 L (37-47) % RDW Std Deviation 46.8 H (36.4-46.3) fL RDW Coeff of Maria C 14.9 H (11.5-14.5) % Neut # (Auto) (1.4-6.5) K/uL Moffat # (Auto) 0.69 H (0.11-0.59) K/uL PT 21.9 H (9.0-12.0) Seconds INR 2.3 H (0.9-1.1) APTT (21.0-31.0) Seconds Anion Gap (3-11) Glucose (70-99) mg/dl POC Glucose 143 H (70-99) mg/dl Hemoglobin A1c (4.5-5.6) % Albumin (3.4-5.0) gm/dl Albumin/Globulin Ratio (0.9-2) Urine Ketones (Negative) 11/02/20 11/02/20 11/02/20 Range/Units 08:12 08:12 11:27 RBC (4.2-5.4) M/uL Hgb (12.0-16.0) g/dL Hct (37-47) % RDW Std Deviation (36.4-46.3) fL RDW Coeff of Maria C (11.5-14.5) % Neut # (Auto) (1.4-6.5) K/uL Moffat # (Auto) (0.11-0.59) K/uL PT (9.0-12.0) Seconds INR (0.9-1.1) APTT (21.0-31.0) Seconds Anion Gap 12.0 H (3-11) Glucose 122 H (70-99) mg/dl POC Glucose 172 H (70-99) mg/dl Hemoglobin A1c 7.9 H (4.5-5.6) % Albumin (3.4-5.0) gm/dl Albumin/Globulin Ratio (0.9-2) Urine Ketones (Negative) Medications Administered Current Inpatient Medications Acetaminophen (Acetaminophen 325 Mg Tab) 650 mg PO Q6H KEVIN Stop: 12/02/20 02:14 Last Admin: 11/02/20 13:58 Dose: 650 mg Documented by: Atorvastatin Calcium (Atorvastatin 20 Mg Tab) 20 mg PO HS [facility] Stop: 12/02/20 20:59 Clobetasol Propionate (Clobetasol Propionate 0.05% Oint 15 Gm Tube) 1 appln EXT BID PRN PRN Reason: Rash Stop: 12/01/20 22:47 Dextrose (Dextrose 50% 50 Ml Syringe) 25 - 50 ml IV UD PRN; Protocol PRN Reason: Hypoglycemia Protocol Stop: 12/01/20 22:47 Glucagon (Glucagon For Inj 1 Mg Vial) 1 mg SQ UD PRN; Protocol PRN Reason: Hypoglycemia Protocol Stop: 12/01/20 22:47 Glucose (Glucose 10 Tabs/Tube) 4 - 8 tabs PO UD PRN; Protocol PRN Reason: Hypoglycemia Protocol Stop: 12/01/20 22:47 Glucose (Glucose 40% Gel 15 Gm Tube) 15 - 30 gm PO UD PRN; Protocol PRN Reason: Hypoglycemia Protocol Stop: 12/01/20 22:47 Insulin Aspart (Insulin Aspart 100 Units/Ml 3 Ml Pen) 0 units SC ACHS [facility]; Protocol Stop: 12/02/20 00:29 Last Admin: 11/02/20 12:59 Dose: 4 units Documented by: Insulin Glargine (Insulin Glargine Solostar 100 Units/Ml 3 Ml Pen) 0 units SC BID [facility]; Protocol Stop: 12/02/20 00:29 Last Admin: 11/02/20 08:44 Dose: 10 units Documented by: Levothyroxine Sodium (Levothyroxine Sodium 75 Mcg Tablet) 75 mcg PO DAILYBB [facility] Stop: 12/02/20 06:29 Last Admin: 11/02/20 06:20 Dose: 75 mcg Documented by: Lisinopril (Lisinopril 2.5 Mg Tab) 2.5 mg PO HS [facility] Stop: 12/02/20 20:59 Metoprolol Succinate (Metoprolol Succ 50mg Ext Rel Tab) 100 mg PO BID KEVIN Stop: 12/01/20 22:47 Last Admin: 11/02/20 08:40 Dose: Not Given Documented by: Miscellaneous (Carbohydrates For Hypoglycemia ) 15 - 30 gm PO UD PRN PRN Reason: Hypoglycemia Protocol Stop: 12/01/20 22:47 Miscellaneous Information (Pharmacy Glycemic Mgmt Consult) 1 ea N/A UD PRN PRN Reason: Consult Stop: 12/01/20 23:05 Morphine Sulfate (Morphine Sulfate 2 Mg/Ml Carp) 2 mg IV Q4H PRN PRN Reason: Pain severe pain Stop: 11/15/20 22:47 Last Admin: 11/02/20 03:35 Dose: 2 mg Documented by: Nystatin (Nystatin Powder 15gm Btl) 1 appln EXT Q8H PRN PRN Reason: Skin Irritation Stop: 12/01/20 22:47 Ondansetron HCl (Ondansetron Inj 2 Mg/Ml 2 Ml Vial) 4 mg IV Q6H PRN PRN Reason: Nausea Stop: 12/01/20 22:47 Last Admin: 11/01/20 23:28 Dose: 4 mg Documented by: Oxycodone HCl (Oxycodone Hcl Ir 5 Mg Tab (Immediate Release)) 5 mg PO Q6H PRN PRN Reason: Pain Stop: 11/15/20 22:47 Last Admin: 11/02/20 06:20 Dose: 5 mg Documented by: Pantoprazole Sodium (Pantoprazole 40 Mg Tab) 40 mg PO QPM [facility] Stop: 12/02/20 20:59 Polyethylene Glycol (Polyethylene (Miralax) 17 Gm Pack) 17 gm PO DAILY PRN PRN Reason: Constipation Stop: 12/01/20 22:47 Senna/Docusate Sodium (Docusate Sodium/Senna 50/8.6mg Tab) 1 tab PO BID KEVIN Stop: 12/02/20 08:59 Last Admin: 11/02/20 08:41 Dose: 1 tab Documented by: PG Care Time/CCT Total # of Minutes Spent Total Time Spent with Patient: Total time spent is greater than 50% in coordination of care (as documented) at patient's floor/unit and/or counseling patient: Coding Level of Care Code 42449 Subseq Hosp Care Lvl 2 Diagnoses Fracture, humerus, neck S42.212A Encounter type: initial encounter Fracture type: closed Laterality: left A-fib I48.91 Atrial fibrillation type: unspecified Anticoagulated on warfarin Z79.01 HTN (hypertension) I10 Hypertension type: essential hypertension HLD (hyperlipidemia) E78.5 Hyperlipidemia type: unspecified Physical deconditioning R53.81 Urinary incontinence N39.498 Urinary Incontinence type: other incontinence Diabetes mellitus E11.9 Diabetes mellitus roasterman insulin use: without roasterman use Diabetes mellitus type: type 2 (1) Urinary incontinence Urinary Incontinence type: other incontinence Qualified Code(s): N39.498 - Other specified urinary incontinence (2) Diabetes mellitus Diabetes mellitus roasterman insulin use: without roasterman use Diabetes mellitus type: type 2 (3) A-fib Atrial fibrillation type: unspecified Qualified Code(s): I48.91 - Unspecified atrial fibrillation (4) HLD (hyperlipidemia) Hyperlipidemia type: unspecified Qualified Code(s): E78.5 - Hyperlipidemia, unspecified (5) Fracture, humerus, neck Encounter type: initial encounter Fracture type: closed Laterality: left Qualified Code(s): S42.212A - Unspecified displaced fracture of surgical neck of left humerus, initial encounter for closed fracture (6) HTN (hypertension) Hypertension type: essential hypertension Qualified Code(s): I10 - Essential (primary) hypertension
[2020-11-02] MEDS ORDERED: INFLUENZA VACCINE HIGH DOSE 65+ 0.7 ML SYR IM ONE (08:00)
[2020-11-02 08:39] LABS: Basophils # (auto) 0.02 K/uL (0-0.2); Basophils % (auto) 0.3 %; Eosinophils # (auto) 0.28 K/uL (0-0.5); Eosinophils % (auto) 4.1 %; Hematocrit (blood only) 28.5 % (37-47); Hemoglobin 9.4 g/dL (12.0-16.0); Immature Granulocytes # (auto) 0.02 K/uL (0.00-0.02); Immature Granulocytes % (auto) 0.3 %; Lymphocytes # (auto) 2.36 K/uL (1.2-3.4); Lymphocytes % (auto) 34.7 %; Mean Corpuscular Hemoglobin 28.6 pg (25-34); Mean Corpuscular Volume 86.6 fL (80-100); Mean Platelet Volume 9.2 fL (7.4-10.4); Monocytes # (auto) 0.69 K/uL (0.11-0.59); Monocytes % (auto) 10.1 %; Neutrophils # (auto) 3.43 K/uL (1.4-6.5); Neutrophils % (auto) 50.5 %; Platelet Count 218 K/uL (130-400); RDW Coefficient of Variation 14.9 % (11.5-14.5); RDW Standard Deviation 46.8 fL (36.4-46.3); Red Blood Count 3.29 M/uL (4.2-5.4)
[2020-11-02] MEDS: METOPROLOL SUCC 50MG EXT REL TAB PO SCH ×2 (08:40→20:26)
[2020-11-02] MEDS: DOCUSATE SODIUM/SENNA 50/8.6MG TAB PO SCH ×2 (08:41→20:26)
[2020-11-02] MEDS: INSULIN GLARGINE SOLOSTAR 100 UNITS/ML 3 ML PEN SC SCH ×2 (08:44→20:23)
[2020-11-02 08:47] LABS: INR 2.3 (0.9-1.1); Prothrombin Time 21.9 Seconds (9.0-12.0)
[2020-11-02 09:00] LABS: Estimated Average Glucose 180 mg/dl; Hemoglobin A1C 7.9 % (4.5-5.6)
[2020-11-02 09:08] LABS: BUN Creatinine Ratio 19.5 (10-20); Calcium 9.2 mg/dl (8.5-10.1); Creatinine Clr Calc Pharmacy 70.4 ml/min; Est GFR (African American) 69.8; Est GFR (Non-African American) 60.2; Potassium 4.1 mmol/L (3.5-5.1)
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
[2020-11-02 09:19] LABS: Thyroid Stimulating Hormone 1.24 uIu/ml (0.300-4.500)
--- NOTE | 2020-11-02 10:53 | Pharmacy Report ---
Pharmacy Glycemic Short Note 2 - Date of Service November 02, 2020 - Glycemic Short BSG Results (Last 24 hours): 11/01/20 11/01/20 11/02/20 20:30 21:58 00:32 Glucose 190 H POC Glucose 163 H 262 H 11/02/20 11/02/20 07:27 08:12 Glucose 122 H POC Glucose 143 H OUTPATIENT ANTIDIABETIC REGIMEN: * glimepiride BID, Metformin BID * A1c 7.9% 11/02/20 ASSESSMENT: * RICHARD is a 75 yo female admitted with a left humerus head fracture, appears this will be managed non-operatively by orthopedics * She has a history of type II diabetes controlled with oral medications, currently ordered a type II diabetes diet * BSG elevated overnight, down to 143 mg/dL this morning. Patient received 10 units of lantus last evening- will start scale this morning up to 20 units (weight based stress of 2). * Will continue current novolog parameters as patient corrected appropriately, this is between a weight based stress of 1 and 2. PLAN FOR INPATIENT GLYCEMIC CONTROL: * Hold outpatient oral diabetes medications * Basal insulin * Lantus 10/15/20 units BID based on scale * Bolus insulin * NovoLog per scale ACHS or Q6hrs while NPO * Goal Range: Low 110 mg/dL - High 150 mg/dL * Correction Factor: 30 mg/dL/unit * Nutritional / Prandial insulin per carb ratio of 1 unit per 10 grams CHO consumed PLAN FOR DISCHARGE: * A1c 7.9%, <8% may be acceptable depending on patient's outpatient goal, patient can likely continue outpatient oral medication regimen unless experiencing significant side effects/new contraindications. If more stringent control desired may consider addition of another agent.
--- NOTE | 2020-11-02 14:01 | Electrocardiogram Report ---
Test Reason : Blood Pressure : / mmHG Vent. Rate : 073 BPM Atrial Rate : 150 BPM P-R Int : 000 ms QRS Dur : 078 ms QT Int : 420 ms P-R-T Axes : 000 004 046 degrees QTc Int : 462 ms Poor data quality, interpretation may be adversely affected Atrial fibrillation Low voltage QRS Abnormal ECG When compared with ECG of 10-JAN-2020 20:46, T wave inversion no longer evident in Inferior leads Nonspecific T wave abnormality has replaced inverted T waves in Anterior leads QT has lengthened Confirmed by Carlos Vickers [id number]) on 11/02/2020 2:00:38 PM Referred By: REFERRED SELF Confirmed By:Carlos Vickers
[2020-11-02] MEDS ORDERED: WARFARIN SOD 4 MG TAB PO SCH (16:00)
[2020-11-02] MEDS: ATORVASTATIN 20 MG TAB PO SCH (20:24)
[2020-11-02] MEDS: PANTOprazole 40 MG TAB PO SCH (20:25)
[2020-11-02] MEDS: lisinopril 2.5 MG TAB PO SCH (20:26)
[2020-11-03] MEDS: ACETAMINOPHEN 325 MG TAB PO SCH ×4 (02:31→20:59)
[2020-11-03] MEDS: LEVOTHYROXINE SODIUM 75 MCG TABLET PO SCH (06:08)
[2020-11-03] MEDS: oxyCODONE HCL IR 5 MG TAB (IMMEDIATE RELEASE) PO PRN (06:11)
[2020-11-03 07:41] LABS: Basophils # (auto) 0.02 K/uL (0-0.2); Basophils % (auto) 0.3 %; Eosinophils # (auto) 0.32 K/uL (0-0.5); Eosinophils % (auto) 5.1 %; Hemoglobin 9.2 g/dL (12.0-16.0); Immature Granulocytes # (auto) 0.01 K/uL (0.00-0.02); Immature Granulocytes % (auto) 0.2 %; Lymphocytes # (auto) 1.87 K/uL (1.2-3.4); Lymphocytes % (auto) 30.1 %; Mean Corpuscular Hemoglobin 28.3 pg (25-34); Mean Corpuscular Hgb Conc 32.9 g/dL (32-36); Mean Corpuscular Volume 86.2 fL (80-100); Mean Platelet Volume 9.3 fL (7.4-10.4); Monocytes # (auto) 0.59 K/uL (0.11-0.59); Monocytes % (auto) 9.5 %; Neutrophils # (auto) 3.41 K/uL (1.4-6.5); Neutrophils % (auto) 54.8 %; Platelet Count 197 K/uL (130-400); RDW Standard Deviation 47.1 fL (36.4-46.3); Red Blood Count 3.25 M/uL (4.2-5.4); White Blood Count 6.22 K/uL (4.8-10.8)
[2020-11-03 07:58] LABS: INR 2.2 (0.9-1.1); Prothrombin Time 21.1 Seconds (9.0-12.0)
[2020-11-03 08:20] LABS: BUN Creatinine Ratio 15.5 (10-20); Creatinine Clr Calc Pharmacy 68.2 ml/min; Est GFR (African American) 66.3; Est GFR (Non-African American) 57.2; Magnesium 1.9 mg/dl (1.8-2.4); Phosphorus 3.4 mg/dl (2.5-4.9); Potassium 3.9 mmol/L (3.5-5.1)
[2020-11-03] MEDS: METOPROLOL SUCC 50MG EXT REL TAB PO SCH ×2 (08:39→21:02)
[2020-11-03] MEDS: DOCUSATE SODIUM/SENNA 50/8.6MG TAB PO SCH ×2 (08:40→21:02)
[2020-11-03] MEDS: INSULIN GLARGINE SOLOSTAR 100 UNITS/ML 3 ML PEN SC SCH ×2 (08:40→21:00)
[2020-11-03] MEDS: INSULIN ASPART 100 UNITS/ML 3 ML PEN SC SCH ×4 (08:41→21:00)
--- NOTE | 2020-11-03 09:05 | Hospitalist Progress Note ---
Date of Service November 03, 2020 Assessment & Plan (1) Fracture, humerus, neck: Displaced comminuted left humeral neck fracture - Currently splinted with ICE and comfortable - No NV or CV compromise, no hematoma - Ortho consult for evaluation sling and swathe for 4-6 weeks, upright position should see ortho in 2 weeks - PT/OT consult - Referral made to [facility] (2) A-fib: CHADVASC2 4 - Rate controlled on Metoprolol - Patient voices difficulty getting to Coumadin clinic and lab following - restarted coumadin (3) Anemia: unclear etiology -- checking hemoccult cont daily CBC (4) HTN (hypertension): Well controlled - No acute needs ASA for primary prevention- restart in morning if no hematoma and no surgical intervention (5) HLD (hyperlipidemia): Atorvastatin 20 Lipid panel pending- adjust dose if needed to high dose therapy (6) Anticoagulated on warfarin: As above- social and physical challenges may be inhibiting accurate and frequent monitoring. - Assess and adjust therapy after discussion with patient - Coumadin on hold until morning after evaluation by ortho- will restart or bridge therapy as soon as possible. 3-1 resume coumadin 4mg 5 days a week and 2mg Monday and Monday (7) Physical deconditioning: PT/OT consult- Patient feels she is doing better but still weak and tired. - Has refused Home health PT in the past (8) Urinary incontinence: Chronic incontinence - Nystatin powder as needed continued - Keep skin dry, optimize nutrition, offload patient from bony prominences q2 hours to protect skin (9) Diabetes mellitus: A1c 7.9% Insulin sliding scale while in house - Pharmacy consult for management for 24-48 hours Admission and Anticipated Discharge Date Admission Date: November 01, 2020 Subjective Patient reports 8/10 pain in the left arm, worse with movement She is able to move her left hand Denies any overt blood loss, but does have intermittently black stools. Also has a history of peptic ulcer disease and takes celebrex Has not had a BM, requesting stool softener Tolerating meals No difficulty with urination Review of Systems Constitutional: no fever, no chills, no fatigue, no weakness, no anorexia, no weight loss and no weight gain Ear, Nose, Mouth, Throat: no nasal congestion, no sore throat and no dysphagia Respiratory: no cough and no dyspnea Cardiovascular: no chest pain, no dyspnea on exertion, no orthopnea and no palpitations Gastrointestinal: + constipation; no abdominal pain, no nausea, no vomiting, no hematemesis, no dysphagia, no diarrhea/loose stools, no blood in stools and no melena Genitourinary: no dysuria, no urinary frequency, no hematuria and no flank pain Musculoskeletal: no back pain, no joint pain, no myalgia and no muscle weakness Integumentary: no rash, no lesions, no skin ulcer, no erythema, no dry skin and no pruritus Neurologic: no falls, no localized weakness, no generalized weakness, no numbness, no paresthesia, no tremor(s) and no headache(s) Psychiatric: no depression, no suicidal ideation, no homicidal ideation and no anxiety Endocrine: no cold intolerance and no heat intolerance Hematologic / Lymphatic: no easy bleeding and no easy bruising Physical Exam Constitutional: well developed and well nourished; no acute distress Eyes: PERRL, conjunctivae normal, anicteric sclerae ENMT: Mouth: oral mucous membranes not dry Respiratory: normal respiratory effort; no respiratory distress and no labored breathing Auscultation: lungs clear to auscultation bilaterally; no crackles, no rales, no rhonchi and no wheezes Cardiovascular: Rate/Rhythm: regular rate and regular rhythm Heart Sounds: no murmur and no cardiac rub Vessels: normal peripheral pulses and radial pulses present; no JVD Extremities: no edema Gastrointestinal (Abdomen): Inspection/Auscultation: abdomen normal to inspection and normal bowel sounds; abdomen not distended Percu ssion/Palpation: abdomen soft; abdomen nontender, no guarding, abdomen not rigid and no hepatosplenomegaly Musculoskeletal: Head/Neck/Chest: normocephalic and head atraumatic Spine: no cervical spinal tenderness, no cervical muscular tenderness, no thoracic spinal tenderness and no lumbar spinal tenderness Extremities: + upper extremity abnormal to inspection (left arm in sling) Skin: no rashes, warm and dry Neurologic: CN's II-XI intact bilaterally and moves all extremities Motor/Sensory: no tremor and no sensory deficit Psychiatric: Orientation: alert, oriented to person, oriented to place and oriented to time Apperance: appropriately groomed; not disheveled Affect: euthymic affect; no anxious affect and no tearful affect Genitourinary: no CVA tenderness Results & Data Results & Data ([facility]) Vital Signs (Past 12 Hours) Vital Signs Temp Pulse Pulse Resp BP Pulse Ox 11/03/20 07:09 78 11/03/20 07:00 36.6 C 74 18 137/73 96 11/03/20 03:36 36.9 C 69 18 132/63 96 11/03/20 02:01 81 11/02/20 22:25 36.5 C 82 20 132/78 98 Laboratory Results Abnormal lab results 11/02/20 11/02/20 11/02/20 Range/Units 08:12 08:12 11:27 RBC (4.2-5.4) M/uL Hgb (12.0-16.0) g/dL Hct (37-47) % RDW Std Deviation (36.4-46.3) fL RDW Coeff of Maria C (11.5-14.5) % PT (9.0-12.0) Seconds INR (0.9-1.1) Chloride (98-107) mmol/L Anion Gap 12.0 H (3-11) Glucose 122 H (70-99) mg/dl POC Glucose 172 H (70-99) mg/dl Hemoglobin A1c 7.9 H (4.5-5.6) % 11/02/20 11/02/20 11/03/20 Range/Units 16:29 20:14 07:18 RBC 3.25 L (4.2-5.4) M/uL Hgb 9.2 L (12.0-16.0) g/dL Hct 28.0 L (37-47) % RDW Std Deviation 47.1 H (36.4-46.3) fL RDW Coeff of Maria C 15.0 H (11.5-14.5) % PT (9.0-12.0) Seconds INR (0.9-1.1) Chloride (98-107) mmol/L Anion Gap (3-11) Glucose (70-99) mg/dl POC Glucose 223 H 169 H (70-99) mg/dl Hemoglobin A1c (4.5-5.6) % 11/03/20 11/03/20 11/03/20 Range/Units 07:18 07:18 07:29 RBC (4.2-5.4) M/uL Hgb (12.0-16.0) g/dL Hct (37-47) % RDW Std Deviation (36.4-46.3) fL RDW Coeff of Maria C (11.5-14.5) % PT 21.1 H (9.0-12.0) Seconds INR 2.2 H (0.9-1.1) Chloride 108 H (98-107) mmol/L Anion Gap (3-11) Glucose 129 H (70-99) mg/dl POC Glucose 149 H (70-99) mg/dl Hemoglobin A1c (4.5-5.6) % Medications Administered Current Inpatient Medications Acetaminophen (Acetaminophen 325 Mg Tab) 650 mg PO Q6H KEVIN Stop: 12/02/20 02:14 Last Admin: 11/03/20 08:47 Dose: 650 mg Documented by: Atorvastatin Calcium (Atorvastatin 20 Mg Tab) 20 mg PO HS KEVIN Stop: 12/02/20 20:59 Last Admin: 11/02/20 20:24 Dose: 20 mg Documented by: Clobetasol Propionate (Clobetasol Propionate 0.05% Oint 15 Gm Tube) 1 appln EXT BID PRN PRN Reason: Rash Stop: 12/01/20 22:47 Dextrose (Dextrose 50% 50 Ml Syringe) 25 - 50 ml IV UD PRN; Protocol PRN Reason: Hypoglycemia Protocol Stop: 12/01/20 22:47 Glucagon (Glucagon For Inj 1 Mg Vial) 1 mg SQ UD PRN; Protocol PRN Reason: Hypoglycemia Protocol Stop: 12/01/20 22:47 Glucose (Glucose 10 Tabs/Tube) 4 - 8 tabs PO UD PRN; Protocol PRN Reason: Hypoglycemia Protocol Stop: 12/01/20 22:47 Glucose (Glucose 40% Gel 15 Gm Tube) 15 - 30 gm PO UD PRN; Protocol PRN Reason: Hypoglycemia Protocol Stop: 12/01/20 22:47 Insulin Aspart (Insulin Aspart 100 Units/Ml 3 Ml Pen) 0 units SC ACHS KEVIN; Protocol Stop: 12/02/20 00:29 Last Admin: 11/03/20 08:41 Dose: 5 units Documented by: Insulin Glargine (Insulin Glargine Solostar 100 Units/Ml 3 Ml Pen) 0 units SC BID KEVIN; Protocol Stop: 12/02/20 00:29 Last Admin: 11/03/20 08:40 Dose: 10 units Documented by: Levothyroxine Sodium (Levothyroxine Sodium 75 Mcg Tablet) 75 mcg PO DAILYBB [facility] Stop: 12/02/20 06:29 Last Admin: 11/03/20 06:08 Dose: 75 mcg Documented by: Lisinopril (Lisinopril 2.5 Mg Tab) 2.5 mg PO HS [facility] Stop: 12/02/20 20:59 Last Admin: 11/02/20 20:26 Dose: 2.5 mg Documented by: Metoprolol Succinate (Metoprolol Succ 50mg Ext Rel Tab) 100 mg PO BID [facility] Stop: 12/01/20 22:47 Last Admin: 11/03/20 08:39 Dose: 100 mg Documented by: Miscellaneous (Carbohydrates For Hypoglycemia ) 15 - 30 gm PO UD PRN PRN Reason: Hypoglycemia Protocol Stop: 12/01/20 22:47 Miscellaneous Information (Pharmacy Glycemic Mgmt Consult) 1 ea N/A UD PRN PRN Reason: Consult Stop: 12/01/20 23:05 Morphine Sulfate (Morphine Sulfate 2 Mg/Ml Carp) 2 mg IV Q4H PRN PRN Reason: Pain severe pain Stop: 11/15/20 22:47 Last Admin: 11/02/20 03:35 Dose: 2 mg Documented by: Nystatin (Nystatin Powder 15gm Btl) 1 appln EXT Q8H PRN PRN Reason: Skin Irritation Stop: 12/01/20 22:47 Ondansetron HCl (Ondansetron Inj 2 Mg/Ml 2 Ml Vial) 4 mg IV Q6H PRN PRN Reason: Nausea Stop: 12/01/20 22:47 Last Admin: 11/01/20 23:28 Dose: 4 mg Documented by: Oxycodone HCl (Oxycodone Hcl Ir 5 Mg Tab (Immediate Release)) 5 mg PO Q6H PRN PRN Reason: Pain Stop: 11/15/20 22:47 Last Admin: 11/03/20 06:11 Dose: 5 mg Documented by: Pantoprazole Sodium (Pantoprazole 40 Mg Tab) 40 mg PO QPM [facility] Stop: 12/02/20 20:59 Last Admin: 11/02/20 20:25 Dose: 40 mg Documented by: Polyethylene Glycol (Polyethylene (Miralax) 17 Gm Pack) 17 gm PO DAILY PRN PRN Reason: Constipation Stop: 12/01/20 22:47 Senna/Docusate Sodium (Docusate Sodium/Senna 50/8.6mg Tab) 1 tab PO BID KEVIN Stop: 12/02/20 08:59 Last Admin: 11/03/20 08:40 Dose: 1 tab Documented by: Warfarin Sodium (Warfarin Sod 4 Mg Tab) 4 mg PO DAILY@1600 KEVIN Stop: 12/02/20 15:59 Last Admin: 11/02/20 16:34 Dose: 4 mg Documented by: PG Care Time/CCT Total # of Minutes Spent Total Time Spent with Patient: Total time spent is greater than 50% in coordination of care (as documented) at patient's floor/unit and/or counseling patient: Coding Level of Care Code 80843 Subseq Hosp Care Lvl 2 Diagnoses Fracture, humerus, neck S42.212A Encounter type: initial encounter Fracture type: closed Laterality: left A-fib I48.91 Atrial fibrillation type: unspecified Anemia D64.9 Anemia type: unspecified type HTN (hypertension) I10 Hypertension type: essential hypertension HLD (hyperlipidemia) E78.5 Hyperlipidemia type: unspecified Anticoagulated on warfarin Z79.01 Physical deconditioning R53.81 Urinary incontinence N39.498 Urinary Incontinence type: other incontinence Diabetes mellitus E11.9 Diabetes mellitus penitentiary insulin use: without penitentiary use Diabetes mellitus type: type 2 (1) Urinary incontinence Urinary Incontinence type: other incontinence Qualified Code(s): N39.498 - Other specified urinary incontinence (2) Diabetes mellitus Diabetes mellitus penitentiary insulin use: without penitentiary use Diabetes mellitus type: type 2 (3) Anemia Anemia type: unspecified type Qualified Code(s): D64.9 - Anemia, unspecified (4) A-fib Atrial fibrillation type: unspecified Qualified Code(s): I48.91 - Unspecified atrial fibrillation (5) HLD (hyperlipidemia) Hyperlipidemia type: unspecified Qualified Code(s): E78.5 - Hyperlipidemia, unspecified (6) Fracture, humerus, neck Encounter type: initial encounter Fracture type: closed Laterality: left Qualified Code(s): S42.212A - Unspecified displaced fracture of surgical neck of left humerus, initial encounter for closed fracture (7) HTN (hypertension) Hypertension type: essential hypertension Qualified Code(s): I10 - Essential (primary) hypertension
--- NOTE | 2020-11-03 09:27 | Orthopedic Progress Note ---
Date of Service November 03, 2020 Assessment & Plan (1) Closed left humeral fracture: Continue conservative management. She said she is waiting placement at [facility]. I wrote an order for a new sling because she should have the waist strap and this sling is missing it apparently. I did have her remove her rings on the left hand before the fingers swell too much. No motion of the left shoulder at this time. Follow up in [address] Florez as an outpatient. Subjective .75 y/o female with left proximal humerus fracture. She has quite a bit of pain around the left shoulder, especially with any movement of her body. The sling has irritated her neck some. Review of Systems All systems reviewed & are unremarkable except as noted in HPI & below. Physical Exam . Sling is fitting appropriately. She can move her fingers appropriately. NVI. Mild swellingn to the left hand. Results & Data Results & Data Laboratory Results . Diagnostic Findings . PG Care Time/CCT Total # of Minutes Spent Total Time Spent with Patient: Total time spent is greater than 50% in coordination of care (as documented) at patient's floor/unit and/or counseling patient: Coding Level of Care Code 32979 Subseq Hosp Care Lvl 1 Diagnoses Closed left humeral fracture S42.212A Encounter type: initial encounter Fracture alignment: displaced Fracture morphology: unspecified fracture morphology Humerus Location: surgical neck (1) Closed left humeral fracture Encounter type: initial encounter Fracture alignment: displaced Fracture morphology: unspecified fracture morphology Humerus Location: surgical neck Qualified Code(s): S42.212A - Unspecified displaced fracture of surgical neck of left humerus, initial encounter for closed fracture
--- NOTE | 2020-11-03 10:21 | Pharmacy Report ---
Pharmacy Glycemic Short Note 2 - Date of Service November 03, 2020 - Glycemic Short BSG Results (Last 24 hours): 11/02/20 11/02/20 11/02/20 11:27 16:29 20:14 Glucose POC Glucose 172 H 223 H 169 H 11/03/20 11/03/20 07:18 07:29 Glucose 129 H POC Glucose 149 H OUTPATIENT ANTIDIABETIC REGIMEN: * glimepiride BID, Metformin BID * A1c 7.9% 11/02/20 ASSESSMENT: 11/03/20: * Violeta has received 44 units of insulin over the past 24hrs with decent glycemic control: * 25 units of basal with Lantus * 19 units of bolus with NovoLog * BSGs: 143, 172, 223, 169 mg/dl * Fasting BSG of 129 mg/dL this morning is near goal - > continue Lantus dosed per scale * Post prandial BSG elevation noted -> will tighten correction factor and carb ratio 11/02/20: * RICHARD is a 75 yo female admitted with a left humerus head fracture, appears this will be managed non-operatively by orthopedics * She has a history of type II diabetes controlled with oral medications, currently ordered a type II diabetes diet * BSG elevated overnight, down to 143 mg/dL this morning. Patient received 10 units of lantus last evening- will start scale this morning up to 20 units (weight based stress of 2). * Will continue current novolog parameters as patient corrected appropriately, this is between a weight based stress of 1 and 2. PLAN FOR INPATIENT GLYCEMIC CONTROL: * Hold outpatient oral diabetes medications * Basal insulin * Lantus BID based on scale: * 10 units for BSG 160 mg/dL or less * 15 units for BSG > 160 mg/dL * Bolus insulin - tighten * NovoLog per scale ACHS or Q6hrs while NPO * Goal Range: Low 110 mg/dL - High 150 mg/dL * Correction Factor: 25 mg/dL/unit * Nutritional / Prandial insulin per carb ratio of 1 unit per 9 grams CHO consumed PLAN FOR DISCHARGE: * A1c 7.9%, <8% may be acceptable depending on patient's outpatient goal, patient can likely continue outpatient oral medication regimen unless exper iencing significant side effects/new contraindications. If more stringent control desired may consider addition of another agent.
[2020-11-03] MEDS ORDERED: Nursing to Pharmacy Communication SCH (15:00)
[2020-11-03] MEDS ORDERED: WARFARIN SOD 2 MG TAB PO SCH (16:00)
[2020-11-03] MEDS ORDERED: DOCUSATE SODIUM/SENNA 50/8.6MG TAB PO SCH (21:00)
[2020-11-03] MEDS: ATORVASTATIN 20 MG TAB PO SCH (21:00)
[2020-11-03] MEDS: PANTOprazole 40 MG TAB PO SCH (21:02)
[2020-11-03] MEDS: lisinopril 2.5 MG TAB PO SCH (21:03)
[2020-11-04] MEDS: ACETAMINOPHEN 325 MG TAB PO SCH ×2 (02:55→08:10)
[2020-11-04 06:25] LABS: Basophils # (auto) 0.02 K/uL (0-0.2); Basophils % (auto) 0.3 %; Eosinophils # (auto) 0.29 K/uL (0-0.5); Eosinophils % (auto) 4.3 %; Hematocrit (blood only) 27.5 % (37-47); Hemoglobin 8.8 g/dL (12.0-16.0); Immature Granulocytes # (auto) 0.01 K/uL (0.00-0.02); Immature Granulocytes % (auto) 0.1 %; Lymphocytes # (auto) 1.85 K/uL (1.2-3.4); Lymphocytes % (auto) 27.4 %; Mean Corpuscular Hemoglobin 27.9 pg (25-34); Mean Corpuscular Volume 87.3 fL (80-100); Mean Platelet Volume 9.5 fL (7.4-10.4); Monocytes # (auto) 0.81 K/uL (0.11-0.59); Neutrophils # (auto) 3.77 K/uL (1.4-6.5); Neutrophils % (auto) 55.9 %; Platelet Count 204 K/uL (130-400); RDW Standard Deviation 47.5 fL (36.4-46.3); Red Blood Count 3.15 M/uL (4.2-5.4); White Blood Count 6.75 K/uL (4.8-10.8)
[2020-11-04 06:34] LABS: INR 1.9 (0.9-1.1); Prothrombin Time 18.2 Seconds (9.0-12.0)
[2020-11-04] MEDS: LEVOTHYROXINE SODIUM 75 MCG TABLET PO SCH (06:38)
[2020-11-04 06:51] LABS: BUN Creatinine Ratio 15.5 (10-20); Creatinine Clr Calc Pharmacy 64.6 ml/min; Est GFR (African American) 61.7; Est GFR (Non-African American) 53.3; Magnesium 1.9 mg/dl (1.8-2.4); Phosphorus 3.6 mg/dl (2.5-4.9); Potassium 4.1 mmol/L (3.5-5.1)
[2020-11-04] MEDS ORDERED: oxyCODONE HCL IR 5 MG TAB (IMMEDIATE RELEASE) PO PRN (07:54)
[2020-11-04] MEDS: METOPROLOL SUCC 50MG EXT REL TAB PO SCH (08:11)
[2020-11-04] MEDS: DOCUSATE SODIUM/SENNA 50/8.6MG TAB PO SCH (08:11)
[2020-11-04] MEDS: INSULIN GLARGINE SOLOSTAR 100 UNITS/ML 3 ML PEN SC SCH (08:12)
[2020-11-04] MEDS: INSULIN ASPART 100 UNITS/ML 3 ML PEN SC SCH ×2 (08:14→13:19)
[2020-11-04] MEDS ORDERED: POLYETHYLENE (MIRALAX) 17 GM PACK PO SCH (09:00)
--- NOTE | 2020-11-04 13:23 | Pharmacy Report ---
Pharmacy Glycemic Short Note 2 - Date of Service November 04, 2020 - Glycemic Short BSG Results (Last 24 hours): 11/03/20 11/03/20 11/04/20 17:25 20:48 06:04 Glucose 145 H POC Glucose 157 H 205 H 11/04/20 11/04/20 08:02 11:31 Glucose POC Glucose 176 H 211 H OUTPATIENT ANTIDIABETIC REGIMEN: * glimepiride BID, Metformin BID * A1c 7.9% 11/02/20 ASSESSMENT: 11/04/20: * Violeta has received 44 units of insulin over the past 24hrs with decent glycemic control: * 25 units of basal with Lantus * 19 units of bolus with NovoLog * BSGs: 129, 258, 157, 205 mg/dl * Fasting BSG elevated this morning at 176 mg/dL. Will lower the BSG cut off on Lantus scale so that patient receives higher dose for BSG > 140. * Post prandial BSGs are fluctuating. I suspect patient needs more carb coverage. Tighten novolog parameters to weight/stress 2. 11/03/20: * Violeta has received 44 units of insulin over the past 24hrs with decent glycemic control: * 25 units of basal with Lantus * 19 units of bolus with NovoLog * BSGs: 143, 172, 223, 169 mg/dl * Fasting BSG of 129 mg/dL this morning is near goal - > continue Lantus dosed per scale * Post prandial BSG elevation noted -> will tighten correction factor and carb ratio 11/02/20: * RICHARD is a 75 yo female admitted with a left humerus head fracture, appears this will be managed non-operatively by orthopedics * She has a history of type II diabetes controlled with oral medications, currently ordered a type II diabetes diet * BSG elevated overnight, down to 143 mg/dL this morning. Patient received 10 units of lantus last evening- will start scale this morning up to 20 units (weight based stress of 2). * Will continue current novolog parameters as patient corrected appropriately, this is between a weight based stress of 1 and 2. PLAN FOR INPATIENT GLYCEMIC CONTROL: * Hold outpatient oral diabetes medications * Basal insulin * Lantus BID based on scale: * 10 units for BSG 140 mg/dL or less * 15 units for BSG > 140 mg/dL * Bolus insulin - tighten * NovoLog per scale ACHS or Q6hrs while NPO * Goal Range: Low 110 mg/dL - High 150 mg/dL * Correction Factor: 20 mg/dL/unit * Nutritional / Prandial insulin per carb ratio of 1 unit per 7 grams CHO consumed PLAN FOR DISCHARGE: * A1c 7.9%, <8% may be acceptable depending on patient's outpatient goal, pa ronaldont can likely continue outpatient oral medication regimen unless experiencing significant side effects/new contraindications. If more stringent control desired may consider addition of another agent.
--- NOTE | 2020-11-04 13:29 | Discharge Summary ---
Date of Service November 04, 2020 Admission HPI Per Admitting Provider 75 YOF with past medical history of: obesity, DM II, AFIB, HTN, HLD, warfarin anticoagulation, weakness, urinary incontinence, GERD, COVID 19. Patient came to the emergency room today via EMS after falling at home. Patient was at home, when the power went out. She was attempting to go downstairs in the dark and felt she would have enough light to see. She miscounted the steps, missing the last step and fell to the ground striking her shoulder on the concrete and bumping the left side of her head on a table that was on the ground. She was able to call her son to come help her. The patient denies any other pain out of the ordinary to her at this time. In the ER the patient had CT scan of head and neck performed, Shoulder Xray, received 1 liter of 0.9% saline, 0.5 mg hydromorphone and 4 mg zofran and her shoulder/arm are splinted. Patient will be admitted for pain control, PT/OT evaluation, Ortho consult, and monitoring of her INR. Principal Diagnosis left arm fracture Discharge Exam Constitutional well developed and well nourished; no acute distress Eyes PERRL, conjunctivae normal, anicteric sclerae ENMT Mouth: oral mucous membranes not dry Respiratory normal respiratory effort; no respiratory distress and no labored breathing Auscultation: lungs clear to auscultation bilaterally; no crackles, no rales, no rhonchi and no wheezes Cardiovascular Rate/Rhythm: regular rate and regular rhythm Heart Sounds: no murmur and no cardiac rub Vessels: normal peripheral pulses and radial pulses present; no JVD Extremities: no edema Gastrointestinal (Abdomen) Inspection/Auscultation: abdomen normal to inspection and normal bowel sounds; abdomen not distended Percussion/Palpation: abdomen soft; abdomen nontender, no guarding, abdomen not rigid and no hepatosplenomegaly Musculoskeletal Head/Neck/Chest: normocephalic and head atraumatic Spine: no cervical spinal tenderness, no cervical muscular tenderness, no thoracic spinal tenderness and no lumbar spinal tenderness Extremities: + upper extremity abnormal to inspection (left arm in sling) Skin no rashes, warm and dry Neurologic CN's II-XI intact bilaterally and moves all extremities Motor/Sensory: no tremor and no sensory deficit Psychiatric Orientation: alert, oriented to person, oriented to place and oriented to time Apperance: appropriately groomed; not disheveled Affect: euthymic affect; no anxious affect and no tearful affect Genitourinary no CVA tenderness Discharge Data Allergies Allergy/AdvReac Type Severity Reaction Status Date / Time milk AdvReac Mild Diarrhea Verified 11/01/20 17:47 bagel Allergy red, itchy Uncoded 11/01/20 17:48 skin Consultations 11/01/20 20:08 ED Decision to Admit Stat 11/01/20 23:17 Consult Orthopedic Surgery Routine Ordered Studies 11/01/20 17:22 CT cervical spine wo con Stat CT head/brain wo con Stat Hospital Course (1) Fracture, humerus, neck: Displaced comminuted left humeral neck fracture - Currently splinted with ICE and comfortable - No NV or CV compromise, no hematoma - Ortho consult for evaluation sling and swathe for 4-6 weeks, upright position should see ortho in 2 weeks - PT/OT consult - Referral made to [facility] 3-3 stable for discharge (2) A-fib: CHADVASC2 4 - Rate controlled on Metoprolol - Patient voices difficulty getting to Coumadin clinic and lab following - restarted coumadin (3) Anxiety with depression: feeling worse than usual patient will call outpatient psychiatry Gilberto Gaytan for followup (4) Anemia: unclear etiology -- checking hemoccult cont daily CBC patient will need outpatient GI eval (5) HTN (hypertension): Well controlled - No acute needs ASA for primary prevention- restart in morning if no hematoma and no surgical intervention (6) HLD (hyperlipidemia): Atorvastatin 20 Lipid panel pending- adjust dose if needed to high dose therapy (7) Anticoagulated on warfarin: As above- social and physical challenges may be inhibiting accurate and frequent monitoring. - Assess and adjust therapy after discussion with patient - Coumadin on hold until morning after evaluation by ortho- will restart or bridge therapy as soon as possible. 3-1 resume coumadin 4mg 5 days a week and 2mg Monday and Monday (8) Physical deconditioning: PT/OT consult- Patient feels she is doing better but still weak and tired. - Has refused Home health PT in the past (9) Urinary incontinence: Chronic incontinence - Nystatin powder as needed continued - Keep skin dry, optimize nutrition, offload patient from bony prominences q2 hours to protect skin (10) Diabetes mellitus: A1c 7.9% Insulin sliding scale while in house - Pharmacy consult for management for 24-48 hours Total Time Total Time Spent Total Time Spent (In Minutes): 35 Total Time Includes: Examination of the Patient, Discharge Planning, Medication Reconciliation and Communication With Other Providers Discharge Plan Discharge Items Patient Disposition: Transfer Detention Fac Reason For Visit: FALL WITH BROKEN HUMERUS Discharge Diagnosis: Left Proximal Humerus Fracture Activity: As commented below Activity Comment: Sling at all times. No use of left arm Lifting: None Non-emergency contact: Primary Care Provider Call non-emergency contact if: you have any medication questions Follow-up/Referrals: Gilberto Gaytan [Other] (call within 3 weeks to make appointment for outpatient psychotherapy and counselling) Oni Anderson MD [Primary Care Provider] - (patient will need to be seen within 2 weeks for hospital follow up and for evaluation of anemia including GI referral) Alonzo Florez MD [Physician] - (Orthopedic follow-up in 2 weeks.) Diet: Carb Consistent or DM2 Addtl Attending Provider Instructions: For your arm fracture Sling and Waistbelt at all times. Keep head of bed elevated > 30 degrees at all times. You can use oxycodone 5mg three times per day as needed You have anemia Please discuss with your PCP to obtain referrals for further workup including EGD and colonoscopy Pending Studies at Discharge: No Stand-Alone Forms: My [facility] Skilled Items Patient informed of condition?: Yes DNR: No Discharge Level of Care: Skilled Communicable Disease: No Discharge Prognosis: Stable Lines: None Urinary Catheter: No Medications and DC Order Prescriptions: New oxycodone 5 mg Tablet 5 mg PO Q8H PRN (Reason: left arm pain) 15 Days Qty: 45 RF: 0 oxycodone 5 mg capsule 5 mg PO Q8H PRN (Reason: pain) 15 Days Qty: 45 RF: 0 Continued glimepiride 2 mg tablet See Rx Instructions PO BID Qty: 270 RF: 3 levothyroxine 75 mcg tablet 75 mcg PO QAM Qty: 30 RF: 5 metoprolol succinate 100 mg tablet extended release 24 hr 100 mg PO BID Qty: 180 RF: 3 warfarin 4 mg tablet 4 mg PO 5XWK Qty: 240 RF: 3 atorvastatin 20 mg tablet 20 mg PO HS Qty: 90 RF: 1 sennosides-docusate sodium 8.6-50 mg tablet 1 tab PO BID Qty: 60 RF: 5 metformin 1,000 mg tablet 1,000 mg PO BID Qty: 180 RF: 3 lisinopril 2.5 mg tablet 2.5 mg PO HS Qty: 30 RF: 5 omeprazole 20 mg capsule,delayed release(DR/EC) 20 mg PO QPM Qty: 30 RF: 5 tramadol 50 mg tablet 50 mg PO QAM Qty: 90 RF: 1 warfarin 2 mg tablet 2 mg PO 2XWK Qty: 100 RF: 5 celecoxib [Celebrex] 200 mg capsule 200 mg PO QAM Qty: 30 RF: 5 lysine 500 mg tablet 500 mg PO QAM PRN (Reason: Cold Sore(s)) RF: 0 nystatin 100,000 unit/gram powder 1 appln topical Q8H PRN (Reason: Skin Irritation) Qty: 1 RF: 0 clobetasol 0.05 % cream 1 appln topical BID PRN (Reason: Rash) Qty: 1 RF: 0 Centrum Silver 0.4-300-250 mg-mcg-mcg Tablet 1 tab PO QAM RF: 0 aspirin 81 mg Tablet,Delayed Release (Dr/Ec) 81 mg PO QAM RF: 0 lutein-zeaxanthin 20 mg- 1,000 mcg Capsule 1 cap PO QAM RF: 0 cranberry extract 250 mg Tablet 0 mg PO DAILY RF: 0 cholecalciferol (vitamin D3) [Vitamin D3] 50 mcg (2,000 unit) Tablet 50 mcg PO DAILY RF: 0 Discharge Orders: Discharge Order (Routine); Ordered 11/04/20 Ordered By: Kelli Ocampo/Other Patient Handouts: Managing Type 2 Diabetes Admission Data Admit Date/Time: 11/01/20 21:20 Attending Provider: Kelli Arreola Admit Provider: Clay So Primary Care Provider: Oni Anderson Other Providers: Clay So ; Alonzo Florez ; [facility] Coding Level of Care Code D/C Day Management >30 mins Diagnoses Fracture, humerus, neck S42.212A Encounter type: initial encounter Fracture type: closed Laterality: left A-fib I48.91 Atrial fibrillation type: unspecified Anxiety with depression F41.8 Anemia D64.9 Anemia type: unspecified type HTN (hypertension) I10 Hypertension type: essential hypertension HLD (hyperlipidemia) E78.5 Hyperlipidemia type: unspecified Anticoagulated on warfarin Z79.01 Physical deconditioning R53.81 Urinary incontinence N39.498 Urinary Incontinence type: other incontinence Diabetes mellitus E11.9 Diabetes mellitus fdc insulin use: without salvage determiner use Diabetes mellitus type: type 2
[2020-11-04] MEDS ORDERED: WARFARIN SOD 4 MG TAB PO SCH (16:00)
== END 2020-11-04 15:16 ==
LOC: ED 16:41 → INTOOBSV 21:20 → SUATTDRO 21:20 → 2W 21:20

== ENCOUNTER 2022-11-02 21:40 | Observation (INO) ==
--- NOTE | 2022-11-02 22:26 | Emergency Department Note ---
Impression & Plan Lymphedema ADMIT ED Provider Note HPI: The patient is a 77-year-old female with history of atrial fibrillation, on anticoagulation, history of chronic lower extremity edema bilaterally, presents the emergency department with increased swelling and pain in her bilateral lower extremities. Patient states this is been worsening over the past several weeks. Patient states that she has not been able to move around her house very well and she "slides around". She states that she has not really been able to walk for about the past 6 to 8 weeks. Per chart review, office of aging in [place] has been involved as there is concern for potential self-neglect. On arrival here to the ED the patient is alert, she is conversational and she is oriented to place and time. Patient states that she has had some increasing pain and swelling in her lower extremities over the past several weeks. She denies any recent fevers. Denies any chest pain or shortness of breath, denies any nausea or vomiting. ROS: - Per HPI *Outpatient medications and allergy history reviewed. *Pertinent external medical records reviewed. PE: General: Alert, morbidly obese HEENT: Normocephalic, trachea midline Eyes: Extraocular eye movement is intact, no scleral erythema Pulmonary: Clear to auscultation bilaterally, no wheezing Cardio: Regular rate and irregular rhythm GI: Abdomen is soft to palpation : No suprapubic tenderness MSK: Grossly swollen bilateral lower extremities from the mid thigh downward, consistent with lymphedema, there are some erythematous changes to the bilateral lower extremities below the knee and above the ankle bilaterally, there is no skin peeling or blister formation, no purulent drainage is noted, there is no crepitus to palpation bilaterally Skin: No evidence of rash Neuro: Alert, no focal deficits Psychiatric: Cooperative environmental monitoring technician: (As interpreted by myself): - An order was placed for continuous cardiac monitoring - Patient was noted to be in atrial fibrillation with a rate of 85 EKG: (As interpreted by myself): Rate: 82 Rhythm: Atrial fibrillation Intervals: Within normal limits ST changes: No ST elevation Time: 2148 Interventions provided in ED: -Oral potassium repletion, IV Lasix Differential Diagnosis: Cellulitis, lymphedema, DVT, sepsis/infection, pneumonia, pulmonary edema, CHF, sleep apnea, amongst other potential pathologies. Medical Decision Making: Patient presented to the emergency department with some progressive decline at home recently, she has had increased swelling in her bilateral lower extremities, she has had this chronically but it is worsened acutely over the past several weeks. She states she has not really been able to walk for about the past 8 weeks. She has not been doing well at home, presents to the ED for further evaluation. On my examination patient does have some erythematous changes to the bilateral lower extremities but these appear to be somewhat chronic in nature and associated with her likely underlying diagnosis of lymphedema. She does not have a leukocytosis or fever, low suspicion for cellulitis acutely at this time, will send for cultures and will hold off on antibiotics here in the ED pending culture results. Patient did have an episode of hypoxia when she fell asleep, she was placed on nasal cannula oxygen with good improvement. Chest x-ray shows concern for some pulmonary vascular congestion per my interpretation, in conjunction with the patient's lymphedema and swelling in the lower extremities she was given a dose of IV Lasix. Potassium was slightly low at 3.4 which was repleted orally. Patient's troponin is mildly elevated at 14, she denies any chest pain. EKG shows atrial fibrillation that is rate controlled, no acute ischemic changes are noted. Low suspicion for ACS or PE given the patient's lack of chest pain, I suspect her hypoxia is secondary to underlying apnea as it did occur when the patient fell asleep. Upon review of the patient's chart there has been concern for self-neglect recently, office of aging is been involved, patient tells me tonight that she feels she needs to be admitted for possible placement at a skilled/rehab facility. I think at this point given the patient's lab abnormalities and physical exam she would benefit from medical admission for optimization of medical care and PT/OT consultation. She will likely require placement upon discharge. Patient expressed an agreement understanding. Hospitalist service was contacted in regards to admission, patient was placed for admission in stable condition. Consultants: Dr. Klein, hospitalist Disposition discussion held by myself with: Patient Diagnosis: 1. Bilateral lower extremity swelling/lymphedema, acute on chronic 2. Ambulatory dysfunction, acute on chronic 3. Concern for self-neglect/social concern 4. Elevated high-sensitivity troponin level 5. Elevated BNP level/pulmonary vascular congestion 6. Hypokalemia, mild Disposition: Admission Ja Dickson DO Emergency Medicine Past Med/Surg History Medical History Anxiety with depression ARF (acute renal failure) Asthma Atrial fibrillation Cerebral artery occlusion Cyst of kidney, acquired Depression Diabetes mellitus type 2, uncontrolled Dizziness Gait abnormality Healthcare maintenance Hearing deficit History of gastric ulcer History of ovarian cancer History of sepsis Hypercholesterolemia Hyperlipidemia Hypertension Hypothyroidism IBS (irritable bowel syndrome) Kidney stones Migraine Morbid obesity Nausea and vomiting after administration of anesthetic agent On anticoagulant therapy Osteoarthritis Ovarian cancer Proteinuria Renal neoplasm Seasonal asthma Stroke Stroke-like symptoms Temporomandibular joint disorder UPJ (ureteropelvic junction) obstruction Urinary incontinence Visual disturbances Vitamin D deficiency Surgical History History of colonoscopy History of esophagogastroduodenoscopy (EGD) History of surgery History of total abdominal hysterectomy and bilateral salpingo-oophorectomy S/P cystoscopy with ureteral stent placement S/P D&C (status post dilation and curettage) S/P T&A (status post tonsillectomy and adenoidectomy) Family History Grandmother (Paternal) Family history of diabetes mellitus Social History Smoking Status: Never smoker Second Hand Exposure: No; Hx Alcohol Use: No Hx Substance Use: No Preferred Language: Bulgarian Communication Ability: Effective Visual Impairment: No Limitations Credit Assistant Required: No Beliefs That Will Affect Care: Confucianist marital status: Current Living Situation: Alone Feels Safe at Home: Yes Assistive Devices: Cane, Lift Chair and Walker Allergies Allergies Allergy/AdvReac Type Severity Reaction Status Date / Time milk AdvReac Intermediate Diarrhea Verified 11/02/22 23:09 bagel Allergy Intermediate red, itchy Uncoded 11/02/22 23:09 skin Home Meds Home Medications Medication Instructions Recorded Confirmed [id number] acid 0.4 1 tab PO QAM 09/20/18 11/02/22 mg-lycopene 300 mcg-lutein 250 mcg tablet (Centrum Silver) lysine 500 mg tablet 500 mg PO QAM PRN Cold Sore(s) 04/03/19 11/02/22 lutein 20 mg-zeaxanthin 1,000 mcg 1 cap PO QAM 07/02/19 11/02/22 capsule cholecalciferol (vitamin D3) 50 50 mcg PO DAILY 11/01/20 11/02/22 mcg (2,000 unit) tablet (Vitamin D3) glimepiride 2 mg tablet 4 mg PO BID 11/02/22 11/02/22 nystatin 100,000 unit/gram topical 1 applic topical BID PRN Rash 11/02/22 11/02/22 cream Previous Rx's Medication Instructions Recorded nystatin 100,000 unit/gram topical 1 applic topical Q8H PRN Skin 03/12/21 powder Irritation #30 grams sennosides 8.6 mg-docusate sodium 1 tab PO BID #180 tabs 08/06/21 50 mg tablet levothyroxine 75 mcg tablet 75 mcg PO QAM #90 tabs 12/07/21 metformin 1,000 mg tablet 1,000 mg PO BID #180 tabs 12/07/21 clobetasol 0.05 % topical cream 1 applic topical BID PRN Rash #1 g 12/08/21 metoprolol succinate 100 mg 100 mg PO BID #180 tabs 12/21/21 tablet,extended release 24 hr warfarin 2 mg tablet 2 mg PO 2XWK #100 tabs 03/21/22 lisinopril 2.5 mg tablet 2.5 mg PO HS #90 tabs 05/27/22 omeprazole 20 mg capsule,delayed 20 mg PO QPM #30 caps 05/30/22 release furosemide 40 mg tablet 40 mg PO DAILY #30 tabs 07/08/22 potassium chloride 20 mEq 20 meq PO DAILY #30 tabs 07/08/22 tablet,extended release atorvastatin 20 mg tablet 20 mg PO HS #90 tabs 08/01/22 celecoxib 200 mg capsule (Celebrex) 200 mg PO QAM #30 caps 08/15/22 tramadol 50 mg tablet 50 mg PO QAM #90 tabs 08/23/22 warfarin 4 mg tablet 4 mg PO 5XWK #240 tabs 09/20/22 Results & Data (ED) Vital Signs Vital Signs - 24 hr 11/02/22 21:54 11/02/22 22:28 11/02/22 22:41 Temperature 36.9 C Temperature Source Oral Pulse Rate 79 72 Pulse Rate [Apical] Respiratory Rate 18 Respiratory Effort / Characteristics Non-Labored Spontaneous Respiratory Depth Normal Respiratory Pattern Regular Blood Pressure 187/69 H Blood Pressure [Left Arm] Blood Pressure Mean 108 Blood Pressure Mean [Left Arm] Pulse Oximetry 93 87 L Oxygen Delivery Method Room Air Nasal Cannula Oxygen Flow Rate 0 Sepsis Recent Fever Within 48 Hours No Sepsis New/Unexplained Change in Mental Status No Sepsis Action Taken by Nursing No Action Required Oxygen Flow Rate - Titration 2 Pulse Oximetry Post Tiitration 93 11/03/22 00:17 Temperature Temperature Source Pulse Rate Pulse Rate [Apical] 77 Respiratory Rate 16 Respiratory Effort / Characteristics Respiratory Depth Respiratory Pattern Blood Pressure Blood Pressure [Left Arm] 160/73 H Blood Pressure Mean Blood Pressure Mean [Left Arm] 102 Pulse Oximetry 100 Oxygen Delivery Method Nasal Cannula Oxygen Flow Rate 2 Sepsis Recent Fever Within 48 Hours Sepsis New/Unexplained Change in Mental Status Sepsis Action Taken by Nursing Oxygen Flow Rate - Titration Pulse Oximetry Post Tiitration Laboratory Data 11/02/22 22:00 11/02/22 22:00 Lab Results 11/02/22 11/02/22 11/02/22 Range/Units 22:00 22:00 22:00 WBC 6.53 (4.8-10.8) K/ul RBC 3.58 L (4.20-5.40) M/uL Hgb 8.7 L (12.0-16.0) g/dl Hct 27.8 L (37.0-47.0) % MCV 77.7 L (80.0-100.0) fL MCH 24.3 L (25.0-34.0) pg MCHC 31.3 L (32.0-36.0) g/dL RDW Std Deviation 54.6 H (36.4-46.3) fL RDW Coeff of Maria C 19.4 H (11.5-14.5) % Plt Count 215 (130-400) K/uL MPV 10.1 (9.4-12.4) fL Immature Gran % (Auto) 0.5 % Neut % (Auto) 65.1 % Lymph % (Auto) 20.2 % [place] % (Auto) 11.5 % Eos % (Auto) 2.1 % Baso % (Auto) 0.6 % Neut # (Auto) 4.25 (1.40-6.50) K/uL Lymph # (Auto) 1.32 (1.2-3.4) K/uL [place] # (Auto) 0.75 H (0.11-0.59) K/uL Eos # (Auto) 0.14 (0-0.50) K/uL Baso # (Auto) 0.04 (0-0.2) K/uL Immature Gran # (Auto) 0.03 (0.01-0.20) K/uL PT 21.9 H (9.0-12.0) Seconds INR 2.1 H (0.9-1.1) APTT 31.5 H (21.0-31.0) Seconds PTT Ratio 1.1 Sodium 141 (136-145) mmol/L Potassium 3.4 L (3.5-5.1) mmol/L Chloride 105 (98-107) mmol/L Carbon Dioxide 26 (21-32) mmol/L Anion Gap 10 (3-11) BUN 14 (6-23) mg/dl Creatinine 1.02 (0.6-1.2) mg/dl Est Cr Clr Drug Dosing 60.0 ml/min Est GFR ( Amer) 62.3 ml/min Est GFR (Non-Af Amer) 53.8 ml/min BUN/Creatinine Ratio 13.7 (10-20) Glucose 223 H (70-99(Fasting)) mg/dl Calcium 9.6 (8.5-10.1) mg/dl Total Bilirubin 2.4 H (0.2-1.0) mg/dl AST 21 (13-39) U/L ALT 14 (7-52) U/L Alkaline Phosphatase 118 H (34-104) U/L Troponin I High Sens 14.4 H (0-14) pg/ml B-Natriuretic Peptide (0-100) pg/ml Total Protein 7.3 (6.0-8.3) gm/dl Albumin 3.8 (3.4-5.0) gm/dl Globulin 3.5 (2.5-4.0) gm/dl Albumin/Globulin Ratio 1.1 (0.9-2) Lipase 41 (11-82) U/L SARS-CoV-2, RNA, NAAT (NEGATIVE) 11/02/22 11/02/22 Range/Units 22:00 22:25 WBC (4.8-10.8) K/ul RBC (4.20-5.40) M/uL Hgb (12.0-16.0) g/dl Hct (37.0-47.0) % MCV (80.0-100.0) fL MCH (25.0-34.0) pg MCHC (32.0-36.0) g/dL RDW Std Deviation (36.4-46.3) fL RDW Coeff of Maria C (11.5-14.5) % Plt Count (130-400) K/uL MPV (9.4-12.4) fL Immature Gran % (Auto) % Neut % (Auto) % Lymph % (Auto) % [place] % (Auto) % Eos % (Auto) % Baso % (Auto) % Neut # (Auto) (1.40-6.50) K/uL Lymph # (Auto) (1.2-3.4) K/uL [place] # (Auto) (0.11-0.59) K/uL Eos # (Auto) (0-0.50) K/uL Baso # (Auto) (0-0.2) K/uL Immature Gran # (Auto) (0.01-0.20) K/uL PT (9.0-12.0) Seconds INR (0.9-1.1) APTT (21.0-31.0) Seconds PTT Ratio Sodium (136-145) mmol/L Potassium (3.5-5.1) mmol/L Chloride (98-107) mmol/L Carbon Dioxide (21-32) mmol/L Anion Gap (3-11) BUN (6-23) mg/dl Creatinine (0.6-1.2) mg/dl Est Cr Clr Drug Dosing ml/min Est GFR ( Amer) ml/min Est GFR (Non-Af Amer) ml/min BUN/Creatinine Ratio (10-20) Glucose (70-99(Fasting)) mg/dl Calcium (8.5-10.1) mg/dl Total Bilirubin (0.2-1.0) mg/dl AST (13-39) U/L ALT (7-52) U/L Alkaline Phosphatase (34-104) U/L Troponin I High Sens (0-14) pg/ml B-Natriuretic Peptide 193 H (0-100) pg/ml Total Protein (6.0-8.3) gm/dl Albumin (3.4-5.0) gm/dl Globulin (2.5-4.0) gm/dl Albumin/Globulin Ratio (0.9-2) Lipase (11-82) U/L SARS-CoV-2, RNA, NAAT NEGATIVE (NEGATIVE) Administered Medications Discontinued Medications Furosemide (Furosemide 40 Mg/4 Ml Vial) 40 mg IV ONE ONE Stop: 11/02/22 23:58 Last Admin: 11/03/22 00:10 Dose: 40 mg Documented By: ADRYAN Potassium Chloride (Potassium Chloride Crtab 20 Meq Tabcr) 20 meq PO NOW STA Stop: 11/02/22 23:46 Last Admin: 11/03/22 00:10 Dose: 20 meq Documented By: ADRYAN Discharge Plan Visit Data Chief Complaint: Swelling/Edema to Extremity Stated Complaint: BILATERAL LOWER LEG EDEMA ED Provider: Ja Dickson Discharge Problem: Lymphedema Forms Stand Alone Forms: [facility] Prescriptions Prescriptions: No Action nystatin 100,000 unit/gram powder 1 applic topical Q8H PRN (Reason: Skin Irritation) Qty: 30 0RF sennosides-docusate sodium 8.6-50 mg tablet 1 tab PO BID Qty: 180 3RF levothyroxine 75 mcg tablet 75 mcg PO QAM Qty: 90 3RF metformin 1,000 mg tablet 1,000 mg PO BID Qty: 180 3RF clobetasol 0.05 % cream 1 applic topical BID PRN (Reason: Rash) Qty: 1 0RF metoprolol succinate 100 mg tablet extended release 24 hr 100 mg PO BID Qty: 180 3RF warfarin 2 mg tablet 2 mg PO 2XWK Qty: 100 5RF Protocol: Dose Management Condition: Monday Dose/Route: 4 mg Instruction: 1 x 4 mg tablet Condition: Monday Dose/Route: 2 mg Instruction: 1 x 2 mg tablet Condition: Monday Dose/Route: 4 mg Instruction: 1 x 4 mg tablet Condition: Monday Dose/Route: 4 mg Instruction: 1 x 4 mg tablet Condition: Dose/Route: 2 mg Instruction: 1 x 2 mg tablet Condition: Monday Dose/Route: 4 mg Instruction: 1 x 4 mg tablet Condition: Monday Dose/Route: 2 mg Instruction: 1 x 2 mg tablet Protocol Text: Adjustment Start Date: Monday07/02/21 INR Value: 1.9 INR Date: 07/01/21 Recheck Date: 08/01/21 Rx Instructions: TAKE 2 MG EVERY MONDAY AND MONDAY OR OTHERWISE DIRECTED TO TAKE BY ANTICOAGULATION CLINIC/MD lisinopril 2.5 mg tablet 2.5 mg PO HS Qty: 90 3RF omeprazole 20 mg capsule,delayed release(DR/EC) 20 mg PO QPM Qty: 30 5RF potassium chloride 20 mEq tablet extended release 20 meq PO DAILY Qty: 30 5RF furosemide 40 mg tablet 40 mg PO DAILY Qty: 30 5RF atorvastatin 20 mg tablet 20 mg PO HS Qty: 90 3RF celecoxib [Celebrex] 200 mg capsule 200 mg PO QAM Qty: 30 5RF tramadol 50 mg tablet 50 mg PO QAM Qty: 90 1RF warfarin 4 mg tablet 4 mg PO 5XWK Qty: 240 3RF Protocol: Dose Management Condition: Monday Dose/Route: 4 mg Instruction: 1 x 4 mg tablet Condition: Monday Dose/Route: 2 mg Instruction: 1 x 2 mg tablet Condition: Monday Dose/Route: 4 mg Instruction: 1 x 4 mg tablet Condition: Monday Dose/Route: 4 mg Instruction: 1 x 4 mg tablet Condition: Dose/Route: 2 mg Instruction: 1 x 2 mg tablet Condition: Monday Dose/Route: 4 mg Instruction: 1 x 4 mg tablet Condition: Monday Dose/Route: 2 mg Instruction: 1 x 2 mg tablet Protocol Text: Adjustment Start Date: Monday07/02/21 INR Value: 1.9 INR Date: 07/01/21 Recheck Date: 08/01/21 Rx Instructions: TAKE 4 MG EVERY MONDAY,MONDAY,MONDAY,MONDAY AND MONDAY OR OTHERWISE DIRECTED TO TAKE BY ANTICOAGULATION CLINIC/ lysine 500 mg tablet 500 mg PO QAM PRN (Reason: Cold Sore(s)) Centrum Silver 0.4-300-250 mg-mcg-mcg Tablet 1 tab PO QAM lutein-zeaxanthin 20 mg- 1,000 mcg Capsule 1 cap PO QAM cholecalciferol (vitamin D3) [Vitamin D3] 50 mcg (2,000 unit) Tablet 50 mcg PO DAILY glimepiride 2 mg tablet 4 mg PO BID Rx Instructions: Take 4 mg(2 tabs) in the morning and 4 mg(2 tabs) in the evening nystatin 100,000 unit/gram cream 1 applic topical BID PRN (Reason: Rash) Referrals Referrals: Michael Anderson MD [Primary Care Provider] -
[2022-11-02 22:41] LABS: Basophils # (auto) 0.04 K/uL (0-0.2); Basophils % (auto) 0.6 %; Eosinophils # (auto) 0.14 K/uL (0-0.50); Eosinophils % (auto) 2.1 %; Hematocrit (blood only) 27.8 % (37.0-47.0); Hemoglobin 8.7 g/dl (12.0-16.0); Immature Granulocytes # (auto) 0.03 K/uL (0.01-0.20); Immature Granulocytes % (auto) 0.5 %; Lymphocytes # (auto) 1.32 K/uL (1.2-3.4); Lymphocytes % (auto) 20.2 %; Mean Corpuscular Hemoglobin 24.3 pg (25.0-34.0); Mean Corpuscular Hgb Conc 31.3 g/dL (32.0-36.0); Mean Corpuscular Volume 77.7 fL (80.0-100.0); Mean Platelet Volume 10.1 fL (9.4-12.4); Monocytes # (auto) 0.75 K/uL (0.11-0.59); Monocytes % (auto) 11.5 %; Neutrophils # (auto) 4.25 K/uL (1.40-6.50); Neutrophils % (auto) 65.1 %; Platelet Count 215 K/uL (130-400); RDW Coefficient of Variation 19.4 % (11.5-14.5); RDW Standard Deviation 54.6 fL (36.4-46.3); Red Blood Count 3.58 M/uL (4.20-5.40); White Blood Count 6.53 K/ul (4.8-10.8)
[2022-11-02 22:54] LABS: INR 2.1 (0.9-1.1); Partial Thromboplastin Ratio 1.1; Partial Thromboplastin Time 31.5 Seconds (21.0-31.0); Prothrombin Time 21.9 Seconds (9.0-12.0)
[2022-11-02 23:03] LABS: Troponin I High Sensitivity 14.4 pg/ml (0-14)
[2022-11-02 23:04] LABS: Albumin Level 3.8 gm/dl (3.4-5.0); Bilirubin,Total 2.4 mg/dl (0.2-1.0); Calcium 9.6 mg/dl (8.5-10.1); Potassium 3.4 mmol/L (3.5-5.1)
[2022-11-02 23:10] LABS: Albumin Globulin Ratio 1.1 (0.9-2); BUN Creatinine Ratio 13.7 (10-20); Est GFR (African American) 62.3 ml/min; Est GFR (Non-African American) 53.8 ml/min; Globulin 3.5 gm/dl (2.5-4.0); Total Protein 7.3 gm/dl (6.0-8.3)
[2022-11-02] MEDS ORDERED: POTASSIUM CHLORIDE CRTAB 20 MEQ TABCR PO STA (23:45)
[2022-11-02] MEDS ORDERED: FUROSEMIDE 40 MG/4 ML VIAL IV ONE (23:57)
--- NOTE | 2022-11-03 00:11 | History & Physical Report ---
Date of Service November 03, 2022 Assessment & Plan (1) Hypervolemia: Plan: -Clinically apparent hypervolemia with supporting CXR and history -Suspect CHF exacerbation given her history of medication nonadherence and likely dietary indiscretion, although her b/l leg swelling may also be in large part due to chronic lymphedema. She does have a mildly elevated BNP of 190 although this may be reactive -Echocardiogram ordered, could not locate previous echocardiogram in chart -Ramos catheter, strict I's and O's, daily weights -Lasix 40 mg IV BID -Cr 1.0 on admission -KCl 40 meq daily while undergoing diuresis -Trend BMP (2) Edema of lower extremity: Plan: -As above, suspect contribution from possible CHF exacerbation in setting of chronic lymphedema -While I largely suspect chronic venous stasis rather than cellulitis to be underlying her peripheral swelling, warmth, erythema and tenderness to palpation, the noted history of yellow drainage from her wounds do raise some suspicion of infection despite lack of leukocytosis -Cefazolin 2g q8h, low threshold to discontinue antibiotics- monitor fever curve, CBC -MRSA nares pending -Wound care consulted -CARMINA stockings for compression (3) Weakness: Plan: -Chronic deconditioning in high-risk pt with multiple comorbidities and unfortunately staggering decline in ability to care for self -PT/OT ordered, anticipate need for SNF/inpatient rehab. Pt is not safe to care for herself at home (4) A-fib: Plan: -Noted to be in AF on admission, rate-controlled -Continue metoprolol succinate ER 100 mg BID -Continue Coumadin per home regimen/schedule -Monitor INR, currently therapeutic at 2.1 on admission -Telemetry monitoring (5) Elevated troponin: Plan: -Troponin 14.4 on admission -EKG without concern for acute ACS -Mild elevation likely due to demand ischemia 2/2 CHF -Trend to peak (6) Hypothyroid: Plan: -Last TSH of 1.0 in 11/2021 -Continue levothyroxine (7) HTN (hypertension): Plan: -BP stable on admission -Continue lisinopril, metoprolol (8) HLD (hyperlipidemia): Plan: -Continue atorvastatin (9) Diabetes mellitus: Plan: -Holding home metformin, glimepiride -Poorly controlled- A1C 9.7% in 11/2021 -BSG elevated on admission 223 -Lantus + SSI (10) Anemia: Plan: -Hgb 8.7 on admission -Likely iron-deficiency based on CBC studies -Trend CBC (11) Hyperbilirubinemia: Plan: -TB of 2.4 on admission -No clinical evidence of jaundice on exam -Possibly reactive, trend CMP (12) GERD (gastroesophageal reflux disease): Plan: -Pantoprazole in place of home omeprazole while in hospital (13) Chronic pain: Plan: -Continue home tramadol Plan FENGI: Low salt, DM2, heart-healthy, fluid restriction 1200 mls Code status: Full DVT ppx: Warfarin Isolation: None Dispo: Medical/surgical with telemetry History of Present Illness Chief Complaint: Ambulatory dysfunction Primary Care Provider: Michael Anderson MD 77 yo F with PMH including DM2, pAF on Coumadin, HTN, HLD, hypothyroidism, anemia, GERD, morbid obesity presenting with worsening ambulatory dysfunction. History obtained primarily from chart review as pt is poor historian. Pt was seen in phone visit by PCP today for progressive difficulty caring herself at home, worsening leg swelling with weeping wounds and limited ambulati on. Pt follows with [facility]. Pt's daughter called EMS for concern of her mother's self neglect but pt refused to go to ER. EMS notified [facility] who contacted her PCP to arrange phone visit. Pt's legs have become significantly more swollen over past several weeks and seeping with yellow fluid and she has had associated difficulty moving around the home. Additionally she has had more exertional dyspnea. Pt's daughter has apparently urged her to go to ER multiple times but she has refused and also skipped multiple [facility] appointments. She does admit to irregular home Lasix use, only taking about 1/2 tablet every other day instead of her daily 40 mg regimen. Pt has also not bathed or washed her hair in several weeks and attributes this as the reason she has avoided going to the ER. Pt arrived to ER hemodynamically stable. Hgb 8.7, MCV 78, RDW 55, INR 2.1, K 3.4, glucose 223, TB 2.4, ALP 118, troponin 14, BNP 190. CXR with evidence of pulmonary vascular congestion and pulmonary edema. Pt given Lasix 40 mg IV and KCL 40 meq in ER. On my evaluation, she expresses fatigue, dyspnea and b/l leg pain. She is unfortunately a poor historian and was unable to clearly articulate what brought her to the hospital, only speaking in vague terms of getting progressively worse in terms of her general health. Allergies Allergy/AdvReac Type Severity Reaction Status Date / Time milk AdvReac Intermediate Diarrhea Verified 11/02/22 23:09 bagel Allergy Intermediate red, itchy Uncoded 11/02/22 23:09 skin Home Medications Medication Instructions Recorded Confirmed Type [id number] acid 0.4 1 tab PO QAM 09/20/18 11/02/22 History mg-lycopene 300 mcg-lutein 250 mcg tablet (Centrum Silver) lysine 500 mg tablet 500 mg PO QAM PRN Cold Sore(s) 04/03/19 11/02/22 History lutein 20 mg-zeaxanthin 1,000 mcg 1 cap PO QAM 07/02/19 11/02/22 History capsule cholecalciferol (vitamin D3) 50 50 mcg PO DAILY 11/01/20 11/02/22 History mcg (2,000 unit) tablet (Vitamin D3) nystatin 100,000 unit/gram topical 1 applic topical Q8H PRN Skin 03/12/21 11/02/22 Rx powder Irritation #30 grams sennosides 8.6 mg-docusate sodium 1 tab PO BID #180 tabs 08/06/21 11/02/22 Rx 50 mg tablet levothyroxine 75 mcg tablet 75 mcg PO QAM #90 tabs 12/07/21 11/02/22 Rx metformin 1,000 mg tablet 1,000 mg PO BID #180 tabs 12/07/21 11/02/22 Rx clobetasol 0.05 % topical cream 1 applic topical BID PRN Rash #1 g 12/08/21 11/02/22 Rx metoprolol succinate 100 mg 100 mg PO BID #180 tabs 12/21/21 11/02/22 Rx tablet,extended release 24 hr warfarin 2 mg tablet 2 mg PO 2XWK #100 tabs 03/21/22 11/02/22 Rx lisinopril 2.5 mg tablet 2.5 mg PO HS #90 tabs 05/27/22 11/02/22 Rx omeprazole 20 mg capsule,delayed 20 mg PO QPM #30 caps 05/30/22 11/02/22 Rx release furosemide 40 mg tablet 40 mg PO DAILY #30 tabs 07/08/22 11/02/22 Rx potassium chloride 20 mEq 20 meq PO DAILY #30 tabs 07/08/22 11/02/22 Rx tablet,extended release atorvastatin 20 mg tablet 20 mg PO HS #90 tabs 08/01/22 11/02/22 Rx celecoxib 200 mg capsule (Celebrex) 200 mg PO QAM #30 caps 08/15/22 11/02/22 Rx tramadol 50 mg tablet 50 mg PO QAM #90 tabs 08/23/22 11/02/22 Rx warfarin 4 mg tablet 4 mg PO 5XWK #240 tabs 09/20/22 11/02/22 Rx glimepiride 2 mg tablet 4 mg PO BID 11/02/22 11/02/22 History nystatin 100,000 unit/gram topical 1 applic topical BID PRN Rash 11/02/22 11/02/22 History cream Past Med/Surg History Medical History (Updated 11/03/22 @ 01:34 by Marcello Coleman MD) Anxiety with depression ARF (acute renal failure) 2/2 obstructing stone. Cr as high as 2.25 in 09/2018. Since ESWL x 2 and cysto/stent insertion, Cr has normalized to 0.89 (11/21/18) Asthma Atrial fibrillation 12 YEARS AGO - ON WARFARIN - FOLLOWS W/ [place] CARDIO Cerebral artery occlusion Cyst of kidney, acquired Depression Diabetes mellitus type 2, uncontrolled Dizziness Elevated troponin Gait abnormality Healthcare maintenance Hearing deficit History of gastric ulcer History of ovarian cancer s/p TIFFANIE BSO, omentectomy + chemo History of sepsis Admitted [facility] 09/2018 with sepsis 2/2 obstructive uropathy/UTI Hypercholesterolemia Hyperlipidemia Hypertension Hypothyroidism IBS (irritable bowel syndrome) Kidney stones Migraine Morbid obesity Nausea and vomiting after administration of anesthetic agent On anticoagulant therapy PAST 12+ YRS FOR AFIB Osteoarthritis Ovarian cancer Proteinuria Renal neoplasm Seasonal asthma DOES NOT USE INH Stroke X2. Most recent 12 years ago (dx new onset a-fib at time of stroke) - memory issues, word finding issues, urinary incontinence -age 47 - cause? no residual deficits Stroke-like symptoms Upon performing PAT assessment (07/02/19): pt informed nurse that she was having symptoms of a DVT in her left leg a "few months ago" and just "doubled upon on my warfarin for a couple days" without consulting or calling PCP....pt then stated she noticed a "drooping to the right side of her face a few days ago"---?? stroke symptoms Temporomandibular joint disorder Never locked open, just clicked UPJ (ureteropelvic junction) obstruction Urinary incontinence Visual disturbances Vitamin D deficiency Surgical History History of colonoscopy History of esophagogastroduodenoscopy (EGD) History of surgery omentectomy r/t ovarian cancer History of total abdominal hysterectomy and bilateral salpingo-oophorectomy S/P cystoscopy with ureteral stent placement S/P D&C (status post dilation and curettage) S/P T&A (status post tonsillectomy and adenoidectomy) Family History Grandmother (Paternal) Family history of diabetes mellitus Social History Smoking Status: Never smoker Second Hand Exposure: No; Hx Alcohol Use: No Hx Substance Use: No Preferred Language: Uzbek Communication Ability: Effective Visual Impairment: No Limitations 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 Beliefs That Will Affect Care: None marital status: Current Living Situation: Family Other Information That Helps Us Care for You: No Feels Safe at Home: Yes Safety Concerns: Feels Safe At This Time Assistive Devices: Oxygen - at Night Review of Systems Review of Systems: Per HPI Physical Exam Physical Exam: PHYSICAL EXAM: General: awake, alert, no apparent distress, laying in bed Head: Normocephalic, atraumatic ENT: PERRL, EOMI, no pharyngeal exudate, mucous membranes moist Neuro: AAO x 3, speech clear and appropriate, b/l UE and LE strength intact 5/5, sensation intact and equal in all extremities Resp: Diminished and coarse breath sounds diffusely with crackles at bases, paradoxical belly breathing observed Cardiac: Irregular rhythm, normal rate, normal S1 and S2, no murmurs noted Abd: soft, distended, nontender Extremities: Profound 3+ edema b/l up to thighs with erythema and warmth, some associated chronic venous stasis changes, no plaques or overt blisters identified, tender to palpation along lateral shins- findings symmetric Results & Data Results & Data ([facility]) Vital Signs (Past 12 Hours) Vital Signs Temp Pulse Resp BP Pulse Ox O2 Del Method O2 Flow Rate 11/02/22 22:41 87 L Nasal Cannula 0 11/02/22 22:28 36.9 C 72 18 187/69 H 93 Room Air 11/02/22 21:54 79 Supervising Physician Co-Signing Physician Notes Attending addendum: I have physically seen this patient, have supervised the medical residents activities, and agree with the H&P unless as otherwise noted. Assessment and Plan: Elevated troponin/CHF exacerbation/lower extremity edema/atrial fibrillation- The patient will be admitted to telemetry for serial cardiac enzymes, serial EKG's, cardiac rhythm monitoring and a 2-D echocardiogram with Dopplers. Given furosemide 40 mg IV in ED, continue furosemide 40 mg IV twice daily Ramos catheter Klor-Con 40 mEq p.o. daily Follow serial BMP and magnesium levels Continue metoprolol succinate ER 100 mg p.o. twice daily, Coumadin and lisinopril Follow serial PT/INR, CBC with differential and BMP and magnesium Lower extremity cellulitis bilaterally- Areas of drainage noted Cefazolin 2 g IV every 8 hours MRSA swab Consult wound care Consideration of Unna boots short and long-term Diabetes mellitus- Hold metformin and glimepiride Continue Lantus and NovoLog SSI Hyperlipidemia- Continue atorvastatin Hypothyroidism- Continue levothyroxine GERD- Continue omeprazole/pantoprazole Remaining orders and notations as noted Resident Activity Tracking Resident Involvement: Resident Care Provided Care Provided: Adult Hospital Medicine (4) A-fib Atrial fibrillation type: unspecified Qualified Code(s): I48.91 - Unspecified atrial fibrillation (6) Hypothyroid Hypothyroidism type: unspecified Qualified Code(s): E03.9 - Hypothyroidism, unspecified (7) HTN (hypertension) Hypertension type: essential hypertension Qualified Code(s): I10 - Essential (primary) hypertension (8) HLD (hyperlipidemia) Hyperlipidemia type: unspecified Qualified Code(s): E78.5 - Hyperlipidemia, unspecified (9) Diabetes mellitus 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
[2022-11-03] MEDS ORDERED: POLYETHYLENE (MIRALAX) 17 GM PACK PO PRN ×2 (02:39→21:29)
[2022-11-03] MEDS ORDERED: GLUCAGON FOR INJ 1 MG VIAL SQ PRN (02:39)
[2022-11-03] MEDS ORDERED: DEXTROSE 50% 50 ML SYRINGE IV PRN (02:39)
[2022-11-03] MEDS ORDERED: GLUCOSE 10 TAB/TUBE PO PRN (02:39)
[2022-11-03] MEDS ORDERED: CARBOHYDRATES FOR HYPOGLYCEMIA PO PRN (02:39)
[2022-11-03] MEDS ORDERED: ONDANSETRON INJ 2 MG/ML 2 ML VIAL IV PRN (02:39)
[2022-11-03] MEDS ORDERED: GLUCOSE 40% GEL 15 GM TUBE PO PRN (02:39)
[2022-11-03 03:13] LABS: Hematocrit (blood only) 28.8 % (37.0-47.0); Hemoglobin 8.9 g/dl (12.0-16.0); Mean Corpuscular Hemoglobin 24.4 pg (25.0-34.0); Mean Corpuscular Hgb Conc 30.9 g/dL (32.0-36.0); Mean Corpuscular Volume 78.9 fL (80.0-100.0); Mean Platelet Volume 10.1 fL (9.4-12.4); Platelet Count 211 K/uL (130-400); RDW Coefficient of Variation 19.4 % (11.5-14.5); RDW Standard Deviation 54.5 fL (36.4-46.3); Red Blood Count 3.65 M/uL (4.20-5.40); White Blood Count 5.35 K/ul (4.8-10.8)
[2022-11-03 03:47] LABS: Albumin Globulin Ratio 1.2 (0.9-2); Albumin Level 3.9 gm/dl (3.4-5.0); BUN Creatinine Ratio 13.9 (10-20); Bilirubin,Total 2.1 mg/dl (0.2-1.0); Calcium 9.7 mg/dl (8.5-10.1); Creatinine Clr Calc Pharmacy 60.6 ml/min; Est GFR (African American) 63.1 ml/min; Est GFR (Non-African American) 54.4 ml/min; Globulin 3.3 gm/dl (2.5-4.0); Potassium 3.4 mmol/L (3.5-5.1); Total Protein 7.2 gm/dl (6.0-8.3)
[2022-11-03] MEDS ORDERED: ceFAZolin 2000MG 2,000 MG/15 ML SYR IV SCH (04:00)
[2022-11-03] MEDS ORDERED: INFLUENZA VACCINE HIGH DOSE PF 65+ 0.7 ML SYR IM ONE (04:26)
[2022-11-03] MEDS ORDERED: PNEUMOCOCCAL POLYSACCHARIDES 25 MCG/0.5 ML VIAL/SYR IM ONE (04:26)
[2022-11-03] MEDS: LEVOTHYROXINE SODIUM 75 MCG TABLET PO SCH (05:36)
--- NOTE | 2022-11-03 07:10 | XRay Report ---
XR chest 1V portable CLINICAL HISTORY: Chest pain, nonspecific COMPARISON STUDY: Chest radiograph November 01, 2020. FINDINGS: Lung moderate cardiomegaly is unchanged. There is no pneumothorax or pleural effusion. Ther e is pulmonary vascular congestion with suspected mild pulmonary edema. There is no consolidation to suggest pneumonia. Old left humeral neck fracture is incidentally noted. IMPRESSION: Cardiomegaly. Pulmonary vascular congestion with suspected mild pulmonary edema. ACT 112: Negative or not required by law. Electronically signed by: Moisés Mejía M.D. 11/03/2022 7:07 AM
[2022-11-03] MEDS: PANTOprazole 40 MG TAB PO SCH (07:38)
[2022-11-03] MEDS: METOPROLOL SUCC 50MG EXT REL TAB PO SCH ×2 (07:38→20:55)
[2022-11-03] MEDS: POTASSIUM CHLORIDE CRTAB 20 MEQ TABCR PO SCH (07:39)
[2022-11-03] MEDS ORDERED: FUROSEMIDE 40 MG/4 ML VIAL IV SCH (09:00)
[2022-11-03] MEDS: INSULIN ASPART PER UNIT SC SCH ×4 (10:56→20:54)
[2022-11-03] MEDS: LANTUS PER UNIT CHARGE SQ SCH ×2 (10:57→21:00)
[2022-11-03] MEDS: traMADol HCL 50 MG TABLET PO SCH (10:58)
--- NOTE | 2022-11-03 14:08 | Hospitalist Progress Note ---
Date of Service November 03, 2022 Assessment & Plan (1) Hypervolemia: Plan: -Clinically apparent hypervolemia with supporting CXR and history -Suspect CHF exacerbation given her history of medication nonadherence and likely dietary indiscretion, although her b/l leg swelling may also be in large part due to chronic lymphedema. She does have a mildly elevated BNP of 190 although this may be reactive -Echocardiogram ordered, could not locate previous echocardiogram in chart -Ramos catheter, strict I's and O's, daily weights -Lasix 40 mg IV BID -Cr 1.0 on admission -KCl 40 meq daily while undergoing diuresis -Trend BMP (2) Edema of lower extremity: Plan: -As above, suspect contribution from possible CHF exacerbation in setting of chronic lymphedema -While I largely suspect chronic venous stasis rather than cellulitis to be underlying her peripheral swelling, warmth, erythema and tenderness to palpation, the noted history of yellow drainage from her wounds do raise some suspicion of infection despite lack of leukocytosis -Cefazolin 2g q8h, low threshold to discontinue antibiotics- monitor fever curve, CBC -MRSA nares pending -Wound care consulted -CARMINA stockings for compression (3) Weakness: Plan: -Chronic deconditioning in high-risk pt with multiple comorbidities and unfortunately staggering decline in ability to care for self -PT/OT ordered, anticipate need for SNF/inpatient rehab. Pt is not safe to care for herself at home (4) A-fib: Plan: -Noted to be in AF on admission, rate-controlled -Continue metoprolol succinate ER 100 mg BID -Continue Coumadin per home regimen/schedule -Monitor INR, currently therapeutic at 2.1 on admission -Telemetry monitoring (5) Elevated troponin: Plan: -Troponin 14.4 on admission -EKG without concern for acute ACS -Mild elevation likely due to demand ischemia 2/2 CHF -Trend to peak (6) Hypothyroid: Plan: -Last TSH of 1.0 in 11/2021 -Continue levothyroxine (7) HTN (hypertension): Plan: -BP stable on admission -Continue lisinopril, metoprolol (8) HLD (hyperlipidemia): Plan: -Continue atorvastatin (9) Diabetes mellitus: Plan: -Holding home metformin, glimepiride -Poorly controlled- A1C 9.7% in 11/2021 -BSG elevated on admission 223 -Lantus + SSI (10) Anemia: Plan: -Hgb 8.7 on admission -Likely iron-deficiency based on CBC studies -Trend CBC (11) Hyperbilirubinemia: Plan: -TB of 2.4 on admission -No clinical evidence of jaundice on exam -Possibly reactive, trend CMP (12) GERD (gastroesophageal reflux disease): Plan: -Pantoprazole in place of home omeprazole while in hospital (13) Chronic pain: Plan: -Continue home tramadol Plan FENGI: Low salt, DM2, heart-healthy, fluid restriction 1200 mls Code status: Full DVT ppx: Warfarin Isolation: None Dispo: Medical/surgical with telemetry Admission and Anticipated Discharge Date Admission Date: November 03, 2022 Supervising Physician Co-Signing Physician Notes I personally examined the patient and verified all okeefe points of history and exam, discussed case, and agree with decision making with Susy JAUREGUI and Dr Bell breathing OK. legs still swollen. lots of stress, less movement as legs got more swollen - compounding things by being able to move even less. dtr doing a lot of cooking - pt sure that she's been taking in more sodium. lots of stress w dtr vitals noted nad heent nc at mmm breathing unlabored no accessory muscles good effort skin no rashes no pallor or icterus. lungs clear no r/r/w b/l LE ~3-4+ edema no erythema equal mild tenderness venous stasis exac - from Na intake causing fluid retention --> fluid retention/leg weight increase reducing movement compounding fluid retention and worsening downward spiral. possible mild acute HFpEF but appears that this has already resolved. PT/OT, movement, compression, diurese as possible but d/w pt that this will likely reach diminishing returns. discussed home situation - offered office of aging/police if needed due to dtr - she's considering options. PT/OT - pt will likely need rehab otherwise as above Subjective Pt was seen in phone visit by PCP yesterday for progressive difficulty caring for herself at home, worsening leg swelling with weeping wounds and limited ambulation. Pt's daughter urged her to come to the ED. She does not remember why she originally presented to the ED, only that her health had been gradually getting worse until "things came to a head." She does admit to irregular home Lasix use, only taking about 1/2 tablet every other day instead of her daily 40 mg regimen. She states that she hates taking the Lasix because it causes incontinence. At bedside, she expressed fatigue and bilateral lower leg pain, with the left leg worse than the right. The pain in her legs improves with elevation. She is feeling slightly better than when she came in yesterday, but could not explain further. Review of Systems Constitutional: No fevers or chills, patient reports feelings of fatigue Eyes: No blurry or double vision Respiratory: No shortness of breath Cardiovascular: Additional Comments: No chest pain or pressure Gastrointestinal: Bloating, no constipation Musculoskeletal: Bilateral LE pain Physical Exam Constitutional: A&O x3 (person, place) Eyes: PEERLA, ocular motions intact Respiratory: CTAB, no rales, crackles, or wheezes Cardiovascular: Regular rate and rhythm, no murmurs, rubs, or gallops Gastrointestinal (Abdomen): No tenderness to palpation Musculoskeletal: Bilateral 3+ pitting LE edema and redness to knees, no warmth, slight tenderness to palpation bilaterally Skin: Skin on lower extremities is red to knees bilaterally with ulcerations and wee ping of yellow fluid Results & Data Results & Data ([facility]) Vital Signs (Past 12 Hours) Vital Signs Temp Pulse Pulse Pulse Resp BP BP 11/03/22 12:04 36.8 C 90 18 138/77 11/03/22 11:11 68 11/03/22 10:50 11/03/22 07:33 37 C 64 20 148/65 H 11/03/22 02:50 59 L 11/03/22 04:13 11/03/22 02:39 36.4 C L 59 L 18 150/70 H Pulse Ox O2 Del Method O2 Flow Rate 11/03/22 12:04 93 Room Air 11/03/22 11:11 11/03/22 10:50 Nasal Cannula 2 11/03/22 07:33 98 Nasal Cannula 2 11/03/22 02:50 11/03/22 04:13 Nasal Cannula 2 11/03/22 02:39 100 Nasal Cannula 2 Diagnostic Findings XR chest 1V portable CLINICAL HISTORY: Chest pain, nonspecific COMPARISON STUDY: Chest radiograph November 01, 2020. FINDINGS: Lung moderate cardiomegaly is unchanged. There is no pneumothorax or pleural effusion. There is pulmonary vascular congestion with suspected mild pulmonary edema. There is no consolidation to suggest pneumonia. Old left humeral neck fracture is incidentally noted. IMPRESSION: Cardiomegaly. Pulmonary vascular congestion with suspected mild pulmonary edema. ACT 112: Negative or not required by law. 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
[2022-11-03] MEDS: WARFARIN SOD 2 MG TAB PO SCH (17:15)
--- NOTE | 2022-11-03 18:02 | Billing Data ---
Date of Service November 03, 2022 Coding Level of Care Code 52232 SUB INP/OBS CARE
--- NOTE | 2022-11-03 18:41 | XCELERA ---
[id number]
[2022-11-03] MEDS: lisinopril 2.5 MG TAB PO SCH (20:54)
[2022-11-03] MEDS: ATORVASTATIN 20 MG TAB PO SCH (20:54)
[2022-11-03] MEDS: DOCUSATE SODIUM 100 MG CAP PO SCH (22:01)
--- NOTE | 2022-11-04 04:48 | Electrocardiogram Report ---
Test Reason : Blood Pressure : / mmHG Vent. Rate : 082 BPM Atrial Rate : 080 BPM P-R Int : 000 ms QRS Dur : 076 ms QT Int : 366 ms P-R-T Axes : 000 -20 213 degrees QTc Int : 427 ms Atrial fibrillation Abnormal ECG When compared with ECG of 01-NOV-2020 17:48, Nonspecific T wave abnormality now evident in Inferior leads Confirmed by Alfonzo Weiss ([id number]) on 11/04/2022 4:47:45 AM Referred By: REFERRED SELF Confirmed By:Alfonzo Weiss
--- NOTE | 2022-11-04 04:50 | Billing Data ---
Date of Service November 04, 2022 Coding Level of Care Code 63065 INT INP/OBS CARE
--- NOTE | 2022-11-04 04:57 | Electrocardiogram Report ---
Test Reason : Blood Pressure : / mmHG Vent. Rate : 060 BPM Atrial Rate : 037 BPM P-R Int : 000 ms QRS Dur : 080 ms QT Int : 464 ms P-R-T Axes : 000 -18 -20 degrees QTc Int : 464 ms Poor data quality, interpretation may be adversely affected Atrial fibrillation Abnormal ECG When compared with ECG of 02-NOV-2022 21:49, No significant change Confirmed by Alfonzo Weiss ([id number]) on 11/04/2022 4:56:55 AM Referred By: REFERRED SELF Confirmed By:Alfonzo Weiss
[2022-11-04] MEDS: LEVOTHYROXINE SODIUM 75 MCG TABLET PO SCH (05:52)
[2022-11-04 07:08] LABS: Basophils # (auto) 0.03 K/uL (0-0.2); Basophils % (auto) 0.6 %; Eosinophils # (auto) 0.16 K/uL (0-0.50); Hematocrit (blood only) 26.6 % (37.0-47.0); Hemoglobin 8.3 g/dl (12.0-16.0); Immature Granulocytes # (auto) 0.01 K/uL (0.01-0.20); Immature Granulocytes % (auto) 0.2 %; Lymphocytes # (auto) 1.34 K/uL (1.2-3.4); Lymphocytes % (auto) 25.4 %; Mean Corpuscular Hgb Conc 31.2 g/dL (32.0-36.0); Mean Corpuscular Volume 76.9 fL (80.0-100.0); Mean Platelet Volume 9.8 fL (9.4-12.4); Monocytes # (auto) 0.63 K/uL (0.11-0.59); Neutrophils % (auto) 58.8 %; Platelet Count 197 K/uL (130-400); RDW Coefficient of Variation 19.2 % (11.5-14.5); RDW Standard Deviation 53.5 fL (36.4-46.3); Red Blood Count 3.46 M/uL (4.20-5.40); White Blood Count 5.27 K/ul (4.8-10.8)
[2022-11-04 07:33] LABS: INR 1.6 (0.9-1.1); Prothrombin Time 16.9 Seconds (9.0-12.0)
[2022-11-04 07:55] LABS: Albumin Globulin Ratio 1.1 (0.9-2); Albumin Level 3.4 gm/dl (3.4-5.0); BUN Creatinine Ratio 14.7 (10-20); Bilirubin,Total 1.5 mg/dl (0.2-1.0); Calcium 9.3 mg/dl (8.5-10.1); Creatinine Clr Calc Pharmacy 52.7 ml/min; Est GFR (African American) 46.9 ml/min; Est GFR (Non-African American) 40.5 ml/min; Globulin 3.2 gm/dl (2.5-4.0); Magnesium 1.3 mg/dl (1.7-2.4); Potassium 3.8 mmol/L (3.5-5.1); Total Protein 6.6 gm/dl (6.0-8.3)
[2022-11-04] MEDS ORDERED: FUROSEMIDE 40 MG/4 ML VIAL IV SCH (09:00)
[2022-11-04] MEDS: INSULIN ASPART PER UNIT SC SCH ×4 (09:08→21:18)
[2022-11-04] MEDS: LANTUS PER UNIT CHARGE SQ SCH ×2 (09:08→21:15)
[2022-11-04] MEDS: traMADol HCL 50 MG TABLET PO SCH (09:09)
[2022-11-04] MEDS: DOCUSATE SODIUM 100 MG CAP PO SCH ×2 (09:09→21:17)
[2022-11-04] MEDS: PANTOprazole 40 MG TAB PO SCH (09:09)
[2022-11-04] MEDS: POTASSIUM CHLORIDE CRTAB 20 MEQ TABCR PO SCH (09:09)
[2022-11-04] MEDS: METOPROLOL SUCC 50MG EXT REL TAB PO SCH ×2 (09:09→21:16)
--- NOTE | 2022-11-04 09:15 | Hospitalist Progress Note ---
Date of Service November 04, 2022 Assessment & Plan (1) Hypervolemia: Plan: -Clinically apparent hypervolemia with supporting CXR and history -Suspect CHF exacerbation given her history of medication nonadherence and likely dietary indiscretion, although her b/l leg swelling may also be in large part due to chronic lymphedema. She does have a mildly elevated BNP of 190 although this may be reactive -Echocardiogram ordered showing EF 60-65% with indeterminate diastolic dysfunction -Ramos catheter, strict I's and O's, daily weights -Discontinue Lasix -Cr 1.29, up from 1.0 on admission -KCl 40 meq daily while undergoing diuresis -Trend BMP (2) Edema of lower extremity: Plan: -As above, suspect contribution from possible CHF exacerbation in setting of chronic lymphedema -While I largely suspect chronic venous stasis rather than cellulitis to be underlying her peripheral swelling, warmth, erythema and tenderness to palpation, the noted history of yellow drainage from her wounds do raise some suspicion of infection despite lack of leukocytosis -Cefazolin 2g q8h, low threshold to discontinue antibiotics- monitor fever curve, CBC -MRSA nares negative -Wound care consulted -CARMINA stockings for compression (3) Weakness: Plan: -Chronic deconditioning in high-risk pt with multiple comorbidities and unfortunately staggering decline in ability to care for self -PT/OT ordered, anticipate need for SNF/inpatient rehab. Pt is not safe to care for herself at home (4) A-fib: Plan: -Noted to be in AF on admission, rate-controlled -Continue metoprolol succinate ER 100 mg BID -Continue Coumadin per home regimen/schedule -Monitor INR, currently therapeutic at 2.1 on admission -Telemetry monitoring (5) Elevated troponin: Plan: -Troponin 14.4 on admission -EKG without concern for acute ACS -Mild elevation likely due to demand ischemia 2/2 CHF -Trend to peak (6) Hypothyroid: Plan: -Last TSH of 1.0 in 11/2021 -Continue levothyroxine (7) HTN (hypertension): Plan: -BP stable on admission -Continue lisinopril, metoprolol (8) HLD (hyperlipidemia): Plan: -Continue atorvastatin (9) Diabetes mellitus: Plan: -Holding home metformin, glimepiride -Poorly controlled- A1C 9.7% in 11/2021 -BSG elevated on admission 223 -Lantus + SSI (10) Anemia: Plan: -Hgb 8.7 on admission -Likely iron-deficiency based on CBC studies -Trend CBC (11) Hyperbilirubinemia: Plan: -TB of 2.4 on admission -No clinical evidence of jaundice on exam -Possibly reactive, trend CMP (12) GERD (gastroesophageal reflux disease): Plan: -Pantoprazole in place of home omeprazole while in hospital (13) Chronic pain: Plan: -Continue home tramadol Plan FENGI: Low salt, DM2, heart-healthy, fluid restriction 1200 mls Code status: Full DVT ppx: Warfarin Isolation: None Dispo: Medical/surgical with telemetry Admission and Anticipated Discharge Date Admission Date: November 03, 2022 Supervising Physician Co-Signing Physician Notes I personally examined the patient and verified all okeefe points of history and exam, discussed case, and agree with decision making with Susy JAUREGUI and Dr Bell Legs less swollen. Breathing good. Still waiting out what to do with stressors at home. Overall knows that she needs to have rehab. vitals noted nad heent nc at mmm breathing unlabored no accessory muscles good effort skin no rashes no pallor or icterus. lungs clear no r/r/w b/l LE ~3-4+ edema no erythema slightly improved from yesterday venous stasis exac - from Na intake causing fluid retention --> fluid retention/leg weight increase reducing movement compounding fluid retention and worsening downward spiral. possible mild acute HFpEF but appears that this has already resolved. Continue PT/OT, movement, compression. Has already reached a point where diuresis is not really going to affect much more benefit, given that it is predominantly venous stasis/third spaced fluids, and her creatinine has already started to rise. Discussed home situation again, currently PT/OT anticipating rehab placement. She is weighing her options. otherwise as above Subjective Patient was seen at bedside this morning. She was pleasant, awake, and alert. She is in less pain than she was yesterday and is less fatigued than yesterday, but is having trouble organizing her thoughts at times. She states that she is feeling stressed due to a telephone conversation with her daughter yesterday. She reports feeling safer in the hospital than at home. She states that she does feel safe at home, but she is less stressed here as she does not have to worry about confrontation. She appears less tired than yesterday. The edema in her legs has decreased bilaterally and she no longer has periods of intense leg pain. She is concerned about constipation and has some mild abdominal discomfort, mainly in the suprapubic region. She does not voice any other concerns at this time. Review of Systems Constitutional: No fevers or chills Eyes: No blurry or double vision Respiratory: No shortness of breath Cardiovascular: Additional Comments: No chest pain or pressure Gastrointestinal: Constipation and abdominal discomfort Genitourinary: No dysuria or urgency Musculoskeletal: Bilateral LE pain Physical Exam Physical Exam: PHYSICAL EXAM: General: awake, alert, no apparent distress, laying in bed Head: Normocephalic, atraumatic ENT: PERRL, EOMI Neuro: AAO x 3, speech clear and appropriate Resp: CTAB, no rales, crackles, or wheezes Cardiac: RRR, no murmurs, rubs, or gallops Abd: soft, nondistended, mildly tender to palpation in RLQ Extremities: 2+ edema b/l up to thighs with erythema, wound dressing on lateral aspect of R leg, slight tenderness to palpation below the knee bilaterally Results & Data Results & Data ([place]) Vital Signs (Past 12 Hours) Vital Signs Temp Pulse Pulse Resp BP Pulse Ox O2 Del Method 11/04/22 08:11 36.5 C 60 16 127/60 94 Room Air 11/04/22 04:00 36.8 C 72 18 125/70 94 Room Air 11/03/22 22:00 71 11/04/22 00:00 36.7 C 76 18 127/79 98 Room Air (4) A-fib Atrial fibrillation type: unspecified Qualified Code(s): I48.91 - Unspecified atrial fibrillation (6) Hypothyroid Hypothyroidism type: unspecified Qualified Code(s): E03.9 - Hypothyroidism, unspecified (7) HTN (hypertension) Hypertension type: essential hypertension Qualified Code(s): I10 - Essential (primary) hypertension (8) HLD (hyperlipidemia) Hyperlipidemia type: unspecified Qualified Code(s): E78.5 - Hyperlipidemia, unspecified (9) Diabetes mellitus Diabetes mellitus jail insulin use: without continuous 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
[2022-11-04] MEDS: MAGNESIUM SULFATE / D5W 1 GM/100 ML BAG IV SCH ×3 (11:22→14:30)
[2022-11-04] MEDS: WARFARIN SOD 4 MG TAB PO SCH (16:02)
--- NOTE | 2022-11-04 19:22 | Billing Data ---
Date of Service November 04, 2022 Coding Level of Care Code 66335 SUB INP/OBS CARE
[2022-11-04] MEDS: ACETAMINOPHEN 325 MG TAB PO PRN (21:16)
[2022-11-04] MEDS: lisinopril 2.5 MG TAB PO SCH (21:17)
[2022-11-04] MEDS: ATORVASTATIN 20 MG TAB PO SCH (21:17)
[2022-11-05] MEDS: LEVOTHYROXINE SODIUM 75 MCG TABLET PO SCH (06:25)
[2022-11-05 06:31] LABS: Hematocrit (blood only) 27.2 % (37.0-47.0); Hemoglobin 8.4 g/dl (12.0-16.0); Mean Corpuscular Hemoglobin 24.3 pg (25.0-34.0); Mean Corpuscular Hgb Conc 30.9 g/dL (32.0-36.0); Mean Corpuscular Volume 78.6 fL (80.0-100.0); Mean Platelet Volume 9.9 fL (9.4-12.4); Platelet Count 216 K/uL (130-400); RDW Coefficient of Variation 19.5 % (11.5-14.5); RDW Standard Deviation 54.9 fL (36.4-46.3); Red Blood Count 3.46 M/uL (4.20-5.40); White Blood Count 4.65 K/ul (4.8-10.8)
[2022-11-05 07:36] LABS: INR 1.6 (0.9-1.1); Prothrombin Time 16.6 Seconds (9.0-12.0)
--- NOTE | 2022-11-05 07:40 | Hospitalist Progress Note ---
Date of Service November 05, 2022 Assessment & Plan (1) Hypervolemia: Plan: -Clinically apparent hypervolemia with supporting CXR and history -Suspect CHF exacerbation given her history of medication nonadherence and likely dietary indiscretion, although her b/l leg swelling may also be in large part due to chronic lymphedema. She does have a mildly elevated BNP of 190 although this may be reactive -Echocardiogram ordered, could not locate previous echocardiogram in chart -Ramos catheter, strict I's and O's, daily weights -Lasix 40 mg IV BID, Cr 1.0 on admission, held d/t rising Cr -KCl 40 meq daily while undergoing diuresis -Trend BMP --- Cautious Lasix, appearing more euvolemic --- Possible HF exacerbation appears resolved at present (2) Edema of lower extremity: Plan: -As above, suspect contribution from possible CHF exacerbation in setting of chronic lymphedema -While I largely suspect chronic venous stasis rather than cellulitis to be underlying her peripheral swelling, warmth, erythema and tenderness to palpation, the noted history of yellow drainage from her wounds do raise some suspicion of infection despite lack of leukocytosis -Cefazolin 2g q8h, low threshold to discontinue antibiotics- monitor fever curve, CBC -MRSA nares pending -Wound care consulted -CARMINA stockings for compression --- Likely 2/2 chronic venous stasis, low likelihood for cellulitis given bilateral presentation, yellow drainage likely 2/2 increased LE fluid volume (3) Weakness: Plan: -Chronic deconditioning in high-risk pt with multiple comorbidities and unfortunately staggering decline in ability to care for self -PT/OT ordered, anticipate need for SNF/inpatient rehab. Pt is not safe to care for herself at home --- Pending placement (4) A-fib: Plan: -Noted to be in AF on admission, rate-controlled -Continue metoprolol succinate ER 100 mg BID -Continue Coumadin per home regimen/schedule -Monitor INR, currently therapeutic at 2.1 on admission -Telemetry monitoring (5) Elevated troponin: Plan: -Troponin 14.4 on admission -EKG without concern for acute ACS -Mild elevation likely due to demand ischemia 2/2 CHF -Trend to peak --- Troponin elevation likely 2/2 demand ischemia, no longer trending (6) Hypothyroid: Plan: -Last TSH of 1.0 in 11/2021 -Continue levothyroxine (7) HTN (hypertension): Plan: -BP stable on admission -Continue lisinopril, metoprolol (8) HLD (hyperlipidemia): Plan: -Continue atorvastatin (9) Diabetes mellitus: Plan: -Holding home metformin, glimepiride -Poorly controlled- A1C 9.7% in 11/2021 -BSG elevated on admission 223 -Lantus + SSI (10) Anemia: Plan: -Hgb 8.7 on admission -Likely iron-deficiency based on CBC studies -Trend CBC --- Hgb stable, 8.4, trending upwards (11) Hyperbilirubinemia: Plan: -TB of 2.4 on admission -No clinical evidence of jaundice on exam -Possibly reactive, trend CMP (12) GERD (gastroesophageal reflux disease): Plan: -Pantoprazole in place of home omeprazole while in hospital (13) Chronic pain: Plan: -Continue home tramadol Plan FENGI: Low salt, DM2, heart-healthy, fluid restriction 1200 mls Code status: Full DVT ppx: Warfarin Isolation: None Dispo: Medical/surgical with telemetry Admission and Anticipated Discharge Date Admission Date: November 03, 2022 Supervising Physician Co-Signing Physician Notes I personally examined the patient and verified all okeefe points of history and exam, discussed case, and agree with decision making with Dr Contreras Struggling with what to do. Her son is now intubated in the [place] [facility] after his lye ingestion, and her daughter apparently has drug dealers in and out of the house. vitals noted nad heent nc at mmm breathing unlabored no accessory muscles good effort skin no rashes no pallor or icterus. lungs clear no r/r/w b/l LE ~3-4+ edema no erythema venous stasis exac - from Na intake causing fluid retention --> fluid retention/leg weight increase reducing movement compounding fluid retention and worsening downward spiral. possible mild acute HFpEF but appears that this has already resolved. Continue PT/OT, movement, compression. Has already reached a point where diuresis is not really going to affect much more benefit, given that it is predominantly venous stasis/third spaced fluids, and her creatinine has already started to rise. Discussed home situation again, discussed risk/benefit of going home, and empathized with the emotional need to be home or to be with her son, but asked her to consider more logical and practical realities of what she would actually be able to do for her son, or how much she physically could actually do to keep nefarious players out of her house in her current state. office of aging has been active in her situation. otherwise as above Subjective 11/05: Patient was resting in bed this morning. She was alert and pleasant. She notes that her leg pain continues to improve. She notes occasional discomfort at her Ramos site, but denies any other symptoms. She is not having any chest pain, dyspnea, abdominal pain, or GI concerns. Patient expressed significant concern regarding her son's health as he was recently admitted to the hospital as well. She understands that it would be best for her to transition to rehab following her admission, but notes she wants to go home because of her son's illness. Review of Systems Review of Systems: Per HPI Physical Exam Physical Exam: Gen: NAD, alert, interactive HEENT: Supple no JVD Resp:Non-labored, no wheezing/rhonchi/rales, CTAB CV:irregular, normal S1/S2, no M/R/G Abd: Soft, non-distended, no TTP, normoactive bowels, no masses, Ramos intact draining dark yellow, non-cloudy urine Extr: 2+ dp bilaterally, no TTP, erythema present and symmetric in bilateral lower extremities, non-pitting edema 2+ bilaterally to knee, no drainage or purulence Results & Data Results & Data ([facility]) Vital Signs (Past 12 Hours) Vital Signs Temp Pulse Resp BP Pulse Ox O2 Del Method 11/05/22 03:27 36.7 C 62 20 142/63 H 94 Room Air 11/04/22 22:00 37 C 71 18 106/67 91 Room Air 11/04/22 22:14 Room Air Resident Activity Tracking Resident Involvement: Resident Care Provided Care Provided: Adult [facility] (4) A-fib Atrial fibrillation type: unspecified Qualified Code(s): I48.91 - Unspecified atrial fibrillation (6) Hypothyroid Hypothyroidism type: unspecified Qualified Code(s): E03.9 - Hypothyroidism, unspecified (7) HTN (hypertension) Hypertension type: essential hypertension Qualified Code(s): I10 - Essential (primary) hypertension (8) HLD (hyperlipidemia) Hyperlipidemia type: unspecified Qualified Code(s): E78.5 - Hyperlipidemia, unspecified (9) Diabetes mellitus Diabetes mellitus [facility] insulin use: without 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
[2022-11-05] MEDS: METOPROLOL SUCC 50MG EXT REL TAB PO SCH ×2 (09:23→21:37)
[2022-11-05] MEDS: POTASSIUM CHLORIDE CRTAB 20 MEQ TABCR PO SCH (09:23)
[2022-11-05] MEDS: DOCUSATE SODIUM 100 MG CAP PO SCH ×2 (09:23→21:38)
[2022-11-05] MEDS: PANTOprazole 40 MG TAB PO SCH (09:23)
[2022-11-05 09:38] LABS: BUN Creatinine Ratio 16.7 (10-20); Calcium 9.3 mg/dl (8.5-10.1); Creatinine Clr Calc Pharmacy 51.4 ml/min; Est GFR (African American) 45.6 ml/min; Est GFR (Non-African American) 39.4 ml/min; Magnesium 1.8 mg/dl (1.7-2.4); Potassium 3.8 mmol/L (3.5-5.1)
[2022-11-05] MEDS: traMADol HCL 50 MG TABLET PO SCH (09:42)
[2022-11-05] MEDS: INSULIN ASPART PER UNIT SC SCH ×4 (09:49→21:39)
[2022-11-05] MEDS: LANTUS PER UNIT CHARGE SQ SCH ×2 (10:28→21:37)
[2022-11-05] MEDS ORDERED: WARFARIN SOD 3 MG TAB PO ONE (16:00)
[2022-11-05] MEDS: WARFARIN SOD 4 MG TAB PO SCH (17:31)
--- NOTE | 2022-11-05 18:24 | Billing Data ---
Date of Service November 05, 2022 Coding Level of Care Code 11407 SUB INP/OBS CARE MIN
[2022-11-05] MEDS: ACETAMINOPHEN 325 MG TAB PO PRN (21:37)
[2022-11-05] MEDS: lisinopril 2.5 MG TAB PO SCH (21:38)
[2022-11-05] MEDS: ATORVASTATIN 20 MG TAB PO SCH (21:38)
[2022-11-06] MEDS: LEVOTHYROXINE SODIUM 75 MCG TABLET PO SCH (05:56)
--- NOTE | 2022-11-06 06:53 | Hospitalist Progress Note ---
Date of Service November 06, 2022 Assessment & Plan (1) Hypervolemia: (2) Edema of lower extremity: (3) Weakness: (4) A-fib: (5) Elevated troponin: (6) Hypothyroid: (7) HTN (hypertension): (8) HLD (hyperlipidemia): (9) Diabetes mellitus: (10) Anemia: (11) Hyperbilirubinemia: (12) GERD (gastroesophageal reflux disease): (13) Chronic pain: Plan Violeta is a 77 F with history of chronic pain, lymphedema, morbid obesity, DM, A Fib (on Warfarin), obstructive uropathy, HTN, GERD, HLD, hypothyroidism, urinary incontinence, ovarian cancer, asthma, anxiety/depression, and gait abnormalities who is admitted for management of acute worsening of LE edema and associated deconditioning. (1) Hypervolemia: -Clinically apparent hypervolemia with supporting CXR and history -Suspect CHF exacerbation given her history of medication nonadherence and likely dietary indiscretion, although her b/l leg swelling may also be in large part due to chronic lymphedema. She does have a mildly elevated BNP of 190 although this may be reactive -Echocardiogram ordered, could not locate previous echocardiogram in chart -Ramos catheter, strict I's and O's, daily weights -Lasix 40 mg IV BID, Cr 1.0 on admission, held d/t rising Cr -KCl 40 meq daily while undergoing diuresis -Trend BMP --- Cautious Lasix, appearing more euvolemic, LE edema unchanged --- Possible HF exacerbation appears resolved at present (2) Edema of lower extremity: -As above, suspect contribution from possible CHF exacerbation in setting of chronic lymphedema -While I largely suspect chronic venous stasis rather than cellulitis to be underlying her peripheral swelling, warmth, erythema and tenderness to palpation, the noted history of yellow drainage from her wounds do raise some suspicion of infection despite lack of leukocytosis -Cefazolin 2g q8h, low threshold to discontinue antibiotics- monitor fever curve, CBC -MRSA nares pending -Wound care consulted -CARMINA stockings for compression --- Likely 2/2 chronic venous stasis, low likelihood for cellulitis given b ilateral presentation, yellow drainage likely 2/2 increased LE fluid volume --- No evidence of purulence (3) Weakness: -Chronic deconditioning in high-risk pt with multiple comorbidities and unfortun ately staggering decline in ability to care for self -PT/OT ordered, anticipate need for SNF/inpatient rehab. Pt is not safe to care for herself at home --- Pending placement and patient's decision (4) A-fib: -Noted to be in AF on admission, rate-controlled -Continue metoprolol succinate ER 100 mg BID -Continue Coumadin per home regimen/schedule -Monitor INR, currently therapeutic at 2.1 on admission -Telemetry monitoring (5) Elevated troponin: -Troponin 14.4 on admission -EKG without concern for acute ACS -Mild elevation likely due to demand ischemia 2/2 CHF -Trend to peak --- Troponin elevation likely 2/2 demand ischemia, no longer trending (6) Hypothyroid: -Last TSH of 1.0 in 11/2021 -Continue levothyroxine (7) HTN (hypertension): -BP stable on admission -Continue lisinopril, metoprolol (8) HLD (hyperlipidemia): -Continue atorvastatin (9) Diabetes mellitus: -Holding home metformin, glimepiride -Poorly controlled- A1C 9.7% in 11/2021 -BSG elevated on admission 223 -Lantus + SSI (10) Anemia: -Hgb 8.7 on admission -Likely iron-deficiency based on CBC studies -Trend CBC --- Hgb stable, 8.6, trending upwards (11) Hyperbilirubinemia: -TB of 2.4 on admission -No clinical evidence of jaundice on exam -Possibly reactive, trend CMP (12) GERD (gastroesophageal reflux disease): -Pantoprazole in place of home omeprazole while in hospital (13) Chronic pain: -Continue home tramadol FENGI: Low salt, DM2, heart-healthy, fluid restriction 1200 mls Code status: Full DVT ppx: Warfarin Isolation: None Dispo: Medical/telemetry Admission and Anticipated Discharge Date Admission Date: November 03, 2022 Efrem Mcdaniel is a 77 F with history of chronic pain, lymphedema, morbid obesity, DM, A Fib (on Warfarin), obstructive uropathy, HTN, GERD, HLD, hypothyroidism, urinary incontinence, ovarian cancer, asthma, anxiety/depression, and gait abnormalities who is admitted for management of acute worsening of LE edema and associated deconditioning. 11/06: Patient was resting comfortably in bed this morning. She continues to express concern regarding her son's hospitalization and her daughter bringing drug dealers into her home. Patient understands that it would be best for her to transition to rehab so that she can regain her strength prior to going home, but she has not yet made up her mind about her willingness to be discharged to rehab. Her lower extremity edema is unchanged. She denies any chest pain, dyspnea, abdominal pain, fevers, chills, or headaches. Review of Systems Review of Systems: Per HPI Physical Exam Physical Exam: Gen: NAD, alert, interactive HEENT: Supple no JVD Resp:Non-labored, no wheezing/rhonchi/rales, CTAB CV:irregular, normal S1/S2, no M/R/G Abd: Soft, non-distended, no TTP, normoactive bowels, no masses, Ramos intact draining dark yellow, non-cloudy urine Extr: 2+ dp bilaterally, no TTP, erythema present and symmetric in bilateral lower extremities, non-pitting edema 2+ bilaterally to knee, no drainage or purulence Results & Data Results & Data ([facility]) Vital Signs (Past 12 Hours) Vital Signs Temp Pulse Pulse Resp BP Pulse Ox O2 Del Method 11/06/22 03:15 36.8 C 63 16 118/67 93 Room Air 11/05/22 23:25 59 L 11/05/22 22:00 36.6 C 70 18 103/63 94 Room Air 11/05/22 22:01 Room Air 11/05/22 19:49 36.9 C 64 18 110/54 L 96 Room Air Resident Activity Tracking Resident Involvement: Resident Care Provided Care Provided: Adult Hospital Medicine (4) A-fib Atrial fibrillation type: unspecified Qualified Code(s): I48.91 - Unspecified atrial fibrillation (6) Hypothyroid Hypothyroidism type: unspecified Qualified Code(s): E03.9 - Hypothyroidism, unspecified (7) HTN (hypertension) Hypertension type: essential hypertension Qualified Code(s): I10 - Essential (primary) hypertension (8) HLD (hyperlipidemia) Hyperlipidemia type: unspecified Qualified Code(s): E78.5 - Hyperlipidemia, unspecified (9) Diabetes mellitus Diabetes mellitus nursing home insulin use: without nursing home use Diabetes mellitus type: type 2 (10) Anemia Anemia type: unspecified type Qualified Code(s): D64.9 - Anemia, unspecified (12) GERD (gastroesophageal reflux disease) Esophagitis presence: esophagitis presence not specified Qualified Code(s): K21.9 - Gastro-esophageal reflux disease without esophagitis
[2022-11-06 07:27] LABS: Albumin Level 3.4 gm/dl (3.4-5.0); BUN Creatinine Ratio 21.1 (10-20); Bilirubin,Total 1.1 mg/dl (0.2-1.0); Calcium 9.4 mg/dl (8.5-10.1); Creatinine Clr Calc Pharmacy 59.3 ml/min; Est GFR (African American) 54.5 ml/min; Globulin 3.4 gm/dl (2.5-4.0); Potassium 4.3 mmol/L (3.5-5.1); Total Protein 6.8 gm/dl (6.0-8.3)
[2022-11-06 07:33] LABS: Hematocrit (blood only) 28.1 % (37.0-47.0); Hemoglobin 8.6 g/dl (12.0-16.0); Mean Corpuscular Hgb Conc 30.6 g/dL (32.0-36.0); Mean Corpuscular Volume 78.5 fL (80.0-100.0); Mean Platelet Volume 10.2 fL (9.4-12.4); Platelet Count 207 K/uL (130-400); RDW Standard Deviation 54.3 fL (36.4-46.3); Red Blood Count 3.58 M/uL (4.20-5.40); White Blood Count 4.29 K/ul (4.8-10.8)
[2022-11-06 08:09] LABS: INR 1.7 (0.9-1.1); Prothrombin Time 17.2 Seconds (9.0-12.0)
[2022-11-06] MEDS: METOPROLOL SUCC 50MG EXT REL TAB PO SCH ×2 (09:17→21:50)
[2022-11-06] MEDS: POTASSIUM CHLORIDE CRTAB 20 MEQ TABCR PO SCH (09:51)
[2022-11-06] MEDS: DOCUSATE SODIUM 100 MG CAP PO SCH ×2 (09:52→21:51)
[2022-11-06] MEDS: PANTOprazole 40 MG TAB PO SCH (09:52)
[2022-11-06] MEDS: traMADol HCL 50 MG TABLET PO SCH (09:52)
[2022-11-06] MEDS: INSULIN ASPART PER UNIT SC SCH ×4 (09:59→21:51)
[2022-11-06] MEDS: LANTUS PER UNIT CHARGE SQ SCH ×2 (10:00→21:50)
[2022-11-06] MEDS ORDERED: HYDROCORTISONE ACETATE 25 MG SUPP PR PRN (12:03)
--- NOTE | 2022-11-06 15:36 | Discharge Summary ---
Date of Service November 06, 2022 Admission HPI Per Admitting Provider 77 yo F with PMH including DM2, pAF on Coumadin, HTN, HLD, hypothyroidism, anemia, GERD, morbid obesity presenting with worsening ambulatory dysfunction. History obtained primarily from chart review as pt is poor historian. Pt was seen in phone visit by PCP today for progressive difficulty caring herself at home, worsening leg swelling with weeping wounds and limited ambulation. Pt follows with [facility]. Pt's daughter called EMS for concern of her mother's self neglect but pt refused to go to ER. EMS notified [facility] who contacted her PCP to arrange phone visit. Pt's legs have become significantly more swollen over past several weeks and seeping with yellow fluid and she has had associated difficulty moving around the home. Additionally she has had more exertional dyspnea. Pt's daughter has apparently urged her to go to ER multiple times but she has refused and also skipped multiple [facility] appointments. She does admit to irregular home Lasix use, only taking about 1/2 tablet every other day instead of her daily 40 mg regimen. Pt has also not bathed or washed her hair in several weeks and attributes this as the reason she has avoided going to the ER. Pt arrived to ER hemodynamically stable. Hgb 8.7, MCV 78, RDW 55, INR 2.1, K 3.4, glucose 223, TB 2.4, ALP 118, troponin 14, BNP 190. CXR with evidence of pulmonary vascular congestion and pulmonary edema. Pt given Lasix 40 mg IV and KCL 40 meq in ER. On my evaluation, she expresses fatigue, dyspnea and b/l leg pain. She is unfortunately a poor historian and was unable to clearly articulate what brought her to the hospital, only speaking in vague terms of getting progressively worse in terms of her general health. Admission Exam Per Admitting Provider PHYSICAL EXAM: General: awake, alert, no apparent distress, laying in bed Head: Normocephalic, atraumatic ENT: PERRL, EOMI, no pharyngeal exudate, mucous membranes moist Neuro: AAO x 3, speech clear and appropriate, b/l UE and LE strength intact 5/5, sensation intact and equal in all extremities Resp: Diminished and coarse breath sounds diffusely with crackles at bases, pa radoxical belly breathing observed Cardiac: Irregular rhythm, normal rate, normal S1 and S2, no murmurs noted Abd: soft, distended, nontender Extremities: Profound 3+ edema b/l up to thighs with erythema and warmth, some associated chronic venous stasis changes, no plaques or overt blisters identified, tender to palpation along lateral shins- findings symmetric Principal Diagnosis Bilateral venous stasis w/ worsening LE edema Discharge Exam Gen: NAD, alert, interactive HEENT: Supple no JVD Resp:Non-labored, no wheezing/rhonchi/rales, CTAB CV:irregular, normal S1/S2, no M/R/G Abd: Soft, non-distended, no TTP, normoactive bowels, no masses, Ramos intact draining dark yellow, non-cloudy urine Extr: 2+ dp bilaterally, no TTP, erythema present and symmetric in bilateral lower extremities, non-pitting edema 2+ bilaterally to knee, no drainage or purulence Discharge Data Allergies Allergy/AdvReac Type Severity Reaction Status Date / Time milk AdvReac Intermediate Diarrhea Verified 11/02/22 23:09 bagel Allergy Intermediate red, itchy Uncoded 11/02/22 23:09 skin Consultations 11/03/22 00:02 ED Decision to Admit Stat Laboratory Results WBC 4.29 K/ul (4.8-10.8) L 11/06/22 06:18 RBC 3.58 M/uL (4.20-5.40) L 11/06/22 06:18 Hgb 8.6 g/dl (12.0-16.0) L 11/06/22 06:18 Hct 28.1 % (37.0-47.0) L 11/06/22 06:18 MCV 78.5 fL (80.0-100.0) L 11/06/22 06:18 MCH 24.0 pg (25.0-34.0) L 11/06/22 06:18 MCHC 30.6 g/dL (32.0-36.0) L 11/06/22 06:18 RDW Std Deviation 54.3 fL (36.4-46.3) H 11/06/22 06:18 RDW Coeff of Maria C 19.0 % (11.5-14.5) H 11/06/22 06:18 Plt Count 207 K/uL (130-400) 11/06/22 06:18 MPV 10.2 fL (9.4-12.4) 11/06/22 06:18 Immature Gran % (Auto) 0.2 % 11/04/22 06:37 Neut % (Auto) 58.8 % 11/04/22 06:37 Lymph % (Auto) 25.4 % 11/04/22 06:37 Gregory % (Auto) 12.0 % 11/04/22 06:37 Eos % (Auto) 3.0 % 11/04/22 06:37 Baso % (Auto) 0.6 % 11/04/22 06:37 Neut # (Auto) 3.10 K/uL (1.40-6.50) 11/04/22 06:37 Lymph # (Auto) 1.34 K/uL (1.2-3.4) 11/04/22 06:37 Gregory # (Auto) 0.63 K/uL (0.11-0.59) H 11/04/22 06:37 Eos # (Auto) 0.16 K/uL (0-0.50) 11/04/22 06:37 Baso # (Auto) 0.03 K/uL (0-0.2) 11/04/22 06:37 Immature Gran # (Auto) 0.01 K/uL (0.01-0.20) 11/04/22 06:37 PT 17.2 Seconds (9.0-12.0) H 11/06/22 06:18 INR 1.7 (0.9-1.1) H 11/06/22 06:18 APTT 31.5 Seconds (21.0-31.0) H 11/02/22 22:00 PTT Ratio 1.1 11/02/22 22:00 Sodium 138 mmol/L (136-145) 11/06/22 06:18 Potassium 4.3 mmol/L (3.5-5.1) 11/06/22 06:18 Chloride 104 mmol/L (98-107) 11/06/22 06:18 Carbon Dioxide 31 mmol/L (21-32) 11/06/22 06:18 Anion Gap 3 (3-11) 11/06/22 06:18 BUN 24 mg/dl (6-23) H 11/06/22 06:18 Creatinine 1.14 mg/dl (0.6-1.2) 11/06/22 06:18 Est Cr Clr Drug Dosing 59.3 ml/min 11/06/22 06:18 Est GFR ( Amer) 54.5 ml/min 11/06/22 06:18 Est GFR (Non-Af Amer) 47.0 ml/min 11/06/22 06:18 BUN/Creatinine Ratio 21.1 (10-20) H 11/06/22 06:18 Glucose 147 mg/dl (70-99(Fasting)) H 11/06/22 06:18 POC Glucose 182 mg/dl (70-99) H 11/06/22 11:35 Calcium 9.4 mg/dl (8.5-10.1) 11/06/22 06:18 Magnesium 1.8 mg/dl (1.7-2.4) 11/05/22 05:32 Total Bilirubin 1.1 mg/dl (0.2-1.0) H 11/06/22 06:18 AST 17 U/L (13-39) 11/06/22 06:18 ALT 8 U/L (7-52) 11/06/22 06:18 Alkaline Phosphatase 102 U/L (34-104) 11/06/22 06:18 Troponin I High Sens 14.6 pg/ml (0-14) H 11/03/22 02:46 B-Natriuretic Peptide 193 pg/ml (0-100) H 11/02/22 22:00 Total Protein 6.8 gm/dl (6.0-8.3) 11/06/22 06:18 Albumin 3.4 gm/dl (3.4-5.0) 11/06/22 06:18 Globulin 3.4 gm/dl (2.5-4.0) 11/06/22 06:18 Albumin/Globulin Ratio 1.0 (0.9-2) 11/06/22 06:18 Lipase 41 U/L (11-82) 11/02/22 22:00 Nasal Screen MRSA (PCR) Negative (Negative) 11/03/22 Unknown SARS-CoV-2, RNA, NAAT NEGATIVE (NEGATIVE) 11/02/22 22:25 Impressions Chest X-Ray 11/02/22 22:22 XR chest 1V portable CLINICAL HISTORY: Chest pain, nonspecific COMPARISON STUDY: Chest radiograph November 01, 2020. FINDINGS: Lung moderate cardiomegaly is unchanged. There is no pneumothorax or pleural effusion. There is pulmonary vascular congestion with suspected mild pulmonary edema. There is no consolidation to suggest pneumonia. Old left humeral neck fracture is incidentally noted. IMPRESSION: Cardiomegaly. Pulmonary vascular congestion with suspected mild pulmonary edema. ACT 112: Negative or not required by law. Electronically signed by: Moisés Mejía M.D. 11/03/2022 7:07 AM Hospital Course (1) Hypervolemia: (2) Edema of lower extremity: (3) Weakness: (4) A-fib: (5) Hypothyroid: (6) HTN (hypertension): (7) HLD (hyperlipidemia): (8) Diabetes mellitus: (9) Anemia: (10) Hyperbilirubinemia: (11) GERD (gastroesophageal reflux disease): (12) Chronic pain: Plan (1) Hypervolemia: Plan: -Clinically apparent hypervolemia with supporting CXR and history -Suspect CHF exacerbation given her history of medication nonadherence and likely dietary indiscretion, although her b/l leg swelling may also be in large part due to chronic lymphedema. She does have a mildly elevated BNP of 190 although this may be reactive -Echocardiogram ordered, could not locate previous echocardiogram in chart -Ramos catheter, strict I's and O's, daily weights -Lasix 40 mg IV BID, Cr 1.0 on admission, held d/t rising Cr -KCl 40 meq daily while undergoing diuresis -Trend BMP --- Cautious Lasix, appearing more euvolemic --- Possible HF exacerbation appears resolved at present (2) Edema of lower extremity: Plan: -As above, suspect contribution from possible CHF exacerbation in setting of chronic lymphedema -While I largely suspect chronic venous stasis rather than cellulitis to be underlying her peripheral swelling, warmth, erythema and tenderness to palpation, the noted history of yellow drainage from her wounds do raise some suspicion of infection despite lack of leukocytosis -Cefazolin 2g q8h, low threshold to discontinue antibiotics- monitor fever curve, CBC -MRSA nares pending -Wound care consulted -CARMINA stockings for compression --- Likely 2/2 chronic venous stasis, low likelihood for cellulitis given bilateral presentation, yellow drainage likely 2/2 increased LE fluid volume (3) Weakness: Plan: -Chronic deconditioning in high-risk pt with multiple comorbidities and unfortunately staggering decline in ability to care for self -PT/OT ordered, anticipate need for SNF/inpatient rehab. Pt is not safe to care for herself at home --- Recommending patient proceed with placement at acute rehab --- Patient elected to be discharged to home today given concerning social situation and health of her son (4) A-fib: Plan: -Noted to be in AF on admission, rate-controlled -Continue metoprolol succinate ER 100 mg BID -Continue Coumadin per home regimen/schedule -Monitor INR, currently therapeutic at 2.1 on admission -Telemetry monitoring (5) Elevated troponin: Plan: -Troponin 14.4 on admission -EKG without concern for acute ACS -Mild elevation likely due to demand ischemia 2/2 CHF -Trend to peak --- Troponin elevation likely 2/2 demand ischemia, no longer trending (6) Hypothyroid: Plan: -Last TSH of 1.0 in 11/2021 -Continue levothyroxine (7) HTN (hypertension): Plan: -BP stable on admission -Continue lisinopril, metoprolol (8) HLD (hyperlipidemia): Plan: -Continue atorvastatin (9) Diabetes mellitus: Plan: -Holding home metformin, glimepiride -Poorly controlled- A1C 9.7% in 11/2021 -BSG elevated on admission 223 -Lantus + SSI (10) Anemia: Plan: -Hgb 8.7 on admission -Likely iron-deficiency based on CBC studies -Trend CBC --- Hgb stable, 8.6, trending upwards (11) Hyperbilirubinemia: Plan: -TB of 2.4 on admission -No clinical evidence of jaundice on exam -Possibly reactive, trend CMP (12) GERD (gastroesophageal reflux disease): Plan: -Pantoprazole in place of home omeprazole while in hospital (13) Chronic pain: Plan: -Continue home tramadol Plan FENGI: Low salt, DM2, heart-healthy, fluid restriction 1200 mls Code status: Full DVT ppx: Warfarin Isolation: None Dispo: Medical/surgical with telemetry Total Time Total Time Spent Total Time Spent (In Minutes): 30 Discharge Plan Discharge Items Patient Disposition: Home - Self-Care Reason For Visit: FLUID OVERLOAD Discharge Diagnosis: Chronic Venous Stasis complicated by acute hypervolemia Activity: Per Instructions section Non-emergency contact: Primary Care Provider Call non-emergency contact if: your symptoms worsen Follow-up/Referrals: Michael Anderson MD [Primary Care Provider] - Diet: Heart Healthy and Low Sodium (2gm) Addtl Attending Provider Instructions: You were admitted to the hospital for worsening lower extremity swelling and progressive difficulty with performing personal care tasks at home due to l imited mobility and weakness. You were found to be fluid overloaded, which was contributing to your lower extremity swelling. This resolved quickly with diuretic medication, some of the lower extremity swelling resolved. Ultimately, a significant amount of lower extremity edema remains. As we discussed, this is likely caused by chronic venous stasis, which is when the blood/fluid pools in your lower extremities due to leaky valves within your veins. This pooling of blood and fluid leads to swelling, a red color in your legs, and occasional fluid seeping. Continue to keep your legs clean and dry to prevent the development of an infection. You were evaluated here in the hospital for your increasing weakness, it was recommended that prior to discharging to home you completed a short period of rehabilitation. While we discussed this topic at length, ultimately, you decided that it was best for you to go home due to some ongoing family situations. If you find that your health declines further, or you need additional help when you go home, please reach out to your primary care provider or the Office of A[facility], both of which can help with facilitating resources for additional help or rehab. Stand-Alone Forms: My [facility] [employer] Smoking Cessation Medications and DC Order Prescriptions: No Action nystatin 100,000 unit/gram powder 1 applic topical Q8H PRN (Reason: Skin Irritation) Qty: 30 0RF sennosides-docusate sodium 8.6-50 mg tablet 1 tab PO BID Qty: 180 3RF levothyroxine 75 mcg tablet 75 mcg PO QAM Qty: 90 3RF metformin 1,000 mg tablet 1,000 mg PO BID Qty: 180 3RF clobetasol 0.05 % cream 1 applic topical BID PRN (Reason: Rash) Qty: 1 0RF metoprolol succinate 100 mg tablet extended release 24 hr 100 mg PO BID Qty: 180 3RF warfarin 2 mg tablet 2 mg PO 2XWK Qty: 100 5RF Protocol: Dose Management Condition: Monday Dose/Route: 4 mg Instruction: 1 x 4 mg tablet Condition: Monday Dose/Route: 2 mg Instruction: 1 x 2 mg tablet Condition: Monday Dose/Route: 4 mg Instruction: 1 x 4 mg tablet Condition: Monday Dose/Route: 4 mg Instruction: 1 x 4 mg tablet Condition: Dose/Route: 2 mg Instruction: 1 x 2 mg tablet Condition: Monday Dose/Route: 4 mg Instruction: 1 x 4 mg tablet Condition: Monday Dose/Route: 2 mg Instruction: 1 x 2 mg tablet Protocol Text: Adjustment Start Date: Monday07/02/21 INR Value: 1.9 INR Date: 07/01/21 Recheck Date: 08/01/21 Rx Instructions: TAKE 2 MG EVERY MONDAY AND MONDAY OR OTHERWISE DIRECTED TO TAKE BY ANTICOAGULATION CLINIC/ lisinopril 2.5 mg tablet 2.5 mg PO HS Qty: 90 3RF omeprazole 20 mg capsule,delayed release(DR/EC) 20 mg PO QPM Qty: 30 5RF potassium chloride 20 mEq tablet extended release 20 meq PO DAILY Qty: 30 5RF furosemide 40 mg tablet 40 mg PO DAILY Qty: 30 5RF atorvastatin 20 mg tablet 20 mg PO HS Qty: 90 3RF celecoxib [Celebrex] 200 mg capsule 200 mg PO QAM Qty: 30 5RF tramadol 50 mg tablet 50 mg PO QAM Qty: 90 1RF warfarin 4 mg tablet 4 mg PO 5XWK Qty: 240 3RF Protocol: Dose Management Condition: Monday Dose/Route: 4 mg Instruction: 1 x 4 mg tablet Condition: Monday Dose/Route: 2 mg Instruction: 1 x 2 mg tablet Condition: Monday Dose/Route: 4 mg Instruction: 1 x 4 mg tablet Condition: Monday Dose/Route: 4 mg Instruction: 1 x 4 mg tablet Condition: Dose/Route: 2 mg Instruction: 1 x 2 mg tablet Condition: Monday Dose/Route: 4 mg Instruction: 1 x 4 mg tablet Condition: Monday Dose/Route: 2 mg Instruction: 1 x 2 mg tablet Protocol Text: Adjustment Start Date: Monday07/02/21 INR Value: 1.9 INR Date: 07/01/21 Recheck Date: 08/01/21 Rx Instructions: TAKE 4 MG EVERY MONDAY,MONDAY,MONDAY,MONDAY AND MONDAY OR OTHERWISE DIRECTED TO TAKE BY ANTICOAGULATION CLINIC/ lysine 500 mg tablet 500 mg PO QAM PRN (Reason: Cold Sore(s)) Centrum Silver 0.4-300-250 mg-mcg-mcg Tablet 1 tab PO QAM lutein-zeaxanthin 20 mg- 1,000 mcg Capsule 1 cap PO QAM cholecalciferol (vitamin D3) [Vitamin D3] 50 mcg (2,000 unit) Tablet 50 mcg PO DAILY glimepiride 2 mg tablet 4 mg PO BID Rx Instructions: Take 4 mg(2 tabs) in the morning and 4 mg(2 tabs) in the evening nystatin 100,000 unit/gram cream 1 applic topical BID PRN (Reason: Rash) Admission Data Admit Date/Time: 11/03/22 00:51 Attending Provider: Douglas Morin Admit Provider: Marcello Coleman Primary Care Provider: Michael Anderson Other Providers: Clay So
--- NOTE | 2022-11-06 16:03 | Hospitalist Progress Note ---
Date of Service November 06, 2022 Assessment & Plan (1) Hypervolemia: (2) Edema of lower extremity: (3) Weakness: (4) A-fib: (5) Hypothyroid: (6) HTN (hypertension): (7) HLD (hyperlipidemia): (8) Diabetes mellitus: (9) Anemia: (10) Hyperbilirubinemia: (11) GERD (gastroesophageal reflux disease): (12) Chronic pain: Plan (1) Hypervolemia: Plan: -Clinically apparent hypervolemia with supporting CXR and history -Suspect CHF exacerbation given her history of medication nonadherence and likely dietary indiscretion, although her b/l leg swelling may also be in large part due to chronic lymphedema. She does have a mildly elevated BNP of 190 alth ough this may be reactive -Echocardiogram ordered, could not locate previous echocardiogram in chart -Ramos catheter, strict I's and O's, daily weights -Lasix 40 mg IV BID, Cr 1.0 on admission, held d/t rising Cr -KCl 40 meq daily while undergoing diuresis -Trend BMP --- Cautious Lasix, appearing more euvolemic --- Possible HF exacerbation appears resolved at present (2) Edema of lower extremity: Plan: -As above, suspect contribution from possible CHF exacerbation in setting of chronic lymphedema -While I largely suspect chronic venous stasis rather than cellulitis to be underlying her peripheral swelling, warmth, erythema and tenderness to palpation, the noted history of yellow drainage from her wounds do raise some suspicion of infection despite lack of leukocytosis -Cefazolin 2g q8h, low threshold to discontinue antibiotics- monitor fever curve, CBC -MRSA nares pending -Wound care consulted -CARMINA stockings for compression --- Likely 2/2 chronic venous stasis, low likelihood for cellulitis given bilateral presentation, yellow drainage likely 2/2 increased LE fluid volume (3) Weakness: Plan: -Chronic deconditioning in high-risk pt with multiple comorbidities and unfortunately staggering decline in ability to care for self -PT/OT ordered, anticipate need for SNF/inpatient rehab. Pt is not safe to care for herself at home --- Recommending patient proceed with placement at acute rehab --- Patient elected to be discharged to home today given concerning social situation and health of her son (4) A-fib: Plan: -Noted to be in AF on admission, rate-controlled -Continue metoprolol succinate ER 100 mg BID -Continue Coumadin per home regimen/schedule -Monitor INR, currently therapeutic at 2.1 on admission -Telemetry monitoring (5) Elevated troponin: Plan: -Troponin 14.4 on admission -EKG without concern for acute ACS -Mild elevation likely due to demand ischemia 2/2 CHF -Trend to peak --- Troponin elevation likely 2/2 demand ischemia, no longer trending (6) Hypothyroid: Plan: -Last TSH of 1.0 in 11/2021 -Continue levothyroxine (7) HTN (hypertension): Plan: -BP stable on admission -Continue lisinopril, metoprolol (8) HLD (hyperlipidemia): Plan: -Continue atorvastatin (9) Diabetes mellitus: Plan: -Holding home metformin, glimepiride -Poorly controlled- A1C 9.7% in 11/2021 -BSG elevated on admission 223 -Lantus + SSI (10) Anemia: Plan: -Hgb 8.7 on admission -Likely iron-deficiency based on CBC studies -Trend CBC --- Hgb stable, 8.6, trending upwards (11) Hyperbilirubinemia: Plan: -TB of 2.4 on admission -No clinical evidence of jaundice on exam -Possibly reactive, trend CMP (12) GERD (gastroesophageal reflux disease): Plan: -Pantoprazole in place of home omeprazole while in hospital (13) Chronic pain: Plan: -Continue home tramadol Plan FENGI: Low salt, DM2, heart-healthy, fluid restriction 1200 mls Code status: Full DVT ppx: Warfarin Isolation: None Dispo: Medical/surgical with telemetry Admission and Anticipated Discharge Date Admission Date: November 03, 2022 Supervising Physician Co-Signing Physician Notes I personally examined the patient and verified all okeefe points of history and exam, discussed case, and agree with decision making with Dr Contreras extensive discussions again on need for rehab vs emotional desire to go home. Much of the discussions are similar to yesterdaywhere I tried to help her see that while she has a huge emotional desire to go home, her actual physical benefits at home are pretty minimalwhile yesterday we were unable to come up with any actual practical benefit of being home, today we were at least able to come up with the benefit of being able to hide her things out of concern that her daughter or some of the drug community her daughter has been allowing into the house would be stealing. But outside of that, very little. She continues to have stress with her son being in the ICU at [facility], but we discussed that he would not be aware of her being there, and that her presents therefore would not really change his status much, and he is not alone as he is being looked after by their ICU team. That said, after extensive discussions, she noted that she felt like she absolutely had to go home. After she reached that conclusion, I reiterated a point that I had been making both yesterday and earlier today, which is that when someone is weak and in the hospital they tend to get weakerwhich is unfortunate but not that big of a deal once somebody is going to rehab, but can be deal breaking/game changing if they are going home even weakerand therefore if she was absolutely going home, we owed it to her to do so as quickly as could be set up. I proceeded to case management asked him to set up home PT, and then later was informed that the patient decided she absolutely could not go home and she was amenable to rehab referrals. vitals noted nad heent nc at mmm breathing unlabored no accessory muscles good effort skin no rashes no pallor or icterus. lungs clear no r/r/w b/l LE ~3-4+ edema no erythema venous stasis exac - from Na intake causing fluid retention --> fluid retention/leg weight increase reducing movement compounding fluid retention and worsening downward spiral. possible mild acute HFpEF but appears that this has already resolved. Continue PT/OT, movement, compression. Has already reached a point where diuresis is not really going to affect much more benefit, given that it is predominantly venous stasis/third spaced fluids, and her creatinine has already started to rise. Despite a lot of stress and a lot of [id number] in her mindright now continuing to proceed towards rehab Subjective Violeta is feeling well today and denies pain. She notes that her legs are the same as yesterday. She denies chest pain, dyspnea, abdominal pain, headaches, fevers or chills. She was resting comfortably upon arrival. Patient is torn between discharge to home vs rehab, daughter noted that she is unable to care for her mother at home, thus patient agreed to be discharged to rehab. CM is following. Review of Systems Review of Systems: As per HPI Physical Exam Physical Exam: Gen: NAD, alert, interactive HEENT: Supple no JVD Resp:Non-labored, no wheezing/rhonchi/rales, CTAB CV:irregular, normal S1/S2, no M/R/G Abd: Soft, non-distended, no TTP, normoactive bowels, no masses, Ramos intact draining dark yellow, non-cloudy urine Extr: 2+ dp bilaterally, no TTP, erythema present and symmetric in bilateral lower extremities, non-pitting edema 2+ bilaterally to knee, no drainage or purulence Results & Data Results & Data ([facility]) Vital Signs (Past 12 Hours) Vital Signs Temp Pulse Pulse Resp BP Pulse Ox O2 Del Method 11/06/22 15:50 36.8 C 79 20 148/76 H 97 Room Air 11/06/22 15:35 61 11/06/22 11:42 36.7 C 67 20 175/105 H 95 Room Air 11/06/22 10:58 Room Air 11/06/22 07:48 36.8 C 58 L 20 135/76 95 Room Air Resident Activity Tracking Resident Involvement: Resident Care Provided Care Provided: Adult Hospital Medicine (4) A-fib Atrial fibrillation type: unspecified Qualified Code(s): I48.91 - Unspecified atrial fibrillation (5) Hypothyroid Hypothyroidism type: unspecified Qualified Code(s): E03.9 - Hypothyroidism, unspecified (6) HTN (hypertension) Hypertension type: essential hypertension Qualified Code(s): I10 - Essential (primary) hypertension (7) HLD (hyperlipidemia) Hyperlipidemia type: unspecified Qualified Code(s): E78.5 - Hyperlipidemia, unspecified (8) Diabetes mellitus Diabetes mellitus assisted insulin use: without truck terminal manager use Diabetes mellitus type: type 2 (9) Anemia Anemia type: unspecified type Qualified Code(s): D64.9 - Anemia, unspecified (11) GERD (gastroesophageal reflux disease) Esophagitis presence: esophagitis presence not specified Qualified Code(s): K21.9 - Gastro-esophageal reflux disease without esophagitis
[2022-11-06] MEDS: WARFARIN SOD 4 MG TAB PO SCH (18:43)
--- NOTE | 2022-11-06 19:46 | Billing Data ---
Date of Service November 06, 2022 Coding Level of Care Code 71468 SUB INP/OBS CARE MIN
[2022-11-06] MEDS: ACETAMINOPHEN 325 MG TAB PO PRN (21:50)
[2022-11-06] MEDS: lisinopril 2.5 MG TAB PO SCH (21:50)
[2022-11-06] MEDS: ATORVASTATIN 20 MG TAB PO SCH (21:51)
[2022-11-07] MEDS: LEVOTHYROXINE SODIUM 75 MCG TABLET PO SCH (05:59)
[2022-11-07 07:38] LABS: Hematocrit (blood only) 28.4 % (37.0-47.0); Hemoglobin 8.5 g/dl (12.0-16.0); Mean Corpuscular Hemoglobin 24.1 pg (25.0-34.0); Mean Corpuscular Hgb Conc 29.9 g/dL (32.0-36.0); Mean Corpuscular Volume 80.7 fL (80.0-100.0); Mean Platelet Volume 10.3 fL (9.4-12.4); Platelet Count 196 K/uL (130-400); RDW Coefficient of Variation 19.1 % (11.5-14.5); RDW Standard Deviation 56.3 fL (36.4-46.3); Red Blood Count 3.52 M/uL (4.20-5.40); White Blood Count 4.19 K/ul (4.8-10.8)
[2022-11-07] MEDS: PANTOprazole 40 MG TAB PO SCH (07:41)
[2022-11-07] MEDS: POTASSIUM CHLORIDE CRTAB 20 MEQ TABCR PO SCH (07:42)
[2022-11-07] MEDS: DOCUSATE SODIUM 100 MG CAP PO SCH ×2 (07:42→21:49)
[2022-11-07] MEDS: METOPROLOL SUCC 50MG EXT REL TAB PO SCH ×2 (07:42→21:48)
[2022-11-07 07:58] LABS: BUN Creatinine Ratio 20.5 (10-20); Calcium 9.5 mg/dl (8.5-10.1); Creatinine Clr Calc Pharmacy 55.4 ml/min; Est GFR (African American) 50.2 ml/min; Est GFR (Non-African American) 43.3 ml/min; Potassium 4.5 mmol/L (3.5-5.1)
[2022-11-07 08:05] LABS: INR 2.1 (0.9-1.1); Prothrombin Time 21.9 Seconds (9.0-12.0)
[2022-11-07] MEDS: LANTUS PER UNIT CHARGE SQ SCH ×2 (08:39→21:50)
[2022-11-07] MEDS: INSULIN ASPART PER UNIT SC SCH ×4 (08:39→20:45)
[2022-11-07] MEDS: traMADol HCL 50 MG TABLET PO SCH (08:39)
[2022-11-07] MEDS: WARFARIN SOD 4 MG TAB PO SCH (16:34)
--- NOTE | 2022-11-07 16:59 | Hospitalist Progress Note ---
Date of Service November 07, 2022 Assessment & Plan (1) Hypervolemia: (2) Edema of lower extremity: (3) Weakness: (4) A-fib: (5) Hypothyroid: (6) HTN (hypertension): (7) HLD (hyperlipidemia): (8) Diabetes mellitus: (9) Anemia: (10) Hyperbilirubinemia: (11) GERD (gastroesophageal reflux disease): (12) Chronic pain: Plan Acute diastolic CHF -Suspect CHF exacerbation given her history of medication nonadherence and likely dietary indiscretion, although her b/l leg swelling may also be in large part due to chronic lymphedema. She does have a mildly elevated BNP of 190 although this may be reactive -Echo normal EF -Given Lasix 40 mg IV BID, Cr 1.0 on admission, lasix held d/t rising Cr -Ramos catheter, strict I's and O's, daily weights. net neg [id number] -Trend BMP --- staying euvolemic. will keep lasix on hold Edema of lower extremity: -As above, suspect contribution from possible CHF exacerbation in setting of chronic lymphedema -d/cristiana cefazolin -Wound care consulted -CARMINA stockings for compression Weakness: -Chronic deconditioning in high-risk pt with multiple comorbidities and unfortunately staggering decline in ability to care for self -PT/OT ordered, Pt is not safe to care for herself at home --- Recommending patient proceed with placement at acute rehab --- Patient was accepted at [facility], bed available tomorrow --- Patient hesitant but understands our medical recommendation is to discharge to rehab facility A-fib: -Noted to be in AF on admission, rate-controlled -Continue metoprolol succinate ER 100 mg BID -Continue Coumadin per home regimen/schedule -Monitor INR, currently therapeutic at 2.1 on admission, 2.1 INR again today -Telemetry monitoring Elevated troponin: -Troponin 14.4 on admission -EKG without concern for acute ACS -Mild elevation likely due to demand ischemia 2/2 CHF --- no longer trending (9) Diabetes mellitus: -Holding home metformin, glimepiride -Poorly controlled- A1C 9.7% in 11/2021 -BSG elevated on admission 223 -Lantus + SSI Anemia: -Hgb 8.7 on admission -Likely iron-deficiency based on CBC studies -Trend CBC --- Hgb stable, 8.5 today Hypothyroid: -Last TSH of 1.0 in 11/2021 -Continue levothyroxine HTN (hypertension): -BP stable on admission -Continue lisinopril, metoprolol GERD (gastroesophageal reflux disease): -Pantoprazole in place of home omeprazole while in hospital Chronic pain: -Continue home tramadol Plan FENGI: Low salt, DM2, heart-healthy, fluid restriction 1200 mls Code status: Full DVT ppx: Warfarin Isolation: None Dispo: Medical/surgical with telemetry Admission and Anticipated Discharge Date Admission Date: November 03, 2022 Supervising Physician Co-Signing Physician Notes Resident Physician Supervision Note: I independently interviewed and examined the patient and verified the okeefe history and physical, reviewed labs and image studies and agree with resident findings and care plan. Subjective 11/07: Patient seen and examined at bedside. No acute events overnight. Patient resting comfortably in bed. She expresses her concerns and reasons for hoping to be discharged home. Violeta explains some of the complex social concerns currently going on in her life. She notes that she has some lower back pain today, has had chronic back pain for many years. She denies shortness of breath, chest pain, fever, chills, abdominal pain. Review of Systems Review of Systems: As per above Physical Exam Constitutional: WD/WN, vitals as above ENMT: Anicteric sclera, moist mucous membranes Respiratory: normal respiratory effort, lungs clear to auscultation Cardiovascular: irregular rhythm, no murmurs, rubs or gallops Gastrointestinal (Abdomen): normal bowel sounds, soft, nontender, no hepatosplenomegaly Skin: significant bilateral lower extremity +2 pitting edema, erythema and discoloration bilaterally Psychiatric: A+Ox3, euthymic affect Results & Data Results & Data ([facility]) Vital Signs (Past 12 Hours) Vital Signs Temp Pulse Pulse Resp BP Pulse Ox O2 Del Method 11/07/22 15:00 36.6 C 66 18 132/71 94 Room Air 11/07/22 08:00 59 L 11/07/22 10:56 36.4 C L 69 18 115/67 95 Room Air 11/07/22 07:24 36.3 C L 57 L 20 134/66 98 Room Air Resident Activity Tracking Resident Involvement: Resident Care Provided Care Provided: Adult Hospital Medicine (4) A-fib Atrial fibrillation type: unspecified Qualified Code(s): I48.91 - Unspecified atrial fibrillation (5) Hypothyroid Hypothyroidism type: unspecified Qualified Code(s): E03.9 - Hypothyroidism, unspecified (6) HTN (hypertension) Hypertension type: essential hypertension Qualified Code(s): I10 - Essential (primary) hypertension (7) HLD (hyperlipidemia) Hyperlipidemia type: unspecified Qualified Code(s): E78.5 - Hyperlipidemia, unspecified (8) 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
[2022-11-07] MEDS: ATORVASTATIN 20 MG TAB PO SCH (21:50)
[2022-11-07] MEDS: lisinopril 2.5 MG TAB PO SCH (21:50)
[2022-11-08] MEDS: LEVOTHYROXINE SODIUM 75 MCG TABLET PO SCH (06:05)
[2022-11-08 06:20] LABS: Hematocrit (blood only) 27.9 % (37.0-47.0); Hemoglobin 8.4 g/dl (12.0-16.0); Mean Corpuscular Hemoglobin 23.9 pg (25.0-34.0); Mean Corpuscular Hgb Conc 30.1 g/dL (32.0-36.0); Mean Corpuscular Volume 79.3 fL (80.0-100.0); Mean Platelet Volume 10.1 fL (9.4-12.4); Platelet Count 197 K/uL (130-400); RDW Coefficient of Variation 19.1 % (11.5-14.5); RDW Standard Deviation 54.9 fL (36.4-46.3); Red Blood Count 3.52 M/uL (4.20-5.40); White Blood Count 4.45 K/ul (4.8-10.8)
[2022-11-08 06:42] LABS: BUN Creatinine Ratio 19.2 (10-20); Calcium 9.7 mg/dl (8.5-10.1); Creatinine Clr Calc Pharmacy 51.3 ml/min; Est GFR (African American) 46.5 ml/min; Est GFR (Non-African American) 40.1 ml/min; Potassium 4.7 mmol/L (3.5-5.1)
[2022-11-08 06:50] LABS: INR 2.4 (0.9-1.1); Prothrombin Time 24.1 Seconds (9.0-12.0)
[2022-11-08] MEDS: PANTOprazole 40 MG TAB PO SCH (08:00)
[2022-11-08] MEDS: POTASSIUM CHLORIDE CRTAB 20 MEQ TABCR PO SCH (08:01)
[2022-11-08] MEDS: DOCUSATE SODIUM 100 MG CAP PO SCH ×2 (08:01→20:50)
[2022-11-08] MEDS: METOPROLOL SUCC 50MG EXT REL TAB PO SCH ×2 (08:01→20:51)
[2022-11-08] MEDS: traMADol HCL 50 MG TABLET PO SCH (08:09)
[2022-11-08] MEDS: LANTUS PER UNIT CHARGE SQ SCH ×2 (08:09→20:52)
[2022-11-08] MEDS: INSULIN ASPART PER UNIT SC SCH ×4 (08:09→20:44)
--- NOTE | 2022-11-08 13:13 | Hospitalist Progress Note ---
Date of Service November 08, 2022 Assessment & Plan (1) Hypervolemia: (2) Edema of lower extremity: (3) Weakness: (4) A-fib: (5) Hypothyroid: (6) HTN (hypertension): (7) HLD (hyperlipidemia): (8) Diabetes mellitus: (9) Anemia: (10) Hyperbilirubinemia: (11) GERD (gastroesophageal reflux disease): (12) Chronic pain: Plan Acute diastolic CHF -Suspect CHF exacerbation given her history of medication nonadherence and likely dietary indiscretion, although her b/l leg swelling may also be in large part due to chronic lymphedema. -Echo normal EF -Given Lasix 40 mg IV BID, Cr 1.0 on admission, lasix held d/t rising Cr -Ramos catheter removed today. -Trend BMP --- staying euvolemic. Neg 5644 ml since admission. will keep lasix on hold Edema of lower extremity: -As above, suspect contribution from possible CHF exacerbation in setting of chronic lymphedema -d/cristiana cefazolin -Wound care consulted -CARMINA stockings for compression Weakness: -Chronic deconditioning in high-risk pt with multiple comorbidities and unfortunately staggering decline in ability to care for self -PT/OT ordered, Pt is not safe to care for herself at home --- Patient was accepted at [facility], case management working on insurance prior authorization --- Patient hesitant but understands our medical recommendation is to discharge to rehab facility A-fib: -Noted to be in AF on admission, rate-controlled -Continue metoprolol succinate ER 100 mg BID -Continue Coumadin per home regimen/schedule -Monitor INR, currently therapeutic at 2.1 on admission, 2.4 INR today -Telemetry monitoring Elevated troponin: -Troponin 14.4 on admission -EKG without concern for acute ACS -Mild elevation likely due to demand ischemia 2/2 CHF --- no longer trending Diabetes mellitus: -Holding home metformin, glimepiride -Poorly controlled- A1C 9.7% in 11/2021 -BSG elevated on admission 223 -Lantus + SSI Anemia: -Hgb 8.7 on admission -Likely iron-deficiency based on CBC studies -Trend CBC --- Hgb stable, 8.4 today Hypothyroid: -Last TSH of 1.0 in 11/2021 -Continue levothyroxine HTN (hypertension): -BP stable on admission -Continue lisinopril, metoprolol GERD (gastroesophageal reflux disease): -Pantoprazole in place of home omeprazole while in hospital Chronic pain: -Continue home tramadol Plan FENGI: Low salt, DM2, heart-healthy, fluid restriction 2000 mls Code status: Full DVT ppx: Warfarin Isolation: None Dispo: Medical/surgical with telemetry Admission and Anticipated Discharge Date Admission Date: November 03, 2022 Supervising Physician Co-Signing Physician Notes Resident Physician Supervision Note: I independently interviewed and examined the patient and verified the okeefe history and physical, reviewed labs and image studies and agree with resident findings and care plan. Subjective 11/08: Patient was seen and examined at bedside. She notes that she is frustrated that she is not able to go home but understands why she needs to go to acute rehab. She inquires about getting a notary at bedside to notarize paperwork regarding her late 's life insurance. She denies chest pain or shortness of breath. Review of Systems Review of Systems: As per above Physical Exam Constitutional: WD/WN, vitals as above Eyes: Anicteric Sclerae ENMT: Moist Mucous membranes Respiratory: normal respiratory effort, lungs clear to auscultation Cardiovascular: Irregular rhythm, no murmur, rub, or gallop. +2 pitting edema on bilateral lower extremities. Gastrointestinal (Abdomen): normal bowel sounds, soft, nontender, no hepatosplenomegaly Psychiatric: A+Ox3, euthymic affect Results & Data Results & Data ([facility]) Vital Signs (Past 12 Hours) Vital Signs Temp Pulse Pulse Resp BP BP Pulse Ox 11/08/22 11:00 36.5 C 55 L 16 140/68 99 11/08/22 09:28 11/08/22 07:00 36.8 C 58 L 16 121/65 96 11/08/22 07:34 57 L 11/08/22 04:00 37.2 C 80 18 150/84 H 96 O2 Del Method 11/08/22 11:00 Room Air 11/08/22 09:28 Room Air 11/08/22 07:00 Room Air 11/08/22 07:34 11/08/22 04:00 Room Air Resident Activity Tracking Resident Involvement: Resident Care Provided Care Provided: Adult Hospital Medicine (4) A-fib Atrial fibrillation type: unspecified Qualified Code(s): I48.91 - Unspecified atrial fibrillation (5) Hypothyroid Hypothyroidism type: unspecified Qualified Code(s): E03.9 - Hypothyroidism, unspecified (6) HTN (hypertension) Hypertension type: essential hypertension Qualified Code(s): I10 - Essential (primary) hypertension (7) HLD (hyperlipidemia) Hyperlipidemia type: unspecified Qualified Code(s): E78.5 - Hyperlipidemia, unspecified (8) Diabetes mellitus Diabetes mellitus prison insulin use: without prison use Diabetes mellitus type: type 2 (9) Anemia Anemia type: unspecified type Qualified Code(s): D64.9 - Anemia, unspecified (11) GERD (gastroesophageal reflux disease) Esophagitis presence: esophagitis presence not specified Qualified Code(s): K21.9 - Gastro-esophageal reflux disease without esophagitis
[2022-11-08] MEDS: WARFARIN SOD 2 MG TAB PO SCH (17:37)
[2022-11-08] MEDS: lisinopril 2.5 MG TAB PO SCH (20:51)
[2022-11-08] MEDS: ATORVASTATIN 20 MG TAB PO SCH (20:52)
[2022-11-09] MEDS: LEVOTHYROXINE SODIUM 75 MCG TABLET PO SCH (05:32)
[2022-11-09 06:22] LABS: Hematocrit (blood only) 27.3 % (37.0-47.0); Hemoglobin 8.3 g/dl (12.0-16.0); Mean Corpuscular Hemoglobin 23.7 pg (25.0-34.0); Mean Corpuscular Hgb Conc 30.4 g/dL (32.0-36.0); Mean Platelet Volume 9.8 fL (9.4-12.4); Platelet Count 206 K/uL (130-400); RDW Coefficient of Variation 18.9 % (11.5-14.5); RDW Standard Deviation 53.6 fL (36.4-46.3); White Blood Count 4.18 K/ul (4.8-10.8)
[2022-11-09 06:35] LABS: BUN Creatinine Ratio 21.3 (10-20); Calcium 9.7 mg/dl (8.5-10.1); Creatinine Clr Calc Pharmacy 54.5 ml/min; Est GFR (African American) 50.2 ml/min; Est GFR (Non-African American) 43.3 ml/min; Potassium 4.6 mmol/L (3.5-5.1)
[2022-11-09 06:39] LABS: INR 2.3 (0.9-1.1); Prothrombin Time 23.8 Seconds (9.0-12.0)
[2022-11-09] MEDS: METOPROLOL SUCC 50MG EXT REL TAB PO SCH (07:53)
[2022-11-09] MEDS: DOCUSATE SODIUM 100 MG CAP PO SCH (07:54)
[2022-11-09] MEDS: POTASSIUM CHLORIDE CRTAB 20 MEQ TABCR PO SCH (07:54)
[2022-11-09] MEDS: PANTOprazole 40 MG TAB PO SCH (07:54)
[2022-11-09] MEDS: traMADol HCL 50 MG TABLET PO SCH (07:56)
[2022-11-09 08:14] LABS: Estimated Average Glucose 192 mg/dl; Hemoglobin A1C 8.3 % (4.5-5.6)
[2022-11-09] MEDS: INSULIN ASPART PER UNIT SC SCH ×2 (08:40→12:15)
[2022-11-09] MEDS: LANTUS PER UNIT CHARGE SQ SCH (08:41)
--- NOTE | 2022-11-09 12:41 | Discharge Summary ---
Date of Service November 09, 2022 Admission HPI Per Admitting Provider 77 yo F with PMH including DM2, pAF on Coumadin, HTN, HLD, hypothyroidism, anemia, GERD, morbid obesity presenting with worsening ambulatory dysfunction. History obtained primarily from chart review as pt is poor historian. Pt was seen in phone visit by PCP today for progressive difficulty caring herself at home, worsening leg swelling with weeping wounds and limited ambulation. Pt follows with [facility]. Pt's daughter called EMS for concern of her mother's self neglect but pt refused to go to ER. EMS notified [facility] who contacted her PCP to arrange phone visit. Pt's legs have become significantly more swollen over past several weeks and seeping with yellow fluid and she has had associated difficulty moving around the home. Additionally she has had more exertional dyspnea. Pt's daughter has apparently urged her to go to ER multiple times but she has refused and also skipped multiple [facility] appointments. She does admit to irregular home Lasix use, only taking about 1/2 tablet every other day instead of her daily 40 mg regimen. Pt has also not bathed or washed her hair in several weeks and attributes this as the reason she has avoided going to the ER. Pt arrived to ER hemodynamically stable. Hgb 8.7, MCV 78, RDW 55, INR 2.1, K 3.4, glucose 223, TB 2.4, ALP 118, troponin 14, BNP 190. CXR with evidence of pulmonary vascular congestion and pulmonary edema. Pt given Lasix 40 mg IV and KCL 40 meq in ER. On my evaluation, she expresses fatigue, dyspnea and b/l leg pain. She is unfortunately a poor historian and was unable to clearly articulate what brought her to the hospital, only speaking in vague terms of getting progressively worse in terms of her general health. Admission Exam Per Admitting Provider General: awake, alert, no apparent distress, laying in bed Head: Normocephalic, atraumatic ENT: PERRL, EOMI, no pharyngeal exudate, mucous membranes moist Neuro: AAO x 3, speech clear and appropriate, b/l UE and LE strength intact 5/5, sensation intact and equal in all extremities Resp: Diminished and coarse breath sounds diffusely with crackles at bases, paradoxical belly breathing observed Cardiac: Irregular rhythm, normal rate, normal S1 and S2, no murmurs noted Abd: soft, distended, nontender Extremities: Profound 3+ edema b/l up to thighs with erythema and warmth, some associated chronic venous stasis changes, no plaques or overt blisters identified, tender to palpation along lateral shins- findings symmetric Principal Diagnosis Fluid Overload Discharge Exam Constitutional WD/WN, vitals as above Eyes Anicteric sclerae ENMT Moist mucous membranes Respiratory normal respiratory effort, lungs clear to auscultation Cardiovascular Irregular rhythm, normal rate. No rubs/murmurs. +2 pitting edema of bilateral lower extremities with chronic venous stasis changes. Gastrointestinal (Abdomen) normal bowel sounds, soft, nontender, no hepatosplenomegaly Psychiatric A+Ox3, euthymic affect Discharge Data Allergies Allergy/AdvReac Type Severity Reaction Status Date / Time lactose AdvReac Unknown Diarrhea Verified 11/09/22 14:29 Consultations 11/03/22 00:02 ED Decision to Admit Stat Ordered Studies Chest X-Ray 11/02/22 22:22 XR chest 1V portable CLINICAL HISTORY: Chest pain, nonspecific COMPARISON STUDY: Chest radiograph November 01, 2020. FINDINGS: Lung moderate cardiomegaly is unchanged. There is no pneumothorax or pleural effusion. There is pulmonary vascular congestion with suspected mild pulmonary edema. There is no consolidation to suggest pneumonia. Old left humeral neck fracture is incidentally noted. IMPRESSION: Cardiomegaly. Pulmonary vascular congestion with suspected mild pulmonary edema. ACT 112: Negative or not required by law. Electronically signed by: Moisés Mejía M.D. 11/03/2022 7:07 AM 11/09/22 11/09/22 11/09/22 Range/Units 11:45 11:00 07:30 WBC (4.8-10.8) K/ul RBC (4.20-5.40) M/uL Hgb (12.0-16.0) g/dl Hct (37.0-47.0) % MCV (80.0-100.0) fL MCH (25.0-34.0) pg MCHC (32.0-36.0) g/dL RDW Std Deviation (36.4-46.3) fL RDW Coeff of Maria C (11.5-14.5) % Plt Count (130-400) K/uL MPV (9.4-12.4) fL PT (9.0-12.0) Seconds INR (0.9-1.1) Sodium (136-145) mmol/L Potassium (3.5-5.1) mmol/L Chloride (98-107) mmol/L Carbon Dioxide (21-32) mmol/L Anion Gap (3-11) BUN (6-23) mg/dl Creatinine (0.6-1.2) mg/dl Est Cr Clr Drug Dosing ml/min Est GFR ( Amer) ml/min Est GFR (Non-Af Amer) ml/min BUN/Creatinine Ratio (10-20) Glucose (70-99(Fasting)) mg/dl POC Glucose 199 H 155 H (70-99) mg/dl Estimat Average Glucose mg/dl Hemoglobin A1c (4.5-5.6) % Calcium (8.5-10.1) mg/dl SARS-CoV-2, RNA, NAAT NEGATIVE (NEGATIVE) 11/09/22 11/09/22 11/09/22 Range/Units 05:52 05:52 05:52 WBC 4.18 L (4.8-10.8) K/ul RBC 3.50 L (4.20-5.40) M/uL Hgb 8.3 L (12.0-16.0) g/dl Hct 27.3 L (37.0-47.0) % MCV 78.0 L (80.0-100.0) fL MCH 23.7 L (25.0-34.0) pg MCHC 30.4 L (32.0-36.0) g/dL RDW Std Deviation 53.6 H (36.4-46.3) fL RDW Coeff of Maria C 18.9 H (11.5-14.5) % Plt Count 206 (130-400) K/uL MPV 9.8 (9.4-12.4) fL PT (9.0-12.0) Seconds INR (0.9-1.1) Sodium 139 (136-145) mmol/L Potassium 4.6 (3.5-5.1) mmol/L Chloride 107 (98-107) mmol/L Carbon Dioxide 29 (21-32) mmol/L Anion Gap 3 (3-11) BUN 26 H (6-23) mg/dl Creatinine 1.22 H (0.6-1.2) mg/dl Est Cr Clr Drug Dosing 54.5 ml/min Est GFR ( Amer) 50.2 ml/min Est GFR (Non-Af Amer) 43.3 ml/min BUN/Creatinine Ratio 21.3 H (10-20) Glucose 137 H (70-99(Fasting)) mg/dl POC Glucose (70-99) mg/dl Estimat Average Glucose 192 mg/dl Hemoglobin A1c 8.3 H (4.5-5.6) % Calcium 9.7 (8.5-10.1) mg/dl SARS-CoV-2, RNA, NAAT (NEGATIVE) 11/09/22 11/08/22 Range/Units 05:52 20:27 WBC (4.8-10.8) K/ul RBC (4.20-5.40) M/uL Hgb (12.0-16.0) g/dl Hct (37.0-47.0) % MCV (80.0-100.0) fL MCH (25.0-34.0) pg MCHC (32.0-36.0) g/dL RDW Std Deviation (36.4-46.3) fL RDW Coeff of Maria C (11.5-14.5) % Plt Count (130-400) K/uL MPV (9.4-12.4) fL PT 23.8 H (9.0-12.0) Seconds INR 2.3 H (0.9-1.1) Sodium (136-145) mmol/L Potassium (3.5-5.1) mmol/L Chloride (98-107) mmol/L Carbon Dioxide (21-32) mmol/L Anion Gap (3-11) BUN (6-23) mg/dl Creatinine (0.6-1.2) mg/dl Est Cr Clr Drug Dosing ml/min Est GFR ( Amer) ml/min Est GFR (Non-Af Amer) ml/min BUN/Creatinine Ratio (10-20) Glucose (70-99(Fasting)) mg/dl POC Glucose 143 H (70-99) mg/dl Estimat Average Glucose mg/dl Hemoglobin A1c (4.5-5.6) % Calcium (8.5-10.1) mg/dl SARS-CoV-2, RNA, NAAT (NEGATIVE) Hospital Course (1) Hypervolemia: (2) Edema of lower extremity: (3) Weakness: (4) A-fib: (5) Hypothyroid: (6) HTN (hypertension): (7) HLD (hyperlipidemia): (8) Diabetes mellitus: (9) Anemia: (10) Hyperbilirubinemia: (11) GERD (gastroesophageal reflux disease): (12) Chronic pain: Plan Violeta Hernandez is a 77 year-old female who was admitted to the hospital due to worsening ambulatory dysfunction and increased lower leg swelling. Patient was treated for suspicion of CHF exacerbation with etiology likely from medication nonadherence/dietary indiscretion. An echo was completed which showed normal EF, there was an initial mild elevation in troponin on admission likely due to demand ischemia and later resolved. Patient was diuresed with increased dosage of Lasix and fluid restriction which seemed to improve symptoms. Lasix were later held during admission due to rise in creatinine but later improved. Suspect that LE is largely due to degree of chronic lymphedema, CARMINA stockings used for compression. Discharged on home Lasix dose of 40mg once daily, recommend rechecking BMP and reassessing appropriateness of dose with PCP at follow up appointment. Ms. Hernandez also has chronic deconditioning as a high-risk pt with multiple comorbidities and unfortunately staggering decline in ability to care for self. PT/OT evaluations throughout admission indicated that patient was not safe to care for herself at home, recommended acute rehab stay. Patient was very hesitant and had preference for returning home due to multiple social concerns/adult son hospitalized, but agreed to discharge to [facility]. Home medications continued for atrial fibrillation (metoprolol, coumadin) and INR was monitored/therapeutic during admission. Patient had a stable hemoglobin throughout hospitalization of mid 8's- likely 2/2 iron deficiency. A A1C was checked during admission and found to be 8.3%. Other chronic medical conditions were continued on home medications during hospitalization. Total Time Total Time Spent Total Time Spent (In Minutes): . Discharge Plan Discharge Items Patient Disposition: Transfer [facility] Reason For Visit: FLUID OVERLOAD Discharge Diagnosis: Chronic Venous Stasis complicated by acute hypervolemia Activity: Per Instructions section Non-emergency contact: Primary Care Provider Call non-emergency contact if: your symptoms worsen Follow-up/Referrals: Michael Anderson MD [Primary Care Provider] - Diet: Heart Healthy and Low Sodium (2gm) Addtl Attending Provider Instructions: You were admitted to the hospital for worsening lower extremity swelling and progressive difficulty with performing personal care tasks at home due to limited mobility and weakness. You were found to be fluid overloaded, which was contributing to your lower extremity swelling. This resolved quickly with diuretic medication, some of the lower extremity swelling resolved. Ultimately, a significant amount of lower extremity edema remains. As we discussed, this is likely caused by chronic venous stasis, which is when the blood/fluid pools in your lower extremities due to leaky valves within your veins. This pooling of blood and fluid leads to swelling, a red color in your legs, and occasional fluid seeping. Continue to keep your legs clean and dry to prevent the development of an infection. You were evaluated here in the hospital for your increasing weakness, it was recommended that prior to discharging to home you completed a short period of rehabilitation. If you find that your health declines further, or you need additional help when you go home, please reach out to your primary care provider or the [facility], both of which can help with facilitating resources for additional help or rehab. Hospital Course: Acute diastolic CHF -Suspect CHF exacerbation given her history of medication nonadherence and likely dietary indiscretion, although her b/l leg swelling may also be in large part due to chronic lymphedema. -Echo normal EF -She was given Lasix 40 mg IV BID, Cr 1.0 on admission, further lasix held d/t rising Cr -Ramos catheter removed, patient is incontinent of urine at baseline -Patient stayed euvolemic, although difficult to assess I's and O's after Ramos removed. -Will restart home Lasix dose of 40mg once daily at discharge, recommend rechecking BMP and reassessing appropriateness of dose with PCP at follow up appointment Edema of lower extremity: -As above, suspect contribution from possible CHF exacerbation in setting of chronic lymphedema -Initially received Cefazolin, later discontinued. -Wound care consulted, CARMINA stockings for compression Weakness: -Chronic deconditioning in high-risk pt with multiple comorbidities and unfortunately staggering decline in ability to care for self -PT/OT ordered, Pt is not safe to care for herself at home -Patient was accepted at [facility], is understanding of need for further rehab A-fib: -Noted to be in AF on admission and during stay, rate-controlled -Continue metoprolol succinate ER 100 mg BID -Continue Coumadin per home regimen/schedule -INR was between 2.1-2.4 during admission. Elevated troponin: -Troponin 14.4 on admission, EKG without concern for acute ACS. Later downtrending troponin. -Mild elevation likely due to demand ischemia 2/2 CHF Diabetes mellitus: -Held home metformin, glimepiride during admission -Poorly controlled- A1C 9.7% in 11/2021, repeat A1C during admission was 8.3% -Will restart home medications at time of discharge Anemia: -Hgb 8.7 on admission, remained stable at ~8.5 during admission -Likely iron-deficiency based on CBC studies Hypothyroid: -Last TSH of 1.0 in 11/2021 -Continue levothyroxine HTN (hypertension): -BP stable on admission -Continued home lisinopril, metoprolol GERD (gastroesophageal reflux disease): -Pantoprazole in place of home omeprazole while in hospital -Will restart omeprazole at time of discharge Chronic pain: -Continue home tramadol (Rx will be sent to pharmacy later in day) Plan FENGI: Low salt, DM2, heart-healthy, fluid restriction 2000 mls Code status: Full Pending Studies at Discharge: No Stand-Alone Forms: My [facility] Skilled Items Patient informed of condition?: Yes DNR: No Discharge Level of Care: Acute rehab Communicable Disease: No Discharge Prognosis: Stable Lines: None Urinary Catheter: No Medications and DC Order Prescriptions: New atorvastatin 20 mg Tablet 20 mg PO HS 30 Days Qty: 30 0RF metoprolol succinate 50 mg Tablet Extended Release 24 Hr 100 mg PO BID 30 Days Qty: 120 0RF warfarin [Jantoven] 4 mg Tablet 4 mg PO SuMoWeFrSa@1600 30 Days Qty: 22 0RF levothyroxine [Synthroid] 75 mcg Tablet 75 mcg PO DAILYBB 30 Days Qty: 30 0RF warfarin 2 mg Tablet 2 mg PO TuTh@1600 30 Days Qty: 9 0RF lisinopril 2.5 mg Tablet 2.5 mg PO HS 30 Days Qty: 30 0RF Continued nystatin 100,000 unit/gram powder 1 applic topical Q8H PRN (Reason: Skin Irritation) Qty: 30 0RF furosemide 40 mg tablet 40 mg PO DAILY Qty: 30 5RF sennosides-docusate sodium 8.6-50 mg tablet 1 tab PO BID Qty: 180 3RF clobetasol 0.05 % cream 1 applic topical BID PRN (Reason: Rash) Qty: 1 0RF metformin 1,000 mg tablet 1,000 mg PO BID Qty: 180 3RF omeprazole 20 mg capsule,delayed release(DR/EC) 20 mg PO QPM Qty: 30 5RF lysine 500 mg tablet 500 mg PO QAM PRN (Reason: Cold Sore(s)) Qty: 7 0RF Centrum Silver 0.4-300-250 mg-mcg-mcg Tablet 1 tab PO QAM 30 Days Qty: 30 0RF cholecalciferol (vitamin D3) [Vitamin D3] 50 mcg (2,000 unit) Tablet 50 mcg PO DAILY 30 Days Qty: 30 0RF potassium chloride 20 mEq tablet extended release 20 meq PO DAILY Qty: 30 5RF lutein-zeaxanthin 20 mg- 1,000 mcg Capsule 1 cap PO QAM 30 Days Qty: 30 0RF tramadol 50 mg tablet 50 mg PO QAM Qty: 20 1RF Changed glimepiride 2 mg tablet 4 mg PO BID 30 Days Qty: 120 0RF Rx Instructions: Take 4 mg(2 tabs) in the morning and 4 mg(2 tabs) in the evening nystatin 100,000 unit/gram cream 1 applic topical BID PRN (Reason: Rash) Qty: 15 0RF Discontinued levothyroxine 75 mcg tablet 75 mcg PO QAM Qty: 90 3RF metoprolol succinate 100 mg tablet extended release 24 hr 100 mg PO BID Qty: 180 3RF warfarin 2 mg tablet 2 mg PO 2XWK Qty: 100 5RF Protocol: Dose Management Condition: Monday Dose/Route: 4 mg Instruction: 1 x 4 mg tablet Condition: Monday Dose/Route: 2 mg Instruction: 1 x 2 mg tablet Condition: Monday Dose/Route: 4 mg Instruction: 1 x 4 mg tablet Condition: Monday Dose/Route: 4 mg Instruction: 1 x 4 mg tablet Condition: Dose/Route: 2 mg Instruction: 1 x 2 mg tablet Condition: Monday Dose/Route: 4 mg Instruction: 1 x 4 mg tablet Condition: Monday Dose/Route: 2 mg Instruction: 1 x 2 mg tablet Protocol Text: Adjustment Start Date: Monday07/02/21 INR Value: 1.9 INR Date: 07/01/21 Recheck Date: 08/01/21 Rx Instructions: TAKE 2 MG EVERY MONDAY AND MONDAY OR OTHERWISE DIRECTED TO TAKE BY ANT ICOAGULATION CLINIC/MD lisinopril 2.5 mg tablet 2.5 mg PO HS Qty: 90 3RF atorvastatin 20 mg tablet 20 mg PO HS Qty: 90 3RF celecoxib [Celebrex] 200 mg capsule 200 mg PO QAM Qty: 30 5RF warfarin 4 mg tablet 4 mg PO 5XWK Qty: 240 3RF Protocol: Dose Management Condition: Monday Dose/Route: 4 mg Instruction: 1 x 4 mg tablet Condition: Monday Dose/Route: 2 mg Instruction: 1 x 2 mg tablet Condition: Monday Dose/Route: 4 mg Instruction: 1 x 4 mg tablet Condition: Monday Dose/Route: 4 mg Instruction: 1 x 4 mg tablet Condition: Dose/Route: 2 mg Instruction: 1 x 2 mg tablet Condition: Monday Dose/Route: 4 mg Instruction: 1 x 4 mg tablet Condition: Monday Dose/Route: 2 mg Instruction: 1 x 2 mg tablet Protocol Text: Adjustment Start Date: Monday07/02/21 INR Value: 1.9 INR Date: 07/01/21 Recheck Date: 08/01/21 Rx Instructions: TAKE 4 MG EVERY MONDAY,MONDAY,MONDAY,MONDAY AND MONDAY OR OTHERWISE DIRECTED TO TAKE BY ANTICOAGULATION CLINIC/MD Discharge Orders: Discharge Order- CHF (Routine); Ordered 11/09/22 Ordered By: Carla Aquino Admission Data Admit Date/Time: 11/03/22 00:51 Attending Provider: Carla Aquino Admit Provider: Marcello Coleman Primary Care Provider: Michael Anderson Other Providers: Clay So ; Leonard Bee ; Douglas Morin Other Interventions: Discharge Summary Assessment (RN) Last Done: 11/09/22 15:39 Supervising Physician Co-Signing Physician Notes Resident Physician Supervision Note: I independently interviewed and examined the patient and verified the [place] history and physical, reviewed labs and image studies and agree with resident findings and care plan.
[2022-11-09] MEDS: WARFARIN SOD 4 MG TAB PO SCH (15:20)
== END 2022-11-09 16:15 ==
LOC: ED 21:40 → SUATTDRO 11-03 00:51 → 2N 11-03 00:51 → INTOOBSV 11-03 00:51 → 2N 11-03 02:27
DX: E66.01 Morbid (severe) obesity due to excess calories; E80.6 Other disorders of bilirubin metabolism; Z79.899 Other long term (current) drug therapy; Z79.01 Long term (current) use of anticoagulants; E11.9 Type 2 diabetes mellitus without complications; I88.9 Nonspecific lymphadenitis, unspecified; I48.0 Paroxysmal atrial fibrillation; R53.1 Weakness; K21.9 Gastro-esophageal reflux disease without esophagitis; I10 Essential (primary) hypertension; Z79.84 Long term (current) use of oral hypoglycemic drugs; E87.70 Fluid overload, unspecified; R77.8 Other specified abnormalities of plasma proteins; E03.9 Hypothyroidism, unspecified; D64.9 Anemia, unspecified; Z91.011 Allergy to milk products; R26.2 Difficulty in walking, not elsewhere classified; Z68.42 Body mass index [BMI] 45.0-49.9, adult

== ENCOUNTER 2024-05-15 23:52 | Inpatient (IN) ==
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
[2024-05-16 00:30] LABS: Basophils # (auto) 0.04 K/uL (0.00-0.20); Basophils % (auto) 0.7 %; Eosinophils # (auto) 0.24 K/uL (0.00-0.50); Eosinophils % (auto) 4.1 %; Hematocrit (blood only) 30.6 % (37.0-47.0); Hemoglobin 9.2 g/dl (12.0-16.0); Immature Granulocytes # (auto) 0.03 K/uL (0.01-0.20); Immature Granulocytes % (auto) 0.5 %; Lymphocytes # (auto) 1.31 K/uL (1.20-3.40); Lymphocytes % (auto) 22.4 %; Mean Corpuscular Hemoglobin 23.8 pg (25.0-34.0); Mean Corpuscular Hgb Conc 30.1 g/dL (32.0-36.0); Mean Corpuscular Volume 79.1 fL (80.0-100.0); Monocytes # (auto) 0.43 K/uL (0.11-0.59); Monocytes % (auto) 7.4 %; Neutrophils # (auto) 3.79 K/uL (1.40-6.50); Neutrophils % (auto) 64.9 %; Platelet Count 219 K/uL (130-400); RDW Coefficient of Variation 16.3 % (11.5-14.5); RDW Standard Deviation 46.1 fL (36.4-46.3); Red Blood Count 3.87 M/uL (4.20-5.40); White Blood Count 5.84 K/ul (4.8-10.8)
[2024-05-16 00:41] LABS: Albumin Globulin Ratio 1.1 (0.9-2); Albumin Level 4.2 gm/dl (3.4-5.0); BUN Creatinine Ratio 14.2 (10-20); Calcium 9.7 mg/dl (8.6-10.3); Creatinine Clr Calc Pharmacy 60.6 ml/min; Est GFR (African American) 58.7 ml/min; Est GFR (Non-African American) 50.6 ml/min; Potassium 3.8 mmol/L (3.5-5.1); Total Protein 8.2 gm/dl (6.0-8.3)
[2024-05-16 01:06] LABS: Prothrombin Time 29.7 Seconds (9.0-12.0)
--- NOTE | 2024-05-16 01:14 | CT Scan Report ---
Exam(s): CT C SPINE EXAM: CT Cervical Spine Without Intravenous Contrast CLINICAL HISTORY: Reason for exam: Trauma. TECHNIQUE: Axial computed tomography images of the cervical spine without intravenous contrast. CTDI is 23.97 mGy and DLP is 446.73 mGy-cm. Automated exposure control was utilized for the study. A dose lowering technique was utilized adhering to the principles of ALARA. COMPARISON: No relevant prior studies available. FINDINGS: Vertebrae: Osteopenia. Cervical spine straightening. No acute fracture or subluxation. Discs/spinal canal/neural foramina: Disc and uncovertebral joint degeneration at C5-C6 and C6-C7. Lower cervical facet degeneration. No significant spinal canal or foraminal narrowing. Soft tissues: Unremarkable. IMPRESSION: No acute findings in the cervical spine. Electronically signed by: Jesús Malloy M.D. 05/16/24 01:13 AM
--- NOTE | 2024-05-16 01:14 | CT Scan Report ---
Exam(s): CT HEAD Without Contrast EXAM: CT Head Without Intravenous Contrast CLINICAL HISTORY: Reason for exam: Trauma. TECHNIQUE: Axial computed tomography images of the head/brain without intravenous contrast. CTDI is 37.22 mGy and DLP is 624.41 mGy-cm. Automated exposure control was utilized for the study. A dose lowering technique was utilized adhering to the principles of ALARA. COMPARISON: No relevant prior studies available. FINDINGS: Brain: Age-related parenchymal volume loss. Mild chronic small vessel ischemic change. Parker-white matter differentiation maintained. No hemorrhage, mass effect, parenchymal edema, or midline shift. Ventricles: Unremarkable. No hydrocephalus. Bones/joints: Unremarkable. No acute fracture. Soft tissues: Unremarkable. Vasculature: Intracranial atherosclerosis. Sinuses: Unremarkable as visualized. Mastoid air cells: Unremarkable as visualized. No mastoid effusion. IMPRESSION: No acute intracranial process. Electronically signed by: Jesús Malloy M.D. 05/16/24 01:13 AM
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
[2024-05-16] MEDS: FUROSEMIDE INJ 20 MG/2 ML VIAL IV ONE ×2 (01:26→02:26)
[2024-05-16] MEDS ORDERED: GLUCOSE 10 TAB/TUBE PO PRN (02:51)
[2024-05-16] MEDS ORDERED: ONDANSETRON INJ 2 MG/ML 2 ML VIAL IV PRN (02:51)
[2024-05-16] MEDS ORDERED: GLUCOSE 40% GEL 15 GM TUBE PO PRN (02:51)
[2024-05-16] MEDS ORDERED: ACETAMINOPHEN 325 MG TAB PO PRN (02:51)
[2024-05-16] MEDS ORDERED: CARBOHYDRATES FOR HYPOGLYCEMIA PO PRN (02:51)
[2024-05-16] MEDS ORDERED: PHARMACY GLYCEMIC MGMT CONSULT PRN (02:51)
[2024-05-16] MEDS ORDERED: DEXTROSE 50% 50 ML SYRINGE IV PRN (02:51)
[2024-05-16] MEDS ORDERED: GLUCAGON FOR INJ 1 MG VIAL SQ PRN (02:51)
[2024-05-16 03:28] LABS: Appearance Urine Clear (Clear); Bacteria Urine Automated 4+ (None Seen); Bilirubin Urine Negative (Negative); Blood Urine Negative (Negative); Cast Urine Automated 0-2 /lpf (0-2); Color Urine Yellow; Epithelial Cell Urine Auto 0-2 /hpf (0-2); Glucose Urine UA Negative (Negative); Ketones Urine Negative (Negative); Leukocyte Esterase Urine 1+ (Negative); Nitrite Urine Positive (Negative); Protein Urine Negative (Negative); RBC Urine Automated 0-2 /hpf (0-2); Specific Gravity Urine 1.008 (1.000-1.030); Urobilinogen Urine Negative (Negative)
[2024-05-16] MEDS: INSULIN ASPART PER UNIT CHARGE SC SCH (05:02)
[2024-05-16] MEDS: LEVOTHYROXINE SODIUM 75 MCG TABLET PO SCH (06:11)
--- NOTE | 2024-05-16 06:16 | Ultrasound Report ---
Exam(s): US VENOUS BILATERAL LOWER EXTREMITIES EXAM: US Duplex Bilateral Lower Extremities Veins CLINICAL HISTORY: Reason for exam: LE edema. TECHNIQUE: Real-time duplex ultrasound scan of the bilateral lower extremity veins integrating B-mode two-dimensional vascular structure, Doppler spectral analysis, color flow Doppler imaging and compression. COMPARISON: No relevant prior studies available. FINDINGS: The exam is limited due to patient's body habitus as well as the patient's discomfort. Right deep veins: No DVT in the right common femoral, femoral, proximal deep femoral or popliteal veins. The veins demonstrate normal color flow, are normally compressible, with normal phasic flow and/or augmentation response. Right superficial veins: No thrombus in the visualized right great saphenous vein. Left deep veins: No DVT in the left common femoral, femoral, proximal deep femoral or popliteal veins. The veins demonstrate normal color flow, are normally compressible, with normal phasic flow and/or augmentation response. Left superficial veins: No thrombus in the visualized left great saphenous vein. Soft tissues: There is soft tissue edema. IMPRESSION: Limited exam. No evidence of deep venous thrombosis in the lower extremities. Electronically signed by: Simba Rodriguez MD 05/16/24 06:15 AM
--- NOTE | 2024-05-16 07:12 | XRay Report ---
XR elbow LT min 3V routine CLINICAL HISTORY: fall COMPARISON: None FINDINGS: Alignment of the left elbow is anatomic. There is no acute fracture. No evidence for joint effusion. IMPRESSION: No fractures within the left elbow. No evidence for a joint effusion. ACT 112: Negative or not required by law. Electronically signed by: Moisés Mejía M.D. 05/16/2024 7:11 AM
--- NOTE | 2024-05-16 07:16 | XRay Report ---
XR foot LT 2V CLINICAL HISTORY: Fall. COMPARISON: None FINDINGS: Alignment of the left foot is anatomic. No acute fractures are identified. Diffuse soft ti ssue swelling is present. Tarsometatarsal joints are intact. There are mild degenerative changes with in several articulations of the left foot. IMPRESSION: No fracture or dislocation within the left foot. ACT 112: Negative or not required by law. Electronically signed by: Moisés Mejía M.D. 05/16/2024 7:15 AM
--- NOTE | 2024-05-16 07:19 | XRay Report ---
XR chest 1V portable HISTORY: 79 years-old Female chf, fall acute chest trauma status post fall COMPARISON: 11/02/2022 TECHNIQUE: AP view of the chest FINDINGS: Cardiac silhouette is enlarged. Pulmonary vascular congestion with interstitial coarsening redemonstr ated. There is no pneumothorax, large pleural effusion or airspace consolidation. Partially imaged ch ronic left proximal humeral fracture deformity. IMPRESSION: Cardiomegaly with pulmonary vascular congestion and possible interstitial pulmonary edema . ACT 112: Negative or not required by law. The above report was generated using voice recognition software. It may contain grammatical, syntax o r spelling errors. Electronically signed by: Aditya Nicolas M.D. 05/16/2024 7:17 AM
[2024-05-16 08:30] LABS: Basophils # (auto) 0.03 K/uL (0.00-0.20); Basophils % (auto) 0.5 %; Eosinophils # (auto) 0.19 K/uL (0.00-0.50); Eosinophils % (auto) 3.5 %; Hemoglobin 8.2 g/dl (12.0-16.0); Immature Granulocytes # (auto) 0.02 K/uL (0.01-0.20); Immature Granulocytes % (auto) 0.4 %; Lymphocytes # (auto) 1.55 K/uL (1.20-3.40); Lymphocytes % (auto) 28.2 %; Mean Corpuscular Hemoglobin 23.8 pg (25.0-34.0); Mean Corpuscular Hgb Conc 30.4 g/dL (32.0-36.0); Mean Corpuscular Volume 78.3 fL (80.0-100.0); Monocytes % (auto) 9.1 %; Neutrophils % (auto) 58.3 %; Platelet Count 195 K/uL (130-400); RDW Coefficient of Variation 16.4 % (11.5-14.5); RDW Standard Deviation 46.1 fL (36.4-46.3); Red Blood Count 3.45 M/uL (4.20-5.40); White Blood Count 5.49 K/ul (4.8-10.8)
[2024-05-16 08:46] LABS: BUN Creatinine Ratio 15.5 (10-20); Calcium 9.3 mg/dl (8.6-10.3); Creatinine Clr Calc Pharmacy 66.2 ml/min; Est GFR (African American) 65.3 ml/min; Est GFR (Non-African American) 56.3 ml/min; Potassium 3.4 mmol/L (3.5-5.1)
[2024-05-16] MEDS: CHOLECALCIFEROL 25 MCG (1000 UNITS) TAB PO SCH (08:48)
[2024-05-16] MEDS: POTASSIUM CHLORIDE CRTAB 20 MEQ TABCR PO SCH (08:49)
[2024-05-16] MEDS: METOPROLOL SUCC 50MG EXT REL TAB PO SCH (08:49)
[2024-05-16] MEDS: LANTUS PER UNIT CHARGE SC SCH ×2 (08:50→20:50)
[2024-05-16] MEDS: FUROSEMIDE 40 MG/4 ML VIAL IV SCH (08:50)
[2024-05-16 08:54] LABS: INR 2.8 (0.9-1.1)
--- NOTE | 2024-05-16 09:00 | Hospitalist Progress Note ---
Date of Service May 16, 2024 Assessment & Plan (1) Fall: Plan: - Patient with a mechanical fall on Coumadin; States that she hit her head - No signs of trauma to the head area - Fall likely secondary to lower extremity edema, weight gain, and shuffling gait - CT head and cervical spine negative - Chest, elbow, and foot x-ray negative - Patient is alert and oriented x 3 and has no neurological defects - Hgb on admission 8.2; appears baseline - will continue to trend - patient complains of left sided heel pain, ecchymosis present, xray negative - Continue warfarin - PT/OT ordered (2) Bilateral lower extremity edema: Plan: - Patient has bilateral lower extremity edema most likely from congestive heart failure as well as chronic venous stasis and lymphedema - Has gained about 26 pounds over the past 3 months - Venous Doppler bilateral lower extremity negative for DVT - Will treat underlying CHF exacerbation and reassess (3) CHF (congestive heart failure): Plan: - Patient with Preserved ejection fraction heart failure and only taking half of her recommend dose of Lasix and potassium - K+ decreased on admission 3.4 - given home potassium chloride - reassess with daily BMP - Echo showed EF 60-65%, mild LVH, mild tricuspid regurg. - no change from 04/2023 echo - 40 mg IV Lasix given at time of admission - BNP of 163 on admission - Continue on Lasix 40 mg IV twice daily; Cr stable on admission, will continue to monitor Cr - Continue on potassium chloride 20 meq daily (4) Atrial fibrillation: Plan: - A-fib seen on EKG in the ED - INR of 3.0 on warfarin - Despite coming in as a trauma, will continue warfarin at this time (5) Diabetes mellitus type 2, uncontrolled: Plan: - Patient's home regimen held on admission - Continue BSG checks, sliding-scale insulin, hypoglycemic protocol - Hemoglobin A1c 10.4 - recommend out patient follow up with PCP regarding elevated A1C Plan VTE ppx: continue home [place] Diet: Heart healthy, DM2, fluid restriction (1500 mL) Code status: FULL CODE Chronic stable diagnoses: GERD - continue home Protonix HLD - continue home statin Hypothyroid - recent TSH 06/2023 WNL, continue home levothyroxine HTN - stable, continue home Metoprol UA positive for nitrates, leukocyte Estrace, <10 WBC - patient complains of dysuria, however ongoing urinary symptoms for 17 years - Will hold off on UTI treatment base on antimicrobial stewardship recommendation - urine culture pending Admission and Anticipated Discharge Date Admission Date: May 16, 2024 Supervising Physician Co-Signing Physician Notes Patient was seen and examined independently I discussed the case with Albina CARMICHAEL I reviewed pertinent past medical social family history and also the plan of care and agree with the plan of care. Patient was seen in the ER she had some minor musculoskeletal pain from falling her biggest issue is ambulatory difficulty due to extreme lower extremity edema This is second heart failure preserved ejection fraction likely due to some pulmonary hypertension also given her obesity she is a set up for obesity hypoventilation syndrome This point time we will continue with diuresis to try to reduce the weight of her legs have PT OT evaluation for evaluation of safe notes for her to return home. Atrial fibrillation is rate controlled remains anticoagulated with warfarin Regular diabetes her last A1c was 10.4 indicating poor control patient states her diet is poor because she is unable to get food and if it is brought her home is in for of poor quality. Will continue to work with her agronomy advisor to improve her diabetic management. Any exceptions will be noted below Subjective Patient doing well overnight, no acute events. .She stated that she just feels sore all over although she chronically has pain at baseline. She denies headache and dizziness, related to her recent head trauma. She stated that her concerns today are due to her ongoing urinary incontinence for the past 17 years. She urinates about 30 times a day and frequently has incontinence. It is affecting her quality of life because she feels she cannot go anywhere. She also stated that she has had dysuria for the past 3 days, denies hematuria or pelvic pressure. She stated that her lower leg swelling has been getting worse all summer, and she has gained about 26 lbs of fluid over the summer. She denies current dyspnea although stated that she has had episodes of dyspnea on exertion at home recently. She has trouble walking at home, due to being unable to lift her legs. She can only wear slippers and states that her feet are angled sideways and her feet hang off of the slippers. She fell yesterday because she was trying to get out of the car and to the house by herself. She has a stressful living situation with her daughter. Review of Systems Review of Systems: See HPI Physical Exam Physical Exam: The patient is awake, alert and oriented 3, normocephalic and atraumatic, in no acute distress. Non-toxic appearing. HEENT- EOMI, mucous membranes moist. Hearing grossly intact. Heart- Irregularly irregular rhythm. normal S1 and S2. No murmurs, rubs or gall ops. Lungs-clear bilaterally, no respiratory distress, no accessory muscle use. Abdomen-normal bowel sounds and soft. No ascites noted. Non-tender. Extremities - Left foot with ecchymosis to heel. Severe edema of both legs with erythema from venous stasis. Psychiatric-normal affect. Results & Data Results & Data Vital Signs (Past 12 Hours) Vital Signs Pulse Pulse Pulse Resp BP BP Pulse Ox 05/16/24 07:30 70 21 174/83 H 96 05/16/24 07:19 68 05/16/24 06:00 73 20 176/81 H 98 05/16/24 04:02 05/16/24 04:00 64 22 193/126 H 96 05/16/24 04:00 05/16/24 02:00 70 20 167/91 H 96 05/16/24 01:00 66 22 167/94 H 98 05/16/24 01:00 05/16/24 00:44 05/16/24 00:44 05/16/24 00:44 05/16/24 00:44 74 20 168/73 H 96 05/16/24 00:06 78 05/16/24 00:05 90 20 168/73 H 97 05/15/24 23:39 79 20 97 Pulse Ox O2 Del Method O2 Del Method 05/16/24 07:30 Room Air 05/16/24 07:19 05/16/24 06:00 Room Air 05/16/24 04:02 Room Air 05/16/24 04:00 Room Air 05/16/24 04:00 93 Room Air 05/16/24 02:00 Room Air 05/16/24 01:00 05/16/24 01:00 Room Air 05/16/24 00:44 Room Air 05/16/24 00:44 Room Air 05/16/24 00:44 Room Air 05/16/24 00:44 Room Air 05/16/24 00:06 05/16/24 00:05 Room Air 05/15/24 23:39 Room Air PG Care Time/CCT Total # of Minutes Spent Total Time Spent with Patient: Total time spent is greater than 50% in coordination of care (as documented) at patient's floor/unit and/or counseling patient: Coding Level of Care Code None Diagnoses Fall W19.XXXA Encounter type: initial encounter Bilateral lower extremity edema R60.0 CHF (congestive heart failure) I50.9 Heart failure chronicity: unspecified Heart failure type: unspecified Atrial fibrillation I48.11 Atrial fibrillation type: longstanding persistent Uncontrolled type 2 diabetes mellitus with hyperglycemia E11.65 Glycemic state: with hyperglycemia (1) Fall Encounter type: initial encounter Qualified Code(s): W19.XXXA - Unspecified fall, initial encounter (3) CHF (congestive heart failure) Heart failure chronicity: unspecified Heart failure type: unspecified Qualified Code(s): I50.9 - Heart failure, unspecified (4) Atrial fibrillation Atrial fibrillation type: longstanding persistent Qualified Code(s): I48.11 - Longstanding persistent atrial fibrillation (5) Diabetes mellitus type 2, uncontrolled Glycemic state: with hyperglycemia Qualified Code(s): E11.65 - Type 2 diabetes mellitus with hyperglycemia
[2024-05-16 09:14] LABS: Estimated Average Glucose 252 mg/dl; Hemoglobin A1C 10.4 % (4.5-5.6)
[2024-05-16 10:18] LABS: iSTAT Creatinine 1.1 mg/dl (0.6-1.3); iSTAT Hemoglobin 10.5 g/dl (12.0-16.0); iSTAT Ionized Calcium 1.24 mmol/l (1.12-1.32); iSTAT Potassium 3.8 mmol/L (3.3-5.0)
--- NOTE | 2024-05-16 10:21 | Pharmacy Report ---
Pharmacy Glycemic Short Note 2 - Date of Service May 16, 2024 - Glycemic Short BSG Results (Last 24 hours): 05/16/24 05/16/24 05/16/24 00:05 08:06 08:47 Glucose 242 H 205 H POC Glucose 222 H OUTPATIENT ANTIDIABETIC REGIMEN: * Glimepiride 4 mg PO BID * Metformin 1 gm PO BID * HbA1c = 10.4% on 05/16/24 ASSESSMENT: * 79 y/o F admitted for fall, bilateral LE edema from CHF. Patient with history of Type 2 diabetes uncontrolled on oral anti-diabetic meds at home. * Blood sugars elevated on admission last night. Fasting BSG = 205 mg/dl this morning. * During previous admission from November 2022 patient was started on stress 1 of basal dosing and stress of 2 for Novolog bolus. * Basal dose increased this time due to higher A1c this admission compared to the last one. Ordered basal dose on a scale based on BSG. * Breakfast tray delivered late so AM Novolog given late. * Added overnight checks tonight. PLAN FOR INPATIENT GLYCEMIC CONTROL: * Hold outpatient oral diabetes medications * Basal insulin * Lantus 12 units SQ in AM * Lantus 15-20 units scale based on BSG BID * Bolus insulin * NovoLog per scale ACHS or Q6hrs while NPO and ,04 * Goal Range: Low 110 mg/dL - High 140 mg/dL * Correction Factor: 20 mg/dL/unit * Nutritional / Prandial insulin per carb ratio of 1 unit per 5 grams CHO consumed
--- NOTE | 2024-05-16 12:10 | XCELERA ---
[id number]
--- NOTE | 2024-05-16 14:34 | Electrocardiogram Report ---
Test Reason : Blood Pressure : */* mmHG Vent. Rate : 69 BPM Atrial Rate : * BPM P-R Int : * ms QRS Dur : 76 ms QT Int : 264 ms P-R-T Axes : * -21 236 degrees QTcB Int : 282 ms Poor data quality, interpretation may be adversely affected Atrial fibrillation Low voltage QRS Abnormal ECG When compared with ECG of 30-Mar-2023 14:04, (unconfirmed) Nonspecific T wave abnormality, worse in Lateral leads QT has shortened Confirmed by Carlos Vickers ([id number]) on 05/16/2024 2:33:57 PM Referred By: REFERRED SELF Confirmed By: Carlos Vickers
--- NOTE | 2024-05-16 16:38 | Billing Data ---
Date of Service May 16, 2024 Coding Level of Care Code 87234 INT INP/OBS CARE
[2024-05-16] MEDS: WARFARIN SOD 2 MG TAB PO SCH (18:39)
[2024-05-16] MEDS: ATORVASTATIN 20 MG TAB PO SCH (21:18)
[2024-05-16] MEDS: PANTOprazole 40 MG TAB PO SCH (21:18)
[2024-05-17] MEDS ORDERED: INSULIN ASPART PER UNIT CHARGE SC SCH
--- NOTE | 2024-05-17 01:04 | Billing Data ---
Date of Service May 17, 2024 Coding Level of Care Code 60848 INT INP/OBS CARE
[2024-05-17] MEDS: traMADol HCL 50 MG TABLET PO PRN (03:15)
--- NOTE | 2024-05-17 08:16 | Hospitalist Progress Note ---
Date of Service May 17, 2024 Assessment & Plan (1) Fall: Plan: - Patient with a mechanical fall on Coumadin; States that she hit her head - No signs of trauma to the head area - Fall likely secondary to lower extremity edema, weight gain, and shuffling gait - CT head and cervical spine negative - Chest, elbow, and foot x-ray negative - Patient is alert and oriented x 3 and has no neurological defects - Hgb appears baseline - will continue to trend - patient complains of left sided heel pain, ecchymosis present, xray negative - Continue warfarin - PT/OT recommending skilled PT while hospitalized and then acute rehab facility on discharge (2) Bilateral lower extremity edema: Plan: - improving with diureses - likely secondary to congestive heart failure as well as chronic venous stasis and lymphedema - Has gained about 26 pounds over the past 3 months - Venous Doppler bilateral lower extremity negative for DVT - Nocturnal pulse oximetry ordered as KELLIE could be contributing to her edema (3) CHF (congestive heart failure): Plan: - Patient with Preserved ejection fraction heart failure and only taking half of her recommend dose of Lasix and potassium - K+ decreased on admission 3.4; resumed home potassium chloride - currently stable - reassess with daily BMP - Echo showed EF 60-65%, mild LVH, mild tricuspid regurg. - no change from 04/2023 echo - 40 mg IV Lasix given at time of admission - BNP of 163 on admission - Continue on Lasix 40 mg IV twice daily; Cr stable on admission, will continue to monitor Cr - mildly elevated 05/17 - Continue on potassium chloride 20 meq daily - Monitor I's &O's - daily weight; 127 kg -> 119.9 kg (4) Atrial fibrillation: Plan: - A-fib seen on EKG in the ED - INR of 3.0 on warfarin - Despite coming in as a trauma, will continue warfarin at this time (5) Diabetes mellitus type 2, uncontrolled: Plan: - Patient's home regimen held on admission - Continue BSG checks, sliding-scale insulin, hypoglycemic protocol - Hemoglobin A1c 10.4 - recommend out patient follow up with PCP regarding elevated A1C Plan VTE ppx: continue home Wafarin Diet: Heart healthy, DM2, fluid restriction (1500 mL) Code status: FULL CODE Transfer to [facility] 05/17/24 Chronic stable diagnoses: GERD - continue home Protonix HLD - continue home statin Hypothyroid - recent TSH 06/2023 WNL, continue home levothyroxine HTN - stable, continue home Metoprol UA positive for nitrates, leukocyte Estrace, <10 WBC - ongoing urinary symptoms for 17 years - Will hold off on UTI treatment until urine culture results Admission and Anticipated Discharge Date Admission Date: May 16, 2024 Anticipated discharge 05/20/24 to rehab facility Supervising Physician Co-Signing Physician Notes Patient was seen and examined independently I discussed the case with Albina CARMICHAEL I reviewed pertinent past medical social family history and also the plan of care and agree with the plan of care. legs less swollen cardiac exam is regular chronic venous stasis changes seen PT doing well did have diuresis with 8 kg loss mild mario follow labs CM assisting with placement Any exceptions will be noted below Subjective Patient doing well with no acute events overnight. She stated that her swelling has gone down a lot compared to a few weeks ago. She denies shortness of breath. She stated she just has aches and pains when moving around. She did get OOB and into her chair this morning. She shared that she would like to get home but would consider rehab for no more than a week. She does not want to be there for long, as in a month, because her daughter is at home. She has psychosocial concerns regarding her daughter. She was to have a sleep study previously but stated that she was unable to fall asleep. She does not think she snores at night. Review of Systems Review of Systems: See HPI Physical Exam Physical Exam: The patient is awake, alert and oriented 3, normocephalic and atraumatic, in no acute distress. Non-toxic appearing. HEENT- EOMI, mucous membranes moist. Hearing grossly intact. Heart- Irregularly irregular rhythm. normal S1 and S2. No murmurs, rubs or gallops. Lungs-clear bilaterally, no respiratory distress, no accessory muscle use. Abdomen-normal bowel sounds and soft. No ascites noted. Non-tender. Extremities - Left foot with ecchymosis to heel. Severe edema of both legs with erythema from venous stasis. Psychiatric-normal affect. Results & Data Results & Data Vital Signs (Past 12 Hours) Vital Signs Temp Pulse Pulse Resp BP Pulse Ox O2 Del Method 05/17/24 02:42 36.8 C 61 22 133/79 94 Room Air 05/16/24 23:38 36.9 C 70 20 127/72 96 Room Air 05/16/24 23:00 70 PG Care Time/CCT Total # of Minutes Spent Total Time Spent with Patient: Total time spent is greater than 50% in coordination of care (as documented) at patient's floor/unit and/or counseling patient: Coding Level of Care Code None Diagnoses Fall W19.XXXA Encounter type: initial encounter Bilateral lower extremity edema R60.0 CHF (congestive heart failure) I50.9 Heart failure chronicity: unspecified Heart failure type: unspecified Atrial fibrillation I48.11 Atrial fibrillation type: longstanding persistent Uncontrolled type 2 diabetes mellitus with hyperglycemia E11.65 Glycemic state: with hyperglycemia (1) Fall Encounter type: initial encounter Qualified Code(s): W19.XXXA - Unspecified fall, initial encounter (3) CHF (congestive heart failure) Heart failure chronicity: unspecified Heart failure type: unspecified Qualified Code(s): I50.9 - Heart failure, unspecified (4) Atrial fibrillation Atrial fibrillation type: longstanding persistent Qualified Code(s): I48.11 - Longstanding persistent atrial fibrillation (5) Diabetes mellitus type 2, uncontrolled Glycemic state: with hyperglycemia Qualified Code(s): E11.65 - Type 2 diabetes mellitus with hyperglycemia
[2024-05-17 09:33] LABS: Hematocrit (blood only) 29.7 % (37.0-47.0); Hemoglobin 8.9 g/dl (12.0-16.0); Mean Corpuscular Hemoglobin 23.7 pg (25.0-34.0); Mean Platelet Volume 10.1 fL (9.4-12.4); Platelet Count 222 K/uL (130-400); RDW Coefficient of Variation 16.7 % (11.5-14.5); RDW Standard Deviation 47.3 fL (36.4-46.3); Red Blood Count 3.76 M/uL (4.20-5.40); White Blood Count 6.89 K/ul (4.8-10.8)
[2024-05-17 09:51] LABS: BUN Creatinine Ratio 16.1 (10-20); Calcium 9.8 mg/dl (8.6-10.3); Creatinine Clr Calc Pharmacy 45.4 ml/min; Est GFR (Non-African American) 37.1 ml/min; Potassium 3.5 mmol/L (3.5-5.1)
[2024-05-17 10:00] LABS: INR 1.8 (0.9-1.1); Prothrombin Time 18.3 Seconds (9.0-12.0)
--- NOTE | 2024-05-17 10:27 | Pharmacy Report ---
Pharmacy Glycemic Short Note 2 - Date of Service May 17, 2024 - Glycemic Short BSG Results (Last 24 hours): 05/16/24 05/16/24 05/16/24 12:34 15:57 20:24 Glucose POC Glucose 250 H 219 H 133 H 05/17/24 05/17/24 07:36 09:00 Glucose 211 H POC Glucose 150 H OUTPATIENT ANTIDIABETIC REGIMEN: * Glimepiride 4 mg PO BID * Metformin 1 gm PO BID * HbA1c = 10.4% on 05/16/24 ASSESSMENT: 05/17/24: * Blood sugars elevated yesterday, but improved at HS and into this morning * Will tighten carb ratio slightly today given high at lunch time. No change to CF. 05/16/24: * 79 y/o F admitted for fall, bilateral LE edema from CHF. Patient with history of Type 2 diabetes uncontrolled on oral anti-diabetic meds at home. * Blood sugars elevated on admission last night. Fasting BSG = 205 mg/dl this morning. * During previous admission from November 2022 patient was started on stress 1 of basal dosing and stress of 2 for Novolog bolus. * Basal dose increased this time due to higher A1c this admission compared to the last one. Ordered basal dose on a scale based on BSG. * Breakfast tray delivered late so AM Novolog given late. * Added overnight checks tonight. PLAN FOR INPATIENT GLYCEMIC CONTROL: * Hold outpatient oral diabetes medications * Basal insulin * Lantus 12-15 units SC BID * Reassess in AM for fixed dose * Bolus insulin * NovoLog per scale ACHS or Q6hrs while NPO * Goal Range: Low 110 mg/dL - High 140 mg/dL * Correction Factor: 20 mg/dL/unit * Nutritional / Prandial insulin per carb ratio of 1 unit per 5 grams CHO consumed
[2024-05-17] MEDS: DOCUSATE SODIUM 100 MG CAP PO SCH (12:26)
--- NOTE | 2024-05-17 14:41 | Billing Data ---
Date of Service May 17, 2024 Coding Level of Care Code 16340 INT INP/OBS CARE
[2024-05-17 16:07] LABS: Creatinine Clr Calc Pharmacy 42.3 ml/min; Est GFR (African American) 39.5 ml/min; Est GFR (Non-African American) 34.1 ml/min
[2024-05-17] MEDS: WARFARIN SOD 4 MG TAB PO SCH (17:28)
[2024-05-18 07:05] LABS: Hematocrit (blood only) 27.9 % (37.0-47.0); Hemoglobin 8.8 g/dl (12.0-16.0); Mean Corpuscular Hemoglobin 24.2 pg (25.0-34.0); Mean Corpuscular Hgb Conc 31.5 g/dL (32.0-36.0); Mean Corpuscular Volume 76.6 fL (80.0-100.0); Mean Platelet Volume 10.2 fL (9.4-12.4); Platelet Count 219 K/uL (130-400); RDW Coefficient of Variation 16.6 % (11.5-14.5); RDW Standard Deviation 46.1 fL (36.4-46.3); Red Blood Count 3.64 M/uL (4.20-5.40); White Blood Count 7.17 K/ul (4.8-10.8)
[2024-05-18 07:20] LABS: BUN Creatinine Ratio 18.7 (10-20); Calcium 9.3 mg/dl (8.6-10.3); Est GFR (African American) 38.5 ml/min; Est GFR (Non-African American) 33.3 ml/min; Potassium 3.7 mmol/L (3.5-5.1)
[2024-05-18 07:28] LABS: INR 1.7 (0.9-1.1); Prothrombin Time 17.6 Seconds (9.0-12.0)
--- NOTE | 2024-05-18 08:11 | Hospitalist Progress Note ---
Date of Service May 18, 2024 Assessment & Plan (1) Fall: Plan: - Patient with a mechanical fall on Coumadin; States that she hit her head - No signs of trauma - CT head and cervical spine negative - Chest, elbow, and foot x-ray negative - Continue warfarin dosing warfarin changing at this time to try to have INR in target range - PT/OT recommending skilled PT while hospitalized and then acute rehab facility on discharge (2) Bilateral lower extremity edema: Plan: - improving with diureses, now BONIFACIO will hold lasix and restart 05/19 - HFpEF, probably some pulmonary HTN due to [facility] nocturnal sleep study suggested she has significant duration of desaturations (45 minutes) will institute nocturnal oxygen at this time likely may need home oxygen - Venous Doppler bilateral lower extremity negative for DVT - (3) CHF (congestive heart failure): Plan: - Patient with Preserved ejection fraction heart failure and only taking half of her recommend dose of Lasix and potassium - Echo showed EF 60-65%, mild LVH, mild tricuspid regurg. - no change from 04/2023 echo - daily weight; 127 kg -> 117 kg Currently has BONIFACIO on CKD 3 amending her Lasix dosing to hold her evening dose today and restart in a.m. tomorrow. Following creatinine during the hospital stay (4) Atrial fibrillation: Plan: - A-fib seen on EKG in the ED INR is subtherapeutic, adjust warfarin at this time, discuss DOAC question if arguello is prohibitive (5) Diabetes mellitus type 2, uncontrolled: Plan: - Patient's home regimen held on admission - Continue BSG checks, sliding-scale insulin, hypoglycemic protocol - Hemoglobin A1c 10.4 - recommend out patient follow up with PCP regarding elevated A1C Plan VTE ppx: continue home Wafarin Diet: Heart healthy, DM2, fluid restriction (1500 mL) Code status: FULL CODE Chronic stable diagnoses: GERD - continue home Protonix HLD - continue home statin Hypothyroid - recent TSH 06/2023 WNL, continue home levothyroxine HTN - stable, continue home Metoprol UA positive for nitrates, leukocyte Estrace, <10 WBC - ongoing urinary symptoms for 17 years - Will hold off on UTI treatment until urine culture results Admission and Anticipated Discharge Date Admission Date: May 16, 2024 Subjective Patient was disclosed that her nocturnal oximetry study likely was positive and she may benefit from nocturnal oxygen. She is not to happy about this information but is agreeable to try this especially if it improves her lower extremity edema. She says in the past she did have a sleep study but it was equivocal because she could not sleep in the hospital. He still weighing the pros and cons and going to rehab she still has difficulty ambulating. Her lower extremity edema has improved as well as her body weight reduced Physical Exam Physical Exam: Awake alert appropriate Cardiac exam is regular without murmurs Lungs are diminished at the bases Extremities are with 2+ edema with chronic venous stasis changes but more laxity to tissue than in the past. Results & Data Results & Data Vital Signs (Past 12 Hours) Vital Signs Temp Pulse Pulse Pulse Pulse Resp BP 05/18/24 08:04 62 142/61 H 05/18/24 07:27 97.9 F 53 L 18 05/18/24 03:58 56 L 05/18/24 02:43 98.1 F 69 18 05/17/24 23:39 71 05/17/24 22:28 05/17/24 22:08 98.2 F 66 18 129/76 BP Pulse Ox Pulse Ox O2 Del Method O2 Del Method 05/18/24 08:04 92 Room Air 05/18/24 07:27 137/83 96 Room Air 05/18/24 03:58 89 L Room Air 05/18/24 02:43 130/49 L 95 Room Air 05/17/24 23:39 05/17/24 22:28 Room Air 05/17/24 22:08 97 Room Air Laboratory Results Reviewed CBC reviewed chemistry PG Care Time/CCT Total # of Minutes Spent Total Time Spent with Patient: Total time spent is greater than 50% in coordination of care (as documented) at patient's floor/unit and/or counseling patient: Coding Level of Care Code 49640 SUB INP/OBS CARE 3/50MIN Diagnoses Fall W19.XXXA Encounter type: initial encounter Bilateral lower extremity edema R60.0 CHF (congestive heart failure) I50.9 Heart failure chronicity: unspecified Heart failure type: unspecified Atrial fibrillation I48.11 Atrial fibrillation type: longstanding persistent Uncontrolled type 2 diabetes mellitus with hyperglycemia E11.65 Glycemic state: with hyperglycemia (1) Fall Encounter type: initial encounter Qualified Code(s): W19.XXXA - Unspecified fall, initial encounter (3) CHF (congestive heart failure) Heart failure chronicity: unspecified Heart failure type: unspecified Qualified Code(s): I50.9 - Heart failure, unspecified (4) Atrial fibrillation Atrial fibrillation type: longstanding persistent Qualified Code(s): I48.11 - Longstanding persistent atrial fibrillation (5) Diabetes mellitus type 2, uncontrolled Glycemic state: with hyperglycemia Qualified Code(s): E11.65 - Type 2 diabetes mellitus with hyperglycemia
[2024-05-18] MEDS: LANTUS PER UNIT CHARGE SC SCH ×2 (09:14→20:26)
[2024-05-18] MEDS: WARFARIN SOD 4 MG TAB PO SCH (17:41)
[2024-05-18] MEDS: POLYETHYLENE (MIRALAX) 17 GM PACK PO PRN (20:25)
[2024-05-19 07:37] LABS: BUN Creatinine Ratio 26.2 (10-20); Calcium 9.3 mg/dl (8.6-10.3); Creatinine Clr Calc Pharmacy 48.8 ml/min; Est GFR (African American) 47.6 ml/min; Est GFR (Non-African American) 41.1 ml/min
[2024-05-19 07:59] LABS: INR 1.6 (0.9-1.1); Prothrombin Time 16.4 Seconds (9.0-12.0)
[2024-05-19] MEDS: FUROSEMIDE 40 MG/4 ML VIAL IV SCH (09:11)
[2024-05-19] MEDS: LANTUS PER UNIT CHARGE SC SCH (09:12)
--- NOTE | 2024-05-19 16:48 | Hospitalist Progress Note ---
Date of Service May 19, 2024 Assessment & Plan (1) Fall: Plan: - Patient with a mechanical fall on Coumadin; States that she hit her head - No signs of trauma - CT head and cervical spine negative - Chest, elbow, and foot x-ray negative - Continue warfarin dosing warfarin changing at this time to try to have INR in target range - PT/OT recommending skilled PT while hospitalized and then acute rehab facility on discharge Pt states she wants to go home and will try to have family pick remover 05/20 (2) Bilateral lower extremity edema: Plan: - improving with diureses, now BONIFACIO will hold lasix and restart 05/19 - HFpEF, probably some pulmonary HTN due to [facility] nocturnal sleep study suggested she has significant duration of desaturations (45 minutes) will institute nocturnal oxygen at this time likely may need home oxygen, pt is not sure she is agreeable to this notion - Venous Doppler bilateral lower extremity negative for DVT - (3) CHF (congestive heart failure): Plan: - Patient with Preserved ejection fraction heart failure and only taking half of her recommend dose of Lasix and potassium - Echo showed EF 60-65%, mild LVH, mild tricuspid regurg. - no change from 04/2023 echo - daily weight; 127 kg -> 117 kg Currently has BONIFACIO on CKD 3 amending her Lasix dosing to hold her evening dose today and restart in a.m. tomorrow. Following creatinine during the hospital stay (4) Atrial fibrillation: Plan: - A-fib seen on EKG in the ED INR is subtherapeutic, adjust warfarin at this time, discuss DOAC question if arguello is prohibitive (5) Diabetes mellitus type 2, uncontrolled: Plan: - Patient's home regimen held on admission - Continue BSG checks, sliding-scale insulin, hypoglycemic protocol - Hemoglobin A1c 10.4 - recommend out patient follow up with PCP regarding elevated A1C pt feels her lack of control is from poor diet Plan VTE ppx: continue home Wafarin Diet: Heart healthy, DM2, fluid restriction (1500 mL) Code status: FULL CODE Chronic stable diagnoses: GERD - continue home Protonix HLD - continue home statin Hypothyroid - recent TSH 06/2023 WNL, continue home levothyroxine HTN - stable, continue home Metoprol UA positive for nitrates, leukocyte Estrace, <10 WBC - ongoing urinary symptoms for 17 years - Will hold off on UTI treatment until urine culture results Admission and Anticipated Discharge Date Admission Date: May 16, 2024 Subjective Patient was disclosed that her nocturnal oximetry study likely was positive and she may benefit from nocturnal oxygen. She is not to happy about this information but is agreeable to try this especially if it improves her lower extremity edema. She says in the past she did have a sleep study but it was equivocal because she could not sleep in the hospital. Her lower extremity edema has improved as well as her body weight reduced PT states that she has to go home to help her daughter Physical Exam Physical Exam: Awake alert appropriate Cardiac exam is regular without murmurs Lungs are diminished at the bases Extremities are with 1+ edema with chronic venous stasis changes but more laxity to tissue than in the past. Results & Data Results & Data Vital Signs (Past 12 Hours) Vital Signs Temp Pulse Pulse Resp BP Pulse Ox O2 Del Method 05/19/24 15:38 57 L 05/19/24 13:51 65 05/19/24 12:51 Room Air 05/19/24 11:21 98.2 F 63 18 137/77 99 Room Air 05/19/24 07:26 98.4 F 54 L 18 130/76 100 Room Air Laboratory Results reviewed chemistry PG Care Time/CCT Total # of Minutes Spent Total Time Spent with Patient: Total time spent is greater than 50% in coordination of care (as documented) at patient's floor/unit and/or counseling patient: Coding Level of Care Code 99710 SUB INP/OBS CARE 2/35MIN Diagnoses Fall W19.XXXA Encounter type: initial encounter Bilateral lower extremity edema R60.0 CHF (congestive heart failure) I50.9 Heart failure chronicity: unspecified Heart failure type: unspecified Atrial fibrillation I48.11 Atrial fibrillation type: longstanding persistent Uncontrolled type 2 diabetes mellitus with hyperglycemia E11.65 Glycemic state: with hyperglycemia (1) Fall Encounter type: initial encounter Qualified Code(s): W19.XXXA - Unspecified fall, initial encounter (3) CHF (congestive heart failure) Heart failure chronicity: unspecified Heart failure type: unspecified Qualified Code(s): I50.9 - Heart failure, unspecified (4) Atrial fibrillation Atrial fibrillation type: longstanding persistent Qualified Code(s): I48.11 - Longstanding persistent atrial fibrillation (5) Diabetes mellitus type 2, uncontrolled Glycemic state: with hyperglycemia Qualified Code(s): E11.65 - Type 2 diabetes mellitus with hyperglycemia
[2024-05-20] MEDS ORDERED: NYSTATIN POWDER 15GM BTL EXT PRN (01:56)
[2024-05-20 07:09] LABS: BUN Creatinine Ratio 22.7 (10-20); Calcium 9.1 mg/dl (8.6-10.3); Creatinine Clr Calc Pharmacy 46.6 ml/min; Est GFR (Non-African American) 38.8 ml/min; Potassium 3.9 mmol/L (3.5-5.1)
[2024-05-20 07:15] LABS: INR 1.8 (0.9-1.1); Prothrombin Time 18.8 Seconds (9.0-12.0)
[2024-05-20 08:19] VITALS: RESP 18
[2024-05-20] MEDS: INSULIN ASPART PER UNIT CHARGE SC SCH ×2 (09:04→13:29)
[2024-05-20 12:00] VITALS: BP 156/67; PULSE 58; TEMP 97.7; O2SAT 96
--- NOTE | 2024-05-20 15:59 | Discharge Summary ---
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 05/20 (2) Bilateral lower extremity edema: - improving with diureses, now BONIFACIO will hold lasix and restart 05/19 - HFpEF, probably some pulmonary HTN due to [facility] nocturnal sleep study suggested she has significant duration of desaturations (45 minutes) will institute nocturnal oxygen at this time agrees to home oxygen - Venous Doppler bilateral lower extremity negative for DVT - (3) CHF (congestive heart failure): - Patient with Preserved ejection fraction heart failure and only taking half of her recommend dose of Lasix and potassium - Echo showed EF 60-65%, mild LVH, mild tricuspid regurg. - no change from 04/2023 echo - daily weight; 127 kg -> 117 kg CKD 3 return to home lasix dosing 40 mg daily (4) Atrial fibrillation: - A-fib seen on EKG in the ED INR is subtherapeutic, adjust warfarin at this time, discuss DOAC with pcp, question if arguello is prohibitive (5) Diabetes mellitus type 2, uncontrolled: - Patient's home regimen held on admission - Continue BSG checks, sliding-scale insulin, hypoglycemic protocol - Hemoglobin A1c 10.4 - recommend out patient follow up with PCP regarding elevated A1C pt feels her lack of control is from poor diet Plan Code status: FULL CODE Chronic stable diagnoses: GERD - continue home Protonix HLD - continue home statin Hypothyroid - recent TSH 06/2023 WNL, continue home levothyroxine HTN - stable, continue home Metoprol UA positive for nitrates, leukocyte Estrace, <10 WBC - ongoing urinary symptoms for 17 years - no clinically significant likely colonized Notes For Next Care Provider follow for urinary symptoms Admission HPI Per Admitting Provider Patient is a 79-year-old female with past medical history of congestive heart failure, hypertension, GERD, hyperlipidemia, hypothyroidism, type 2 diabetes, who presents to the hospital with fall. Patient fell while on Coumadin. Says she was having trouble walking due to her extreme leg edema. She fell while tripping over her feet and hit her head. She denies any loss of consciousness. States that she has left elbow pain and left great toe pain. States that she has been having trouble walking due to gaining about 20+ pounds over the last 2 months. She has got worsening lower extremity edema and states that she has trouble lifting her legs. She also states that she has been having orthopnea. She was post to have a PCP appointment yesterday but was concerned that she would have to come to the hospital. She states that she has been only taking half of her Lasix and potassium pills. She states that this requires her to go to the bathroom too much. She states that she has a walker at home but she does not use it. Denies any chest pain, shortness of breath, syncope, abdominal pain, or any other trauma. Patient did bring a bag of her close as she knew she would most likely be admitted to the hospital. 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 keeping a low sugar diet will also help your diabetes Keep you legs elevated when you are not standing Please follow up with primary care provider Pending Studies at Discharge: No Stand-Alone Forms: My [employer], Smoking Cessation Medications and DC Order Prescriptions: New (DME) Oxygen Home Liters Per Minute See Rx Instructions .Route Qty: 2 0RF Rx Instructions: night time use only Continued clobetasol 0.05 % cream 1 applic topical BID PRN (Reason: Rash) Qty: 1 0RF nystatin 100,000 unit/gram cream 1 applic topical BID PRN (Reason: Rash) Qty: 15 3RF clotrimazole 1 % cream See Rx Instructions topical BID 14 Days Qty: 45 1RF Rx Instructions: Apply a small amount to affected skin folds topically twice a day; atorvastatin 20 mg tablet 20 mg PO .COMPLEX Qty: 90 3RF Rx Instructions: 20 mg orally at bedtime; lisinopril 2.5 mg tablet 2.5 mg PO HS Qty: 90 3RF glimepiride 2 mg tablet 4 mg PO BID 90 Days Qty: 360 3RF Rx Instructions: Take 4 mg(2 tabs) in the morning and 4 mg(2 tabs) in the evening levothyroxine [Synthroid] 75 mcg tablet 75 mcg PO DAILYBB 90 Days Qty: 90 3RF sennosides-docusate sodium 8.6-50 mg tablet 1 tab PO BID Qty: 180 3RF metoprolol succinate 100 mg tablet extended release 24 hr 100 mg PO BID Qty: 180 3RF nystatin 100,000 unit/gram powder 1 applic topical Q8H PRN (Reason: Skin Irritation) Qty: 60 0RF tramadol 50 mg tablet 50 mg PO BID PRN (Reason: M25.50 joint ache) 30 Days Qty: 60 1RF metformin 1,000 mg tablet 1,000 mg PO BID Qty: 180 3RF lysine 500 mg tablet 500 mg PO QAM PRN (Reason: Cold Sore(s)) Qty: 7 0RF Centrum Silver 0.4-300-250 mg-mcg-mcg Tablet 1 tab PO QAM 30 Days Qty: 30 0RF cholecalciferol (vitamin D3) [Vitamin D3] 50 mcg (2,000 unit) Tablet 50 mcg PO DAILY 30 Days Qty: 30 0RF lutein-zeaxanthin 20 mg- 1,000 mcg Capsule 1 cap PO QAM 30 Days Qty: 30 0RF omeprazole 20 mg capsule,delayed release(DR/EC) 20 mg PO QPM PRN (Reason: Gi Upset) potassium chloride 20 mEq tablet extended release 20 meq PO QAM Rx Instructions: TAKE WITH FUROSEMIDE warfarin 2 mg tablet 2 mg PO 3XWK Protocol: Dose Management Condition: Monday Dose/Route: 4 mg Instruction: 1 x 4 mg tablet Condition: Monday Dose/Route: 4 mg Instruction: 1 x 4 mg tablet Condition: Monday Dose/Route: 2 mg Instruction: 1 x 2 mg tablet Condition: Monday Dose/Route: 2 mg Instruction: 1 x 2 mg tablet Condition: Dose/Route: 2 mg Instruction: 1 x 2 mg tablet Condition: Monday Dose/Route: 4 mg Instruction: 1 x 4 mg tablet Condition: Monday Dose/Route: 4 mg Instruction: 1 x 4 mg tablet Protocol Text: Adjustment Start Date: Monday07/05/23 INR Value: 2.4 INR Date: 07/04/23 Recheck Date: 07/12/23 Rx Instructions: TAKE 2 MG EVERY MONDAY, MONDAY, AND MONDAY warfarin [Jantoven] 4 mg tablet 4 mg PO 4XWK Protocol: Dose Management Condition: Monday Dose/Route: 4 mg Instruction: 1 x 4 mg tablet Condition: Monday Dose/Route: 4 mg Instruction: 1 x 4 mg tablet Condition: Monday Dose/Route: 2 mg Instruction: 1 x 2 mg tablet Condition: Monday Dose/Route: 2 mg Instruction: 1 x 2 mg tablet Condition: Dose/Route: 2 mg Instruction: 1 x 2 mg tablet Condition: Monday Dose/Route: 4 mg Instruction: 1 x 4 mg tablet Condition: Monday Dose/Route: 4 mg Instruction: 1 x 4 mg tablet Protocol Text: Adjustment Start Date: Monday07/05/23 INR Value: 2.4 INR Date: 07/04/23 Recheck Date: 07/12/23 Rx Instructions: TAKE 4MG EVERY MONDAY/MONDAY/MONDAY/MONDAY. Hair,Skin and Nails Tablet 1 tab PO DAILY Changed furosemide 40 mg tablet 40 mg PO QAM Qty: 0 0RF Discharge Orders: Discharge Order (Routine); Ordered 05/20/24 Ordered By: Adi Trent Admission Data Admit Date/Time: 05/16/24 02:08 Attending Provider: Adi Trent Admit Provider: Gordo Carter Primary Care Provider: PCP,NO Other Providers: Leonard Bee; Clay So Other Interventions: Discharge Summary Assessment (RN) Last Done: 05/20/24 11:25 Hospital Stay Data Consultations 05/16/24 01:28 ED Decision to Admit Stat Diagnostic Imagining Performed 05/15/24 23:58 CT cervical spine wo con Stat CT head/brain wo con Stat 05/16/24 02:01 US venous duplex leg [US venous doppler LE BI] Urgent Pending Results Patient Have Any Pending Studies at Discharge: No Discharge Instructions Given to Patient (Per Discharging Provider) having a good diet will be most important for you, especially focusing on low salt diet. keeping a low sugar diet will also help your diabetes Keep you legs elevated when you are not standing Please follow up with primary care provider Total Time Total Time Spent Total Time Spent (In Minutes): It required greater than 30 minutes to prepare this patient for discharge. Coding Level of Care Code 85991 INP/OBS DISCH >30 MIN Diagnoses Fall W19.XXXA Encounter type: initial encounter Bilateral lower extremity edema R60.0 CHF (congestive heart failure) I50.9 Heart failure chronicity: unspecified Heart failure type: unspecified Atrial fibrillation I48.11 Atrial fibrillation type: longstanding persistent Uncontrolled type 2 diabetes mellitus with hyperglycemia E11.65 Glycemic state: with hyperglycemia
== END 2024-05-20 15:12 | disposition home health service (06) | DRG 291 ==
LOC: ED 23:52 → SUATTDRO 05-16 02:08 → EDINP 05-16 02:08 → 2S 05-16 02:52 → 2N 05-17 14:10